=== PATIENT | male | born 1950 | race Caucasian/White ===

== ENCOUNTER 2021-04-19 15:08 | Inpatient (IN) | payer BC, MEDICARE ==
[2021-04-19] MEDS ORDERED: SODIUM CHLORIDE 0.9% 1,000 ML IV STA (15:16)
[2021-04-19] MEDS ORDERED: ASPIRIN 600 MG SUPP RECTAL STA (15:17)
[2021-04-19] MEDS ORDERED: NALOXONE 0.4 MG/ML 1 ML VIAL IV PRN (15:18)
[2021-04-19] MEDS ORDERED: ASPIRIN 300 MG SUPP RECTAL STA (15:19)
--- NOTE | 2021-04-19 15:23 | ED ---
General Adult HPI - General Stated complaint: cardiac arrest Source: EMS Mode of arrival: EMS Limitations: altered mental status - History of Present Illness Initial comments: Dictation was produced using [employer] dictation software. please excuse any grammatical, word or spelling errors. Chief Complaint: 71-year-old male presents to the emergency department after cardiac arrest History of Present Illness: [age]-old male who presents to emergency Department for cardiac arrest. Patient had a witnessed arrest by . He was allegedly sitting on the couch eating chips when he became unresponsive. CPR was initiated within 5 minutes of unresponsiveness noted. The neighbor who is a manager critical care began CPR. 911 was called. EMS arrived on scene noticed patient was in V. fib arrest. He was given defibrillation with return of spontaneous circulation. He is intubated. Patient had 2 rounds of epinephrine. He had another episode of ventricular fibrillation which he was defibrillated again. Return of spontaneous circulation was achieved. I requested that EMS provide patient with 300 amiodarone bolus prior to arrival. Patient allegedly has history of hypertension and anxiety. EMS reports that en route patient did have signs of purposeful movements. Unable to obtain secondary to mental status PHYSICAL EXAM: General Impression: Intubated, not follow commands HEENT: Normocephalic atraumatic, extra-ocular movements intact, pupils equal and reactive to light bilaterally, mucous membranes moist. Cardiovascular: Heart regular rate and rhythm Chest: Easy to bag bilaterally with bilateral breath sounds with BVM Abdomen: abdomen soft, non-tender, non-distended, no organomegaly Musculoskeletal: Pulses present and equal in all extremities, no peripheral edema Motor: No purposeful movements with painful stimuli Neurological: Mildly dilated pupils Skin: Intact with no visualized rashes ED course: 71-year-old male presents to the emergency department for cardiac arrest. He had 2 episodes of atrial fibrillation requiring defibrillation. EMS was able to transmit patient's EKG which showed large ST segment elevation RI. Code STEMI was paged prior to patient's arrival. As upon arrival shows blood pressure 100/86, heart rate of 79. Prehospital EKG shows large anterolateral ST segment elevation RI with inferior reciprocal changes. EKG performed in our em ergency department shows A. fib with ST elevations in inferior leads and lateral leads. Dr. Singh of cardiology is at the bedside during the initial stages of patient's arrival. Patient given rectal aspirin. Patient given heparin bolus. Propofol initiated for sedation. Patient given wide-open normal saline bolus. Chest shows no pneumothorax or widened mediastinum. There does appear to be evidence of pulmonary edema. Patient disposition emergently to the Inside Sales Representative. EKG interpretation: Ventricular rate 82, A. fib, QRS 110, QTc 450, ST segment elevation RI in the inferior leads and septal lateral leads. There are reciprocal changes in the high lateral leads and anterior leads.. EKG consistent with ST segment elevation RI. - Related Data Allergies Allergy/AdvReac Type Severity Reaction Status Date / Time Unable to Assess Allergy Verified 04/19/21 15:29 Review of Systems ROS Statement: Those systems with pertinent positive or pertinent negative responses have been documented in the HPI. ROS Other: All systems not noted in ROS Statement are negative. Past Medical History Additional Past Medical History / Comment(s): unk History of Any Multi-Drug Resistant Organisms: None Reported Additional Past Surgical History / Comment(s): unk Past Psychological History: Anxiety Past Alcohol Use History: Unable to Obtain General Exam Limitations: altered mental status Course Vital Signs 04/19/21 15:14 Pulse Rate 79 Respiratory 24 Rate Blood Pressure 100/86 O2 Sat by Pulse 97 Oximetry Medical Decision Making - Lab Data Result diagrams: 04/19/21 15:20 Lab Results 04/19/21 Range/Units 15:20 WBC 11.0 H (3.8-10.6) k/uL RBC 4.18 L (4.30-5.90) m/uL Hgb 13.1 (13.0-17.5) gm/dL Hct 39.9 (39.0-53.0) % MCV 95.5 (80.0-100.0) fL MCH 31.4 (25.0-35.0) pg MCHC 32.9 (31.0-37.0) g/dL RDW 12.6 (11.5-15.5) % Plt Count 201 (150-450) k/uL MPV 7.2 Neutrophils % 65 % Lymphocytes % 28 % Monocytes % 3 % Eosinophils % 1 % Basophils % 1 % Neutrophils # 7.1 (1.3-7.7) k/uL Lymphocytes # 3.1 (1.0-4.8) k/uL Monocytes # 0.4 (0-1.0) k/uL Eosinophils # 0.1 (0-0.7) k/uL Basophils # 0.1 (0-0.2) k/uL Critical Care Time Critical Care Time: Yes (33) Disposition Clinical Impression: STEMI (ST elevation myocardial infarction) Disposition: ADMITTED IP TO THIS HOSP Condition: Critical Referrals: None,Stated [REFERRING] - 1-2 days
[2021-04-19 15:34] LABS: Basophils # (A) 0.1 k/uL (0-0.2); Basophils % (A) 1 %; Eosinophils # (A) 0.1 k/uL (0-0.7); Eosinophils % (A) 1 %; HCT 39.9 % (39.0-53.0); HGB 13.1 gm/dL (13.0-17.5); Lymphocytes # (A) 3.1 k/uL (1.0-4.8); Lymphocytes % (A) 28 %; MCH 31.4 pg (25.0-35.0); MCHC 32.9 g/dL (31.0-37.0); MCV 95.5 fL (80.0-100.0); Mean Platelet Volume 7.2; Monocytes # (A) 0.4 k/uL (0-1.0); Monocytes % (A) 3 %; Neutrophils # (A) 7.1 k/uL (1.3-7.7); Neutrophils % (A) 65 %; Platelet Count 201 k/uL (150-450); RBC 4.18 m/uL (4.30-5.90); RDW 12.6 % (11.5-15.5)
[2021-04-19] MEDS ORDERED: IV FLUID CONTINUATION 1,000 ML IV ONE (15:41)
--- NOTE | 2021-04-19 15:41 | P.CRDCN ---
History of Present Illness Consult date: 04/19/21 History of present illness: This is a 71-year-old gentleman with history of anxiety, who apparently had a witnessed cardiac arrest at home. Patient was sitting in the chair eating And suddenly lost consciousness and became unresponsive. Patient never started CPR within 5 minutes and the paramedics were called in. When paramedics arrived on the scene, patient was in ventricular fibrillation requiring shock with establishment of circulation. Patient had another witnessed ventricular fibrillation requiring another shock. We will initiated on amiodarone and was brought to the emergency room. Patient was atrial fibrillation with controlled and corresponds. Blood pressure was about 80 to 100 systolic. Chest x-ray showed acute pulmonary edema. Patient is being brought to the environmental laboratory technician for further evaluation and intervention is necessary. Prognosis is poor. Patient is intubated and unresponsive. He had rigidity of the both arms. Has Review of Systems Not obtained Past Medical History Additional Past Medical History / Comment(s): unk History of Any Multi-Drug Resistant Organisms: None Reported Additional Past Surgical History / Comment(s): unk Past Psychological History: Anxiety Past Alcohol Use History: Unable to Obtain Medications and Allergies Allergies Allergy/AdvReac Type Severity Reaction Status Date / Time Unable to Assess Allergy Verified 04/19/21 15:29 Physical Exam Vitals: Vital Signs Pulse Resp BP Pulse Ox 04/19/21 15:14 79 24 100/86 97 Intake and Output 04/19/21 04/19/21 04/19/21 06:59 14:59 22:59 Other: Weight 80 kg GENERAL EXAM: Patient is intubated and unresponsive HEENT: Normocephalic. . NECK: No masses, no nuchal rigidity. CHEST: No chest wall deformity. LUNGS: [wheezing HEART: [S1 and S2 normal Distant heart sounds SKIN: No rashes CENTRAL NERVOUS SYSTEM: Deferred. EXTREMITIES: [No cyanosis, clubbing or edema.] Results 04/19/21 15:20 CBC 04/19/21 Range/Units 15:20 WBC 11.0 H (3.8-10.6) k/uL RBC 4.18 L (4.30-5.90) m/uL Hgb 13.1 (13.0-17.5) gm/dL Hct 39.9 (39.0-53.0) % Plt Count 201 (150-450) k/uL Current Medications Generic Name Dose Route Start Last Admin Trade Name Freq PRN Reason Stop Dose Admin Sodium Chloride 1,000 mls @ 999 mls/hr 04/19/21 15:16 Saline 0.9% IV 04/19/21 16:16 .Q1H1M STA Naloxone HCl 0.2 mg 04/19/21 15:18 Naloxone 0.4 Mg/Ml 1 Ml Vial IV Q2M PRN Opioid Reversal Intake and Output 04/19/21 04/19/21 04/19/21 06:59 14:59 22:59 Other: Weight 80 kg Patient Weight 04/20/21 06:59 Weight 80 kg 04/19/21 15:20 EKG Interpretations (text) Atrial fibrillation with ST elevation in inferolateral leads Assessment and Plan (1) Cardiac arrest Current Visit: Yes Status: Acute Code(s): I46.9 - CARDIAC ARREST, CAUSE UNSPECIFIED SNOMED Code(s): 065908850 (2) STEMI (ST elevation myocardial infarction) Current Visit: Yes Status: Acute Code(s): I21.3 - ST ELEVATION (STEMI) MYOCARDIAL INFARCTION OF [facility] SITE SNOMED Code(s): 58574453 Plan: Procedure cardiac catheterization
[2021-04-19 15:44] LABS: Albumin 3.2 g/dL (3.5-5.0); Calcium 7.9 mg/dL (8.4-10.2); Magnesium 2.2 mg/dL (1.6-2.3); Potassium 4.1 mmol/L (3.5-5.1); Total Bilirubin 0.3 mg/dL (0.2-1.3); Total Protein 5.9 g/dL (6.3-8.2)
[2021-04-19] MEDS ORDERED: LIDOCAINE 1% INJ 10MG/ML (20 ML MDV) SQ ONE (15:44)
[2021-04-19] MEDS ORDERED: FUROSEMIDE 10 MG/ML 4 ML VIAL IV ONE (15:46)
[2021-04-19] MEDS ORDERED: HEPARIN SODIUM 1,000 UN/ML (10ML VL) IV ONE (15:48)
[2021-04-19 15:50] LABS: INR 1.2 (<1.2); Partial Thromboplastin Time 22.2 sec (22.0-30.0); Prothrombin Time 12.6 sec (9.0-12.0)
[2021-04-19] MEDS ORDERED: NOREPINEPHRINE 4 MG in SODIUM CHLORIDE 0.9% 250 ML IV ONE (15:50)
--- NOTE | 2021-04-19 15:53 | XR ---
EXAMINATION TYPE: XR chest 1V portable DATE OF EXAM: 04/19/2021 COMPARISON: NONE HISTORY: Chest pain TECHNIQUE: Single frontal view of the chest is obtained. FINDINGS: Endotracheal tube tip over the mid trachea. Gastric tube turned upon itself coursing crani ally with the distal tip not seen. The cardiomediastinal silhouette normal limits. The pulmonary vasculature is indistinct. There is diffuse patchy opacity bilaterally. No large effusion or pneumothorax. IMPRESSION: 1. Diffuse, bilateral airspace disease 2. Gastric tube turned upon itself over the mid-esophagus and coursing cranially with the distal tip not seen. Findings were attempted to be communicated to the emergency room ([facility]) by Dr. Saurav Jacobsen on 04/06 at 1549.
[2021-04-19] MEDS ORDERED: TIROFIBAN BOLUS 12.5MG/250 ML BAG IV ONE (16:00)
[2021-04-19] MEDS ORDERED: TIROFIBAN 12.5MG-250ML NS 250 ML IV ONE (16:00)
[2021-04-19] MEDS ORDERED: HEPARIN SODIUM 1,000 UN/ML (10ML VL) ONE (16:02)
--- NOTE | 2021-04-19 16:04 | P.CARDCATH ---
Date of Procedure: 04/19/21 Preoperative Diagnosis: cardiac arrest and STEMI Postoperative Diagnosis: , severe triple-vessel disease Procedure(s) Performed: left heart catheterization without left ventriculography Description of Procedure: HISTORY: this is a 71-year-old gentleman who presented to the hospital with cardiac arrest. EKG showed ST elevations in inferolateral and anterolateral leads. Advised to have Cardiac catheterization. CONSENT:I [] PROCEDURE: Patient was brought to the lab in a fasting state. . The right groin is infiltrated with lidocaine and right femoral artery was entered using Seldinger technique. A 6-Trinidadian catheter was left in place and selective coronary arteriography and left ventriculography was performed. Patient tolerated the procedure well. Femoral angiogram was performed and Angio-Seal was applied for hemostasis. No immediate complications were noted and patient was transferred to [facility] in a stable condition Conscious Sedation: patient is intubated and sedated Fentanyl [] g Duration 10minutes HEMODYNAMICS: The aortic pressure is about 90/60 SELECTIVE CORONARY ARTERIOGRAPHY: LEFT MAIN: normal length with diffuse disease THE LEFT ANTERIOR DESCENDING CORONARY ARTERY: Totally occluded in the midportion. Diffuse disease. The distal LAD is seen with collateral flow THE LEFT CIRCUMFLEX AND IS CORONARY ARTERY: This is totally occluded after first OM branch. Distal LAD is seen collateral flow THE RIGHT CORONARY ARTERY: Nondominant with a long lesion in the midportion with 95% stenosis LEFT VENTRICULOGRAPHY: not performed FINAL IMPRESSION: Triple-vessel disease. The circumflex could be the culprit vessel PLAN: stent placement being attempted by Dr. Gould PROGNOSIS: poor
[2021-04-19] MEDS ORDERED: IOPAMIDOL-370 125ML BTL INJ ONE (16:09)
[2021-04-19] MEDS ORDERED: SODIUM CHLORIDE 0.9% 500 ML 500 ML IV ONE (16:44)
[2021-04-19] MEDS ORDERED: TICAGRELOR 90 MG TAB ONE (17:29)
[2021-04-19] MEDS ORDERED: INSULIN ASPART (NovoLOG) 100 UNIT/ML VIAL SQ SCH (17:30)
[2021-04-19] MEDS ORDERED: TICAGRELOR 90 MG TAB OG-TUBE ONE (17:31)
[2021-04-19] MEDS ORDERED: IOPAMIDOL-370 100ML BTL INJ ONE (17:33)
[2021-04-19] MEDS ORDERED: ATROPINE SULFATE 0.1 MG/ML 10ML SYRINGE IV PRN (17:44)
[2021-04-19] MEDS ORDERED: ZOLPIDEM 5 MG TAB PO PRN (17:44)
[2021-04-19] MEDS ORDERED: RX INFO: IV CONTRAST WAS GIVEN 1 EACH MISC MISCELLANE PRN (17:44)
[2021-04-19] MEDS ORDERED: NITROGLYCERIN SL TABS 0.4 MG TAB SUBLINGUAL PRN (17:44)
[2021-04-19] MEDS ORDERED: MAG HYDROX/AL HYDROX/SIMETH 30 ML CUP PO PRN (17:44)
--- NOTE | 2021-04-19 17:44 | P.PRCINT ---
Percutaneous Coronary Int. - Percutaneous Coronary Intervention Percutaneous Coronary Intervention: PROCEDURES PERFORMED: Left coronary angiography, PCI mid to distal LAD with overlapping 2.75 x 28mm, 2.5 x 33mm, 2.25 x 38 Xience NETTIE, 2.0 x 8 and 2.0 x 8mm Parrott NETTIE INDICATION: STEMI, vfib arrest HISTORY: Patient is a 71-year-old male with history of hypertension who presented with chest pain and witnessed cardiac arrest. Patient underwent a proximally 5 minutes of CPR per EMS with defibrillation for V. fib and Rosc. He was found to have minimal ST elevation anterior leads and therefore emergency heart catheterization was performed. Diagnostic procedure performed by my partner showed diffuse disease including 100% mid LAD, 100% RCA with [id number] collaterals as well as 100% subtotal circumflex with left to left collaterals. PROCEDURE: Patient had been taken to the catheterization lab and prepped and draped in usual fashion. A 6-Ukrainian sheath had already been placed in the right femoral artery using modified Seldinger technique. The decision was made to intervene on the LAD as they had been predominantly ST elevations in the anterior leads. A 6-Ukrainian CLS 3.5 guide was used to engage the left main. A 0.014 BMW wire was unable to cross the lesion however a 0.014 whisper wire was able to cross the lesion. There was diffuse disease noted in the mid to apical LAD. A guidewire was used to help facilitate advancement of equipment. Initially a 2.0 balloon had difficulty crossing and therefore a 1.5 x 12 mm balloon was used to predilate and then a 2.0 x 12 mm balloon. A 2.5 x 33 mm Xience NETTIE was positioned in the mid LAD and deployed. More proximaly a 2.75 x 28 mm Xience NETTIE was positioned overlapping the first stent and more distally a 2.25 x 38mm Xience NETTIE was deployed. There was still a apical lesion with inability to advance a 2.0 x 12 mm Parrott NETTIE and therefore two 2.0 x 8mm Parrott NETTIE were advanced to the apical LAD and deployed. The proximal portion of the stent was postdilated with a 2.75 noncompliant balloon. Pre-intervention there was 100% stenosis with KEENA 0 flow and postintervention there is less than 10% stenosis with KEENA 3 flow. Given contrast threshold further intervention of the circumflex or RCA was deferred. The patient tolerated the procedure well. Patient was transported back to the post catheterization holding area in stable condition. Conscious Sedation: Patient was monitored under the direct supervision of vision of myself for conscious sedation for a total duration of 87 minutes HEMODYNAMICS: Ao: 92/61 LV: 98/2, LVEDP 10mmHg SELECTIVE CORONARY ARTERIOGRAPHY: LEFT MAIN: The left main is a large caliber vessel which bifurcates into the LAD and circumflex. There is distal left main 20-30% stenosis. LEFT ANTERIOR DESCENDING CORONARY ARTERY: LAD is a large caliber vessel which wraps around to the apex. There is diffuse mild proximal 20-30% LAD stenosis then a 100% mid LAD with diffuse more distal 50-80% stenosis until the apical LAD is somewhat more normal in appearance. There are left to right collaterals. LEFT CIRCUMFLEX CORONARY ARTERY: Left circumflex is a moderate caliber vessel with 100% proximal circumflex stenosis and faint left to left collaterals to a few OM branchs. The circumflex stenosis appears to come immediately at the ostium. RIGHT CORONARY ARTERY: The right coronary artery was not imaged, see diagnostic catheterization, however is 100% occluded. FINAL IMPRESSION: 1. Multivessel CAD as described above with 100% LAD, 100% circumflex and 100% RCA stenosis. 2. Normal left sided filling pressures 3. S/p cardiac arrest PLAN: 1. Aggressive risk factor modification per most recent ACC/AHA guidelines. 2. Continue dual antiplatelets for 12 months. 3. Consider staged PCI of circumflex/ or MECHANICAL PIPING DESIGNER procedure of the RCA however circumflex disease noted to come to the ostium and may require more complex left main stenting. Monitor response of neurologic status.
[2021-04-19 17:54] LABS: Glucose,Whole Blood 197 mg/dL (75-99)
[2021-04-19 18:18] LABS: ABG Base Excess -5.2 mmol/L; ABG HCO3 21 mmol/L (21-25); ABG Oxygen Saturation 99.3 % (94-97); ABG PCO2 44 mmHg (35-45); ABG PO2 388 mmHg (83-108); ABG TCO2 23 mmol/L (19-24); Allen Test Performed? Yes
--- NOTE | 2021-04-19 18:51 | P.HPIM ---
History of Present Illness H&P Date: 04/19/21 Chief Complaint: STEMI This is a 71-year-old male who presented to the emergency department after cardiac arrest. Most of HPI was was taken from documentation. Per documents patient had a witnessed arrest by his while he was sitting on the couch eating potato chips. CPR was initiated for 5 minutes. Patient continued to be unresponsive. Neighbor who is a machinery erector was called and began CPR. Upon arrival, EMS identified defib arrest. Patient was defibrillated with return of spontaneous circulation. Patient was intubated and given 2 rounds of epinephrine. Patient was taken straight to track laborer for STEMI. EKG showed ST elevations in the inferolateral and anterolateral leads. 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 Per documentation the circumflex could be the culprit vessel. Review of Systems Unable to obtain due to altered mental status patient is on a vent sedated Past Medical History Additional Past Medical History / Comment(s): unk History of Any Multi-Drug Resistant Organisms: None Reported Additional Past Surgical History / Comment(s): unk Past Psychological History: Anxiety Past Alcohol Use History: Unable to Obtain Medications and Allergies Home Medications Medication Instructions Recorded Confirmed Type ALPRAZolam [Xanax] 0.25 mg PO BID PRN 04/19/21 04/19/21 History Aspirin EC [Ecotrin Low Dose] 81 mg PO DAILY 04/19/21 04/19/21 History Biotin 5 mg PO DAILY 04/19/21 04/19/21 History Escitalopram [Lexapro] 30 mg PO DAILY 04/19/21 04/19/21 History Multivitamins, Thera [Multivitamin 1 tab PO DAILY 04/19/21 04/19/21 History (formulary)] QUEtiapine [SEROquel] 50 mg PO HS 04/19/21 04/19/21 History Selenium 50 mcg PO DAILY 04/19/21 04/19/21 History busPIRone HCl [Buspar] 10 mg PO BID 04/19/21 04/19/21 History hydrOXYzine HCL [Atarax] 25 mg PO DAILY 04/19/21 04/19/21 History lisinopriL [Zestril] 20 mg PO DAILY 04/19/21 04/19/21 History Allergies Allergy/AdvReac Type Severity Reaction Status Date / Time bee venom protein (honey bee) Allergy Swelling Verified 04/19/21 17:48 Physical Exam Osteopathic Statement: *. No significant issues noted on an osteopathic structural exam other than those noted in the History and Physical/Consult. Vitals: Vital Signs Pulse Resp BP Pulse Ox 04/19/21 15:28 91 24 92/58 96 04/19/21 15:24 90 24 80/67 96 04/19/21 15:19 86 24 86/60 97 04/19/21 15:14 84 24 70/47 97 04/19/21 15:09 79 24 100/86 97 Intake and Output 04/19/21 04/19/21 04/19/21 06:59 14:59 22:59 Intake Total 0.8 Balance 0.8 Intake: IV 0 Intake, IV Titration 0.8 Amount propofoL 1,000 mg In 0.8 Empty Bag 1 bag @ Titrate IV .Q0M [facility] Rx#: [id number] Other: Weight 80 kg General: Patient is on a vent and unresponsive Derm: [warm], [dry] Head: [atraumatic], [normocephalic], [symmetric] Eyes: [EOMI], [no lid lag], [anicteric sclera] Mouth: [no lip lesion], [mucus membranes moist] Cardiovascular: [S1S2 reg], [no murmur], [positive posterior tibial pulse bilateral], Lungs: [bilateral crackles] , [no accessory muscle use] Abdominal: [soft], [ nontender to palpation], [no guarding], [no appreciable organomegaly] Ext: [no gross muscle atrophy], [no edema], [no contractures] Neuro: [ CN II-XI grossly intact], [no focal neuro deficits] Psych: Unresponsive Results CBC & Chem 7: 04/19/21 15:20 04/19/21 15:20 Labs: Abnormal Lab Results - Last 24 Hours (Table) 04/19/21 04/19/21 04/19/21 Range/Units 15:20 15:20 15:20 WBC 11.0 H (3.8-10.6) k/uL RBC 4.18 L (4.30-5.90) m/uL PT 12.6 H (9.0-12.0) sec INR 1.2 H (<1.2) Sodium 134 L (137-145) mmol/L Carbon Dioxide 20 L (22-30) mmol/L BUN 28 H (9-20) mg/dL Creatinine 1.26 H (0.66-1.25) mg/dL Glucose 279 H (74-99) mg/dL Calcium 7.9 L (8.4-10.2) mg/dL AST 402 H (17-59) U/L ALT 352 H (4-49) U/L Total Protein 5.9 L (6.3-8.2) g/dL Albumin 3.2 L (3.5-5.0) g/dL Thrombosis Risk Factor Assmnt - DVT/VTE Prophylaxis DVT/VTE Prophylaxis: Pharmacologic Prophylaxis ordered Assessment and Plan Assessment: 1. Ventilator dependent respiratory failure secondary to cardiac arrest STEMI ICU supportive care Patient is status post cardiac cath triple vessel disease identified per documents stent placement being attempted by Dr. Gould IV heparin Cardiology recommendations appreciated 2. KAVITHA secondary to hypoperfusion due to #1 Continue to trend BMP 3. Hyperglycemia likely underlying diabetes mellitus Insulin sliding scale Check hemoglobin A1c 4. Elevated liver enzymes likely secondary to hypoperfusion rule out liver disease Monitor AST and ALT Check hepatitis panel 5. Leukocytosis likely reactive Continue to trend white blood cell count 6. Bilateral pulmonary effusions likely due to heart failure Check BNP Lasix daily Strict I's and O's 7. GI DVT prophylaxis 8. A.m. labs and chest x-ray Greater than 45 minutes spent coordinating care, documentation, and counseling family. Time with Patient: Greater than 30
[2021-04-19] MEDS: NOREPINEPHRINE 4 MG in SODIUM CHLORIDE 0.9% 250 ML IV SCH (19:30)
--- NOTE | 2021-04-19 19:37 | XR ---
EXAMINATION TYPE: XR chest 1V portable DATE OF EXAM: 04/19/2021 COMPARISON: 04/19/2021 HISTORY: Cardiac arrest. Respiratory failure. TECHNIQUE: FINDINGS: Endotracheal tube is 5 cm from the era. There is coarse pulmonary interstitial edema. Th ere is nasogastric tube in the stomach. There are chest leads. IMPRESSION: There is coarse pulmonary edema which is slightly improved compared to exam 4 hours ago.
[2021-04-19] MEDS: SODIUM CHLORIDE 0.9% 1,000 ML IV SCH (20:00)
[2021-04-19 20:18] LABS: Basophils # (A) 0.1 k/uL (0-0.2); Basophils % (A) 0 %; Eosinophils # (A) 0.1 k/uL (0-0.7); Eosinophils % (A) 0 %; HCT 42.4 % (39.0-53.0); HGB 13.8 gm/dL (13.0-17.5); Lymphocytes # (A) 0.8 k/uL (1.0-4.8); Lymphocytes % (A) 3 %; MCH 30.6 pg (25.0-35.0); MCHC 32.5 g/dL (31.0-37.0); MCV 94.1 fL (80.0-100.0); Mean Platelet Volume 7.1; Monocytes # (A) 1.8 k/uL (0-1.0); Monocytes % (A) 7 %; Neutrophils % (A) 88 %; Platelet Count 267 k/uL (150-450); RBC 4.51 m/uL (4.30-5.90); RDW 12.6 % (11.5-15.5); WBC 24.9 k/uL (3.8-10.6)
[2021-04-19 20:47] LABS: Calcium 8.6 mg/dL (8.4-10.2); Magnesium 1.9 mg/dL (1.6-2.3); Potassium 5.1 mmol/L (3.5-5.1)
[2021-04-19 21:13] LABS: Glucose,Whole Blood 235 mg/dL (75-99)
[2021-04-19] MEDS: TICAGRELOR 90 MG TAB PO SCH (21:30)
[2021-04-19] MEDS: PANTOPRAZOLE 40 MG/10 ML VIAL IVP SCH (21:30)
[2021-04-19] MEDS: ATORVASTATIN 80 MG TAB PO SCH (21:32)
--- NOTE | 2021-04-20 00:18 | CT ---
EXAMINATION TYPE: CT brain wo con DATE OF EXAM: 04/19/2021 COMPARISON: None HISTORY: AMS. no prior on PACS CT DLP: 1123.4 mGycm Automated exposure control for dose reduction was used. Images obtained of the brain without contrast. Ventricles have fairly normal size. There is no mass effect nor midline shift. There is no sign of in tracranial hemorrhage. Calvarium is intact. There is fairly normal aeration of the mastoid sinuses. T here is mild cerebral atrophy. IMPRESSION: Mild atrophy. No acute intracranial abnormality.
[2021-04-20 05:52] LABS: ABG Base Excess -0.2 mmol/L; ABG HCO3 25 mmol/L (21-25); ABG Oxygen Saturation 97.7 % (94-97); ABG PCO2 40 mmHg (35-45); ABG PO2 111 mmHg (83-108); ABG TCO2 26 mmol/L (19-24); Allen Test Performed? Yes
[2021-04-20 06:18] LABS: Glucose,Whole Blood 210 mg/dL (75-99)
[2021-04-20] MEDS: INSULIN ASPART (NovoLOG) 100 UNIT/ML VIAL SQ SCH ×4 (06:24→23:46)
--- NOTE | 2021-04-20 06:32 | P.CNPUL ---
History of Present Illness Consult date: 04/20/21 History of present illness: 71-year-old male patient was seen in the ED , immediately after his arrival post cardiac arrest. The patient was at home and he had a witnessed cardiac arrest and the called the neighbor the patient was started on CPR. Within 5 minutes, EMS arrived to the scene and the patient had epinephrine, amiodarone and defibrillation 2 with subsequent return of smoking circulation. At the time of his arrival to the ED, the patient was already intubated on mechanical ventilator. His EKG was showing ST segment elevation in the inferolateral leads. At that point, the patient was taken immediately to cardiac catheterization. The patient was found to have diffuse disease involving 100% mid LAD, 100% RCA with a [id number] collaterals as well as 100% subtotal circumflex with left to left collaterals. The patient underwent PCI with mid to distal LAD stenting with a total of 5 stents inserted. Apparently his filling pressures were normal. Will start on dual antiplatelet agents. Was brought into the intensive care unit. He was sedated with propofol was currently running at 50 mics are as per kilogram per minute. CAT scan of the brain was done overnight for that showed no acute abnormalities. While on mechanical ventilator, the patient is on AC rate of 24, TV 450, Fio2 50% and he is pn a PEEP of 5. He is also on norepin ephrine running at 0.9 mics are as per kilogram per minute and he has developed adequate urine output overnight. Today intensive care unit with adequate urine output. Cardiac rhythm is sinus. Subsequent gas from this morning showed a pH of 7.4 with a pCO2 of 40 and pO2 of 111. COVID-19 testing was negative. Chest x-ray was consistent with interstitial/pulmonary edema. There was 34 with a cre atinine of 1.1 at time of admission and her white cell count was 24.9 with a hemoglobin of 13.8. The first set of troponin was less than 0.012. He did have some mild elevation of the AST and ALT.. No seizure activity. No myoclonic jerks. No clear history of aspiration. Review of Systems ROS unobtainable: due to endotracheal tube Past Medical History Past Medical History: Hypertension, Myocardial Infarction ([place]) Additional Past Medical History / Comment(s): unk Last Myocardial Infarction Date:: 04/19/21 History of Any Multi-Drug Resistant Organisms: None Reported Past Surgical History: Back Surgery, Tonsillectomy Additional Past Surgical History / Comment(s): unk Past Anesthesia/Blood Transfusion Reactions: No Reported Reaction Past Psychological History: Anxiety Past Alcohol Use History: Unable to Obtain - Past Family History Brother(s) Family Medical History: Coronary Artery Disease (CAD), Hyperlipidemia, Hypertension Father Family Medical History: Dementia Sister(s) Family Medical History: Cancer Additional Family Medical History / Comment(s): breast Medications and Allergies Home Medications Medication Instructions Recorded Confirmed Type ALPRAZolam [Xanax] 0.25 mg PO BID PRN 04/19/21 04/19/21 History Aspirin EC [Ecotrin Low Dose] 81 mg PO DAILY 04/19/21 04/19/21 History Biotin 5 mg PO DAILY 04/19/21 04/19/21 History Escitalopram [Lexapro] 30 mg PO DAILY 04/19/21 04/19/21 History Multivitamins, Thera [Multivitamin 1 tab PO DAILY 04/19/21 04/19/21 History (formulary)] QUEtiapine [SEROquel] 50 mg PO HS 04/19/21 04/19/21 History Selenium 50 mcg PO DAILY 04/19/21 04/19/21 History busPIRone HCl [Buspar] 10 mg PO BID 04/19/21 04/19/21 History hydrOXYzine HCL [Atarax] 25 mg PO DAILY 04/19/21 04/19/21 History lisinopriL [Zestril] 20 mg PO DAILY 04/19/21 04/19/21 History Allergies Allergy/AdvReac Type Severity Reaction Status Date / Time bee venom protein (honey bee) Allergy Swelling Verified 04/19/21 17:48 Physical Exam Vitals: Vital Signs Temp Pulse Pulse Resp BP Pulse Ox 04/20/21 06:00 73 24 109/58 97 04/20/21 05:45 72 24 114/56 97 04/20/21 05:30 67 24 118/60 98 04/20/21 05:15 67 24 111/65 97 04/20/21 05:00 65 24 118/59 97 04/20/21 04:45 66 24 109/56 98 04/20/21 04:30 63 17 115/63 97 11/15/21 04:15 63 20 83/49 97 04/20/21 04:00 98.4 F 68 65 24 98/57 98 04/20/21 03:45 65 13 94/57 98 04/20/21 03:30 64 24 95/56 98 04/20/21 03:15 65 24 94/55 98 04/20/21 03:00 65 26 H 99/57 98 04/20/21 02:45 67 26 H 93/56 98 04/20/21 02:30 67 24 99/57 97 04/20/21 02:15 66 24 112/64 97 04/20/21 02:00 68 28 H 84/56 100 04/20/21 01:45 75 24 94/58 98 04/20/21 01:30 70 24 94/60 100 04/20/21 01:15 72 24 95/59 100 04/20/21 01:00 68 24 85/55 100 04/20/21 00:45 73 24 86/56 100 04/20/21 00:30 72 14 87/57 100 04/20/21 00:15 72 10 L 88/62 100 04/20/21 00:00 98.5 F 71 73 24 108/64 99 04/19/21 23:15 75 24 81/56 04/19/21 23:00 82 25 H 87/55 100 04/19/21 22:45 82 24 89/69 100 04/19/21 22:30 85 24 116/74 100 04/19/21 22:15 85 24 100/68 100 04/19/21 22:00 82 24 154/97 99 04/19/21 21:45 81 24 135/76 100 04/19/21 21:30 78 24 134/75 100 04/19/21 21:15 74 24 124/64 100 04/19/21 21:00 70 24 122/68 100 04/19/21 20:45 69 24 124/65 100 04/19/21 20:30 68 24 131/70 100 04/19/21 20:15 71 24 126/69 100 04/19/21 20:00 71 70 24 125/85 100 04/19/21 19:45 70 24 111/68 100 04/19/21 19:40 97.6 F 72 24 111/68 100 04/19/21 19:30 73 24 99/65 100 04/19/21 19:20 73 24 99/67 100 04/19/21 19:10 70 24 95/58 99 04/19/21 19:00 70 24 86/56 100 04/19/21 18:50 69 24 86/56 100 04/19/21 18:40 70 24 107/63 100 04/19/21 18:30 71 24 126/77 100 04/19/21 18:20 67 24 126/77 100 04/19/21 18:10 71 17 138/86 100 04/19/21 18:00 71 27 H 143/79 100 04/19/21 17:50 97.8 F 71 26 H 143/79 100 04/19/21 15:28 91 24 92/58 96 04/19/21 15:24 90 24 80/67 96 04/19/21 15:19 86 24 86/60 97 04/19/21 15:14 84 24 70/47 97 04/19/21 15:09 79 24 100/86 97 Intake and Output 04/19/21 04/19/21 04/20/21 14:59 22:59 06:59 Intake Total 1032.640 625 Output Total 765 495 Balance 267.640 130 Intake: IV 800 525 Sodium Chloride 0.9% 1, 150 525 000 ml @ 75 mls/hr IV . [id number] KIKI Rx#:[id number] Intake, IV Titration 232.640 100 Amount Norepinephrine 4 mg In 86.360 Sodium Chloride 0.9% 250 ml @ 0.05 MCG/KG/MIN 15. 24 mls/hr IV .[id number] KIKI Rx#:[id number] propofoL 1,000 mg In 146.28 100 Empty Bag 1 bag @ Titrate IV .Q0M KIKI Rx#: [id number] Output: Urine 765 495 Other: Voiding Method Indwelling Catheter Indwelling Catheter Weight 91.8 kg 91.9 kg Gen. appearance, comfortable active distress currently is sedated with propofol. Orogastric and orotracheal tube are both in place. Head exam was generally normal. There was no scleral icterus or corneal arcus. Mucous membranes were moist. Neck was supple and without jugular venous distension, thyromegaly, or carotid bruits. Carotids were easily palpable bilaterally. There was no adenopathy. Lungs sounds are showing scattered rhonchi otherwise breath sounds are equal and symmetrical bilaterally. No significant wheezing Cardiac exam revealed the PMI to be normally situated and sized. The rhythm was regular and no extrasystoles were noted during several minutes of auscultation. The first and second heart sounds were normal and physiologic splitting of the second heart sound was noted. There were no murmurs, rubs, clicks, or gallops. Abdominal exam revealed normal bowel sounds. The abdomen was soft, non-tender, and without masses, organomegaly, or appreciable enlargement of the abdominal aorta. Extremities revealed adequate pulses and there is no cyanosis or clubbing at this point in time Neurologically sedated, and the patient was responsive to painful stimulation and he had to be sedated with propofol Examination of the skin revealed no evidence of significant rashes, suspicious appearing nevi or other concerning lesions. Results - Laboratory Findings CBC and BMP: 04/19/21 19:57 04/19/21 19:57 ABG ABG pH 7.40 (7.35-7.45) 04/20/21 05:45 ABG pCO2 40 mmHg (35-45) 04/20/21 05:45 ABG pO2 111 mmHg (83-108) H 04/20/21 05:45 ABG O2 Saturation 97.7 % (94-97) H 04/20/21 05:45 PT/INR, D-dimer PT 12.6 sec (9.0-12.0) H 04/19/21 15:20 INR 1.2 (<1.2) H 04/19/21 15:20 Abnormal lab findings: Abnormal Labs 04/19/21 04/19/21 04/19/21 15:20 15:20 15:20 WBC 11.0 H RBC 4.18 L Neutrophils # Lymphocytes # Monocytes # PT 12.6 H INR 1.2 H ABG pH ABG pO2 ABG Total CO2 ABG O2 Saturation Sodium 134 L Carbon Dioxide 20 L BUN 28 H Creatinine 1.26 H Glucose 279 H POC Glucose (mg/dL) Calcium 7.9 L AST 402 H ALT 352 H Total Protein 5.9 L Albumin 3.2 L 04/19/21 04/19/21 04/19/21 17:51 18:16 19:57 WBC 24.9 H RBC Neutrophils # 22.0 H Lymphocytes # 0.8 L Monocytes # 1.8 H PT INR ABG pH 7.30 L ABG pO2 388 H ABG Total CO2 ABG O2 Saturation 99.3 H Sodium Carbon Dioxide BUN Creatinine Glucose POC Glucose (mg/dL) 197 H Calcium AST ALT Total Protein Albumin 04/19/21 04/19/21 04/20/21 19:57 21:12 05:45 WBC RBC Neutrophils # Lymphocytes # Monocytes # PT INR ABG pH ABG pO2 111 H ABG Total CO2 26 H ABG O2 Saturation 97.7 H Sodium 134 L Carbon Dioxide 16 L BUN 34 H Creatinine Glucose 221 H POC Glucose (mg/dL) 235 H Calcium AST ALT Total Protein Albumin 04/20/21 06:16 WBC RBC Neutrophils # Lymphocytes # Monocytes # PT INR ABG pH ABG pO2 ABG Total CO2 ABG O2 Saturation Sodium Carbon Dioxide BUN Creatinine Glucose POC Glucose (mg/dL) 210 H Calcium AST ALT Total Protein Albumin - Diagnostic Findings Chest x-ray: image reviewed Assessment and Plan Plan: 1 acute V. fib cardiac arrest, witnessed, estimated down time approximately 5 minutes, received CPR, epinephrine, amiodarone, defibrillation 2 with subsequent return of spontaneous circulation [address] segment elevation myocardial infarction. Emergent cardiac catheterization showed diffuse coronary artery disease, multivessel involvement culprit being likely the circumflex 3 emergent cardiac catheterization and stenting of the LAD 5 4 acute hypoxic respiratory failure currently intubated on mechanical ventilator, currently sedated on mechanical ventilator. Chest x-ray was reviewed. Blood Was reviewed. 5 diffuse bilateral pulmonary infiltrates, consider interstitial edema versus aspiration 6 acute leukocytosis, likely reactive 7 acute hypotension post cardiac arrest, likely cardiogenic in nature currently on norepinephrine infusion for blood pressure control Plan Continue ventilator support and FiO2 has been weaned down to 40% Gentle hydration With normal saline at the rate of 75 mL an hour Keep the patient sedated with propofol Continue dual antiplatelet agents including aspirin and Brilinta intoEchocardiogram in the morning to evaluate LV function Continue norepinephrine for hemodynamic support currently on 0.9 macro hospital kilogram per minute. Recommend gradually wean Monitor white cell count Cover this patient with empiric antibiotic coverage with IV Zosyn for potential aspiration IV Protonix Heparin subcu High-dose statins Gradually wean off pressors based on the blood pressure response, keep a mean artery pressure above 65 Possible other intervention regarding the circumflex artery in the future. This will be discussed further with cardiology. Condition is critical. Look for any signs of anoxic encephalopathy despite the short downtime.
[2021-04-20 07:00] LABS: Basophils % (A) 0 %; Eosinophils % (A) 0 %; HCT 36.4 % (39.0-53.0); HGB 12.1 gm/dL (13.0-17.5); Lymphocytes # (A) 0.6 k/uL (1.0-4.8); Lymphocytes % (A) 5 %; MCH 30.8 pg (25.0-35.0); MCHC 33.3 g/dL (31.0-37.0); MCV 92.4 fL (80.0-100.0); Mean Platelet Volume 7.1; Monocytes # (A) 0.8 k/uL (0-1.0); Monocytes % (A) 6 %; Neutrophils # (A) 11.2 k/uL (1.3-7.7); Neutrophils % (A) 88 %; Platelet Count 194 k/uL (150-450); RBC 3.94 m/uL (4.30-5.90); RDW 12.9 % (11.5-15.5); WBC 12.7 k/uL (3.8-10.6)
[2021-04-20 07:36] LABS: ALT 281 U/L (4-49); AST 275 U/L (17-59); African American GFR (CKD) 77 (>60 ml/min/1.73 sqM); Albumin 3.1 g/dL (3.5-5.0); Alkaline Phosphatase 47 U/L (38-126); Anion Gap 6 mmol/L; Blood Urea Nitrogen 36 mg/dL (9-20); Calcium 8.5 mg/dL (8.4-10.2); Carbon Dioxide 24 mmol/L (22-30); Chloride 106 mmol/L (98-107); Glucose 212 mg/dL (74-99); Magnesium 1.9 mg/dL (1.6-2.3); Non-African American GFR(CKD) 66 (>60 ml/min/1.73 sqM); Phosphorus 4.3 mg/dL (2.5-4.5); Potassium 5.1 mmol/L (3.5-5.1); Sodium 136 mmol/L (137-145); Total Bilirubin 0.5 mg/dL (0.2-1.3); Total Protein 5.8 g/dL (6.3-8.2)
[2021-04-20] MEDS ORDERED: FUROSEMIDE 10 MG/ML 2 ML VIAL IV SCH (09:00)
[2021-04-20] MEDS: TICAGRELOR 90 MG TAB PO SCH ×2 (09:15→20:41)
[2021-04-20] MEDS: CHLORHEXIDINE GLUCONATE 15 ML CUP MUCOUS MEM SCH ×2 (09:15→20:41)
[2021-04-20] MEDS: ASPIRIN 81 MG PO SCH (09:15)
[2021-04-20] MEDS: HEPARIN SODIUM,PORCINE/PF 5,000 UNIT/0.5 ML SYRINGE SQ SCH ×2 (09:16→20:41)
[2021-04-20] MEDS: PIPERACILLIN-TAZOBACTAM 3.375 GM in SODIUM CHLORIDE 0.9% 100 ML IVPB SCH ×3 (09:16→23:46)
[2021-04-20] MEDS: PANTOPRAZOLE 40 MG/10 ML VIAL IVP SCH (09:16)
[2021-04-20] MEDS: SODIUM CHLORIDE 0.9% 1,000 ML IV SCH ×2 (09:16→20:41)
--- NOTE | 2021-04-20 09:17 | XR ---
EXAMINATION TYPE: XR chest 1V portable DATE OF EXAM: 04/20/2021 COMPARISON: 04/19/2021 HISTORY: Shortness of breath TECHNIQUE: Single frontal view of the chest is obtained. FINDINGS: ET and NG tube stable. There is bilateral infiltrate and small effusion. NG tube is within the distal esophagus. Hypertrophic degenerative change of the spine. Arthropathy shoulders. IMPRESSION: 1. Diffuse bilateral infiltrate stable. 2. NG tube is within the distal esophagus correlate for repositioning
[2021-04-20] MEDS: NOREPINEPHRINE 4 MG in SODIUM CHLORIDE 0.9% 250 ML IV SCH (09:30)
--- NOTE | 2021-04-20 09:36 | PN ---
PROGRESS NOTE Mr. Aldrich underwent a stenting of LAD performed by Dr. Gould. He was evaluated by Dr. Singh following what seems to be a cardiac arrest with ST elevation in the inferolateral leads. He has significant disease in RCA and circumflex. LAD was stented. Patient neurologically cannot be assessed because he is still sedated. However, his hemodynamically reasonably stable. The chest x-ray suggests some congestive heart failure. I am going to increase the Lasix to 20 mg q.12 hours, add a small dose of Coreg starting this evening and await further neuro evaluation. We will check echocardiogram. His right groin site is clean and dry with a good pulse. Blood pressure is normal. S1, S2 heard normally. Short systolic murmur noted. Lungs reveal ventilated-assisted breath sounds. Abdomen is soft. Lower extremities reveal diminished pulses. Central nervous system assessment was not performed. Prognosis remains poor. Await further progress from a neurological standpoint. MMODL / IJN: [id number] /
--- NOTE | 2021-04-20 12:00 | ECHOF ---
Referral Reason:STEMI s/p PCI MEASUREMENTS -------- HEIGHT: 180.3 cm WEIGHT: 91.6 kg BP: 124/65 RVIDd: 2.5 cm (< 3.3) IVSd: 1.3 cm (0.6 - 1.1) LVIDd: 4.7 cm (3.9 - 5.3) LVPWd: 1.3 cm (0.6 - 1.1) IVSs: 1.7 cm LVIDs: 3.9 cm LVPWs: 1.5 cm LAESV Index (A-L): 36.47 ml/m Ao Diam: 3.0 cm (2.0 - 3.7) AV Cusp: 2.1 cm (1.5 - 2.6) LA Diam: 3.8 cm (2.7 - 3.8) MV EXCURSION: 14.883 mm (> 18.000) MV EF SLOPE: 46 mm/s (70 - 150) EPSS: 1.1 cm MV E Garett: 0.44 m/s MV DecT: 220 ms MV A Garett: 0.81 m/s MV E/A Ratio: 0.54 RAP: 5.00 mmHg RVSP: 28.31 mmHg FINDINGS -------- Sinus rhythm. This was a technically difficult study with suboptimal views. Pt. on a vent. The left ventricular size is normal. Left ventricular wall thickness is normal. There is moderate global hypokinesis of LV . Overall left ventricular systolic function is moderately impaired with, an EF between 35 - 40 %. The right ventricle is normal in size. LA is moderately dilated 34-39 ml/m2 The right atrium was not well visualized. 5.0mg of Lumason was utilized for enhancement of images Interatrial and interventricular septum intact. There is no evidence of aortic regurgitation. There is no evidence of aortic stenosis. Mild mitral regurgitation is present. Mild tricuspid regurgitation present. There is no evidence of pulmonary hypertension. The right v entricular systolic pressure, as measured by Doppler, is 28.31mmHg. There is no pulmonic regurgitation present. The aortic root size is normal. IVC Not well visulized. There is no pericardial effusion. CONCLUSIONS -------- 1. The left ventricular size is normal. 2. Left ventricular wall thickness is normal. 3. There is moderate global hypokinesis of LV . 4. Overall left ventricular systolic function is moderately impaired with, an EF between 35 - 40 %. 5. LA is moderately dilated 34-39 ml/m2 6. Mild mitral regurgitation is present. 7. Mild tricuspid regurgitation present. [employer]DER: Rosalba Merlos RDCS
--- NOTE | 2021-04-20 13:12 | P.PN ---
Subjective Progress Note Date: 04/20/21 Principal diagnosis: Acute hypoxic respiratory failure secondary to cardiac arrest 71-year-old male patient was seen in the ED , immediately after his arrival post cardiac arrest. The patient was at home and he had a witnessed cardiac arrest and the called the neighbor the patient was started on CPR. Within 5 minutes, EMS arrived to the scene and the patient had epinephrine, amiodarone and defibrillation 2 with subsequent return of smoking circulation. At the time of his arrival to the ED, the patient was already intubated on mechanical ventilator. His EKG was showing ST segment elevation in the inferolateral leads. At that point, the patient was taken immediately to cardiac catheterization. The patient was found to have diffuse disease involving 100% mid LAD, 100% RCA with a [id number] collaterals as well as 100% subtotal circumflex with left to left collaterals. The patient underwent PCI with mid to distal LAD stenting with a total of 5 stents inserted. Apparently his filling pressures were normal. Will start on dual antiplatelet agents. Was brought into the intensive care unit. He was sedated with propofol was currently running at 50 mics are as per kilogram per minute. CAT scan of the brain was done overnight for that showed no acute abnormalities. While on mechanical ventilator, the patient is on AC rate of 24, TV 450, Fio2 50% and he is pn a PEEP of 5. He is also on norepinephrine running at 0.9 mics are as per kilogram per minute and he has developed adequate urine output overnight. Today intensive care unit with adequate urine output. Cardiac rhythm is sinus. Subsequent gas from this morning showed a pH of 7.4 with a pCO2 of 40 and pO2 of 111. COVID-19 testing was negative. Chest x-ray was consistent with interstitial/pulmonary edema. There was 34 with a creatinine of 1.1 at time of admission and her white cell count was 24.9 with a hemoglobin of 13.8. The first set of troponin was less than 0.012. He did have some mild elevation of the AST and ALT.. No seizure activity. No myoclonic jerks. No clear history of aspiration. Reevaluated today on 04/21/2021, patient remains in the ICU, he is intubated and mechanically ventilated. He is on assist control rate of 24, tidal volume 450 FiO2 50% and PEEP of 5. ABG showed a pO2 of 111 pCO2 of 40 pH of 7.40 patient is on propofol at 20 by Karime per kilo per minute, he is requiring norepinephrine at 0.07 mcg/kg/m. Patient is unresponsive to any stimuli, does not even open eyes with deep painful stimuli. Neurology consultation is pending, patient had 5 stents placed yesterday to LAD. Chest x-ray is suggestive of interstitial edema, bilateral interstitial infiltrates/edema noted. Hence the patient will be diuresed. And his Lasix dose was increased to 20 mg IV push every 8 hours. Cardiogram this morning showed moderately impaired left ventricular function with ejection fraction of 35%. WBC count is 12.7 hemoglobin 12.1. Electrolytes are normal BUN is 36 creatinine 1.13. Liver enzymes are elevated. BNP is elevated at 3-20. Negative PCR for COVID-19 infection. Objective - Vital Signs Vital signs: Vital Signs Temp 99.9 F H 04/20/21 08:00 Pulse 86 04/20/21 11:15 Resp 25 H 04/20/21 11:15 BP 123/69 04/20/21 11:15 Pulse Ox 100 04/20/21 11:15 Intake & Output 04/19/21 04/20/21 04/20/21 18:59 06:59 18:59 Intake Total 650.8 1124.986 740.337 Output Total 1360 1130 Balance 650.8 -235.014 -389.663 Weight 91.8 kg 91.9 kg Intake: IV 650 750 375 Sodium Chloride 0.9% 1, 750 375 000 ml @ 75 mls/hr IV . [id number] KIKI Rx#:[id number] Intake, IV Titration 0.8 374.986 365.337 Amount Norepinephrine 4 mg In 86.360 183.286 Sodium Chloride 0.9% 250 ml @ 0.05 MCG/KG/MIN 15. 24 mls/hr IV .[id number] KIKI Rx#:[id number] Piperacillin-Tazobactam 3 100 .375 gm In Sodium Chloride 0.9% 100 ml @ 25 mls/hr IVPB Q8HR KIKI Rx# :[id number] propofoL 1,000 mg In 0.8 288.626 82.051 Empty Bag 1 bag @ Titrate IV .Q0M KIKI Rx#: [id number] Output: Urine 1360 1130 Other: Voiding Method Indwelling Catheter Indwelling Catheter Indwelling Catheter - Exam Physical Exam revealed a 71-year-old white male unresponsive to any stimuli. Intubated and mechanically ventilated. Head: Atraumatic, normocephalic. Endotracheal tube and orogastric tube are intact. HEENT:[Neck is supple.] [No neck masses.] [No thyromegaly.] [No JVD.] Chest: Symmetrical chest expansion, crackles at the bases bilaterally. No rhonchi and no wheezes.] Cardiac Exam: [Normal S1 and S2, no S3 gallop, 2/6 systolic murmur thought the precordium. Abdomen: [Soft, nontender, no megaly, no rebound, no guarding, normal bowel sounds.] Extremities: [No clubbing, no edema, no cyanosis.] Neurological Exam: Unresponsive to any painful stimuli. Patient is on propofol which is presently on hold. Psychiatric: Unresponsive to any stimuli. Skin: No rashes. - Labs CBC & Chem 7: 04/20/21 06:35 04/20/21 06:35 Labs: Abnormal Lab Results - Last 24 Hours (Table) 04/19/21 04/19/21 04/19/21 Range/Units 15:20 15:20 15:20 WBC 11.0 H (3.8-10.6) k/uL RBC 4.18 L (4.30-5.90) m/uL Hgb (13.0-17.5) gm/dL Hct (39.0-53.0) % Neutrophils # (1.3-7.7) k/uL Lymphocytes # (1.0-4.8) k/uL Monocytes # (0-1.0) k/uL PT 12.6 H (9.0-12.0) sec INR 1.2 H (<1.2) ABG pH (7.35-7.45) ABG pO2 (83-108) mmHg ABG Total CO2 (19-24) mmol/L ABG O2 Saturation (94-97) % Sodium 134 L (137-145) mmol/L Carbon Dioxide 20 L (22-30) mmol/L BUN 28 H (9-20) mg/dL Creatinine 1.26 H (0.66-1.25) mg/dL Glucose 279 H (74-99) mg/dL POC Glucose (mg/dL) (75-99) mg/dL Calcium 7.9 L (8.4-10.2) mg/dL AST 402 H (17-59) U/L ALT 352 H (4-49) U/L Troponin I (0.000-0.034) ng/mL Total Protein 5.9 L (6.3-8.2) g/dL Albumin 3.2 L (3.5-5.0) g/dL TSH (0.465-4.680) mIU/L 04/19/21 04/19/21 04/19/21 Range/Units 17:51 18:16 19:57 WBC 24.9 H (3.8-10.6) k/uL RBC (4.30-5.90) m/uL Hgb (13.0-17.5) gm/dL Hct (39.0-53.0) % Neutrophils # 22.0 H (1.3-7.7) k/uL Lymphocytes # 0.8 L (1.0-4.8) k/uL Monocytes # 1.8 H (0-1.0) k/uL PT (9.0-12.0) sec INR (<1.2) ABG pH 7.30 L (7.35-7.45) ABG pO2 388 H (83-108) mmHg ABG Total CO2 (19-24) mmol/L ABG O2 Saturation 99.3 H (94-97) % Sodium (137-145) mmol/L Carbon Dioxide (22-30) mmol/L BUN (9-20) mg/dL Creatinine (0.66-1.25) mg/dL Glucose (74-99) mg/dL POC Glucose (mg/dL) 197 H (75-99) mg/dL Calcium (8.4-10.2) mg/dL AST (17-59) U/L ALT (4-49) U/L Troponin I (0.000-0.034) ng/mL Total Protein (6.3-8.2) g/dL Albumin (3.5-5.0) g/dL TSH (0.465-4.680) mIU/L 04/19/21 04/19/21 04/20/21 Range/Units 19:57 21:12 05:45 WBC (3.8-10.6) k/uL RBC (4.30-5.90) m/uL Hgb (13.0-17.5) gm/dL Hct (39.0-53.0) % Neutrophils # (1.3-7.7) k/uL Lymphocytes # (1.0-4.8) k/uL Monocytes # (0-1.0) k/uL PT (9.0-12.0) sec INR (<1.2) ABG pH (7.35-7.45) ABG pO2 111 H (83-108) mmHg ABG Total CO2 26 H (19-24) mmol/L ABG O2 Saturation 97.7 H (94-97) % Sodium 134 L (137-145) mmol/L Carbon Dioxide 16 L (22-30) mmol/L BUN 34 H (9-20) mg/dL Creatinine (0.66-1.25) mg/dL Glucose 221 H (74-99) mg/dL POC Glucose (mg/dL) 235 H (75-99) mg/dL Calcium (8.4-10.2) mg/dL AST (17-59) U/L ALT (4-49) U/L Troponin I (0.000-0.034) ng/mL Total Protein (6.3-8.2) g/dL Albumin (3.5-5.0) g/dL TSH (0.465-4.680) mIU/L 04/20/21 04/20/21 04/20/21 Range/Units 06:16 06:35 06:35 WBC 12.7 H (3.8-10.6) k/uL RBC 3.94 L (4.30-5.90) m/uL Hgb 12.1 L (13.0-17.5) gm/dL Hct 36.4 L (39.0-53.0) % Neutrophils # 11.2 H (1.3-7.7) k/uL Lymphocytes # 0.6 L (1.0-4.8) k/uL Monocytes # (0-1.0) k/uL PT (9.0-12.0) sec INR (<1.2) ABG pH (7.35-7.45) ABG pO2 (83-108) mmHg ABG Total CO2 (19-24) mmol/L ABG O2 Saturation (94-97) % Sodium 136 L (137-145) mmol/L Carbon Dioxide (22-30) mmol/L BUN 36 H (9-20) mg/dL Creatinine (0.66-1.25) mg/dL Glucose 212 H (74-99) mg/dL POC Glucose (mg/dL) 210 H (75-99) mg/dL Calcium (8.4-10.2) mg/dL AST 275 H (17-59) U/L ALT 281 H (4-49) U/L Troponin I (0.000-0.034) ng/mL Total Protein 5.8 L (6.3-8.2) g/dL Albumin 3.1 L (3.5-5.0) g/dL TSH 0.076 L (0.465-4.680) mIU/L 04/20/21 Range/Units 06:35 WBC (3.8-10.6) k/uL RBC (4.30-5.90) m/uL Hgb (13.0-17.5) gm/dL Hct (39.0-53.0) % Neutrophils # (1.3-7.7) k/uL Lymphocytes # (1.0-4.8) k/uL Monocytes # (0-1.0) k/uL PT (9.0-12.0) sec INR (<1.2) ABG pH (7.35-7.45) ABG pO2 (83-108) mmHg ABG Total CO2 (19-24) mmol/L ABG O2 Saturation (94-97) % Sodium (137-145) mmol/L Carbon Dioxide (22-30) mmol/L BUN (9-20) mg/dL Creatinine (0.66-1.25) mg/dL Glucose (74-99) mg/dL POC Glucose (mg/dL) (75-99) mg/dL Calcium (8.4-10.2) mg/dL AST (17-59) U/L ALT (4-49) U/L Troponin I 2.000 H* (0.000-0.034) ng/mL Total Protein (6.3-8.2) g/dL Albumin (3.5-5.0) g/dL TSH (0.465-4.680) mIU/L Microbiology - Last 24 Hours (Table) 04/19/21 15:57 Gram Stain - Preliminary Sputum Sputum Culture - Preliminary Assessment and Plan Assessment: Impression: Acute hypoxic respiratory failure most likely secondary to acute ventricular fibrillation cardiac arrest, status post CPR for 5 minutes, received epinephrine, amiodarone, defibrillation 2 and subsequent return of spontaneous circulation. Acute inferior lateral ST segment elevation myocardial infarction and the patient received emergent cardiac catheterization and stenting of the LAD. Acute pulmonary edema, possible aspiration pneumonia, most likely secondary to acute ischemic cardiomyopathy and LV dysfunction. Acute leukocytosis, likely reactive. Cardiogenic shock with hypotension requiring norepinephrine. Possible anoxic brain injury Recommendation Continue ventilatory support. No changes were made with the ventilator settings. Continue diuretics. Cut down IV fluids to KVO. Continue antiplatelet agents Continue norepinephrine and titrate accordingly. Assessment of status off propofol if possible. Neurological consultation to assess for acute anoxic brain injury Empiric antibiotics for presumptive or possible aspiration. Continue IV Protonix. Continue high dose statins. Overall picture is not very promising, patient is critically ill. We will continue to follow. Critical care time is over 30 minutes. Time with Patient: Greater than 30
[2021-04-20 13:17] LABS: Glucose,Whole Blood 196 mg/dL (75-99)
--- NOTE | 2021-04-20 16:18 | P.CNNES ---
History of Present Illness Consult date: 04/20/21 Requesting physician: Art Hammer Reason for Consult: Cardiac arrest, status post NV. History of Present Illness: Patient is a 71-year-old male brought to the hospital for cardiac arrest. Patient's family had mentioned that he was sitting in the chair, eating some chips, and per his , it sounded like he choked on the chip. 911 was was contacted at 2:03 PM yesterday. It took another 5 minutes for EMS to arrive. The monitor showing ventricular fibrillation. Patient had approximately 5 minutes prior CPR. He was given shock. The monitor showing asystole. Patient's pulse returned at 2:25 PM when CPR was discontinued. Patient was found to have atrial fibrillation with ST elevation. Patient went back to ventricular fibrillation without a pulse and he was defibrillated a second time at 300 J and a second round of appendectomy. Willy device started for mechanical CPR. Patient has return of spontaneous circulation. On review of the data from EMS flow sheet, patient has return of spontaneous circulation at 2:27 PM, and lost the pulse again at 2:44 PM and reappeared at 2:48 PM. Although based upon above documentation, the cardiac arrest was for 27 minutes the first time in 4 minutes the second time. However family member states that patient was in and out of cardiac arrest for the initial 27 minutes of cardiac arrest as well. EKG shows atrial fibrillation, inferior posterior infarct, possible acute. Chest x-ray showed diffuse bilateral airspace disease. Gastric tube turned upon itself over the mid esophagus and coursing cranially at the distal tip not seen. CT head showed mild atrophy, no acute intracranial process. 2-D echo shows normal left ventricular size. Normal left-ventricular wall thickness. Moderate global hypokinesis of left ventricle. EF is moderately impaired between 35-40%. Left atrium is moderately dilated. Blood test shows WBC 11.0 hemoglobin 13.1, normal platelets. PT/PTT normal. Sodium 134 potassium 4.1, BU and 28, creatinine 1.26. AST is 42, ALT 352. Troponin was negative. Dodson virus PCR negative. Repeat troponin is 2.0. Patient's TFTs normal. Patient underwent urgent artery catheterization which revealed triple-vessel disease. The circumflex could be the culprit vessel. Patient underwent 5 stents placement. Patient was on depression, which was turned off at 10:25 AM. Patient was seen in the ICU at 12 noon. Nurses reported the patient is not responding, although he does have gag, cough, pupils are reactive. Neurological evaluation was initiated. I spoke to patient's and 2 daughters. Patient prior to the cardiac arrest was normal functioning adult. He would do regular exercises. Did not have any diabetes, alcohol or tobacco use. He does have hypertension. He is otherwise very healthy. Review of Systems ROS unobtainable: due to endotracheal tube, due to mental status Past Medical History Past Medical History: Hypertension, Myocardial Infarction (NV) Additional Past Medical History / Comment(s): unk Last Myocardial Infarction Date:: 04/19/21 History of Any Multi-Drug Resistant Organisms: None Reported Past Surgical History: Back Surgery, Tonsillectomy Additional Past Surgical History / Comment(s): unk Past Anesthesia/Blood Transfusion Reactions: No Reported Reaction Past Psychological History: Anxiety Past Alcohol Use History: Unable to Obtain - Past Family History Brother(s) Family Medical History: Coronary Artery Disease (CAD), Hyperlipidemia, Hypertension Father Family Medical History: Dementia Sister(s) Family Medical History: Cancer Additional Family Medical History / Comment(s): breast Medications and Allergies Home Medications Medication Instructions Recorded Confirmed Type ALPRAZolam [Xanax] 0.25 mg PO BID PRN 04/19/21 04/19/21 History Aspirin EC [Ecotrin Low Dose] 81 mg PO DAILY 04/19/21 04/19/21 History Biotin 5 mg PO DAILY 04/19/21 04/19/21 History Escitalopram [Lexapro] 30 mg PO DAILY 04/19/21 04/19/21 History Multivitamins, Thera [Multivitamin 1 tab PO DAILY 04/19/21 04/19/21 History (formulary)] QUEtiapine [SEROquel] 50 mg PO HS 04/19/21 04/19/21 History Selenium 50 mcg PO DAILY 04/19/21 04/19/21 History busPIRone HCl [Buspar] 10 mg PO BID 04/19/21 04/19/21 History hydrOXYzine HCL [Atarax] 25 mg PO DAILY 04/19/21 04/19/21 History lisinopriL [Zestril] 20 mg PO DAILY 04/19/21 04/19/21 History Allergies Allergy/AdvReac Type Severity Reaction Status Date / Time bee venom protein (honey bee) Allergy Swelling Verified 04/19/21 17:48 Physical Examination - Vital Signs Vital Signs: Vital Signs Temp Pulse Pulse Resp BP Pulse Ox 04/20/21 15:00 100 28 H 137/72 98 04/20/21 14:30 102 H 22 122/80 98 04/20/21 14:00 96 18 116/80 96 04/20/21 13:30 97 26 H 123/74 98 04/20/21 13:00 96 34 H 132/76 100 04/20/21 12:30 94 25 H 144/95 100 04/20/21 12:00 90 65 18 132/72 100 04/20/21 11:30 91 26 H 124/77 100 04/20/21 11:15 86 25 H 123/69 100 04/20/21 11:00 87 27 H 109/70 100 04/20/21 10:45 88 27 H 109/62 99 04/20/21 10:30 85 26 H 124/72 98 04/20/21 10:15 80 25 H 124/65 96 04/20/21 10:00 76 25 H 114/63 96 04/20/21 09:45 84 25 H 119/62 98 04/20/21 09:30 78 24 112/62 96 04/20/21 09:15 80 25 H 119/61 96 04/20/21 09:00 82 25 H 113/65 97 04/20/21 08:45 79 25 H 115/62 98 04/20/21 08:30 80 25 H 115/62 98 04/20/21 08:15 79 26 H 124/61 98 04/20/21 08:00 99.9 F H 80 65 24 111/60 99 04/20/21 07:45 78 25 H 101/60 98 04/20/21 07:30 77 24 108/62 98 04/20/21 07:15 77 22 105/61 98 04/20/21 07:00 73 24 121/61 98 04/20/21 06:45 77 25 H 106/66 97 04/20/21 06:30 74 25 H 118/59 97 04/20/21 06:15 74 26 H 113/58 97 04/20/21 06:00 73 24 109/58 97 04/20/21 05:45 72 24 114/56 97 04/20/21 05:30 67 24 118/60 98 04/20/21 05:15 67 24 111/65 97 04/20/21 05:00 65 24 118/59 97 04/20/21 04:45 66 24 109/56 98 04/20/21 04:30 63 17 115/63 97 04/20/21 04:15 63 20 83/49 97 04/20/21 04:00 98.4 F 68 65 24 98/57 98 04/20/21 03:45 65 13 94/57 98 04/20/21 03:30 64 24 95/56 98 04/20/21 03:15 65 24 94/55 98 04/20/21 03:00 65 26 H 99/57 98 04/20/21 02:45 67 26 H 93/56 98 04/20/21 02:30 67 24 99/57 97 04/20/21 02:15 66 24 112/64 97 04/20/21 02:00 68 28 H 84/56 100 04/20/21 01:45 75 24 94/58 98 04/20/21 01:30 70 24 94/60 100 04/20/21 01:15 72 24 95/59 100 04/20/21 01:00 68 24 85/55 100 04/20/21 00:45 73 24 86/56 100 04/20/21 00:30 72 14 87/57 100 04/20/21 00:15 72 10 L 88/62 100 04/20/21 00:00 98.5 F 71 73 24 108/64 99 04/19/21 23:15 75 24 81/56 04/19/21 23:00 82 25 H 87/55 100 04/19/21 22:45 82 24 89/69 100 04/19/21 22:30 85 24 116/74 100 04/19/21 22:15 85 24 100/68 100 04/19/21 22:00 82 24 154/97 99 04/19/21 21:45 81 24 135/76 100 04/19/21 21:30 78 24 134/75 100 04/19/21 21:15 74 24 124/64 100 04/19/21 21:00 70 24 122/68 100 04/19/21 20:45 69 24 124/65 100 04/19/21 20:30 68 24 131/70 100 04/19/21 20:15 71 24 126/69 100 04/19/21 20:00 71 70 24 125/85 100 04/19/21 19:45 70 24 111/68 100 04/19/21 19:40 97.6 F 72 24 111/68 100 04/19/21 19:30 73 24 99/65 100 04/19/21 19:20 73 24 99/67 100 04/19/21 19:10 70 24 95/58 99 04/19/21 19:00 70 24 86/56 100 04/19/21 18:50 69 24 86/56 100 04/19/21 18:40 70 24 107/63 100 04/19/21 18:30 71 24 126/77 100 04/19/21 18:20 67 24 126/77 100 04/19/21 18:10 71 17 138/86 100 04/19/21 18:00 71 27 H 143/79 100 04/19/21 17:50 97.8 F 71 26 H 143/79 100 Intake and Output 04/20/21 04/20/21 04/20/21 06:59 14:59 22:59 Intake Total 743.146 965.337 75 Output Total 595 1480 100 Balance 148.146 -514.663 -25 Intake: IV 600 600 75 Sodium Chloride 0.9% 1, 600 600 75 000 ml @ 75 mls/hr IV . [id number] KIKI Rx#:[id number] Intake, IV Titration 143.146 365.337 Amount Norepinephrine 4 mg In 183.286 Sodium Chloride 0.9% 250 ml @ 0.05 MCG/KG/MIN 15. 24 mls/hr IV .[id number] KIKI Rx#:[id number] Piperacillin-Tazobactam 3 100 .375 gm In Sodium Chloride 0.9% 100 ml @ 25 mls/hr IVPB Q8HR KIKI Rx# :[id number] propofoL 1,000 mg In 143.146 82.051 Empty Bag 1 bag @ Titrate IV .Q0M KIKI Rx#: [id number] Output: Urine 595 1480 100 Other: Voiding Method Indwelling Catheter Indwelling Catheter Weight 91.9 kg 91.626 kg Patient is an elderly male, who is intubated. Patient is off sedation for last 1-1/2 hours. Patient is obtunded, unresponsive to calling his name. However when painful stimuli was given to the nail bed in the arms and then legs, patient opened his eyes, had abnormal gaze, looking upwards. Patient did turn his head to the right, as well as to the left at times, not necessarily related towards the sti mulus. Patient did not make clear eye contact. Speech and language functions cannot be assessed because of mental status and intubation. Attention, concentration and fund of knowledge cannot be assessed, patient severely obtunded. Patient would frequently cough, appears uncomfortable, restless. On cranial examination, pupils are round and reacting to light, oculocephalics appear slightly positive, visual sheikh could not be tested. extraocular muscles could not be tested. Face , tongue, palate, shoulder, facial sensations could not be tested. On muscle strength testing, patient did not squeeze the hand, or wiggle the toes. He did withdraw clearly to painful stimuli in the lower extremities more than the upper. Deep tendon reflexes are 1 in the upper limbs, 2 in the lower limbs, plantars are downgoing versus withdrawal. Sensory examination to painful stimuli as above. Cerebellar function cannot be checked Gait cannot be checked. On general examination, there is no carotid bruit or murmur, S1-S2 audible. Abdomen is soft nontender. Chest is clear. Peripheral pulses are present. No edema. Results - Laboratory Findings CBC and BMP: 04/21/21 03:53 04/21/21 03:53 Abnormal Lab Findings: Abnormal Labs 04/19/21 04/19/21 04/19/21 15:20 15:20 15:20 WBC 11.0 H RBC 4.18 L Hgb Hct Neutrophils # Lymphocytes # Monocytes # PT 12.6 H INR 1.2 H ABG pH ABG pO2 ABG Total CO2 ABG O2 Saturation Sodium 134 L Carbon Dioxide 20 L BUN 28 H Creatinine 1.26 H Glucose 279 H POC Glucose (mg/dL) Calcium 7.9 L AST 402 H ALT 352 H Troponin I Total Protein 5.9 L Albumin 3.2 L TSH 04/19/21 04/19/21 04/19/21 17:51 18:16 19:57 WBC 24.9 H RBC Hgb Hct Neutrophils # 22.0 H Lymphocytes # 0.8 L Monocytes # 1.8 H PT INR ABG pH 7.30 L ABG pO2 388 H ABG Total CO2 ABG O2 Saturation 99.3 H Sodium Carbon Dioxide BUN Creatinine Glucose POC Glucose (mg/dL) 197 H Calcium AST ALT Troponin I Total Protein Albumin TSH 04/19/21 04/19/21 04/20/21 19:57 21:12 05:45 WBC RBC Hgb Hct Neutrophils # Lymphocytes # Monocytes # PT INR ABG pH ABG pO2 111 H ABG Total CO2 26 H ABG O2 Saturation 97.7 H Sodium 134 L Carbon Dioxide 16 L BUN 34 H Creatinine Glucose 221 H POC Glucose (mg/dL) 235 H Calcium AST ALT Troponin I Total Protein Albumin TSH 04/20/21 04/20/21 04/20/21 06:16 06:35 06:35 WBC 12.7 H RBC 3.94 L Hgb 12.1 L Hct 36.4 L Neutrophils # 11.2 H Lymphocytes # 0.6 L Monocytes # PT INR ABG pH ABG pO2 ABG Total CO2 ABG O2 Saturation Sodium 136 L Carbon Dioxide BUN 36 H Creatinine Glucose 212 H POC Glucose (mg/dL) 210 H Calcium AST 275 H ALT 281 H Troponin I Total Protein 5.8 L Albumin 3.1 L TSH 0.076 L 04/20/21 04/20/21 06:35 13:15 WBC RBC Hgb Hct Neutrophils # Lymphocytes # Monocytes # PT INR ABG pH ABG pO2 ABG Total CO2 ABG O2 Saturation Sodium Carbon Dioxide BUN Creatinine Glucose POC Glucose (mg/dL) 196 H Calcium AST ALT Troponin I 2.000 H* Total Protein Albumin TSH Assessment and Plan Assessment: * Cardiac arrest with somewhat prolonged downtime. Patient is off sedation for last 1.5 hours. He has started showing some response, with eyes being open, but still no eye contact or obvious purposeful responses. He does have withdrawal response to painful stimuli in the lower extremities. He would inconsistently move his head to the right and then to the left side. Not clearly if it was purposeful, probably more reflexive due to restlessness. * Ventilator-dependent respiratory failure, on mechanical ventilation. * Acute NV, status post cardiac catheterization requiring stenting. * Hypertension Plan: * Patient is waking up, following discontinuation of propofol. Examination was still abnormal, but will need close monitoring in the next 24 hours to evaluate for any meaningful response. Examination is relatively nonfocal. * We will continue close neurological evaluation. * EEG * Discussed with patient's and daughters in detail. * We will continue to follow the patient with you. * Thank you for the consult. Addendum: Patient reevaluated at around 6 PM. Patient is clearly opening his eyes to calling the name, but still not much tracking or eye contact. Patient is off sedation. We will continue to follow. Discussed with family members.
[2021-04-20 16:53] LABS: Hepatitis A Antibody IgM Nonreactive (Nonreactive); Hepatitis B Core IgM Nonreactive (Nonreactive); Hepatitis B Surface Antigen Nonreactive (Nonreactive); Hepatitis C IgG Antibody Nonreactive (Nonreactive)
--- NOTE | 2021-04-20 17:10 | P.PN ---
Subjective Patient was sedated and intubated this morning. No acute events overnight. Objective - Vital Signs Vital signs: Vital Signs Temp 99.9 F H 04/20/21 08:00 Pulse 100 04/20/21 15:00 Resp 28 H 04/20/21 15:00 BP 137/72 04/20/21 15:00 Pulse Ox 98 04/20/21 15:00 Intake & Output 04/19/21 04/20/21 04/20/21 18:59 06:59 18:59 Intake Total 650.8 7443.391 1766.337 Output Total 1360 1580 Balance 650.8 -235.014 -539.663 Weight 91.8 kg 91.9 kg 91.626 kg Intake: IV 650 750 675 Sodium Chloride 0.9% 1, 750 675 000 ml @ 75 mls/hr IV . [id number] KIKI Rx#:[id number] Intake, IV Titration 0.8 374.986 365.337 Amount Norepinephrine 4 mg In 86.360 183.286 Sodium Chloride 0.9% 250 ml @ 0.05 MCG/KG/MIN 15. 24 mls/hr IV .[id number] KIKI Rx#:[id number] Piperacillin-Tazobactam 3 100 .375 gm In Sodium Chloride 0.9% 100 ml @ 25 mls/hr IVPB Q8HR KIKI Rx# :[id number] propofoL 1,000 mg In 0.8 288.626 82.051 Empty Bag 1 bag @ Titrate IV .Q0M KIKI Rx#: [id number] Output: Urine 1360 1580 Other: Voiding Method Indwelling Catheter Indwelling Catheter Indwelling Catheter - Exam General: The patient is sedated and intubated Eye: there is normal conjunctiva bilaterally. Neck: The neck is supple, there is no JVD. Cardiovascular: Normal S1-S2, no S3-S4, no murmurs. Respiratory: Lungs clear to auscultation bilaterally with mechanical ventilator sounds Gastrointestinal: Abdomen is soft, nontender Musculoskeletal: There is no pedal edema. Skin: Skin is warm and dry - Labs CBC & Chem 7: 04/20/21 06:35 04/20/21 06:35 Labs: Abnormal Lab Results - Last 24 Hours (Table) 11/14/21 11/14/21 11/14/21 Range/Units 17:51 18:16 19:57 WBC 24.9 H (3.8-10.6) k/uL RBC (4.30-5.90) m/uL Hgb (13.0-17.5) gm/dL Hct (39.0-53.0) % Neutrophils # 22.0 H (1.3-7.7) k/uL Lymphocytes # 0.8 L (1.0-4.8) k/uL Monocytes # 1.8 H (0-1.0) k/uL ABG pH 7.30 L (7.35-7.45) ABG pO2 388 H (83-108) mmHg ABG Total CO2 (19-24) mmol/L ABG O2 Saturation 99.3 H (94-97) % Sodium (137-145) mmol/L Carbon Dioxide (22-30) mmol/L BUN (9-20) mg/dL Glucose (74-99) mg/dL POC Glucose (mg/dL) 197 H (75-99) mg/dL Hemoglobin A1c (4.0-6.0) % AST (17-59) U/L ALT (4-49) U/L Troponin I (0.000-0.034) ng/mL Total Protein (6.3-8.2) g/dL Albumin (3.5-5.0) g/dL TSH (0.465-4.680) mIU/L 04/19/21 04/19/21 04/20/21 Range/Units 19:57 21:12 05:45 WBC (3.8-10.6) k/uL RBC (4.30-5.90) m/uL Hgb (13.0-17.5) gm/dL Hct (39.0-53.0) % Neutrophils # (1.3-7.7) k/uL Lymphocytes # (1.0-4.8) k/uL Monocytes # (0-1.0) k/uL ABG pH (7.35-7.45) ABG pO2 111 H (83-108) mmHg ABG Total CO2 26 H (19-24) mmol/L ABG O2 Saturation 97.7 H (94-97) % Sodium 134 L (137-145) mmol/L Carbon Dioxide 16 L (22-30) mmol/L BUN 34 H (9-20) mg/dL Glucose 221 H (74-99) mg/dL POC Glucose (mg/dL) 235 H (75-99) mg/dL Hemoglobin A1c (4.0-6.0) % AST (17-59) U/L ALT (4-49) U/L Troponin I (0.000-0.034) ng/mL Total Protein (6.3-8.2) g/dL Albumin (3.5-5.0) g/dL TSH (0.465-4.680) mIU/L 04/20/21 04/20/21 04/20/21 Range/Units 06:16 06:35 06:35 WBC (3.8-10.6) k/uL RBC (4.30-5.90) m/uL Hgb (13.0-17.5) gm/dL Hct (39.0-53.0) % Neutrophils # (1.3-7.7) k/uL Lymphocytes # (1.0-4.8) k/uL Monocytes # (0-1.0) k/uL ABG pH (7.35-7.45) ABG pO2 (83-108) mmHg ABG Total CO2 (19-24) mmol/L ABG O2 Saturation (94-97) % Sodium 136 L (137-145) mmol/L Carbon Dioxide (22-30) mmol/L BUN 36 H (9-20) mg/dL Glucose 212 H (74-99) mg/dL POC Glucose (mg/dL) 210 H (75-99) mg/dL Hemoglobin A1c 6.6 H (4.0-6.0) % AST 275 H (17-59) U/L ALT 281 H (4-49) U/L Troponin I (0.000-0.034) ng/mL Total Protein 5.8 L (6.3-8.2) g/dL Albumin 3.1 L (3.5-5.0) g/dL TSH 0.076 L (0.465-4.680) mIU/L 04/20/21 04/20/21 04/20/21 Range/Units 06:35 06:35 13:15 WBC 12.7 H (3.8-10.6) k/uL RBC 3.94 L (4.30-5.90) m/uL Hgb 12.1 L (13.0-17.5) gm/dL Hct 36.4 L (39.0-53.0) % Neutrophils # 11.2 H (1.3-7.7) k/uL Lymphocytes # 0.6 L (1.0-4.8) k/uL Monocytes # (0-1.0) k/uL ABG pH (7.35-7.45) ABG pO2 (83-108) mmHg ABG Total CO2 (19-24) mmol/L ABG O2 Saturation (94-97) % Sodium (137-145) mmol/L Carbon Dioxide (22-30) mmol/L BUN (9-20) mg/dL Glucose (74-99) mg/dL POC Glucose (mg/dL) 196 H (75-99) mg/dL Hemoglobin A1c (4.0-6.0) % AST (17-59) U/L ALT (4-49) U/L Troponin I 2.000 H* (0.000-0.034) ng/mL Total Protein (6.3-8.2) g/dL Albumin (3.5-5.0) g/dL TSH (0.465-4.680) mIU/L Microbiology - Last 24 Hours (Table) 04/19/21 15:57 Gram Stain - Preliminary Sputum Sputum Culture - Preliminary Assessment and Plan Assessment: This is a 71-year-old male who presented to the emergency department after cardiac arrest. Most of HPI was was taken from documentation. Per documents patient had a witnessed arrest by his while he was sitting on the couch eating potato chips. CPR was initiated for 5 minutes. Patient continued to be unresponsive. Neighbor who is a industrial retrofit designer was called and began CPR. Upon arrival, EMS identified defib arrest. Patient was defibrillated with return of spontaneous circulation. Patient was intubated and given 2 rounds of epinephrine. Patient was taken straight to director of labor relations for STEMI. EKG showed ST elevations in the inferolateral and anterolateral leads. 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 Per documentation the circumflex could be the culprit vessel. Assessment and Plan Assessment: 1. Ventilator dependent respiratory failure secondary to cardiac arrest STEMI ICU supportive care Patient is status post cardiac cath triple vessel disease identified per d ocuments stent placement being attempted by Dr. Gould IV heparin Cardiology recommendations appreciated 2. KAVITHA secondary to hypoperfusion due to #1 Continue to trend BMP 3. Hyperglycemia likely underlying diabetes mellitus Insulin sliding scale Check hemoglobin A1c 4. Elevated liver enzymes likely secondary to hypoperfusion rule out liver disease Monitor AST and ALT Check hepatitis panel 5. Leukocytosis likely reactive Continue to trend white blood cell count 6. Bilateral pulmonary effusions likely due to heart failure Check BNP Lasix daily Strict I's and O's 7. GI DVT prophylaxis 8. A.m. labs and chest x-ray Greater than 45 minutes spent coordinating care, documentation, and counseling family. Time with Patient: Greater than 30
[2021-04-20 17:53] LABS: Glucose,Whole Blood 177 mg/dL (75-99)
[2021-04-20] MEDS: FUROSEMIDE 10 MG/ML 2 ML VIAL IV SCH ×2 (18:12→23:46)
[2021-04-20] MEDS: carvediloL 3.125 MG TAB PO SCH (18:12)
[2021-04-20 20:28] LABS: Chol/HDL Ratio 2.57 Ratio; LDL Cholesterol,Calculated 74.9 mg/dL (0.0-131.0); VLDL Calculation 14.18 mg/dL (5.00-40.00)
[2021-04-20] MEDS: ATORVASTATIN 80 MG TAB PO SCH (20:41)
[2021-04-20 23:45] LABS: Glucose,Whole Blood 178 mg/dL (75-99)
[2021-04-21 04:32] LABS: Basophils % (A) 0 %; Eosinophils % (A) 0 %; HCT 32.3 % (39.0-53.0); HGB 10.9 gm/dL (13.0-17.5); Lymphocytes # (A) 0.7 k/uL (1.0-4.8); Lymphocytes % (A) 6 %; MCH 30.5 pg (25.0-35.0); MCHC 33.7 g/dL (31.0-37.0); MCV 90.7 fL (80.0-100.0); Mean Platelet Volume 7.3; Monocytes # (A) 0.8 k/uL (0-1.0); Monocytes % (A) 7 %; Neutrophils # (A) 9.4 k/uL (1.3-7.7); Neutrophils % (A) 85 %; Platelet Count 155 k/uL (150-450); RBC 3.56 m/uL (4.30-5.90); WBC 11.1 k/uL (3.8-10.6)
[2021-04-21] MEDS: NOREPINEPHRINE 4 MG in SODIUM CHLORIDE 0.9% 250 ML IV SCH ×2 (04:43→20:34)
[2021-04-21 04:44] LABS: Calcium 8.7 mg/dL (8.4-10.2); Potassium 3.9 mmol/L (3.5-5.1)
[2021-04-21] MEDS: carvediloL 3.125 MG TAB PO SCH ×2 (06:11→18:11)
[2021-04-21] MEDS: INSULIN ASPART (NovoLOG) 100 UNIT/ML VIAL SQ SCH ×3 (06:11→19:51)
--- NOTE | 2021-04-21 06:42 | XR ---
EXAMINATION TYPE: XR chest 1V portable DATE OF EXAM: 04/21/2021 CLINICAL HISTORY: Difficulty breathing progress study. V. Fib on admission. TECHNIQUE: Single AP portable semiupright view of the chest is obtained. COMPARISON: Chest x-ray from one and 2 days earlier. FINDINGS: Stable endotracheal and orogastric tubes. Advise advancing orogastric tube measuring 9.0 c m to have side port below the diaphragm. Cardiac silhouette size stable and within normal limits. Reticular increased opacities greatest in th e periphery redemonstrated. Some improved aeration left lung base. Multilevel spurring in the spine r edemonstrated. IMPRESSION: Peripheral reticular increased opacities bilaterally redemonstrated suggesting possible c ovid-19 infection, correlate clinically. Improved aeration left lung base from one day earlier.
[2021-04-21] MEDS: CHLORHEXIDINE GLUCONATE 15 ML CUP MUCOUS MEM SCH (09:03)
[2021-04-21] MEDS: ASPIRIN 81 MG PO SCH (09:04)
[2021-04-21] MEDS: HEPARIN SODIUM,PORCINE/PF 5,000 UNIT/0.5 ML SYRINGE SQ SCH ×2 (09:04→20:36)
[2021-04-21] MEDS: FUROSEMIDE 10 MG/ML 2 ML VIAL IV SCH ×3 (09:04→22:52)
[2021-04-21] MEDS: TICAGRELOR 90 MG TAB PO SCH ×2 (09:05→20:34)
[2021-04-21] MEDS: PIPERACILLIN-TAZOBACTAM 3.375 GM in SODIUM CHLORIDE 0.9% 100 ML IVPB SCH ×3 (09:05→22:51)
[2021-04-21] MEDS: PANTOPRAZOLE 40 MG/10 ML VIAL IVP SCH (09:05)
[2021-04-21] MEDS ORDERED: DEXTROSE 5% IN WATER 100 ML with AMIODARONE 150 MG IV ONE (09:15)
[2021-04-21] MEDS ORDERED: AMIODARONE 360 MG in DEXTROSE 5% IN WATER 200 ML IV ONE ×2 (09:30)
[2021-04-21] MEDS ORDERED: MAGNESIUM SULFATE-D5W PMX 1 GM in DEXTROSE/WATER 1 100ML.BAG IVPB ONE (09:30)
[2021-04-21 11:13] LABS: ABG Base Excess 6.2 mmol/L; ABG HCO3 30 mmol/L (21-25); ABG Oxygen Saturation 98.4 % (94-97); ABG PCO2 43 mmHg (35-45); ABG PH 7.46 (7.35-7.45); ABG PO2 170 mmHg (83-108); ABG TCO2 32 mmol/L (19-24); Allen Test Performed? Yes
--- NOTE | 2021-04-21 11:38 | EEG ---
ELECTROENCEPHALOGRAM REPORT DATE OF SERVICE: 04/21/2021 PREAMBLE: This is a 71-year-old male with cardiac arrest. EEG FINDINGS: This is a 21-channel portable digital EEG recorded with video component, utilizing 10/20 international system with referential and bipolar montages. The recording starts and continues with presence of predominantly moderate to high amplitude 5-6 hertz theta activity seen in bihemispheric region. Very occasional, slightly well-formed posterior- dominant alpha activity was seen sporadically. An occasional suppressed pattern was also seen with some delta slowing. No definitive epileptiform activity was seen. Photic stimulation was not performed. Different stages of sleep were not seen. IMPRESSION: This is an abnormal EEG due to background slowing of moderate degree. This is suggestive of generalized cerebral dysfunction as can be seen with toxic metabolic encephalopathy or related to diffuse structural brain abnormality. No epileptiform activity was seen. MMKAILYNL / IJPascual: [id number] / MTDD
[2021-04-21 11:46] LABS: Glucose,Whole Blood 219 mg/dL (75-99)
--- NOTE | 2021-04-21 11:59 | PN ---
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 Clinical picture suggests more of an ischemia- related ventricular fibrillation rather than an acute significant ST-elevation ID. Troponin elevation is not very significant. Patient apparently has shown some improvement neurologically and was responding to commands, which is very encouraging. His urine output is also fairly decent. Troponin went up to 2.2, and this probably reflects more of a ventricular fibrillation-related ischemia and an underlying scar rather than a significant acute event. However, we will continue supportive care. Given the fact he had ventricular fibrillation and has a low ejection fraction, I am recommending IV amiodarone to be given, and we will also ensure that his electrolyte status is maintained. His creatinine is 1.2. Potassium is 3.9 and yesterday the magnesium was 1.9. He will receive a magnesium supplement as well. Prognosis remains guarded. Vitals are stable. No JVD. S1-S2 heard normally but distantly. Short systolic murmur. Lungs reveal respiratory-assisted breath sounds. Abdomen is soft. Lower extremities reveal diminished pulses. Central nervous system assessment was not performed. IMPRESSION: 1. Status post cardiac arrest with stenting of LAD, known significant chronic occlusion involving circumflex and RCA. 2. Ischemic cardiomyopathy. 3. Ventricular fibrillation. 4. History of hypertension. RECOMMENDATIONS: We will continue supportive care, magnesium supplements, amiodarone infusion as per protocol and, based on clinical course, will make further recommendations. MMODL / IJN: [id number] /
--- NOTE | 2021-04-21 13:14 | P.PN ---
Subjective Progress Note Date: 04/21/21 Principal diagnosis: Acute hypoxic respiratory failure secondary to cardiac arrest 71-year-old male patient was seen in the ED , immediately after his arrival post cardiac arrest. The patient was at home and he had a witnessed cardiac arrest and the called the neighbor the patient was started on CPR. Within 5 minutes, EMS arrived to the scene and the patient had epinephrine, amiodarone and defibrillation 2 with subsequent return of smoking circulation. At the time of his arrival to the ED, the patient was already intubated on mechanical ventilator. His EKG was showing ST segment elevation in the inferolateral leads. At that point, the patient was taken immediately to cardiac catheterization. The patient was found to have diffuse disease involving 100% mid LAD, 100% RCA with a [id number] collaterals as well as 100% subtotal circumflex with left to left collaterals. The patient underwent PCI with mid to distal LAD stenting with a total of 5 stents inserted. Apparently his filling pressures were normal. Will start on dual antiplatelet agents. Was brought into the intensive care unit. He was sedated with propofol was currently running at 50 mics are as per kilogram per minute. CAT scan of the brain was done overnight for that showed no acute abnormalities. While on mechanical ventilator, the patient is on AC rate of 24, TV 450, Fio2 50% and he is pn a PEEP of 5. He is also on norepinephrine running at 0.9 mics are as per kilogram per minute and he has developed adequate urine output overnight. Today intensive care unit with adequate urine output. Cardiac rhythm is sinus. Subsequent gas from this morning showed a pH of 7.4 with a pCO2 of 40 and pO2 of 111. COVID-19 testing was negative. Chest x-ray was consistent with interstitial/pulmonary edema. There was 34 with a creatinine of 1.1 at time of admission and her white cell count was 24.9 with a hemoglobin of 13.8. The first set of troponin was less than 0.012. He did have some mild elevation of the AST and ALT.. No seizure activity. No myoclonic jerks. No clear history of aspiration. Reevaluated today on 04/20/2021, patient remains in the ICU, he is intubated and mechanically ventilated. He is on assist control rate of 24, tidal volume 450 FiO2 50% and PEEP of 5. ABG showed a pO2 of 111 pCO2 of 40 pH of 7.40 patient is on propofol at 20 by Karime per kilo per minute, he is requiring norepinephrine at 0.07 mcg/kg/m. Patient is unresponsive to any stimuli, does not even open eyes with deep painful stimuli. Neurology consultation is pending, patient had 5 stents placed yesterday to LAD. Chest x-ray is suggestive of interstitial edema, bilateral interstitial infiltrates/edema noted. Hence the patient will be diuresed. And his Lasix dose was increased to 20 mg IV push every 8 hours. Cardiogram this morning showed moderately impaired left ventricular function with ejection fraction of 35%. WBC count is 12.7 hemoglobin 12.1. Electrolytes are normal BUN is 36 creatinine 1.13. Liver enzymes are elevated. BNP is elevated at 3-20. Negative PCR for COVID-19 infection. Reevaluated today on 04/21/2021, patient remains in the ICU, remains intubated and mechanically ventilated. He is on assist control rate of 24, volume of 450 FiO2 50% and PEEP of 5. Patient has been off propofol for the last 24 hours, and he seems to be awake, slow but he follows very simple instructions. Wiggling toes, closing eyes, squeezing hands, hence after evaluating the patient and evaluated his chest x-ray and his labs I recommended a trial of pressure support of 10 and CPAP, however he was doing poorly and I recommended a backup rate of IMV. Later on I cut down his IMV from 8 down to 4. And he Doing quite well, he was moving good tidal volume, his rate was in the teens, and I recommended an ABG after 1 hour of being on pressure support and CPAP. His ABG was noted to be acceptable, pO2 of 170 pCO2 43 pH of 7.46, hence I recommended extubating the patient to a nasal cannula. I am a bit concerned that he may have some difficulty swallowing, and may consider a swallow evaluation on this patient. Patient remains fairly slow. His CBC is relatively normal. Electrolytes are normal renal profile showed a BUN of 37 creatinine of 1.21. Last troponin yesterday and today before was 2.2. Chest x-ray showed minimal bibasilar atelectasis. Doubt pneumonia. Although the patient was a good set up for possible aspiration pneumonia. Objective - Vital Signs Vital signs: Vital Signs Temp 99.2 F 04/21/21 04:00 Pulse 91 04/21/21 07:00 Resp 24 04/21/21 07:00 BP 136/79 04/21/21 07:00 Pulse Ox 96 04/21/21 07:00 Intake & Output 04/20/21 04/21/21 04/21/21 18:59 06:59 18:59 Intake Total 1789.179 0473 75 Output Total 1780 1989 60 Balance -514.663 -990 15 Weight 91.626 kg 89.3 kg Intake: IV 900 900 75 Sodium Chloride 0.9% 1, 900 900 75 000 ml @ 75 mls/hr IV . [id number] KIKI Rx#:[id number] Intake, IV Titration 365.337 100 Amount Norepinephrine 4 mg In 183.286 Sodium Chloride 0.9% 250 ml @ 0.05 MCG/KG/MIN 15. 24 mls/hr IV .[id number] KIKI Rx#:[id number] Piperacillin-Tazobactam 3 100 100 .375 gm In Sodium Chloride 0.9% 100 ml @ 25 mls/hr IVPB Q8HR KIKI Rx# :[id number] propofoL 1,000 mg In 82.051 Empty Bag 1 bag @ Titrate IV .Q0M KIKI Rx#: [id number] Output: Urine 1779 Other: Voiding Method Indwelling Catheter Indwelling Catheter - Exam Physical Exam revealed a 71-year-old white male awake, follows simple instructions, in no distress, remains intubated and mechanically ventilated. Head: Atraumatic, normocephalic. Endotracheal tube and orogastric tube are intact. HEENT:[Neck is supple.] [No neck masses.] [No thyromegaly.] [No JVD.] Chest: Symmetrical chest expansion, crackles at the bases bilaterally. No rhonchi and no wheezes.] Cardiac Exam: [Normal S1 and S2, no S3 gallop, 2/6 systolic murmur thought the precordium. Abdomen: [Soft, nontender, no megaly, no rebound, no guarding, normal bowel sounds.] Extremities: [No clubbing, no edema, no cyanosis.] Neurological Exam: Awake, follows simple instructions. Like squeezing hands, closing eyes, and wiggling toes. Psychiatric: Depressed mood and blunted affect, slow, but comprehend simple instructions.. Skin: No rashes. - Labs CBC & Chem 7: 04/21/21 03:53 04/21/21 03:53 Labs: Abnormal Lab Results - Last 24 Hours (Table) 04/20/21 04/20/21 04/20/21 Range/Units 06:35 13:15 17:51 WBC (3.8-10.6) k/uL RBC (4.30-5.90) m/uL Hgb (13.0-17.5) gm/dL Hct (39.0-53.0) % Neutrophils # (1.3-7.7) k/uL Lymphocytes # (1.0-4.8) k/uL ABG pH (7.35-7.45) ABG pO2 (83-108) mmHg ABG HCO3 (21-25) mmol/L ABG Total CO2 (19-24) mmol/L ABG O2 Saturation (94-97) % Sodium (137-145) mmol/L BUN (9-20) mg/dL Glucose (74-99) mg/dL POC Glucose (mg/dL) 196 H 177 H (75-99) mg/dL Hemoglobin A1c 6.6 H (4.0-6.0) % Troponin I (0.000-0.034) ng/mL 04/20/21 04/20/21 04/21/21 Range/Units 18:08 23:42 03:53 WBC 11.1 H (3.8-10.6) k/uL RBC 3.56 L (4.30-5.90) m/uL Hgb 10.9 L (13.0-17.5) gm/dL Hct 32.3 L (39.0-53.0) % Neutrophils # 9.4 H (1.3-7.7) k/uL Lymphocytes # 0.7 L (1.0-4.8) k/uL ABG pH (7.35-7.45) ABG pO2 (83-108) mmHg ABG HCO3 (21-25) mmol/L ABG Total CO2 (19-24) mmol/L ABG O2 Saturation (94-97) % Sodium (137-145) mmol/L BUN (9-20) mg/dL Glucose (74-99) mg/dL POC Glucose (mg/dL) 178 H (75-99) mg/dL Hemoglobin A1c (4.0-6.0) % Troponin I 2.200 H* (0.000-0.034) ng/mL 04/21/21 04/21/21 04/21/21 Range/Units 03:53 11:12 11:44 WBC (3.8-10.6) k/uL RBC (4.30-5.90) m/uL Hgb (13.0-17.5) gm/dL Hct (39.0-53.0) % Neutrophils # (1.3-7.7) k/uL Lymphocytes # (1.0-4.8) k/uL ABG pH 7.46 H (7.35-7.45) ABG pO2 170 H (83-108) mmHg ABG HCO3 30 H (21-25) mmol/L ABG Total CO2 32 H (19-24) mmol/L ABG O2 Saturation 98.4 H (94-97) % Sodium 136 L (137-145) mmol/L BUN 37 H (9-20) mg/dL Glucose 180 H (74-99) mg/dL POC Glucose (mg/dL) 219 H (75-99) mg/dL Hemoglobin A1c (4.0-6.0) % Troponin I (0.000-0.034) ng/mL Microbiology - Last 24 Hours (Table) 04/19/21 15:57 Gram Stain - Final Sputum Sputum Culture - Final Assessment and Plan Assessment: Impression: Acute hypoxic respiratory failure most likely secondary to acute ventricular fibrillation cardiac arrest, status post CPR for 5 minutes, received epinephrine, amiodarone, defibrillation 2 and subsequent return of spontaneous circulation. Acute inferior lateral ST segment elevation myocardial infarction and the patient received emergent cardiac catheterization and stenting of the LAD. Acute pulmonary edema, possible aspiration pneumonia, most likely secondary to acute ischemic cardiomyopathy and LV dysfunction. Acute leukocytosis, likely reactive. Cardiogenic shock with hypotension requiring norepinephrine. Possible anoxic brain injury Recommendation Patient was placed on a weaning mode of mechanical ventilation utilizing IMV and pressure support and later pressure support with CPAP. Continue diuretics. Cut down IV fluids to KVO. Continue antiplatelet agents Discontinue all sedatives and narcotics. Empiric antibiotics for presumptive or possible aspiration. Continue IV Protonix. Continue high dose statins. Consider swallow evaluation on this patient before starting feedings. Remains relatively critically ill, and we will monitor the patient in the ICU post extubation for at least 24 hours. Critical care time is over 30 minutes. Time with Patient: Greater than 30
[2021-04-21] MEDS: SODIUM CHLORIDE 0.9% 1,000 ML IV SCH ×2 (14:05→22:51)
[2021-04-21 17:55] LABS: Glucose,Whole Blood 199 mg/dL (75-99)
--- NOTE | 2021-04-21 18:42 | P.PN ---
Subjective Patient was extubated this morning right prior to my evaluation. His at bedside. He is awake and alert. Objective - Vital Signs Vital signs: Vital Signs Temp 97.9 F 04/21/21 16:00 Pulse 87 04/21/21 17:00 Resp 16 04/21/21 17:00 BP 146/80 04/21/21 17:00 Pulse Ox 97 04/21/21 17:00 Intake & Output 04/20/21 04/21/21 04/21/21 18:59 06:59 18:59 Intake Total 9746.709 1711 800 Output Total 1780 1989 107 Balance -514.663 -990 -275 Weight 91.626 kg 89.3 kg Intake: IV 900 900 800 Magnesium Sulfate-D5w Pmx 100 1 gm In Dextrose/Water 1 100ml.bag @ 100 mls/hr IVPB ONCE ONE Rx#: [id number] Piperacillin-Tazobactam 3 100 .375 gm In Sodium Chloride 0.9% 100 ml @ 25 mls/hr IVPB Q8HR [facility] Rx# :[id number] Sodium Chloride 0.9% 1, 900 900 600 000 ml @ 75 mls/hr IV . [id number] [facility] Rx#:[id number] Intake, IV Titration 365.337 100 Amount Norepinephrine 4 mg In 183.286 Sodium Chloride 0.9% 250 ml @ 0.05 MCG/KG/MIN 15. 24 mls/hr IV .[id number] [facility] Rx#:[id number] Piperacillin-Tazobactam 3 100 100 .375 gm In Sodium Chloride 0.9% 100 ml @ 25 mls/hr IVPB Q8HR [facility] Rx# :[id number] propofoL 1,000 mg In 82.051 Empty Bag 1 bag @ Titrate IV .Q0M [facility] Rx#: [id number] Output: Urine 1780 1989 107 Other: Voiding Method Indwelling Catheter Indwelling Catheter Indwelling Catheter - Exam General: The patient is awake and alert, in no distress Eye: there is normal conjunctiva bilaterally. Neck: The neck is supple, there is no JVD. Cardiovascular: Normal S1-S2, no S3-S4, no murmurs. Respiratory: Lungs clear to auscultation bilaterally Gastrointestinal: Abdomen is soft, nontender Musculoskeletal: There is no pedal edema. Skin: Skin is warm and dry - Labs CBC & Chem 7: 04/21/21 03:53 04/21/21 03:53 Labs: Abnormal Lab Results - Last 24 Hours (Table) 04/20/21 04/20/21 04/21/21 Range/Units 18:08 23:42 03:53 WBC 11.1 H (3.8-10.6) k/uL RBC 3.56 L (4.30-5.90) m/uL Hgb 10.9 L (13.0-17.5) gm/dL Hct 32.3 L (39.0-53.0) % Neutrophils # 9.4 H (1.3-7.7) k/uL Lymphocytes # 0.7 L (1.0-4.8) k/uL ABG pH (7.35-7.45) ABG pO2 (83-108) mmHg ABG HCO3 (21-25) mmol/L ABG Total CO2 (19-24) mmol/L ABG O2 Saturation (94-97) % Sodium (137-145) mmol/L BUN (9-20) mg/dL Glucose (74-99) mg/dL POC Glucose (mg/dL) 178 H (75-99) mg/dL Troponin I 2.200 H* (0.000-0.034) ng/mL 04/21/21 04/21/21 04/21/21 Range/Units 03:53 11:12 11:44 WBC (3.8-10.6) k/uL RBC (4.30-5.90) m/uL Hgb (13.0-17.5) gm/dL Hct (39.0-53.0) % Neutrophils # (1.3-7.7) k/uL Lymphocytes # (1.0-4.8) k/uL ABG pH 7.46 H (7.35-7.45) ABG pO2 170 H (83-108) mmHg ABG HCO3 30 H (21-25) mmol/L ABG Total CO2 32 H (19-24) mmol/L ABG O2 Saturation 98.4 H (94-97) % Sodium 136 L (137-145) mmol/L BUN 37 H (9-20) mg/dL Glucose 180 H (74-99) mg/dL POC Glucose (mg/dL) 219 H (75-99) mg/dL Troponin I (0.000-0.034) ng/mL 04/21/21 Range/Units 17:53 WBC (3.8-10.6) k/uL RBC (4.30-5.90) m/uL Hgb (13.0-17.5) gm/dL Hct (39.0-53.0) % Neutrophils # (1.3-7.7) k/uL Lymphocytes # (1.0-4.8) k/uL ABG pH (7.35-7.45) ABG pO2 (83-108) mmHg ABG HCO3 (21-25) mmol/L ABG Total CO2 (19-24) mmol/L ABG O2 Saturation (94-97) % Sodium (137-145) mmol/L BUN (9-20) mg/dL Glucose (74-99) mg/dL POC Glucose (mg/dL) 199 H (75-99) mg/dL Troponin I (0.000-0.034) ng/mL Microbiology - Last 24 Hours (Table) 04/19/21 15:57 Gram Stain - Final Sputum Sputum Culture - Final Assessment and Plan Assessment: This is a 71-year-old male who presented to the emergency department after cardiac arrest. Most of HPI was was taken from documentation. Per documents patient had a witnessed arrest by his while he was sitting on the couch eating potato chips. CPR was initiated for 5 minutes. Patient continued to be unresponsive. Neighbor who is a wick and base assembler was called and began CPR. Upon arrival, EMS identified defib arrest. Patient was defibrillated with return of spontaneous circulation. Patient was intubated and given 2 rounds of epinephrin e. Patient was taken straight to [facility] for STEMI. EKG showed ST elevations in the inferolateral and anterolateral leads. 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 Per documentation the circumflex could be the culprit vessel. Assessment and Plan Assessment: 1. Ventilator dependent respiratory failure secondary to cardiac arrest STEMI extubated successfully on 04/21 Coronary artery disease presenting with STEMI Patient is status post cardiac cath triple vessel disease identified per documents stent placement being attempted by Dr. Gould Ischemic cardiomyopathy Cardiology recommendations appreciated 2. KAVITHA secondary to hypoperfusion due to #1 Kidney function improving 3. Hyperglycemia likely underlying diabetes mellitus Insulin sliding scale A1c 6.6 4. Elevated liver enzymes likely secondary to hypoperfusion rule out liver disease Monitor AST and ALT 5. Leukocytosis likely reactive 6. Bilateral pulmonary effusions likely due to heart failure 7. GI DVT prophylaxis
[2021-04-21] MEDS: AMIODARONE 450 MG in DEXTROSE 5% IN WATER 250 ML IV SCH ×4 (19:50→22:52)
--- NOTE | 2021-04-21 20:33 | P.PN ---
Subjective Progress Note Date: 04/21/21 Patient was seen for a follow-up. Patient's daughter was present today. Patient continues to ask "what's going on". Patient does remember his family members, and "Daniele" his neighbor, who called 911. Patient was extubated earlier today. Patient is showing remarkable clinical improvement. Patient is slightly confused, regarding orientation, but examination looks great as below. He does not remember details about arrival to the hospital as expected. He is in shock because of the events he came through. Patient otherwise is laying comfortably in the bed. Patient had been very active prior to the MRI. 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 Objective - Vital Signs Vital signs: Vital Signs Temp 97.9 F 04/21/21 16:00 Pulse 81 04/21/21 19:00 Resp 23 04/21/21 19:00 BP 147/93 04/21/21 19:00 Pulse Ox 99 04/21/21 19:00 Intake & Output 04/21/21 04/21/21 04/22/21 06:59 18:59 06:59 Intake Total 1000 950 75 Output Total 1989 1410 100 Balance -990 -460 -25 Weight 89.3 kg Intake: IV 900 950 75 Magnesium Sulfate-D5w Pmx 100 1 gm In Dextrose/Water 1 100ml.bag @ 100 mls/hr IVPB ONCE ONE Rx#: [id number] Piperacillin-Tazobactam 3 100 .375 gm In Sodium Chloride 0.9% 100 ml @ 25 mls/hr IVPB Q8HR [facility] Rx# :[id number] Sodium Chloride 0.9% 1, 900 750 75 000 ml @ 75 mls/hr IV . [id number] [facility] Rx#:[id number] Intake, IV Titration 100 Amount Piperacillin-Tazobactam 3 100 .375 gm In Sodium Chloride 0.9% 100 ml @ 25 mls/hr IVPB Q8HR [facility] Rx# :[id number] Output: Urine 1989 1410 100 Other: Voiding Method Indwelling Catheter Indwelling Catheter - Exam Patient is an elderly male, appears younger than his stated age. Patient is slightly encephalopathic, but does wake up, and follows commands very well. Patient was able to tell me name of his daughter. Patient states that he is in [place]. He thinks the year is 2005, could not tell name of the current president. Speech is mildly dysarthric and language functions are normal. Patient can name all objects presented including "knuckles, eye glasses, pen" and repeats very well, follows directions very well. Patient able to point to the window. Attention, concentration and fund of knowledge is improving. On cranial examination, pupils are round and reacting to light, visual sheikh are full on confrontation, with no neglect on double simultaneous stimulation. extraocular muscles are intact with mild nystagmus noticeable. Face has mild right-sided droop, tongue protrudes to the midline. Palatal elevation and sensation normal, hearing and shoulder shrug normal, facial sensation normal. On muscle strength testing, the strength of territory supervisor is completely normal. Biceps and triceps appears normal. Deltoid 5-. Patient's hip flexion is about 4-, ankles are normal. Deep tendon reflexes are brisk particularly in the legs, but plantars are downgoing versus withdrawal bilaterally. Sensory to touch is equal with no neglect. Cerebellar function showed no ataxia for [id number] testing, although he was very slow to perform the action. Tone and bulk of muscles normal. Gait not checked. On general examination, there is no carotid bruit or murmur, S1-S2 audible. Abdomen is soft nontender. Chest is clear. Peripheral pulses are present. No edema. - Labs CBC & Chem 7: 04/21/21 03:53 04/21/21 03:53 Labs: Abnormal Lab Results - Last 24 Hours (Table) 04/20/21 04/21/21 04/21/21 Range/Units 23:42 03:53 03:53 WBC 11.1 H (3.8-10.6) k/uL RBC 3.56 L (4.30-5.90) m/uL Hgb 10.9 L (13.0-17.5) gm/dL Hct 32.3 L (39.0-53.0) % Neutrophils # 9.4 H (1.3-7.7) k/uL Lymphocytes # 0.7 L (1.0-4.8) k/uL ABG pH (7.35-7.45) ABG pO2 (83-108) mmHg ABG HCO3 (21-25) mmol/L ABG Total CO2 (19-24) mmol/L ABG O2 Saturation (94-97) % Sodium 136 L (137-145) mmol/L BUN 37 H (9-20) mg/dL Glucose 180 H (74-99) mg/dL POC Glucose (mg/dL) 178 H (75-99) mg/dL 04/21/21 04/21/21 04/21/21 Range/Units 11:12 11:44 17:53 WBC (3.8-10.6) k/uL RBC (4.30-5.90) m/uL Hgb (13.0-17.5) gm/dL Hct (39.0-53.0) % Neutrophils # (1.3-7.7) k/uL Lymphocytes # (1.0-4.8) k/uL ABG pH 7.46 H (7.35-7.45) ABG pO2 170 H (83-108) mmHg ABG HCO3 30 H (21-25) mmol/L ABG Total CO2 32 H (19-24) mmol/L ABG O2 Saturation 98.4 H (94-97) % Sodium (137-145) mmol/L BUN (9-20) mg/dL Glucose (74-99) mg/dL POC Glucose (mg/dL) 219 H 199 H (75-99) mg/dL Microbiology - Last 24 Hours (Table) 04/19/21 15:57 Gram Stain - Final Sputum Sputum Culture - Final Assessment and Plan Assessment: * Cardiac arrest with somewhat prolonged downtime. Patient however is showing remarkable clinical improvement. Patient is status post extubation earlier this morning. Patient is following commands, speaking very well as per examination. * Status post extubation ventilator-dependent respiratory failure. * Acute AK, status post cardiac catheterization requiring stenting. * Hypertension Plan: * Patient has woken up, doing extremely well, following commands, speaking well. Patient still slightly forgetful, quite disoriented, but hopefully will improve over time. * We will continue close neurological evaluation. * EEG was abnormal due to background slowing of moderate degree. This is suggestive of generalized cerebral dysfunction as can be seen with toxic metabolic encephalopathy or related to diffuse structural brain abnormality. No epileptiform activity was seen. * Discussed with patient's daughter in detail. * We will continue to follow the patient with you. * Other medical management as per IM/critical care and cardiology
[2021-04-21] MEDS: ATORVASTATIN 80 MG TAB PO SCH (20:34)
[2021-04-22] MEDS: carvediloL 3.125 MG TAB PO SCH (06:33)
--- NOTE | 2021-04-22 07:27 | XR ---
EXAMINATION TYPE: XR chest 1V portable DATE OF EXAM: 04/22/2021 Comparison: 04/21/2021 Clinical History: 71-year-old male Tube placement Findings: Interval removal of the NG tube. Heart borderline enlarged. Diffuse interstitial and patchy confluent peripheral opacities, left greater than right persist. Slight worsening on the left now. Impression: Slight worsening in left greater than right predominantly peripheral COVID infiltrates.
[2021-04-22 08:39] LABS: African American GFR (CKD) >90 (>60 ml/min/1.73 sqM); Anion Gap 8 mmol/L; Blood Urea Nitrogen 35 mg/dL (9-20); Calcium 8.8 mg/dL (8.4-10.2); Carbon Dioxide 24 mmol/L (22-30); Chloride 104 mmol/L (98-107); Glucose 182 mg/dL (74-99); HCT 31.9 % (39.0-53.0); HGB 10.6 gm/dL (13.0-17.5); MCH 32.1 pg (25.0-35.0); MCHC 33.3 g/dL (31.0-37.0); Mean Platelet Volume 7.7; Non-African American GFR(CKD) 88 (>60 ml/min/1.73 sqM); Platelet Count 150 k/uL (150-450); RBC 3.31 m/uL (4.30-5.90); RDW 13.2 % (11.5-15.5); Sodium 136 mmol/L (137-145); WBC 11.3 k/uL (3.8-10.6)
[2021-04-22] MEDS: TICAGRELOR 90 MG TAB PO SCH ×2 (09:09→20:14)
[2021-04-22] MEDS: HEPARIN SODIUM,PORCINE/PF 5,000 UNIT/0.5 ML SYRINGE SQ SCH ×2 (09:09→20:14)
[2021-04-22] MEDS: ASPIRIN 81 MG PO SCH (09:09)
[2021-04-22] MEDS: PIPERACILLIN-TAZOBACTAM 3.375 GM in SODIUM CHLORIDE 0.9% 100 ML IVPB SCH ×2 (09:10→16:49)
[2021-04-22] MEDS: PANTOPRAZOLE 40 MG/10 ML VIAL IVP SCH (09:10)
[2021-04-22] MEDS: SPIRONOLACTONE 25 MG TAB PO SCH (09:10)
[2021-04-22] MEDS: FUROSEMIDE 10 MG/ML 2 ML VIAL IV SCH ×2 (09:10→15:04)
[2021-04-22 09:12] LABS: MCV 96.3 fL (80.0-100.0)
--- NOTE | 2021-04-22 09:31 | PN ---
PROGRESS NOTE Mr. Aldrich is fully awake, extubated, sitting up. He does not have any recollection of his cardiac arrest. I tried to have some conversation, but be seems to be having some short-term memory during the episode that happened with the cardiac arrest. I explained to the patient that he has LV dysfunction, triple-vessel disease, and he came in with what seems to be a primary ventricular fibrillation; and therefore he will need an ICD. I am recommending a dual-chamber ICD to be placed and will continue IV amiodarone and switch it to oral. I am going to add a small dose of losartan 25 mg daily, increase Coreg from 3.125 to 6.25 mg b.i.d. Aldactone will be 12.5 mg daily. Electrolytes are pending. CBC, BMP are pending. I discussed my thoughts in detail with the patient. Vitals are stable. No JVD. S1-S2 heard normally. Short systolic murmur noted at the base. Lungs reveal bilateral fine rales over both bases, scattered rhonchi. Abdomen is soft. Lower extremities reveal diminished pulses. Central nervous system grossly no focal deficits, but patient seems to be somewhat inappropriate sometimes and is not 100% oriented. He may have had some anoxic damage. He will require ICD and I will be speaking to his when she comes in. MMODL / IJN: [id number] /
--- NOTE | 2021-04-22 12:11 | P.PN ---
Subjective Patient is awake and alert. He was sitting in the chair when I saw him. He appeared confused but easily directable. Nursing staff told me that he is at risk of getting up out of the chair and walking around without notifying the aid Objective - Vital Signs Vital signs: Vital Signs Temp 98.3 F 04/22/21 04:00 Pulse 71 04/22/21 08:00 Resp 16 04/22/21 08:00 BP 140/63 04/22/21 08:00 Pulse Ox 95 04/22/21 07:00 Intake & Output 04/21/21 04/22/21 04/22/21 18:59 06:59 18:59 Intake Total 950 1530.557 500 Output Total 1410 985 300 Balance -460 545.557 200 Weight 88.4 kg Intake: IV 950 900 300 Magnesium Sulfate-D5w Pmx 100 1 gm In Dextrose/Water 1 100ml.bag @ 100 mls/hr IVPB ONCE ONE Rx#: [id number] Piperacillin-Tazobactam 3 100 .375 gm In Sodium Chloride 0.9% 100 ml @ 25 mls/hr IVPB Q8HR [facility] Rx# :[id number] Sodium Chloride 0.9% 1, 750 900 300 000 ml @ 75 mls/hr IV . [id number] [facility] Rx#:[id number] Intake, IV Titration 150.557 Amount Amiodarone 450 mg In 50.557 Dextrose 5% in Water 250 ml @ 0.5 MG/MIN 16.667 mls/hr IV .Q15H [facility] Rx#: [id number] Piperacillin-Tazobactam 3 100 .375 gm In Sodium Chloride 0.9% 100 ml @ 25 mls/hr IVPB Q8HR [facility] Rx# :[id number] Oral 480 200 Output: Urine 1410 985 300 Other: Voiding Method Indwelling Catheter Indwelling Catheter - Exam General: The patient is awake and alert, in no distress Eye: there is normal conjunctiva bilaterally. Neck: The neck is supple, there is no JVD. Cardiovascular: Normal S1-S2, no S3-S4, no murmurs. Respiratory: Lungs clear to auscultation bilaterally Gastrointestinal: Abdomen is soft, nontender Musculoskeletal: There is no pedal edema. Skin: Skin is warm and dry - Labs CBC & Chem 7: 04/22/21 07:59 04/22/21 07:59 Labs: Abnormal Lab Results - Last 24 Hours (Table) 04/21/21 04/22/21 04/22/21 Range/Units 17:53 07:59 07:59 WBC 11.3 H (3.8-10.6) k/uL RBC 3.31 L (4.30-5.90) m/uL Hgb 10.6 L (13.0-17.5) gm/dL Hct 31.9 L (39.0-53.0) % Sodium 136 L (137-145) mmol/L BUN 35 H (9-20) mg/dL Glucose 182 H (74-99) mg/dL POC Glucose (mg/dL) 199 H (75-99) mg/dL Microbiology - Last 24 Hours (Table) 04/19/21 15:57 Gram Stain - Final Sputum Sputum Culture - Final Assessment and Plan Assessment: This is a 71-year-old male who presented to the emergency department after cardiac arrest. Most of HPI was was taken from documentation. Per documents patient had a witnessed arrest by his while he was sitting on the couch eating potato chips. CPR was initiated for 5 minutes. Patient continued to be unresponsive. Neighbor who is a cattle alley worker was called and began CPR. Upon arrival, EMS identified defib arrest. Patient was defibrillated with return of spontaneous circulation. Patient was intubated and given 2 rounds of epinephrine. Patient was taken straight to clinical laboratory medical director for STEMI. EKG showed ST elevations in the inferolateral and anterolateral leads. 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 Per documentation the circumflex could be the culprit vessel. Assessment and Plan Assessment: 1. Ventilator dependent respiratory failure secondary to cardiac arrest STEMI extubated successfully on 04/21 Coronary artery disease presenting with STEMI Patient is status post cardiac cath triple vessel disease identified per documents stent placement being attempted by Dr. Gould Ischemic cardiomyopathy Cardiology recommendations appreciated 2. KAVITHA secondary to hypoperfusion due to #1 Kidney function improving 3. Hyperglycemia likely underlying diabetes mellitus Insulin sliding scale A1c 6.6 4. Elevated liver enzymes likely secondary to hypoperfusion rule out liver disease Monitor AST and ALT 5. Leukocytosis likely reactive 6. Bilateral pulmonary effusions likely due to heart failure 7. GI DVT prophylaxis Continue current management. They transferred out of the ICU when cleared by attraction attendant to stepdown unit.
[2021-04-22] MEDS: AMIODARONE 200 MG TAB PO SCH ×2 (12:21→20:14)
[2021-04-22] MEDS: SODIUM CHLORIDE 0.9% 1,000 ML IV SCH (12:22)
--- NOTE | 2021-04-22 12:46 | P.PN ---
Subjective Progress Note Date: 04/22/21 Principal diagnosis: Acute hypoxic respiratory failure secondary to cardiac arrest 71-year-old male patient was seen in the ED , immediately after his arrival post cardiac arrest. The patient was at home and he had a witnessed cardiac arrest and the called the neighbor the patient was started on CPR. Within 5 minutes, EMS arrived to the scene and the patient had epinephrine, amiodarone and defibrillation 2 with subsequent return of smoking circulation. At the time of his arrival to the ED, the patient was already intubated on mechanical ventilator. His EKG was showing ST segment elevation in the inferolateral leads. At that point, the patient was taken immediately to cardiac catheterization. The patient was found to have diffuse disease involving 100% mid LAD, 100% RCA with a qors-gl-hichc collaterals as well as 100% subtotal circumflex with left to left collaterals. The patient underwent PCI with mid to distal LAD stenting with a total of 5 stents inserted. Apparently his filling pressures were normal. Will start on dual antiplatelet agents. Was brought into the intensive care unit. He was sedated with propofol was currently running at 50 mics are as per kilogram per minute. CAT scan of the brain was done overnight for that showed no acute abnormalities. While on mechanical ventilator, the patient is on AC rate of 24, TV 450, Fio2 50% and he is pn a PEEP of 5. He is also on norepinephrine running at 0.9 mics are as per kilogram per minute and he has developed adequate urine output overnight. Today intensive care unit with adequate urine output. Cardiac rhythm is sinus. Subsequent gas from this morning showed a pH of 7.4 with a pCO2 of 40 and pO2 of 111. COVID-19 testing was negative. Chest x-ray was consistent with interstitial/pulmonary edema. There was 34 with a creatinine of 1.1 at time of admission and her white cell count was 24.9 with a hemoglobin of 13.8. The first set of troponin was less than 0.012. He did have some mild elevation of the AST and ALT.. No seizure activity. No myoclonic jerks. No clear history of aspiration. Reevaluated today on 04/20/2021, patient remains in the ICU, he is intubated and mechanically ventilated. He is on assist control rate of 24, tidal volume 450 FiO2 50% and PEEP of 5. ABG showed a pO2 of 111 pCO2 of 40 pH of 7.40 patient is on propofol at 20 by Karime per kilo per minute, he is requiring norepinephrine at 0.07 mcg/kg/m. Patient is unresponsive to any stimuli, does not even open eyes with deep painful stimuli. Neurology consultation is pending, patient had 5 stents placed yesterday to LAD. Chest x-ray is suggestive of interstitial edema, bilateral interstitial infiltrates/edema noted. Hence the patient will be diuresed. And his Lasix dose was increased to 20 mg IV push every 8 hours. Cardiogram this morning showed moderately impaired left ventricular function with ejection fraction of 35%. WBC count is 12.7 hemoglobin 12.1. Electrolytes are normal BUN is 36 creatinine 1.13. Liver enzymes are elevated. BNP is elevated at 3-20. Negative PCR for COVID-19 infection. Reevaluated today on 04/21/2021, patient remains in the ICU, remains intubated and mechanically ventilated. He is on assist control rate of 24, volume of 450 FiO2 50% and PEEP of 5. Patient has been off propofol for the last 24 hours, and he seems to be awake, slow but he follows very simple instructions. Wiggling toes, closing eyes, squeezing hands, hence after evaluating the patient and evaluated his chest x-ray and his labs I recommended a trial of pressure support of 10 and CPAP, however he was doing poorly and I recommended a backup rate of IMV. Later on I cut down his IMV from 8 down to 4. And he Doing quite well, he was moving good tidal volume, his rate was in the teens, and I recommended an ABG after 1 hour of being on pressure support and CPAP. His ABG was noted to be acceptable, pO2 of 170 pCO2 43 pH of 7.46, hence I recommended extubating the patient to a nasal cannula. I am a bit concerned that he may have some difficulty swallowing, and may consider a swallow evaluation on this patient. Patient remains fairly slow. His CBC is relatively normal. Electrolytes are normal renal profile showed a BUN of 37 creatinine of 1.21. Last troponin yesterday and today before was 2.2. Chest x-ray showed minimal bibasilar atelectasis. Doubt pneumonia. Although the patient was a good set up for possible aspiration pneumonia. The patient is seen today 04/22/2021 in follow-up in the intensive care unit. He was successfully extubated yesterday. He is currently sitting up in a chair at the bedside. Awake and alert in no acute distress. Still with some confusion. Maintaining O2 saturations in the 90s on 3 L/m per nasal cannula. Afebrile. Hemodynamically stable. This x-ray shows diffuse interstitial and patchy confluent peripheral opacities. Left greater than right. EEG revealed background slowing of moderate degree. Suggestive of generalized cervical dysfunction is seen with toxic metabolic encephalopathy or related to diffuse structural brain abnormality. No epileptiform is seen. Sputum cultures revealed no growth. He remains on amiodarone drip at 0.5 mg/m. The plan is to switch to oral. Plan is for AICD placement in a.m. White count 11.3. Hemoglobin 10.6. Sodium 136. Potassium 4.0. Creatinine 0.88. He remains on Lasix 20 mg IV every 8 hours. Heparin for DVT prophylaxis. Antibiotics in the form of Zosyn. 0.9 normal saline at 75 ML's per hour. Objective - Vital Signs Vital signs: Vital Signs Temp 98.3 F 04/22/21 04:00 Pulse 71 04/22/21 08:00 Resp 16 04/22/21 08:00 BP 140/63 04/22/21 08:00 Pulse Ox 95 04/22/21 07:00 Intake & Output 04/21/21 04/22/21 04/22/21 18:59 06:59 18:59 Intake Total 950 1530.557 500 Output Total 1410 985 300 Balance -460 545.557 200 Weight 88.4 kg Intake: IV 950 900 300 Magnesium Sulfate-D5w Pmx 100 1 gm In Dextrose/Water 1 100ml.bag @ 100 mls/hr IVPB ONCE ONE Rx#: [id number] Piperacillin-Tazobactam 3 100 .375 gm In Sodium Chloride 0.9% 100 ml @ 25 mls/hr IVPB Q8HR [facility] Rx# :[id number] Sodium Chloride 0.9% 1, 750 900 300 000 ml @ 75 mls/hr IV . [id number] [facility] Rx#:[id number] Intake, IV Titration 150.557 Amount Amiodarone 450 mg In 50.557 Dextrose 5% in Water 250 ml @ 0.5 MG/MIN 16.667 mls/hr IV .Q15H [facility] Rx#: [id number] Piperacillin-Tazobactam 3 100 .375 gm In Sodium Chloride 0.9% 100 ml @ 25 mls/hr IVPB Q8HR [facility] Rx# :[id number] Oral 480 200 Output: Urine 1410 985 300 Other: Voiding Method Indwelling Catheter Indwelling Catheter - Exam GENERAL EXAM: Alert, active, pleasant 71-year-old gentleman, on 3 L nasal cannula, in a chair at the bedside, comfortable in no apparent distress. HEAD: Normocephalic. EYES: Normal reaction of pupils, equal size. NOSE: Clear with pink turbinates. THROAT: No erythema or exudates. NECK: No masses, no JVD. CHEST: No chest wall deformity. LUNGS: Equal air entry with bilateral scattered rhonchi. CVS: S1 and S2 normal with no audible murmur, regular rhythm. ABDOMEN: No hepatosplenomegaly, normal bowel sounds, no guarding or rigidity. SPINE: No scoliosis or deformity SKIN: No rashes CENTRAL NERVOUS SYSTEM: No focal deficits, tone is normal in all 4 extremities. EXTREMITIES: There is no peripheral edema. No clubbing, no cyanosis. Peripheral pulses are intact. - Labs CBC & Chem 7: 04/22/21 07:59 04/22/21 07:59 Labs: Abnormal Lab Results - Last 24 Hours (Table) 04/21/21 04/22/21 04/22/21 Range/Units 17:53 07:59 07:59 WBC 11.3 H (3.8-10.6) k/uL RBC 3.31 L (4.30-5.90) m/uL Hgb 10.6 L (13.0-17.5) gm/dL Hct 31.9 L (39.0-53.0) % Sodium 136 L (137-145) mmol/L BUN 35 H (9-20) mg/dL Glucose 182 H (74-99) mg/dL POC Glucose (mg/dL) 199 H (75-99) mg/dL Microbiology - Last 24 Hours (Table) 04/19/21 15:57 Gram Stain - Final Sputum Sputum Culture - Final Assessment and Plan Assessment: 1 Acute hypoxic respiratory failure most likely secondary to acute ventricular fibrillation cardiac arrest, status post CPR for 5 minutes, received epinephrine, amiodarone, defibrillation 2 and subsequent return of spontaneous circulation. [address] segment elevation myocardial infarction and the patient received emergent cardiac catheterization and stenting of the LAD. 3 Acute pulmonary edema, possible aspiration pneumonia, most likely secondary to acute ischemic cardiomyopathy and LV dysfunction. 4 Acute leukocytosis, likely reactive. 5 Cardiogenic shock with hypotension requiring norepinephrine. Off pressors. Moderate global hypokinesia. Moderately impaired left ventricular systolic function with ejection fraction 35-40% 6 Possible anoxic brain injury and EEG revealed background slowing of moderate degree. Suspect generalized cerebral dysfunction as seen with toxic metabolic encephalopathy. No epileptiform activity seen Plan: The patient was seen and evaluated by Dr. Smith Currently stable from the pulmonary and critical care standpoint To be transferred to [facility]. Plan is for AICD placement in a.m. Add incentive spirometer and encourage increased cough and deep breathing Increase activity as tolerated Titrate down the FiO2 as tolerated We will continue to follow I, the cosigning physician, performed a history & physical examination of the patient. Lungs sounds bilateral scattered rhonchi. Maintaining good O2 saturations in the 90s on 2 L/m per nasal cannula. I discussed the assessment and plan of care with my nurse practitioner, Babita Cordero. I attest to the above note as dictated by her.
[2021-04-22 12:47] LABS: Glucose,Whole Blood 239 mg/dL (75-99)
[2021-04-22] MEDS: INSULIN ASPART (NovoLOG) 100 UNIT/ML VIAL SQ SCH ×3 (12:59→20:14)
[2021-04-22 13:05] VITALS: BMI 27.1
[2021-04-22] MEDS ORDERED: ALPRAZolam 0.25 MG TAB PO PRN (14:01)
--- NOTE | 2021-04-22 14:20 | CDI ---
Documentation Clarification Form Date: 04/22/2021 01:57:50 PM From: Rula Montoya RN CCDS Admit Date: 04/19/2021 03:18:00 PM Patient Name: Jd Aldrich Visit Number: [id number] Discharge Date: ATTENTION: The Clinical Documentation Specialists (CDI) and [facility] Coding Staff appreciate your assistance in clarifying documentation. Please respond to the clarification below the line at the bottom and electronically sign. The CDI & [facility] Coding staff will review the response and follow-up if needed. Please note: Queries are made part of the Legal Health Record. If you have any questions, please contact the author of this message via ITS. Dr. Brittany Cooley Your patient has the documented diagnosis of unspecified Acute pulmonary edema 04/22, Medicine progress note. Additional information regarding Pulmonary edema is requested. History/Risk Factors: 71-year-old male presents to the ED after cardiac arrest. 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 Medical History: HTN. 04/19, H&P. Clinical Indicators: VS/Pulse OX: 04/19 B/P 70/47; HR 86; RR 24; SpO2 97% Mechanical Ventilation BNP:04/20 3220 Echocardiogram Results: 04/20 Moderate global hypokinesis of LV. EF Between 35 40%. LA is moderately dilated . Mild mitral regurgitation. Mild tricuspid regurgitation Chest X Ray: 04/19 Coarse pulmonary edema. Treatment: 04/20 04/22 Coreg 3.125mg PO BID, 04/22 to current Coreg 6.25mg PO BID, 04/19 Lasix 40mg IV x1, 04/20 - 04/20 Lasix 20mg IV Daily. 04/20 current Lasix 20mg IV Q8HR, 04/22 to current Aldactone 12.5mg po daily. In your professional opinion, can you please clarify the [acuity and type] of CHF if known? [ ] Acute Systolic Heart Failure (reduced EF) [ X ] Acute on Chronic Systolic Heart Failure (reduced EF) [ ] Other, please specify [ ] Unable to determine (Template Last Revised: July 2020) MTDD
[2021-04-22] MEDS: ESCITALOPRAM 10 MG TAB PO SCH (15:02)
[2021-04-22] MEDS ORDERED: LIDOCAINE 1% (10MG/ML) FOR IV START INTRADERMA PRN (16:35)
[2021-04-22] MEDS ORDERED: LACTATED RINGERS 1,000 ML IV SCH (16:45)
[2021-04-22] MEDS: carvediloL 6.25 MG TAB PO SCH (16:47)
[2021-04-22 16:58] LABS: Glucose,Whole Blood 161 mg/dL (75-99)
[2021-04-22 20:06] LABS: Glucose,Whole Blood 196 mg/dL (75-99)
[2021-04-22] MEDS: QUEtiapine 50 MG TAB PO SCH (20:14)
[2021-04-22] MEDS: ATORVASTATIN 80 MG TAB PO SCH ×2 (20:14→20:25)
[2021-04-22] MEDS: busPIRone HCl 10 MG TAB PO SCH (20:14)
[2021-04-22] MEDS: LOSARTAN 25 MG TAB PO SCH (20:25)
[2021-04-23 00:07] LABS: Glucose,Whole Blood 128 mg/dL (75-99)
[2021-04-23] MEDS: FUROSEMIDE 10 MG/ML 2 ML VIAL IV SCH ×2 (00:26→09:14)
[2021-04-23] MEDS: SODIUM CHLORIDE 0.9% 1,000 ML IV SCH (00:26)
[2021-04-23] MEDS: PIPERACILLIN-TAZOBACTAM 3.375 GM in SODIUM CHLORIDE 0.9% 100 ML IVPB SCH ×4 (00:27→22:55)
[2021-04-23 06:14] LABS: Glucose,Whole Blood 135 mg/dL (75-99)
[2021-04-23] MEDS: INSULIN ASPART (NovoLOG) 100 UNIT/ML VIAL SQ SCH ×4 (06:14→22:55)
[2021-04-23] MEDS: carvediloL 6.25 MG TAB PO SCH (06:14)
[2021-04-23] MEDS ORDERED: ceFAZolin 1 GM in SODIUM CHLORIDE 0.9% 250 ML IRRIGATION PRN (07:00)
[2021-04-23] MEDS ORDERED: SODIUM CHLORIDE 0.9% 1,000 ML IV SCH ×2 (07:45)
--- NOTE | 2021-04-23 07:55 | P.EPCON ---
Electrophysiology Consult - EP Consult Electrophysiology Consult: This is Dr. 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 circumflex and RCA No evidence for acutely occlusive coronary artery disease, no evidence for acute type I PA His twelve-lead ECG is abnormal at baseline with ST elevation consistent with aneurysm rather than acute ST elevation PA These ST elevations or persistent PLAN: This patient experienced VF arrest while on a treadmill He has chronic ischemic cardio myopathy with LV dysfunction ejection fraction 35-40% He has mild bradycardia and hypotension I would recommend implantation of for dual chamber ICD and further maximization of beta blockers I discussed this with the patient as well as his family members and they're in agreement with plan HPI Patient presents to the hospital after VF arrest He did not have any angina prior to the episode He exercise on his treadmill for about 10 minutes and subsequently went to VF arrest and had to be resuscitated When he arrived in the emergency room his EKG is abnormal with ST elevations in the precordial leads and in the inferior leads and it was initially thought that he had an acute ST elevation PA However his coronary angiography revealed chronically occluded triple-vessel coronary artery disease I spoke to Dr. Hernandez and I also spoke to Dr. Gould They're in agreement that this gentleman did not have an acutely occlusive coronary artery and the LAD. These lesions are chronic He did not have an acute ST elevation PA but had VF arrest in the setting of chronic ischemic cardiomyopathy with an abnormal EKG that is consistent with LV aneurysm rather than acute ST elevation PA His beta naomi doses are being maximized ROS: No fever chills or rigors, no cough, phlegm or expectoration, no nausea, vomiting or diarrhea, no hematuria, dysuria, no musculoskeletal complaints, no strokes or seizures, no skin lesions. EXAMINATION: 139/69 mmHg pulse rate in the 70s, afebrile Breath sounds are clear no rhonchi no crackles Heart sounds S1 and S2 are normal Abdomen is soft nontender Extremities are warm He is alert awake REVIEW OF LABS, ECG & MEDICAL DATA Troponin 2.2 consistent with cardiac arrest/VF arrest. This sample was drawn 24 hours after presentation White count 11.3, hemoglobin 10.6 Sodium 136, potassium 4.0 BUN 35 and creatinine 0.9
--- NOTE | 2021-04-23 08:55 | P.PN ---
Subjective Progress Note Date: 04/22/21 Patient was seen for a follow-up. Patient's was present today. Patient is sitting in the recliner. He is doing extremely well. Patient's has noticed that he is repeating quite often. Patient denies any headache. Patient still is slightly confused, although getting orientation better now. Denies any new weakness, numbness or tingling or problem with the vision. Patient had been very active prior to the acute VA and cardiac arrest. 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 Objective - Vital Signs Vital signs: Vital Signs Temp 98.3 F 04/23/21 04:00 Pulse 71 04/23/21 04:00 Resp 20 04/23/21 04:00 BP 139/69 04/23/21 04:00 Pulse Ox 96 04/23/21 04:00 Intake & Output 04/22/21 04/23/21 04/23/21 18:59 06:59 18:59 Intake Total 1300 850 Output Total 700 550 Balance 600 300 Weight 88.4 kg 88.1 kg Intake: IV 850 850 Piperacillin-Tazobactam 3 100 100 .375 gm In Sodium Chloride 0.9% 100 ml @ 25 mls/hr IVPB Q8HR [facility] Rx# :[id number] Sodium Chloride 0.9% 1, 750 750 000 ml @ 75 mls/hr IV . [id number] [facility] Rx#:[id number] Oral 450 Output: Urine 700 550 Other: Voiding Method Indwelling Catheter Indwelling Catheter # Voids 1 2 - Exam Patient is an elderly male, appears younger than his stated age. Patient is sitting in the recliner, with his left leg crossed on the right leg. Patient is very alert and awake. Patient was able to tell me name, states it is 1998 and the month is December, but then self corrected to April. Patient knows he is in [facility]. Also knows name of the current president Perez Berkowitz. When I asked patient as to who is the person sitting next to him, states "my ex-", jokingly, although she is his current . Patient does have a good sense of humor and appears to be maintaining it at this time. Speech and language functions appears normal. Attention, concentration and fund of knowledge is improving. On cranial examination, pupils are round and reacting to light, visual sheikh are full on confrontation, with no neglect on double simultaneous stimulation. extraocular muscles are intact with mild nystagmus noticeable. Face has mild right-sided droop, tongue protrudes to the midline. Palatal elevation and sensation normal, hearing and shoulder shrug normal, facial sensation normal. On muscle strength testing, the strength of orchard pruner is completely normal. Biceps and triceps appears normal. Deltoid 5-. Patient's hip flexion is about 4-, ankles are normal. Deep tendon reflexes are brisk particularly in the legs, but plantars are downgoing versus withdrawal bilaterally. Sensory to touch is equal with no neglect. Cerebellar function showed no ataxia for [id number] testing. Tone and bulk of muscles normal. Gait not checked. On general examination, there is no carotid bruit or murmur, S1-S2 audible. Abdomen is soft nontender. Chest is clear. Peripheral pulses are present. No edema. - Labs CBC & Chem 7: 04/22/21 07:59 04/22/21 07:59 Labs: Abnormal Lab Results - Last 24 Hours (Table) 04/22/21 04/22/21 04/22/21 Range/Units 07:59 07:59 12:45 WBC 11.3 H (3.8-10.6) k/uL RBC 3.31 L (4.30-5.90) m/uL Hgb 10.6 L (13.0-17.5) gm/dL Hct 31.9 L (39.0-53.0) % Sodium 136 L (137-145) mmol/L BUN 35 H (9-20) mg/dL Glucose 182 H (74-99) mg/dL POC Glucose (mg/dL) 239 H (75-99) mg/dL 04/22/21 04/22/21 04/23/21 Range/Units 16:57 20:04 00:06 WBC (3.8-10.6) k/uL RBC (4.30-5.90) m/uL Hgb (13.0-17.5) gm/dL Hct (39.0-53.0) % Sodium (137-145) mmol/L BUN (9-20) mg/dL Glucose (74-99) mg/dL POC Glucose (mg/dL) 161 H 196 H 128 H (75-99) mg/dL 11/18/21 Range/Units 06:12 WBC (3.8-10.6) k/uL RBC (4.30-5.90) m/uL Hgb (13.0-17.5) gm/dL Hct (39.0-53.0) % Sodium (137-145) mmol/L BUN (9-20) mg/dL Glucose (74-99) mg/dL POC Glucose (mg/dL) 135 H (75-99) mg/dL Assessment and Plan Assessment: * Cardiac arrest with somewhat prolonged downtime. Patient is recovering very well. His mentation is improving as well as level of orientation. However still some short-term memory issues, which hopefully will improve with time. * Status post extubation for ventilator-dependent respiratory failure. * Acute VA, status post cardiac catheterization requiring stenting. * Hypertension Plan: * Patient is doing very well. Still having issues with short-term memory and some orientation, which hopefully will improve. I informed the patient's that amnestic disorder is a common residual effect of patient's surviving from cardiac arrest. However as he is already showing significant clinical improvement on a daily basis, will probably improve with time. Uncertain up to what extent, time will tell. * We will continue close neurological evaluation. * EEG was abnormal due to background slowing of moderate degree. This is suggestive of generalized cerebral dysfunction as can be seen with toxic metabolic encephalopathy or related to diffuse structural brain abnormality. No epileptiform activity was seen. * Continue aspirin 81 mg, Brilinta 90 mg twice a day and Lipitor 80 mg. Patient on heparin subcu for DVT prophylaxis. * Discussed with patient's in detail. * We will continue to follow the patient with you. * Other medical management as per IM/critical care and cardiology
[2021-04-23] MEDS: SPIRONOLACTONE 25 MG TAB PO SCH (09:13)
[2021-04-23] MEDS: TICAGRELOR 90 MG TAB PO SCH ×2 (09:13→20:37)
[2021-04-23] MEDS: AMIODARONE 200 MG TAB PO SCH ×2 (09:14→20:37)
[2021-04-23] MEDS: ASPIRIN 81 MG PO SCH (09:14)
[2021-04-23] MEDS: busPIRone HCl 10 MG TAB PO SCH ×2 (09:15→20:38)
[2021-04-23] MEDS: HEPARIN SODIUM,PORCINE/PF 5,000 UNIT/0.5 ML SYRINGE SQ SCH ×2 (09:15→20:37)
[2021-04-23] MEDS: PANTOPRAZOLE 40 MG/10 ML VIAL IVP SCH (09:15)
[2021-04-23] MEDS: ESCITALOPRAM 10 MG TAB PO SCH (09:15)
--- NOTE | 2021-04-23 10:39 | PN ---
PROGRESS NOTE Mr. Aldrich is a gentleman who presented with a VFib arrest, underwent stenting of LAD with excellent result. He has significant disease in RCA and circumflex as well. He is going for an ICD today to be performed by Dr. Wakefield. Patient and family wished that Dr. Wakefield should perform the procedure, so I did request him to see the patient yesterday. He is doing well. No further issues. He is on a good program of medications and he had a comfortable night, no symptoms. Vitals are stable. No JVD. S1- S2 heard normally. Short systolic murmur noted. Lungs reveal decent air entry. Abdomen is soft. Lower extremities reveal diminished pulses. Central nervous system grossly within normal limits. He will have a dual-chamber ICD today and will continue maximal beta blockers and further additional revascularization down the road. Discussed my thoughts in detail with the patient and family. MMODL / IJN: [id number] /
--- NOTE | 2021-04-23 12:13 | ECHOF ---
Referral Reason:assess lvf MEASUREMENTS -------- HEIGHT: 180.3 cm WEIGHT: 88.0 kg BP: 153/71 RVIDd: 2.9 cm (< 3.3) IVSd: 1.5 cm (0.6 - 1.1) LVIDd: 4.8 cm (3.9 - 5.3) LVPWd: 1.5 cm (0.6 - 1.1) IVSs: 1.8 cm LVIDs: 3.7 cm LVPWs: 1.9 cm LA Diam: 3.9 cm (2.7 - 3.8) Ao Diam: 3.3 cm (2.0 - 3.7) AV Cusp: 2.3 cm (1.5 - 2.6) MV EXCURSION: 19.436 mm (> 18.000) MV EF SLOPE: 72 mm/s (70 - 150) EPSS: 0.8 cm MV E Garett: 1.20 m/s MV DecT: 189 ms MV A Garett: 0.92 m/s MV E/A Ratio: 1.30 RAP: 5.00 mmHg RVSP: 52.30 mmHg FINDINGS -------- Sinus rhythm. This was a technically adequate study. The left ventricular size is normal. There is moderate concentric left ventricular hypertrophy. O verall left ventricular systolic function is moderately impaired with, an EF between 35 - 40 %. Bas al posterior LV wall motion is hypokinetic. Apical inferior LV wall motion is hypokinetic. Apic al septum LV wall motion is hypokinetic. The right ventricle is normal in size. Normal LA size by volume 22+/-6 ml/m2. The right atrium is normal in size. Interatrial and interventricular septum intact. There is mild aortic valve sclerosis. The mitral valve leaflets are mildly thickened. Mild mitral annular calcification present. Mild m itral regurgitation is present. Mild tricuspid regurgitation present. There is moderate pulmonary hypertension. The right ventric ular systolic pressure, as measured by Doppler, is 52.30mmHg. Trace/mild (physiologic) pulmonic regurgitation. The aortic root size is normal. Normal inferior vena cava with normal inspiratory collapse consistent with estimated right atrial pre ssure of 5 mmHg. There is no pericardial effusion. CONCLUSIONS -------- 1. The left ventricular size is normal. 2. There is moderate concentric left ventricular hypertrophy. 3. Overall left ventricular systolic function is moderately impaired with, an EF between 35 - 40 %. 4. Basal posterior LV wall motion is hypokinetic. 5. Apical inferior LV wall motion is hypokinetic. 6. Apical septum LV wall motion is hypokinetic. 7. There is mild aortic valve sclerosis. 8. The mitral valve leaflets are mildly thickened. 9. Mild mitral annular calcification present. 10. Mild mitral regurgitation is present. 11. Mild tricuspid regurgitation present. 12. There is moderate pulmonary hypertension. 13. The right ventricular systolic pressure, as measured by Doppler, is 52.30mmHg. 14. Trace/mild (physiologic) pulmonic regurgitation. 15. There is no pericardial effusion. COLD MILL SUPERVISOR: Martha Watts RDCS
[2021-04-23 13:04] LABS: Glucose,Whole Blood 133 mg/dL (75-99)
--- NOTE | 2021-04-23 13:49 | P.PN ---
Subjective Progress Note Date: 04/23/21 Principal diagnosis: Acute hypoxic respiratory failure secondary to cardiac arrest 71-year-old male patient was seen in the ED , immediately after his arrival post cardiac arrest. The patient was at home and he had a witnessed cardiac arrest and the called the neighbor the patient was started on CPR. Within 5 minutes, EMS arrived to the scene and the patient had epinephrine, amiodarone and defibrillation 2 with subsequent return of smoking circulation. At the time of his arrival to the ED, the patient was already intubated on mechanical ventilator. His EKG was showing ST segment elevation in the inferolateral leads. At that point, the patient was taken immediately to cardiac catheterization. The patient was found to have diffuse disease involving 100% mid LAD, 100% RCA with a [id number] collaterals as well as 100% subtotal circumflex with left to left collaterals. The patient underwent PCI with mid to distal LAD stenting with a total of 5 stents inserted. Apparently his filling pressures were normal. Will start on dual antiplatelet agents. Was brought into the intensive care unit. He was sedated with propofol was currently running at 50 mics are as per kilogram per minute. CAT scan of the brain was done overnight for that showed no acute abnormalities. While on mechanical ventilator, the patient is on AC rate of 24, TV 450, Fio2 50% and he is pn a PEEP of 5. He is also on norepinephrine running at 0.9 mics are as per kilogram per minute and he has developed adequate urine output overnight. Today intensive care unit with adequate urine output. Cardiac rhythm is sinus. Subsequent gas from this morning showed a pH of 7.4 with a pCO2 of 40 and pO2 of 111. COVID-19 testing was negative. Chest x-ray was consistent with interstitial/pulmonary edema. There was 34 with a creatinine of 1.1 at time of admission and her white cell count was 24.9 with a hemoglobin of 13.8. The first set of troponin was less than 0.012. He did have some mild elevation of the AST and ALT.. No seizure activity. No myoclonic jerks. No clear history of aspiration. Reevaluated today on 04/20/2021, patient remains in the ICU, he is intubated and mechanically ventilated. He is on assist control rate of 24, tidal volume 450 FiO2 50% and PEEP of 5. ABG showed a pO2 of 111 pCO2 of 40 pH of 7.40 patient is on propofol at 20 by Karime per kilo per minute, he is requiring norepinephrine at 0.07 mcg/kg/m. Patient is unresponsive to any stimuli, does not even open eyes with deep painful stimuli. Neurology consultation is pending, patient had 5 stents placed yesterday to LAD. Chest x-ray is suggestive of interstitial edema, bilateral interstitial infiltrates/edema noted. Hence the patient will be diuresed. And his Lasix dose was increased to 20 mg IV push every 8 hours. Cardiogram this morning showed moderately impaired left ventricular function with ejection fraction of 35%. WBC count is 12.7 hemoglobin 12.1. Electrolytes are normal BUN is 36 creatinine 1.13. Liver enzymes are elevated. BNP is elevated at 3-20. Negative PCR for COVID-19 infection. Reevaluated today on 04/21/2021, patient remains in the ICU, remains intubated and mechanically ventilated. He is on assist control rate of 24, volume of 450 FiO2 50% and PEEP of 5. Patient has been off propofol for the last 24 hours, and he seems to be awake, slow but he follows very simple instructions. Wiggling toes, closing eyes, squeezing hands, hence after evaluating the patient and evaluated his chest x-ray and his labs I recommended a trial of pressure support of 10 and CPAP, however he was doing poorly and I recommended a backup rate of IMV. Later on I cut down his IMV from 8 down to 4. And he Doing quite well, he was moving good tidal volume, his rate was in the teens, and I recommended an ABG after 1 hour of being on pressure support and CPAP. His ABG was noted to be acceptable, pO2 of 170 pCO2 43 pH of 7.46, hence I recommended extubating the patient to a nasal cannula. I am a bit concerned that he may have some difficulty swallowing, and may consider a swallow evaluation on this patient. Patient remains fairly slow. His CBC is relatively normal. Electrolytes are normal renal profile showed a BUN of 37 creatinine of 1.21. Last troponin yesterday and today before was 2.2. Chest x-ray showed minimal bibasilar atelectasis. Doubt pneumonia. Although the patient was a good set up for possible aspiration pneumonia. Reevaluated today on 04/22/2021, patient is sitting in bed, doing well, remains in the ICU as an overflow, he was seen by cardiology yesterday, and the plan is to place a dual-chamber ICD today mostly because of the presentation of ventricular fibrillation arrest. Patient does have history of ischemic cardiomyopathy. The plan is to proceed with the surgery sometime today. In the meantime the patient is doing great clinically, he is on room air, asymptomatic. CBC is normal. Electrolytes are normal. Renal profile is normal. Objective - Vital Signs Vital signs: Vital Signs Temp 99.9 F H 04/23/21 08:00 Pulse 65 04/23/21 12:30 Resp 27 H 04/23/21 12:30 BP 141/71 04/23/21 12:30 Pulse Ox 98 04/23/21 12:30 Intake & Output 04/22/21 04/23/21 04/23/21 18:59 06:59 18:59 Intake Total 1300 850 625 Output Total 700 550 125 Balance 600 300 500 Weight 88.4 kg 88.1 kg Intake: IV 850 850 625 Piperacillin-Tazobactam 3 100 100 100 .375 gm In Sodium Chloride 0.9% 100 ml @ 25 mls/hr IVPB Q8HR [facility] Rx# :[id number] Sodium Chloride 0.9% 1, 750 750 525 000 ml @ 75 mls/hr IV . [id number] [facility] Rx#:[id number] Oral 450 Output: Urine 700 550 125 Other: Voiding Method Indwelling Catheter Indwelling Catheter Urinal # Voids 1 2 - Exam Physical Exam revealed a 71-year-old white male awake, room air, in no distress. Head: Atraumatic, normocephalic. . HEENT:[Neck is supple.] [No neck masses.] [No thyromegaly.] [No JVD.] Chest: Symmetrical chest expansion, clear throughout no crackles or rhonchi or wheezes. Cardiac Exam: [Normal S1 and S2, no S3 gallop, 2/6 systolic murmur thought the precordium. Abdomen: [Soft, nontender, no megaly, no rebound, no guarding, normal bowel sounds.] Extremities: [No clubbing, no edema, no cyanosis.] Neurological Exam: Alert and oriented 3 focal deficits. Psychiatric: Normal mood, affect and normal mental status examination. Skin: No rashes. - Labs CBC & Chem 7: 04/22/21 07:59 04/22/21 07:59 Labs: Abnormal Lab Results - Last 24 Hours (Table) 04/22/21 04/22/21 04/23/21 Range/Units 16:57 20:04 00:06 POC Glucose (mg/dL) 161 H 196 H 128 H (75-99) mg/dL 04/23/21 04/23/21 Range/Units 06:12 13:02 POC Glucose (mg/dL) 135 H 133 H (75-99) mg/dL Assessment and Plan Assessment: 1 Acute hypoxic respiratory failure most likely secondary to acute ventricular fibrillation cardiac arrest, status post CPR for 5 minutes, received epinephrine, amiodarone, defibrillation 2 and subsequent return of spontaneous circulation. Patient was extubated 2 days ago, and he tolerated the extubation well. [address] segment elevation myocardial infarction and the patient received emergent cardiac catheterization and stenting of the LAD. 3 Acute pulmonary edema, possible aspiration pneumonia, most likely secondary to acute ischemic cardiomyopathy and LV dysfunction. 4 Acute leukocytosis, likely reactive. 5 chronic ischemic cardiomyopathy and LV dysfunction. Recommendation: Patient is to have ICD placement today/dual-chamber by cardiology. Continue incentive spirometry. We'll clear the patient to be discharged out of the ICU to a monitor bed on selective. We will continue to follow. Time with Patient: Less than 30
--- NOTE | 2021-04-23 14:16 | P.PN ---
Subjective Patient is doing well today. He is awake and alert. He is sitting in the chair. at bedside. No acute events overnight. Objective - Vital Signs Vital signs: Vital Signs Temp 99.9 F H 04/23/21 08:00 Pulse 65 04/23/21 12:30 Resp 27 H 04/23/21 12:30 BP 141/71 04/23/21 12:30 Pulse Ox 98 04/23/21 12:30 Intake & Output 04/22/21 04/23/21 04/23/21 18:59 06:59 18:59 Intake Total 1300 850 625 Output Total 700 550 125 Balance 600 300 500 Weight 88.4 kg 88.1 kg Intake: IV 850 850 625 Piperacillin-Tazobactam 3 100 100 100 .375 gm In Sodium Chloride 0.9% 100 ml @ 25 mls/hr IVPB Q8HR [facility] Rx# :[id number] Sodium Chloride 0.9% 1, 750 750 525 000 ml @ 75 mls/hr IV . [id number] [facility] Rx#:[id number] Oral 450 Output: Urine 700 550 125 Other: Voiding Method Indwelling Catheter Indwelling Catheter Urinal # Voids 1 2 - Exam General: The patient is awake and alert, in no distress Eye: there is normal conjunctiva bilaterally. Neck: The neck is supple, there is no JVD. Cardiovascular: Normal S1-S2, no S3-S4, no murmurs. Respiratory: Lungs clear to auscultation bilaterally Gastrointestinal: Abdomen is soft, nontender Musculoskeletal: There is no pedal edema. Skin: Skin is warm and dry - Labs CBC & Chem 7: 04/22/21 07:59 04/22/21 07:59 Labs: Abnormal Lab Results - Last 24 Hours (Table) 04/22/21 04/22/21 04/23/21 Range/Units 16:57 20:04 00:06 POC Glucose (mg/dL) 161 H 196 H 128 H (75-99) mg/dL 04/23/21 04/23/21 Range/Units 06:12 13:02 POC Glucose (mg/dL) 135 H 133 H (75-99) mg/dL Assessment and Plan Assessment: This is a 71-year-old male who presented to the emergency department after cardiac arrest. Per documents patient had a witnessed arrest by his while he was sitting on the couch eating potato chips. CPR was initiated for 5 minutes. Patient continued to be unresponsive. Neighbor who is a code enforcement officer was called and began CPR. Upon arrival, EMS identified Afib arrest. Patient was defibrillated with return of spontaneous circulation. Patient was intubated and given 2 rounds of epinephrine. Patient was taken straight to lab tester. 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 Assessment and Plan Assessment: 1. Ventilator dependent respiratory failure secondary to cardiac arrest STEMI extubated successfully on 04/21 Coronary artery disease presenting with V. fib arrest Patient is status post cardiac cath triple vessel disease identified and successful stent placement to LAD Ischemic cardiomyopathy with EF of 35-40% Cardiology recommendations appreciated, plan for AICD today. 2. KAVITHA secondary to hypoperfusion due to #1 Kidney function improving 3. Hyperglycemia likely underlying diabetes mellitus Insulin sliding scale A1c 6.6 4. Elevated liver enzymes likely secondary to hypoperfusion rule out liver disease Monitor AST and ALT 5. Leukocytosis likely reactive 6. GI DVT prophylaxis Continue current management. They transferred out of the ICU when cleared by stone mason to stepdown unit.
--- NOTE | 2021-04-23 15:24 | MR ---
EXAMINATION TYPE: MR brain wo con DATE OF EXAM: 04/23/2021 3:15 PM COMPARISON: NONE HISTORY: Cardiac arrest, memory loss FINDINGS: The ventricles, basal cisterns and sulci overlying the cerebral convexities are mildly enlarged. There is evidence of mild periventricular white matter ischemic demyelination. Remote deep white matter insults are also noted. No acute edema is seen on diffusion weighted imaging. There is no evidence for midline shift or mass effect. Acute intracranial hemorrhage or extra-axial collection is not evident. The paranasal sinuses and mastoid air cells are well-aerated. IMPRESSION: Age-related atrophic and chronic small vessel ischemic change. No acute intracranial process at this time.
--- NOTE | 2021-04-23 17:24 | P.PCN ---
Preoperative Diagnosis: Patient was awaiting dual-chamber ICD implant Yesterday when I examined him he did not have any thrombophlebitis in his right antecubital fossa However today there is tenderness with thrombophlebitis and the site is hot, red and inflamed Risk of device infection ICD implant canceled I discussed this with the patient I discussed this with the family Suggest start vancomycin, I called pharmacy. Pharmacy dosing Continue Zosyn Reevaluate after 48 hours Likely dual ICD on Tuesday after resolution of, phlebitis
[2021-04-23] MEDS ORDERED: VANCOMYCIN IV PER PHARMACY 1 EACH MISC MISCELLANE PRN (17:26)
[2021-04-23] MEDS: carvediloL 12.5 MG TAB PO SCH (17:43)
[2021-04-23] MEDS: VANCOMYCIN 1,500 MG in SODIUM CHLORIDE 0.9% 250 ML IVPB SCH (17:51)
[2021-04-23 17:57] LABS: Glucose,Whole Blood 116 mg/dL (75-99)
[2021-04-23] MEDS: QUEtiapine 50 MG TAB PO SCH (20:38)
[2021-04-23] MEDS: LOSARTAN 25 MG TAB PO SCH (20:38)
[2021-04-23 22:55] LABS: Glucose,Whole Blood 196 mg/dL (75-99)
[2021-04-23] MEDS: DONEPEZIL 5 MG TAB PO SCH (23:42)
[2021-04-24 04:50] LABS: Glucose,Whole Blood 152 mg/dL (75-99)
[2021-04-24] MEDS: INSULIN ASPART (NovoLOG) 100 UNIT/ML VIAL SQ SCH ×3 (06:19→17:59)
[2021-04-24] MEDS: VANCOMYCIN 1,500 MG in SODIUM CHLORIDE 0.9% 250 ML IVPB SCH ×2 (06:19→17:59)
[2021-04-24] MEDS: carvediloL 12.5 MG TAB PO SCH ×2 (06:34→16:51)
[2021-04-24 08:31] LABS: Basophils % (A) 0 %; Eosinophils # (A) 0.1 k/uL (0-0.7); Eosinophils % (A) 1 %; HCT 27.8 % (39.0-53.0); HGB 9.9 gm/dL (13.0-17.5); Lymphocytes # (A) 0.6 k/uL (1.0-4.8); Lymphocytes % (A) 9 %; MCH 31.3 pg (25.0-35.0); MCHC 35.4 g/dL (31.0-37.0); Mean Platelet Volume 7.7; Monocytes # (A) 0.5 k/uL (0-1.0); Monocytes % (A) 8 %; Neutrophils # (A) 5.4 k/uL (1.3-7.7); Neutrophils % (A) 80 %; Platelet Count 165 k/uL (150-450); RBC 3.15 m/uL (4.30-5.90); RDW 13.1 % (11.5-15.5); WBC 6.7 k/uL (3.8-10.6)
[2021-04-24 08:32] LABS: ALT 76 U/L (4-49); AST 42 U/L (17-59); African American GFR (CKD) >90 (>60 ml/min/1.73 sqM); Alkaline Phosphatase 38 U/L (38-126); Anion Gap 5 mmol/L; Blood Urea Nitrogen 28 mg/dL (9-20); Calcium 8.8 mg/dL (8.4-10.2); Carbon Dioxide 28 mmol/L (22-30); Chloride 104 mmol/L (98-107); Glucose 146 mg/dL (74-99); Non-African American GFR(CKD) 80 (>60 ml/min/1.73 sqM); Potassium 3.9 mmol/L (3.5-5.1); Sodium 137 mmol/L (137-145); Total Bilirubin 1.8 mg/dL (0.2-1.3); Total Protein 5.7 g/dL (6.3-8.2)
[2021-04-24 08:34] LABS: MCV 88.2 fL (80.0-100.0)
[2021-04-24] MEDS: PIPERACILLIN-TAZOBACTAM 3.375 GM in SODIUM CHLORIDE 0.9% 100 ML IVPB SCH ×2 (08:39→16:51)
[2021-04-24] MEDS: AMIODARONE 200 MG TAB PO SCH ×2 (08:43→21:21)
[2021-04-24] MEDS: SPIRONOLACTONE 25 MG TAB PO SCH (08:43)
[2021-04-24] MEDS: busPIRone HCl 10 MG TAB PO SCH ×2 (08:43→21:21)
[2021-04-24] MEDS: ESCITALOPRAM 10 MG TAB PO SCH (08:43)
[2021-04-24] MEDS: HEPARIN SODIUM,PORCINE/PF 5,000 UNIT/0.5 ML SYRINGE SQ SCH ×2 (08:43→21:21)
[2021-04-24] MEDS: TICAGRELOR 90 MG TAB PO SCH ×2 (08:44→21:22)
[2021-04-24] MEDS: ASPIRIN 81 MG PO SCH (08:44)
--- NOTE | 2021-04-24 09:09 | P.PN ---
Subjective Progress Note Date: 04/23/21 Patient was seen for a follow-up. Patient's and a couple daughters were present today. Patient is sitting in the recliner. Offers no complaints. He is doing very well. Patient's has noticed that he is repeating quite often. Patient denies any headache. Patient still is slightly confused, although getting orientation better now. Denies any new weakness, numbness or tingling or problem with the vision. Patient had been very active prior to the acute MA and cardiac arrest. 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 Objective - Vital Signs Vital signs: Vital Signs Temp 98.2 F 04/24/21 04:00 Pulse 63 04/24/21 04:00 Resp 18 04/24/21 04:00 BP 147/63 04/24/21 04:00 Pulse Ox 95 04/24/21 04:00 Intake & Output 04/23/21 04/24/21 04/24/21 18:59 06:59 18:59 Intake Total 1550 805 240 Output Total 925 350 Balance 625 455 240 Weight 88.2 kg Intake: IV 1550 75 Piperacillin-Tazobactam 3 200 .375 gm In Sodium Chloride 0.9% 100 ml @ 25 mls/hr IVPB Q8HR [facility] Rx# :[id number] Sodium Chloride 0.9% 1, 1350 75 000 ml @ 75 mls/hr IV . [id number] [facility] Rx#:[id number] Intake, IV Titration 250 Amount Vancomycin 1,500 mg In 250 Sodium Chloride 0.9% 250 ml @ 125 mls/hr IVPB Q12H [facility] Rx#:[id number] Oral 480 240 Output: Urine 925 350 Other: Voiding Method Bedside Commode Bedside Commode Urinal Urinal # Voids 1 1 - Exam Patient is an elderly male, appears younger than his stated age. Patient is sitting in the recliner. Patient is very alert and awake. Patient states is the month of March and the year is 2013. He knows he is in [facility]. He thinks he is in [place]. Patient was able to tell me name of his , and his daughters. Speech and language functions appears normal. Attention, concentration and fund of knowledge is improving. On cranial examination, pupils are round and reacting to light, visual sheikh are full on confrontation, with no neglect on double simultaneous stimulation. extraocular muscles are intact with mild nystagmus noticeable. Face has mild right-sided droop, tongue protrudes to the midline. Palatal elevation and sensation normal, hearing and shoulder shrug normal, facial sensation normal. On muscle strength testing, the strength is normal in arms and legs distally and proximally. Deep tendon reflexes are brisk particularly in the legs, but plantars are downgoing versus withdrawal bilaterally. Sensory to touch is equal with no neglect. Cerebellar function showed no ataxia for [id number]-[id number] testing. Tone and bulk of muscles normal. Gait not checked. On general examination, there is no carotid bruit or murmur, S1-S2 audible. Abdomen is soft nontender. Chest is clear. Peripheral pulses are present. No edema. - Labs CBC & Chem 7: 04/24/21 07:51 04/24/21 07:51 Labs: Abnormal Lab Results - Last 24 Hours (Table) 04/23/21 04/23/21 04/23/21 Range/Units 13:02 17:55 22:52 RBC (4.30-5.90) m/uL Hgb (13.0-17.5) gm/dL Hct (39.0-53.0) % Lymphocytes # (1.0-4.8) k/uL BUN (9-20) mg/dL Glucose (74-99) mg/dL POC Glucose (mg/dL) 133 H 116 H 196 H (75-99) mg/dL Total Bilirubin (0.2-1.3) mg/dL ALT (4-49) U/L Total Protein (6.3-8.2) g/dL Albumin (3.5-5.0) g/dL 04/24/21 04/24/21 04/24/21 Range/Units 04:48 07:51 07:51 RBC 3.15 L (4.30-5.90) m/uL Hgb 9.9 L (13.0-17.5) gm/dL Hct 27.8 L (39.0-53.0) % Lymphocytes # 0.6 L (1.0-4.8) k/uL BUN 28 H (9-20) mg/dL Glucose 146 H (74-99) mg/dL POC Glucose (mg/dL) 152 H (75-99) mg/dL Total Bilirubin 1.8 H (0.2-1.3) mg/dL ALT 76 H (4-49) U/L Total Protein 5.7 L (6.3-8.2) g/dL Albumin 3.0 L (3.5-5.0) g/dL Assessment and Plan Assessment: * Cardiac arrest with somewhat prolonged downtime. Patient is recovering very well. His mentation is remarkably improved, although still with some short- term memory issues and orientation. Hopefully will improve with time. * Status post extubation for ventilator-dependent respiratory failure. * Acute MA, status post cardiac catheterization requiring stenting. * Hypertension Plan: * Patient is doing very well. Still having issues with short-term memory and some orientation, which hopefully will improve. I informed the patient's that amnestic disorder is a common residual effect of patient's surviving from cardiac arrest. However as he is already showing significant clinical improvement on a daily basis, will probably improve with time. Uncertain up to what extent, time will tell. * MRI of the brain * Patient undergoing placement of pacemaker today in the evening. We will try to obtain MRI of the brain without contrast before patient undergoes pacemaker placement. * For persistent memory issues, we will start Aricept 5 mg daily. * EEG was abnormal due to background slowing of moderate degree. This is suggestive of generalized cerebral dysfunction as can be seen with toxic metabolic encephalopathy or related to diffuse structural brain abnormality. No epileptiform activity was seen. * Continue aspirin 81 mg, Brilinta 90 mg twice a day and Lipitor 80 mg. Patient on heparin subcu for DVT prophylaxis.. * Other medical management as per IM/critical care and cardiology
--- NOTE | 2021-04-24 10:38 | P.PN ---
Subjective Patient is doing well today. He is sitting up in the chair. He does not have any complaints. Objective - Vital Signs Vital signs: Vital Signs Temp 98.2 F 04/24/21 04:00 Pulse 63 04/24/21 04:00 Resp 18 04/24/21 04:00 BP 147/63 04/24/21 04:00 Pulse Ox 95 04/24/21 04:00 Intake & Output 04/23/21 04/24/21 04/24/21 18:59 06:59 18:59 Intake Total 1550 805 240 Output Total 925 350 Balance 625 455 240 Weight 88.2 kg Intake: IV 1550 75 Piperacillin-Tazobactam 3 200 .375 gm In Sodium Chloride 0.9% 100 ml @ 25 mls/hr IVPB Q8HR [facility] Rx# :[id number] Sodium Chloride 0.9% 1, 1350 75 000 ml @ 75 mls/hr IV . [id number] [facility] Rx#:[id number] Intake, IV Titration 250 Amount Vancomycin 1,500 mg In 250 Sodium Chloride 0.9% 250 ml @ 125 mls/hr IVPB Q12H [facility] Rx#:[id number] Oral 480 240 Output: Urine 925 350 Other: Voiding Method Bedside Commode Bedside Commode Urinal Urinal # Voids 1 1 - Exam General: The patient is awake and alert, in no distress Eye: there is normal conjunctiva bilaterally. Neck: The neck is supple, there is no JVD. Cardiovascular: Normal S1-S2, no S3-S4, no murmurs. Respiratory: Lungs clear to auscultation bilaterally Gastrointestinal: Abdomen is soft, nontender Musculoskeletal: There is no pedal edema. Skin: Skin is warm and dry - Labs CBC & Chem 7: 04/24/21 07:51 04/24/21 07:51 Labs: Abnormal Lab Results - Last 24 Hours (Table) 04/23/21 04/23/21 04/23/21 Range/Units 13:02 17:55 22:52 RBC (4.30-5.90) m/uL Hgb (13.0-17.5) gm/dL Hct (39.0-53.0) % Lymphocytes # (1.0-4.8) k/uL BUN (9-20) mg/dL Glucose (74-99) mg/dL POC Glucose (mg/dL) 133 H 116 H 196 H (75-99) mg/dL Total Bilirubin (0.2-1.3) mg/dL ALT (4-49) U/L Total Protein (6.3-8.2) g/dL Albumin (3.5-5.0) g/dL 04/24/21 04/24/21 04/24/21 Range/Units 04:48 07:51 07:51 RBC 3.15 L (4.30-5.90) m/uL Hgb 9.9 L (13.0-17.5) gm/dL Hct 27.8 L (39.0-53.0) % Lymphocytes # 0.6 L (1.0-4.8) k/uL BUN 28 H (9-20) mg/dL Glucose 146 H (74-99) mg/dL POC Glucose (mg/dL) 152 H (75-99) mg/dL Total Bilirubin 1.8 H (0.2-1.3) mg/dL ALT 76 H (4-49) U/L Total Protein 5.7 L (6.3-8.2) g/dL Albumin 3.0 L (3.5-5.0) g/dL Assessment and Plan Assessment: This is a 71-year-old male who presented to the emergency department after cardiac arrest. Per documents patient had a witnessed arrest by his while he was sitting on the couch eating potato chips. CPR was initiated for 5 minutes. Patient continued to be unresponsive. Neighbor who is a direct chill casting operator was called and began CPR. Upon arrival, EMS identified Afib arrest. Patient was defibrillated with return of spontaneous circulation. Patient was intubated and given 2 rounds of epinephrine. Patient was taken straight to labor economics professor. 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 Assessment and Plan Assessment: Ventilator dependent respiratory failure secondary to cardiac arrest/V. fib extubated successfully on 04/21 Coronary artery disease presenting with V. fib arrest Ischemic cardiomyopathy with EF of 35-40% Status post cardiac cath triple vessel disease identified and successful stent placement to LAD Cardiology recommendations appreciated, plan for AICD on Tuesday KAVITHA secondary to hypoperfusion due to #1 -Kidney function improving Hyperglycemia/underlying diabetes mellitus Insulin sliding scale A1c 6.6 Thrombophlebitis of the right arm -Started on antibiotic prophylactically by cardiology in anticipation of ICD implantation on Tuesday DVT prophylaxis Subcu heparin Continue current management. Discharge planning possibly on Tuesday
[2021-04-24 12:09] LABS: Glucose,Whole Blood 220 mg/dL (75-99)
--- NOTE | 2021-04-24 12:15 | P.PN ---
Subjective This is a 71-year-old male with a past medical history hypertension. Patient does not follow with a refrigeration specialist. Patient admitted on 04/19/21 with cardiac arrest at home. EKG revealed ST elevations in inferolateral and anterolateral leads. Patient underwent cardiac catheterization with Dr. Gould on 04/19/21 which revealed multivessel CAD with 100% LAD, 100% circumflex and 100% RCA stenosis. He underwent stenting to the LAD. Echocardiogram revealed an EF of 3540%, basal posterior, atypical. An apical septum LV wall hypokinetic, mild mitral tissue, mild tricuspid regurgitation, moderate pulmonary hypertension. Patient was stabilized in ICU and was transferred to . Plan for patient to undergo dual chamber ICD placement with Dr. Wakefield, however, patient with right upper arm thrombophlebitis and procedure is rescheduled until Tuesday04/27/21. Patient seen and examined at bedside, up in the bedside chair. Denies chest pain and shortness of breath. He is increasing his activity as tolerated. His thrombophlebitis in the right arm has improved with IV antibiotics. He is currently maintained on amiodarone 200 mg twice a day, aspirin 81 mg daily, atorvastatin 80 mg nightly, carvedilol 12.5 mg twice a day, losartan 25 mg nightly, spironolactone 12.5 mg daily and Brilinta 90 mg twice a day. Telemetry reviewed patient in sinus mechanism heart rate in the 60s/70s, occasional PVCs. Laboratory reviewed, WBC 6.7, hemoglobin 9.9, platelets 165, sodium 137, potassium 3.9, BUN 28, serum 0.9, total bilirubin 1.8 GENERAL: In no acute distress. NECK: Supple without JVD or thyromegaly. LUNGS: Breath sounds clear to auscultation bilaterally. Respiration equal and unlabored. No wheezes, rales or rhonchi. HEART: Regular rate and rhythm Systolic ejection murmur. S1 and S2 heard. EXTREMITIES: Normal range of motion, no edema. No clubbing or cyanosis. Peripheral pulses intact. SKIN: right groin site, clean, dry 2+ peripheral pulse ASSESSMENT V fib arrest Multivessel coronary artery disease with 100% LAD, 100% circumflex and 100% RCA stenosis. Status post PCI to the LAD 04/19/21 Ischemic cardiomyopathy Hypertension Acute Kidney Injury, improved Elevated liver enzymes, improved Type 2 Diabetes, Hgb A1C 6.6 PLAN Continue dual antiplatelet therapy with aspirin and Brilinta Continue amiodarone, statin, carvedilol , losartan , spironolactone Recommend dual chamber ICD to be placed, plan for Tuesday04/27/21 pending soren zacarias of thrombophlebitis Monitor renal function and electrolytes Further recommendations based on clinical course Nurse Practitioner note has been reviewed, I agree with a documented findings and plan of care. Patient was seen and examined. Objective - Vital Signs Vital signs: Vital Signs Temp 98.2 F 04/24/21 04:00 Pulse 63 04/24/21 04:00 Resp 18 04/24/21 04:00 BP 147/63 04/24/21 04:00 Pulse Ox 95 04/24/21 04:00 Intake & Output 04/23/21 04/24/21 04/24/21 18:59 06:59 18:59 Intake Total 1550 805 240 Output Total 925 350 Balance 625 455 240 Weight 88.2 kg Intake: IV 1550 75 Piperacillin-Tazobactam 3 200 .375 gm In Sodium Chloride 0.9% 100 ml @ 25 mls/hr IVPB Q8HR [facility] Rx# :[id number] Sodium Chloride 0.9% 1, 1350 75 000 ml @ 75 mls/hr IV . [id number] [facility] Rx#:[id number] Intake, IV Titration 250 Amount Vancomycin 1,500 mg In 250 Sodium Chloride 0.9% 250 ml @ 125 mls/hr IVPB Q12H [facility] Rx#:[id number] Oral 480 240 Output: Urine 925 350 Other: Voiding Method Bedside Commode Bedside Commode Urinal Urinal # Voids 1 1 - Labs CBC & Chem 7: 04/24/21 07:51 04/24/21 07:51 Labs: Abnormal Lab Results - Last 24 Hours (Table) 04/23/21 04/23/21 04/23/21 Range/Units 13:02 17:55 22:52 RBC (4.30-5.90) m/uL Hgb (13.0-17.5) gm/dL Hct (39.0-53.0) % Lymphocytes # (1.0-4.8) k/uL BUN (9-20) mg/dL Glucose (74-99) mg/dL POC Glucose (mg/dL) 133 H 116 H 196 H (75-99) mg/dL Total Bilirubin (0.2-1.3) mg/dL ALT (4-49) U/L Total Protein (6.3-8.2) g/dL Albumin (3.5-5.0) g/dL 04/24/21 04/24/21 04/24/21 Range/Units 04:48 07:51 07:51 RBC 3.15 L (4.30-5.90) m/uL Hgb 9.9 L (13.0-17.5) gm/dL Hct 27.8 L (39.0-53.0) % Lymphocytes # 0.6 L (1.0-4.8) k/uL BUN 28 H (9-20) mg/dL Glucose 146 H (74-99) mg/dL POC Glucose (mg/dL) 152 H (75-99) mg/dL Total Bilirubin 1.8 H (0.2-1.3) mg/dL ALT 76 H (4-49) U/L Total Protein 5.7 L (6.3-8.2) g/dL Albumin 3.0 L (3.5-5.0) g/dL
--- NOTE | 2021-04-24 12:18 | P.PN ---
Subjective Progress Note Date: 04/24/21 Principal diagnosis: Acute hypoxic respiratory failure secondary to cardiac arrest 71-year-old male patient was seen in the ED , immediately after his arrival post cardiac arrest. The patient was at home and he had a witnessed cardiac arrest and the called the neighbor the patient was started on CPR. Within 5 minutes, EMS arrived to the scene and the patient had epinephrine, amiodarone and defibrillation 2 with subsequent return of smoking circulation. At the time of his arrival to the ED, the patient was already intubated on mechanical ventilator. His EKG was showing ST segment elevation in the inferolateral leads. At that point, the patient was taken immediately to cardiac catheterization. The patient was found to have diffuse disease involving 100% mid LAD, 100% RCA with a [id number] collaterals as well as 100% subtotal circumflex with left to left collaterals. The patient underwent PCI with mid to distal LAD stenting with a total of 5 stents inserted. Apparently his filling pressures were normal. Will start on dual antiplatelet agents. Was brought into the intensive care unit. He was sedated with propofol was currently running at 50 mics are as per kilogram per minute. CAT scan of the brain was done overnight for that showed no acute abnormalities. While on mechanical ventilator, the patient is on AC rate of 24, TV 450, Fio2 50% and he is pn a PEEP of 5. He is also on norepinephrine running at 0.9 mics are as per kilogram per minute and he has developed adequate urine output overnight. Today intensive care unit with adequate urine output. Cardiac rhythm is sinus. Subsequent gas from this morning showed a pH of 7.4 with a pCO2 of 40 and pO2 of 111. COVID-19 testing was negative. Chest x-ray was consistent with interstitial/pulmonary edema. There was 34 with a creatinine of 1.1 at time of admission and her white cell count was 24.9 with a hemoglobin of 13.8. The first set of troponin was less than 0.012. He did have some mild elevation of the AST and ALT.. No seizure activity. No myoclonic jerks. No clear history of aspiration. Reevaluated today on 04/20/2021, patient remains in the ICU, he is intubated and mechanically ventilated. He is on assist control rate of 24, tidal volume 450 FiO2 50% and PEEP of 5. ABG showed a pO2 of 111 pCO2 of 40 pH of 7.40 patient is on propofol at 20 by Karime per kilo per minute, he is requiring norepinephrine at 0.07 mcg/kg/m. Patient is unresponsive to any stimuli, does not even open eyes with deep painful stimuli. Neurology consultation is pending, patient had 5 stents placed yesterday to LAD. Chest x-ray is suggestive of interstitial edema, bilateral interstitial infiltrates/edema noted. Hence the patient will be diuresed. And his Lasix dose was increased to 20 mg IV push every 8 hours. Cardiogram this morning showed moderately impaired left ventricular function with ejection fraction of 35%. WBC count is 12.7 hemoglobin 12.1. Electrolytes are normal BUN is 36 creatinine 1.13. Liver enzymes are elevated. BNP is elevated at 3-20. Negative PCR for COVID-19 infection. Reevaluated today on 04/21/2021, patient remains in the ICU, remains intubated and mechanically ventilated. He is on assist control rate of 24, volume of 450 FiO2 50% and PEEP of 5. Patient has been off propofol for the last 24 hours, and he seems to be awake, slow but he follows very simple instructions. Wiggling toes, closing eyes, squeezing hands, hence after evaluating the patient and evaluated his chest x-ray and his labs I recommended a trial of pressure support of 10 and CPAP, however he was doing poorly and I recommended a backup rate of IMV. Later on I cut down his IMV from 8 down to 4. And he Doing quite well, he was moving good tidal volume, his rate was in the teens, and I recommended an ABG after 1 hour of being on pressure support and CPAP. His ABG was noted to be acceptable, pO2 of 170 pCO2 43 pH of 7.46, hence I recommended extubating the patient to a nasal cannula. I am a bit concerned that he may have some difficulty swallowing, and may consider a swallow evaluation on this patient. Patient remains fairly slow. His CBC is relatively normal. Electrolytes are normal renal profile showed a BUN of 37 creatinine of 1.21. Last troponin yesterday and today before was 2.2. Chest x-ray showed minimal bibasilar atelectasis. Doubt pneumonia. Although the patient was a good set up for possible aspiration pneumonia. Reevaluated today on 04/22/2021, patient is sitting in bed, doing well, remains in the ICU as an overflow, he was seen by cardiology yesterday, and the plan is to place a dual-chamber ICD today mostly because of the presentation of ventricular fibrillation arrest. Patient does have history of ischemic cardiomyopathy. The plan is to proceed with the surgery sometime today. In the meantime the patient is doing great clinically, he is on room air, asymptomatic. CBC is normal. Electrolytes are normal. Renal profile is normal. Reevaluated today on 04/23/2021, patient is doing well, his ICD placement was po stponed to next Tuesday mostly because of thrombophlebitis in his right brachial area. The supervising airplane pilot is concerned that there may be infection, and he is recommending antibiotics, and planning to do the procedure next Tuesday. Pulmonary-bee the patient is doing great, asymptomatic, no cough no wheezing no shortness of breath, hence I have recommended that we continue the same treatment plan, I will sign off, and I will see the patient on when necessary basis. Objective - Vital Signs Vital signs: Vital Signs Temp 98.2 F 04/24/21 04:00 Pulse 63 04/24/21 04:00 Resp 18 04/24/21 04:00 BP 147/63 04/24/21 04:00 Pulse Ox 95 04/24/21 04:00 Intake & Output 04/23/21 04/24/21 04/24/21 18:59 06:59 18:59 Intake Total 1550 805 240 Output Total 925 350 Balance 625 455 240 Weight 88.2 kg Intake: IV 1550 75 Piperacillin-Tazobactam 3 200 .375 gm In Sodium Chloride 0.9% 100 ml @ 25 mls/hr IVPB Q8HR [facility] Rx# :[id number] Sodium Chloride 0.9% 1, 1350 75 000 ml @ 75 mls/hr IV . [id number] [facility] Rx#:[id number] Intake, IV Titration 250 Amount Vancomycin 1,500 mg In 250 Sodium Chloride 0.9% 250 ml @ 125 mls/hr IVPB Q12H [facility] Rx#:[id number] Oral 480 240 Output: Urine 925 350 Other: Voiding Method Bedside Commode Bedside Commode Urinal Urinal # Voids 1 1 - Exam Physical Exam revealed a 71-year-old white male awake, room air, in no distress. Head: Atraumatic, normocephalic. . HEENT:[Neck is supple.] [No neck masses.] [No thyromegaly.] [No JVD.] Chest: Symmetrical chest expansion, clear throughout no crackles or rhonchi or wheezes. Cardiac Exam: [Normal S1 and S2, no S3 gallop, 2/6 systolic murmur thought the precordium. Abdomen: [Soft, nontender, no megaly, no rebound, no guarding, normal bowel sounds.] Extremities: [No clubbing, no edema, no cyanosis.] Neurological Exam: Alert and oriented 3 focal deficits. Psychiatric: Normal mood, affect and normal mental status examination. Skin: minimal thrombophlebitis noted in the right brachial area most likely from previous IV sites/access. Slightly erythematous, nontender, recommending warm compresses - Labs CBC & Chem 7: 04/24/21 07:51 04/24/21 07:51 Labs: Abnormal Lab Results - Last 24 Hours (Table) 04/23/21 04/23/21 04/23/21 Range/Units 13:02 17:55 22:52 RBC (4.30-5.90) m/uL Hgb (13.0-17.5) gm/dL Hct (39.0-53.0) % Lymphocytes # (1.0-4.8) k/uL BUN (9-20) mg/dL Glucose (74-99) mg/dL POC Glucose (mg/dL) 133 H 116 H 196 H (75-99) mg/dL Total Bilirubin (0.2-1.3) mg/dL ALT (4-49) U/L Total Protein (6.3-8.2) g/dL Albumin (3.5-5.0) g/dL 04/24/21 04/24/21 04/24/21 Range/Units 04:48 07:51 07:51 RBC 3.15 L (4.30-5.90) m/uL Hgb 9.9 L (13.0-17.5) gm/dL Hct 27.8 L (39.0-53.0) % Lymphocytes # 0.6 L (1.0-4.8) k/uL BUN 28 H (9-20) mg/dL Glucose 146 H (74-99) mg/dL POC Glucose (mg/dL) 152 H (75-99) mg/dL Total Bilirubin 1.8 H (0.2-1.3) mg/dL ALT 76 H (4-49) U/L Total Protein 5.7 L (6.3-8.2) g/dL Albumin 3.0 L (3.5-5.0) g/dL 04/24/21 Range/Units 12:07 RBC (4.30-5.90) m/uL Hgb (13.0-17.5) gm/dL Hct (39.0-53.0) % Lymphocytes # (1.0-4.8) k/uL BUN (9-20) mg/dL Glucose (74-99) mg/dL POC Glucose (mg/dL) 220 H (75-99) mg/dL Total Bilirubin (0.2-1.3) mg/dL ALT (4-49) U/L Total Protein (6.3-8.2) g/dL Albumin (3.5-5.0) g/dL Assessment and Plan Assessment: 1 Acute hypoxic respiratory failure most likely secondary to acute ventricular fibrillation cardiac arrest, status post CPR for 5 minutes, received epi nephrine, amiodarone, defibrillation 2 and subsequent return of spontaneous circulation. Patient was extubated 3 days ago, and he tolerated the extubation well. [address] segment elevation myocardial infarction and the patient received emergent cardiac catheterization and stenting of the LAD. 3 Acute pulmonary edema, possible aspiration pneumonia, most likely secondary to acute ischemic cardiomyopathy and LV dysfunction. 4 Acute leukocytosis, likely reactive. 5 chronic ischemic cardiomyopathy and LV dysfunction. Patient is scheduled to undergo ICD placement. However the procedure was postponed mostly because of superficial thrombophlebitis in his right brachial region. Recommendation: Continue treatment plan as per the admitting physician and cardiology. Continue incentive spirometry. We will sign off and see the patient on when necessary basis. Time with Patient: Less than 30
--- NOTE | 2021-04-24 16:46 | US ---
EXAMINATION TYPE: US venous doppler duplex UE RT DATE OF EXAM: 04/24/2021 COMPARISON: NONE CLINICAL HISTORY: 71-year-old male with mass. Redness, edema right antecubital fossa. History of rece nt IV SIDE PERFORMED: right TECHNIQUE: Grayscale, color doppler, spectral doppler imaging performed of the deep veins of the upp er extremities. FINDINGS: Right Arm: Known evidence of DVT. Exam positive for superficial thrombus right cephalic vein IMPRESSION: 1. Exam positive for SVT involving the cephalic vein. 2. No evidence for DVT within the right upper extremity.
--- NOTE | 2021-04-24 16:47 | US ---
EXAMINATION TYPE: US extremity nonvasc mass RT DATE OF EXAM: 04/24/2021 COMPARISON: NONE CLINICAL HISTORY: 71-year-old male mass. Redness, edema right antecubital fossa. Hx of recent IV Technique: Quality Project Manager notes: scanned within area of concern, right antecubital fossa. FINDINGS: No solid or cystic lesion. Thrombus is noted within the Cephalic vein IMPRESSION: Palpable area corresponds to cephalic vein thrombosis. No other solid or cystic lesion seen along the antecubital fossa.
--- NOTE | 2021-04-24 17:31 | P.PN ---
Subjective Progress Note Date: 04/24/21 Patient was seen for a follow-up. Patient's and a couple daughters were also present today. Patient is sitting in the recliner. Offers no complaints. He is doing very well. Patient's memory functions is improving. Patient denies any headache. Patient still is slightly confused, although getting orientation better now. Denies any new weakness, numbness or tingling or problem with the vision. Patient had been very active prior to the acute MA and cardiac arrest. 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 Objective - Vital Signs Vital signs: Vital Signs Temp 98.2 F 04/24/21 16:00 Pulse 69 04/24/21 16:00 Resp 20 04/24/21 16:00 BP 152/69 04/24/21 16:00 Pulse Ox 92 L 04/24/21 16:00 Intake & Output 04/23/21 04/24/21 04/24/21 18:59 06:59 18:59 Intake Total 1550 805 358 Output Total 925 350 Balance 625 455 358 Weight 88.2 kg Intake: IV 1550 75 Piperacillin-Tazobactam 3 200 .375 gm In Sodium Chloride 0.9% 100 ml @ 25 mls/hr IVPB Q8HR [facility] Rx# :[id number] Sodium Chloride 0.9% 1, 1350 75 000 ml @ 75 mls/hr IV . [id number] [facility] Rx#:[id number] Intake, IV Titration 250 Amount Vancomycin 1,500 mg In 250 Sodium Chloride 0.9% 250 ml @ 125 mls/hr IVPB Q12H [facility] Rx#:[id number] Oral 480 358 Output: Urine 925 350 Other: Voiding Method Bedside Commode Bedside Commode Bedside Commode Urinal Urinal Urinal # Voids 1 1 2 - Exam Patient is an elderly male, appears younger than his stated age. Patient is sitting in the recliner. Patient is very alert and awake. Patient states is the month of April and the year is . He knows he is in [facility] and name of the current president. Speech and language functions appears normal. Attention, concentration and fund of knowledge is improving. On cranial examination, pupils are round and reacting to light, visual sheikh are full on confrontation, with no neglect on double simultaneous stimulation. extraocular muscles are intact with no nystagmus. Face has mild right-sided droop, tongue protrudes to the midline. Palatal elevation and sensation normal, hearing and shoulder shrug normal, facial sensation normal. On muscle strength testing, the strength is normal in arms and legs distally and proximally. Deep tendon reflexes are brisk particularly in the legs, but plantars are downgoing versus withdrawal bilaterally. Sensory to touch is equal with no neglect. Cerebellar function showed no ataxia for [id number]-[id number] testing. Tone and bulk of muscles normal. Gait not checked. On general examination, there is no carotid bruit or murmur, S1-S2 audible. Abdomen is soft nontender. Chest is clear. Peripheral pulses are present. No edema. - Labs CBC & Chem 7: 04/24/21 07:51 04/24/21 07:51 Labs: Abnormal Lab Results - Last 24 Hours (Table) 04/23/21 04/23/21 04/24/21 Range/Units 17:55 22:52 04:48 RBC (4.30-5.90) m/uL Hgb (13.0-17.5) gm/dL Hct (39.0-53.0) % Lymphocytes # (1.0-4.8) k/uL BUN (9-20) mg/dL Glucose (74-99) mg/dL POC Glucose (mg/dL) 116 H 196 H 152 H (75-99) mg/dL Total Bilirubin (0.2-1.3) mg/dL ALT (4-49) U/L Total Protein (6.3-8.2) g/dL Albumin (3.5-5.0) g/dL 04/24/21 04/24/21 04/24/21 Range/Units 07:51 07:51 12:07 RBC 3.15 L (4.30-5.90) m/uL Hgb 9.9 L (13.0-17.5) gm/dL Hct 27.8 L (39.0-53.0) % Lymphocytes # 0.6 L (1.0-4.8) k/uL BUN 28 H (9-20) mg/dL Glucose 146 H (74-99) mg/dL POC Glucose (mg/dL) 220 H (75-99) mg/dL Total Bilirubin 1.8 H (0.2-1.3) mg/dL ALT 76 H (4-49) U/L Total Protein 5.7 L (6.3-8.2) g/dL Albumin 3.0 L (3.5-5.0) g/dL Assessment and Plan Assessment: * Cardiac arrest with somewhat prolonged downtime. Patient is recovering very well. His mentation is remarkably improved, although still with some short- term memory issues and orientation. Hopefully will further improve with time. * Status post extubation for ventilator-dependent respiratory failure. * Acute MA, status post cardiac catheterization requiring stenting. * Hypertension Plan: * Patient is doing very well. His memory functions are improving. * MRI of the brain revealed age-related atrophic and chronic small vessel ischemic change. No acute process. No CVA. * Pacemaker placement was held because of superficial venous thrombus in the right upper limb. No evidence of DVT on ultrasound. * For persistent memory issues, we will start Aricept 5 mg daily. * EEG was abnormal due to background slowing of moderate degree. This is suggestive of generalized cerebral dysfunction as can be seen with toxic metabolic encephalopathy or related to diffuse structural brain abnormality. No epileptiform activity was seen. * Continue aspirin 81 mg, Brilinta 90 mg twice a day and Lipitor 80 mg. Patient on heparin subcu for DVT prophylaxis.. * Other medical management as per IM/critical care and cardiology
[2021-04-24 18:00] LABS: Glucose,Whole Blood 134 mg/dL (75-99)
[2021-04-24] MEDS ORDERED: DONEPEZIL 5 MG TAB PO SCH (21:00)
[2021-04-24] MEDS: LOSARTAN 25 MG TAB PO SCH (21:21)
[2021-04-24] MEDS: QUEtiapine 50 MG TAB PO SCH (21:22)
[2021-04-24] MEDS: ATORVASTATIN 80 MG TAB PO SCH (21:22)
[2021-04-24] MEDS: DONEPEZIL 5 MG TAB PO SCH (21:22)
[2021-04-25 00:54] LABS: Glucose,Whole Blood 161 mg/dL (75-99)
[2021-04-25] MEDS: INSULIN ASPART (NovoLOG) 100 UNIT/ML VIAL SQ SCH ×4 (00:57→18:07)
[2021-04-25] MEDS: PIPERACILLIN-TAZOBACTAM 3.375 GM in SODIUM CHLORIDE 0.9% 100 ML IVPB SCH (00:57)
[2021-04-25] MEDS ORDERED: VANCOMYCIN TROUGH DUE 1 EACH MISC MISCELLANE ONE (05:00)
[2021-04-25 06:17] LABS: African American GFR (CKD) >90 (>60 ml/min/1.73 sqM); Magnesium 1.9 mg/dL (1.6-2.3); Non-African American GFR(CKD) 82 (>60 ml/min/1.73 sqM); Potassium 3.6 mmol/L (3.5-5.1)
[2021-04-25] MEDS: carvediloL 12.5 MG TAB PO SCH ×2 (06:35→17:17)
[2021-04-25] MEDS: VANCOMYCIN 1,500 MG in SODIUM CHLORIDE 0.9% 250 ML IVPB SCH (06:36)
[2021-04-25 06:46] LABS: Glucose,Whole Blood 123 mg/dL (75-99)
[2021-04-25] MEDS ORDERED: POTASSIUM CHLORIDE ER 20 MEQ TAB.ER PO STA (09:36)
[2021-04-25] MEDS: AMIODARONE 200 MG TAB PO SCH ×2 (09:53→20:53)
[2021-04-25] MEDS: TICAGRELOR 90 MG TAB PO SCH ×2 (09:53→20:53)
[2021-04-25] MEDS: ESCITALOPRAM 10 MG TAB PO SCH ×2 (09:53→09:54)
[2021-04-25] MEDS: busPIRone HCl 10 MG TAB PO SCH ×2 (09:53→20:53)
[2021-04-25] MEDS: ASPIRIN 81 MG PO SCH (09:53)
[2021-04-25] MEDS: SPIRONOLACTONE 25 MG TAB PO SCH (09:53)
[2021-04-25] MEDS: HEPARIN SODIUM,PORCINE/PF 5,000 UNIT/0.5 ML SYRINGE SQ SCH ×2 (09:53→20:53)
--- NOTE | 2021-04-25 10:23 | P.PN ---
Subjective Progress Note Date: 04/25/21 patient is doing fairly well today. His right arm improved significantly. There is no redness anymore. Objective - Vital Signs Vital signs: Vital Signs Temp 98.8 F 04/25/21 04:00 Pulse 68 04/25/21 04:00 Resp 20 04/25/21 04:00 BP 150/68 04/25/21 04:00 Pulse Ox 97 04/25/21 08:34 Intake & Output 04/24/21 04/25/21 04/25/21 18:59 06:59 18:59 Intake Total 358 240 240 Output Total 500 200 Balance 358 -260 40 Weight 88 kg Intake: Oral 358 240 240 Output: Urine 500 200 Other: Voiding Method Bedside Commode Bedside Commode Urinal Urinal # Voids 2 1 1 - Exam General: The patient is awake and alert, in no distress Eye: there is normal conjunctiva bilaterally. Neck: The neck is supple, there is no JVD. Cardiovascular: Normal S1-S2, no S3-S4, no murmurs. Respiratory: Lungs clear to auscultation bilaterally Gastrointestinal: Abdomen is soft, nontender Musculoskeletal: There is no pedal edema. Skin: Skin is warm and dry - Labs CBC & Chem 7: 04/24/21 07:51 04/25/21 05:13 Labs: Abnormal Lab Results - Last 24 Hours (Table) 04/24/21 04/24/21 04/25/21 Range/Units 12:07 17:58 00:51 POC Glucose (mg/dL) 220 H 134 H 161 H (75-99) mg/dL 04/25/21 Range/Units 06:26 POC Glucose (mg/dL) 123 H (75-99) mg/dL Assessment and Plan Assessment: This is a 71-year-old male who presented to the emergency department after cardiac arrest. Per documents patient had a witnessed arrest by his while he was sitting on the couch eating potato chips. CPR was initiated for 5 minutes. Patient continued to be unresponsive. Neighbor who is a border police was called and began CPR. Upon arrival, EMS identified Afib arrest. Patient was defibrillated with return of spontaneous circulation. Patient was intubated and given 2 rounds of epinephrine. Patient was taken straight to produce laborer. 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 Assessment and Plan Ventilator dependent respiratory failure secondary to cardiac arrest/V. fib extubated successfully on 04/21 Coronary artery disease presenting with V. fib arrest Ischemic cardiomyopathy with EF of 35-40% Status post cardiac cath triple vessel disease identified and successful stent placement to LAD Cardiology recommendations appreciated, plan for AICD on Tuesday KAVITHA secondary to hypoperfusion due to #1 -Kidney function improving Hyperglycemia/underlying diabetes mellitus Insulin sliding scale A1c 6.6 Thrombophlebitis of the right arm -Started on antibiotic prophylactically by cardiology in anticipation of ICD implantation on Tuesday DVT prophylaxis Subcu heparin Continue current management. Discharge planning possibly on Tuesday
--- NOTE | 2021-04-25 11:12 | XR ---
EXAMINATION TYPE: XR chest 2V DATE OF EXAM: 04/25/2021 COMPARISON: 04/22/2021 HISTORY: 71-year-old male increased cough TECHNIQUE: PA and lateral views FINDINGS: Heart normal size. Redemonstrated diffuse interstitial densities especially in the periphery of the l ungs. Slightly less confluent on the left. No pleural effusion. Mild hyperinflation. Large appearance to the right main pulmonary artery on the lateral view. IMPRESSION: 1. Possible underlying COPD and pulmonary arterial hypertension. 2. Continued interstitial infiltrates (query Covid pneumonia) especially in the periphery of the lung s. There may be minimal improvement on the left.
[2021-04-25] MEDS ORDERED: SODIUM CHLORIDE 0.9% 1,000 ML IV SCH (11:30)
[2021-04-25] MEDS: SODIUM CHLORIDE 0.9% 1,000 ML IV SCH (12:30)
[2021-04-25 13:01] LABS: Glucose,Whole Blood 174 mg/dL (75-99)
--- NOTE | 2021-04-25 13:50 | P.PN ---
Subjective Progress Note Date: 04/25/21 04/25/2021: This is a Tele-neurology follow up performed today on 04/25/2021. Patient was seen for a follow-up. Patient's one of the daughters was also present today. Patient is sitting in the recliner. Offers no complaints. Patient denies any headache, no dizziness. Patient states that he walked with a physical therapy, walked by himself. His balance is good. He feels he is almost back to baseline. Patient's memory functions is improving. Patient had been very active prior to the acute CA and cardiac arrest. 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 Objective - Vital Signs Vital signs: Vital Signs Temp 98.8 F 04/25/21 04:00 Pulse 68 04/25/21 04:00 Resp 20 04/25/21 04:00 BP 150/68 04/25/21 04:00 Pulse Ox 97 04/25/21 08:34 Intake & Output 04/24/21 04/25/21 04/25/21 18:59 06:59 18:59 Intake Total 358 240 240 Output Total 500 200 Balance 358 -260 40 Weight 88 kg Intake: Oral 358 240 240 Output: Urine 500 200 Other: Voiding Method Bedside Commode Bedside Commode Urinal Urinal # Voids 2 1 1 - Exam Patient is an elderly male, appears younger than his stated age. Patient is sitting in the recliner. Patient is very alert and awake. Patient knows it is April and the year is 2020. He states that he is in [place] in [place], but then changed to [place]. He knows he is in [facility]. He knows name of the current president Perez Berkowitz. He was having slight difficulty recalling who was the pres ident prior to Perez Justinetorsten, but after some prompting was able to recognize. Patient's speech and language functions are normal. Detailed examination deferred. - Labs CBC & Chem 7: 04/24/21 07:51 04/25/21 05:13 Labs: Abnormal Lab Results - Last 24 Hours (Table) 04/24/21 04/24/21 04/25/21 Range/Units 12:07 17:58 00:51 POC Glucose (mg/dL) 220 H 134 H 161 H (75-99) mg/dL 04/25/21 Range/Units 06:26 POC Glucose (mg/dL) 123 H (75-99) mg/dL Assessment and Plan Assessment: * Cardiac arrest with somewhat prolonged downtime. Patient is recovering very well. His mentation is remarkably improved. His orientation and short-term memory also improving. * Status post extubation for ventilator-dependent respiratory failure. * Acute CA, status post cardiac catheterization requiring stenting. * Hypertension Plan: * Patient is doing very well. His memory functions are further improving. * MRI of the brain revealed age-related atrophic and chronic small vessel ischemic change. No acute process. No CVA. * Pacemaker placement was held because of superficial venous thrombus in the right upper limb. No evidence of DVT on ultrasound. Possible pacemaker placement on Tuesday. * For persistent memory issues, continue Aricept 5 mg daily. * EEG was abnormal due to background slowing of moderate degree. This is suggestive of generalized cerebral dysfunction as can be seen with toxic metabolic encephalopathy or related to diffuse structural brain abnormality. No epileptiform activity was seen. * Continue aspirin 81 mg, Brilinta 90 mg twice a day and Lipitor 80 mg. Patient on heparin subcu for DVT prophylaxis.. * Other medical management as per IM/critical care and cardiology. * Neurologically clear otherwise.
--- NOTE | 2021-04-25 14:56 | PN ---
PROGRESS NOTE This is a gentleman with status post cardiac arrest with ischemic ventricular fibrillation. He underwent stenting of LAD and also is considered for ICD dual-chamber to be performed by Dr. Wakefield on Tuesday. Indication for this is secondary prevention. Patient already had a sudden cardiac , was resuscitated without any evidence of acute AK. His right upper arm thrombophlebitis area has improved a lot. He is doing well. He will have ICD on Tuesday. Vitals are stable. No JVD. S1-S2 heard normally. Short systolic murmur noted. Lungs reveal diminished air entry. Abdomen is soft. Lower extremities reveal diminished pulses. Central nervous system grossly within normal limits. Patient has some cough and fine rales which have cleared after coughing. I will place him on a small dose of IV Lasix 20 mg q.8 hours and check a BMP tomorrow. MMODL / IJN: [id number] /
[2021-04-25] MEDS: FUROSEMIDE 10 MG/ML 2 ML VIAL IV SCH ×2 (16:11→23:36)
[2021-04-25] MEDS: VANCOMYCIN 1,750 MG in SODIUM CHLORIDE 0.9% 500 ML 500 ML IVPB SCH (17:51)
[2021-04-25 18:05] LABS: Glucose,Whole Blood 144 mg/dL (75-99)
[2021-04-25] MEDS: LOSARTAN 25 MG TAB PO SCH (20:53)
[2021-04-25] MEDS: ATORVASTATIN 80 MG TAB PO SCH (20:53)
[2021-04-25] MEDS: QUEtiapine 50 MG TAB PO SCH (20:53)
[2021-04-25] MEDS: DONEPEZIL 5 MG TAB PO SCH (20:53)
[2021-04-25 23:55] LABS: Glucose,Whole Blood 131 mg/dL (75-99)
[2021-04-26] MEDS: INSULIN ASPART (NovoLOG) 100 UNIT/ML VIAL SQ SCH ×4 (01:17→17:02)
[2021-04-26] MEDS: ASPIRIN 81 MG PO SCH (06:07)
[2021-04-26] MEDS: SPIRONOLACTONE 25 MG TAB PO SCH (06:08)
[2021-04-26] MEDS: carvediloL 12.5 MG TAB PO SCH ×2 (06:08→17:01)
[2021-04-26] MEDS: TICAGRELOR 90 MG TAB PO SCH ×2 (06:08→20:01)
[2021-04-26] MEDS: VANCOMYCIN 1,750 MG in SODIUM CHLORIDE 0.9% 500 ML 500 ML IVPB SCH ×2 (06:08→17:02)
[2021-04-26] MEDS: ESCITALOPRAM 10 MG TAB PO SCH (06:08)
[2021-04-26] MEDS: AMIODARONE 200 MG TAB PO SCH ×2 (06:08→20:02)
[2021-04-26] MEDS: busPIRone HCl 10 MG TAB PO SCH ×2 (06:08→20:02)
[2021-04-26 06:48] LABS: Glucose,Whole Blood 136 mg/dL (75-99)
[2021-04-26] MEDS ORDERED: ceFAZolin 1 GM in SODIUM CHLORIDE 0.9% 250 ML IRRIGATION PRN (08:00)
[2021-04-26] MEDS ORDERED: SODIUM CHLORIDE 0.9% 500 ML 500 ML IV ONE (08:45)
[2021-04-26] MEDS ORDERED: IV FLUID CONTINUATION 1,000 ML IV ONE (08:45)
[2021-04-26] MEDS ORDERED: fentaNYL (PF) 50 MCG/ML 2 ML AMP ONE (08:57)
[2021-04-26] MEDS ORDERED: PROPOFOL 10 MG/ML 20 ML VIAL IV ONE (08:57)
[2021-04-26] MEDS ORDERED: FUROSEMIDE 10 MG/ML 4 ML VIAL IV SCH (09:00)
[2021-04-26] MEDS ORDERED: IOPAMIDOL-370 50ML BTL INJ ONE (09:00)
[2021-04-26] MEDS ORDERED: POTASSIUM CHLORIDE ER 20 MEQ TAB.ER PO SCH (09:00)
[2021-04-26 09:25] LABS: African American GFR (CKD) >90 (>60 ml/min/1.73 sqM); Non-African American GFR(CKD) 81 (>60 ml/min/1.73 sqM)
[2021-04-26] MEDS ORDERED: LIDOCAINE 1% INJ 10MG/ML (20 ML MDV) SQ ONE ×2 (09:40→09:47)
--- NOTE | 2021-04-26 10:50 | P.PN ---
Progress Note - Text Update Successful single-chamber ICD implantation [facility] medical Plan Continue IV vancomycin up until discharge At discharge oral antibiotics for thrombophlebitis Carvedilol 12.5 mg twice daily Lasix 40 mg by mouth twice a day all this will be reduced to 40 mg once daily Spironolactone 25 mg by mouth daily and later this may be increased to 50 mrem once daily Lisinopril 10 mg by mouth daily. He was taking 20 mg at home Continue aspirin and Brilinta Follow-up with primary back office medical assistant in the office Follow-up in the device clinic in 5-7 days
--- NOTE | 2021-04-26 10:55 | P.EPPROC ---
- EP Procedure Note Electrophysiology Procedure Note: Left upper extremity venogram 10 mL IV dye injected in the left arm Patent left axillary, left subclavian Patent innominate vein Plan Proceed with ICD implantation
[2021-04-26] MEDS: SODIUM CHLORIDE 0.9% 1,000 ML IV SCH (11:08)
[2021-04-26] MEDS: HEPARIN SODIUM,PORCINE/PF 5,000 UNIT/0.5 ML SYRINGE SQ SCH ×2 (11:09→20:02)
--- NOTE | 2021-04-26 11:24 | PCN ---
PROCEDURE NOTE Mr. Aldrich is a 71-year-old male patient who presented with primary ventricular fibrillation. Initially it was thought that he had an ST-elevation CO, but when the cardiac catheterization was performed he was found to have chronic lesions with triple- vessel disease. His peak troponin was only 2.2, consistent with a VF arrest, not an acute ST-elevation CO. His ST elevations on 12-lead EKG persist and are wireless sales representative of old infarct/akinesis/aneurysm anteroapically. A single-chamber ICD was implanted for secondary prevention of sudden cardiac . His beta blockers have been maximized to 12.5 mg twice daily of carvedilol. He is on oral amiodarone 200 mg twice daily at this time. The patient was brought to the EP lab in a fasting state. Written informed consent was obtained prior to the procedure. He is on IV vancomycin and his right arm thrombophlebitis has improved significantly. The left pectoral area was prepped and draped as per protocol. Lidocaine 1% was used for local anesthesia. IV antibiotics were administered and local anesthesia was administered. An incision was made near the deltopectoral groove and carried down to the level of the pectoralis muscle. A subfascial pocket was made. Hemostasis was assured. The left axillary vein was accessed at a single point under fluoroscopy, and via appropriately sized introducer sheath, a single-coil ICD lead was positioned in the RV apex and screwed in. R-waves 11.5 mV, pacing impedance 530 ohms, pacing threshold 1.2 V at 0.5 milliseconds. Later, the high-voltage impedance was [address] [facility] [employer], model number [id number] 210Q, 58 cm in length and serial number [id number]. The lead was secured to the underlying pectoralis muscle and then connected to the generator ([facility] [facility] [place] VR model number CDVRA 500Q, serial number [id number]. The leads and the generator were then placed in the subfascial pocket and the wound was closed in 3 layers and dressed per protocol. DFT testing was not performed. RESULTS: Successful single-chamber ICD implantation. The device was programmed to the programming. First cardioversion at 20 joules, first defibrillation at 36 joules. The patient tolerated the procedure well without any acute complications MMODL / IJN: [id number] /
[2021-04-26 11:36] LABS: Glucose,Whole Blood 116 mg/dL (75-99)
[2021-04-26] MEDS: ACETAMINOPHEN TAB 325 MG TAB PO PRN (11:46)
[2021-04-26] MEDS ORDERED: ACETAMINOPHEN IV (For NPO) 1,000 MG in EMPTY BAG 1 BAG IVPB ONE (12:00)
--- NOTE | 2021-04-26 14:12 | XR ---
EXAMINATION TYPE: XR chest 1V portable DATE OF EXAM: 04/26/2021 COMPARISON: 04/25/2021 HISTORY: Cough TECHNIQUE: Single view FINDINGS: There is coarse interstitial density in the lungs. There is left axillary pacemaker. Heart size is normal. There is no obvious heart failure. There is no definite pleural effusion. IMPRESSION: Pulmonary interstitial infiltrates without change compared to yesterday.
--- NOTE | 2021-04-26 14:24 | P.PN ---
Subjective Progress Note Date: 04/26/21 04/26/2021: This is a Tele-neurology follow up performed today on 04/26/2021. Patient was seen for a follow-up. Patient's was present today. Patient is laying in the bed. He just came back from OR after having in surgeon of defibrillator. Offers no complaints. Patient denies any headache, no d izziness. Patient's memory functions is improving. Patient had been very active prior to the acute [place] and cardiac arrest. 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 Objective - Vital Signs Vital signs: Vital Signs Temp 98.1 F 04/26/21 08:00 Pulse 59 L 04/26/21 08:00 Resp 20 04/26/21 08:00 BP 128/72 04/26/21 08:00 Pulse Ox 98 04/26/21 08:00 Intake & Output 04/25/21 04/26/21 04/26/21 18:59 06:59 18:59 Intake Total 360 120 200 Output Total 200 Balance 160 120 200 Weight 90.3 kg Intake: IV 200 Oral 360 120 Output: Urine 200 Other: Voiding Method Bedside Commode Urinal Urinal Urinal # Voids 3 2 - Exam 04/26/2021: Patient is laying comfortably in the bed. He is alert and awake. Speech and language functions are normal. Detailed testing deferred. He just came from OR after defibrillator placement. 04/25/2021: Patient is an elderly male, appears younger than his stated age. Patient is sitting in the recliner. Patient is very alert and awake. Patient knows it is April and the year is 2020. He states that he is in [place] in [place], but then changed to [place]. He knows he is in [facility]. He knows name of the current president Perez Berkowitz. He was having slight difficulty recalling who was the president prior to Perez Justinetorsten, but after some prompting was able to recognize. Patient's speech and language functions are normal. Detailed examination deferred. - Labs CBC & Chem 7: 04/24/21 07:51 04/26/21 07:52 Labs: Abnormal Lab Results - Last 24 Hours (Table) 04/25/21 04/25/21 04/25/21 Range/Units 13:00 18:04 23:53 POC Glucose (mg/dL) 174 H 144 H 131 H (75-99) mg/dL 04/26/21 Range/Units 05:56 POC Glucose (mg/dL) 136 H (75-99) mg/dL Assessment and Plan Assessment: * Cardiac arrest with somewhat prolonged downtime. Patient is recovering very well. His mentation is remarkably improved. His orientation and short-term memory also remarkably improving. * Status post defibrillator placement. * Status post extubation for ventilator-dependent respiratory failure. * Acute [place], status post cardiac catheterization requiring stenting. * Hypertension Plan: * Patient is doing very well. His memory functions are further improving. * MRI of the brain revealed age-related atrophic and chronic small vessel is chemic change. No acute process. No CVA. * Patient is status post defibrillator placement. * For persistent memory issues, continue Aricept 5 mg daily. * EEG was abnormal due to background slowing of moderate degree. This is suggestive of generalized cerebral dysfunction as can be seen with toxic me tabolic encephalopathy or related to diffuse structural brain abnormality. No epileptiform activity was seen. * Continue aspirin 81 mg, Brilinta 90 mg twice a day and Lipitor 80 mg. Patient on heparin subcu for DVT prophylaxis.. * Other medical management as per IM/critical care and cardiology. * Neurologically clear otherwise. Suggest patient follow up with neurologist in 2-4 weeks as outpatient. Neurology will sign off. Please reconsult if any concerns.
--- NOTE | 2021-04-26 16:31 | P.PN ---
Subjective Progress Note Date: 04/26/21 Patient is status post ICD placement today, doing well after the procedure. No pain, no palpitations. Has good appetite, is very hungry. Objective - Vital Signs Vital signs: Vital Signs Temp 99 F 04/26/21 15:49 Pulse 80 04/26/21 15:49 Resp 20 04/26/21 15:49 BP 143/67 04/26/21 15:49 Pulse Ox 98 04/26/21 15:49 Intake & Output 04/25/21 04/26/21 04/26/21 18:59 06:59 18:59 Intake Total 360 120 318 Output Total 200 300 Balance 160 120 18 Weight 90.3 kg Intake: IV 200 Oral 360 120 118 Output: Urine 200 300 Other: Voiding Method Bedside Commode Urinal Urinal Urinal # Voids 3 2 1 - Exam Gen: awake, alert HEENT: normocephalic, atraumatic, good hearing acuity, moist mucous membranes Resp: good air exchange, breathing comfortably with no accessory muscle use CVS: good distal perfusion x 4, GI: soft, NTTP, ND : no SPT, no CVAT, stephen catheter not present MSK: no pitting edema, no clubbing Neuro: non-focal, moving all extremities Psych: cooperative, euthymic mood - Labs CBC & Chem 7: 04/24/21 07:51 04/26/21 07:52 Labs: Abnormal Lab Results - Last 24 Hours (Table) 04/25/21 04/25/21 04/26/21 Range/Units 18:04 23:53 05:56 POC Glucose (mg/dL) 144 H 131 H 136 H (75-99) mg/dL 04/26/21 Range/Units 11:34 POC Glucose (mg/dL) 116 H (75-99) mg/dL Assessment and Plan Assessment: This is a 71-year-old male who presented to the emergency department after cardiac arrest. Per documents patient had a witnessed arrest by his while he was sitting on the couch eating potato chips. CPR was initiated for 5 minutes. Patient continued to be unresponsive. Neighbor who is a pediatric oncology nurse was called and began CPR. Upon arrival, EMS identified Afib arrest. Patient was defibrillated with return of spontaneous circulation. Patient was intubated and given 2 rounds of epinephrine. Patient was taken straight to aquatic life laborer. 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 Assessment and Plan Ventilator dependent respiratory failure secondary to cardiac arrest/V. fib extubated successfully on 04/21 Coronary artery disease presenting with V. fib arrest Ischemic cardiomyopathy with EF of 35-40% Status post cardiac cath triple vessel disease identified and successful stent placement to LAD Cardiology recommendations appreciated, status post AICD on 04/26 KAVITHA secondary to hypoperfusion due to #1 -Kidney function improving Hyperglycemia/underlying diabetes mellitus Insulin sliding scale A1c 6.6 Thrombophlebitis of the right arm -Started on antibiotic prophylactically by cardiology in anticipation of ICD implantation on Tuesday DVT prophylaxis Subcu heparin Continue current management. Discharge planning possibly on Tuesday
[2021-04-26 16:54] LABS: Glucose,Whole Blood 222 mg/dL (75-99)
[2021-04-26] MEDS: FUROSEMIDE 40 MG TAB PO SCH (17:01)
[2021-04-26] MEDS: LOSARTAN 25 MG TAB PO SCH (20:01)
[2021-04-26] MEDS: QUEtiapine 50 MG TAB PO SCH (20:01)
[2021-04-26] MEDS: DONEPEZIL 5 MG TAB PO SCH (20:02)
[2021-04-26] MEDS: ATORVASTATIN 80 MG TAB PO SCH (20:02)
[2021-04-27 00:10] LABS: Glucose,Whole Blood 163 mg/dL (75-99)
[2021-04-27] MEDS: INSULIN ASPART (NovoLOG) 100 UNIT/ML VIAL SQ SCH ×3 (00:18→11:23)
[2021-04-27] MEDS: ACETAMINOPHEN TAB 325 MG TAB PO PRN (00:19)
[2021-04-27] MEDS ORDERED: VANCOMYCIN TROUGH DUE 1 EACH MISC MISCELLANE ONE (05:00)
[2021-04-27 06:03] LABS: Glucose,Whole Blood 133 mg/dL (75-99)
[2021-04-27] MEDS: carvediloL 12.5 MG TAB PO SCH (06:25)
[2021-04-27] MEDS: VANCOMYCIN 1,750 MG in SODIUM CHLORIDE 0.9% 500 ML 500 ML IVPB SCH (06:26)
[2021-04-27 08:33] VITALS: RESP 17; TEMP 98.5
[2021-04-27] MEDS: HEPARIN SODIUM,PORCINE/PF 5,000 UNIT/0.5 ML SYRINGE SQ SCH (08:37)
[2021-04-27] MEDS: busPIRone HCl 10 MG TAB PO SCH (08:37)
[2021-04-27] MEDS: AMIODARONE 200 MG TAB PO SCH (08:37)
[2021-04-27] MEDS: ESCITALOPRAM 10 MG TAB PO SCH (08:37)
[2021-04-27] MEDS: TICAGRELOR 90 MG TAB PO SCH (08:38)
[2021-04-27] MEDS: FUROSEMIDE 40 MG TAB PO SCH (08:38)
[2021-04-27] MEDS: ASPIRIN 81 MG PO SCH (08:38)
[2021-04-27] MEDS ORDERED: SPIRONOLACTONE 25 MG TAB PO SCH (09:00)
[2021-04-27] MEDS ORDERED: FUROSEMIDE 40 MG TAB PO SCH (09:00)
[2021-04-27 11:54] LABS: Glucose,Whole Blood 205 mg/dL (75-99)
--- NOTE | 2021-04-27 11:56 | P.PN ---
Subjective This is a 71-year-old male with a past medical history hypertension. Patient does not follow with a religious education coordinator. Patient admitted on 04/19/21 with cardiac arrest at home. EKG revealed ST elevations in inferolateral and anterolateral leads. Patient underwent cardiac catheterization with Dr. Gould on 04/19/21 which revealed multivessel CAD with 100% LAD, 100% circumflex and 100% RCA stenosis. He underwent stenting to the LAD. Echocardiogram revealed an EF of 3540%, basal posterior, atypical. An apical septum LV wall hypokinetic, mild mitral tissue, mild tricuspid regurgitation, moderate pulmonary hypertension. Patient was stabilized in ICU and was transferred to . Plan for patient to undergo dual chamber ICD placement with Dr. Wakefield, however, patient with right upper arm thrombophlebitis and procedure was rescheduled until 04/26/21. Patient underwent successful single-chamber ICD implantation on 04/26/[address] Wakefield Patient seen and examined at bedside, up in the bedside chair. Denies chest pain and shortness of breath. ICD device was checked, functioning normally, no acute events. He is increasing his activity as tolerated. His thrombophlebitis in the right arm has improved. He is currently maintained on amiodarone 200 mg twice a day, aspirin 81 mg daily, atorvastatin 80 mg nightly, carvedilol 12.5 mg twice a day, losartan 25 mg nightly, spironolactone 25 mg daily and Brilinta 90 mg twice a day. Telemetry reviewed patient in sinus mechanism heart rate in the 60s/70s, occasional PVCs. Laboratory reviewed, serum creatinine 1.05. GENERAL: In no acute distress. NECK: Supple without JVD or thyromegaly. LUNGS: Breath sounds clear to auscultation bilaterally. Respiration equal and unlabored. No wheezes, rales or rhonchi. HEART: Regular rate and rhythm Systolic ejection murmur. S1 and S2 heard. EXTREMITIES: Normal range of motion, no edema. No clubbing or cyanosis. Peripheral pulses intact. SKIN: right groin site, clean, dry 2+ peripheral pulse ICD placement site, clean, dry, no hematoma ASSESSMENT V fib arrest Multivessel coronary artery disease with 100% LAD, 100% circumflex and 100% RCA stenosis. Status post PCI to the LAD 04/19/21 Ischemic cardiomyopathy Hypertension Acute Kidney Injury, improved Elevated liver enzymes, improved Type 2 Diabetes, Hgb A1C 6.6 status post ICD implantation 04/26/21 PLAN Continue dual antiplatelet therapy with aspirin and Brilinta Continue amiodarone 200mg BID for one month, then 200mg daily Continue statin, carvedilol , losartan , spironolactone Decrease Lasix to 40mg daily Start Keflex 500mg Q8hr for 5 days Discussed this with patient and in detail From cardiology, patient stable to be discharged home. Follow up with Dr. Wakefield in one week and follow up in the device clinic Nurse Practitioner note has been reviewed, I agree with a documented findings and plan of care. Patient was seen and examined. Objective - Vital Signs Vital signs: Vital Signs Temp 98.5 F 04/27/21 08:31 Pulse 62 04/27/21 08:31 Resp 17 04/27/21 08:31 BP 132/58 04/27/21 08:31 Pulse Ox 93 L 04/27/21 08:31 Intake & Output 04/26/21 04/27/21 04/27/21 18:59 06:59 18:59 Intake Total 318 118 120 Output Total 300 150 Balance 18 -32 120 Weight 89.5 kg Intake: IV 200 Oral 118 118 120 Output: Urine 300 150 Other: Voiding Method Urinal Toilet Toilet # Voids 1 1 - Labs CBC & Chem 7: 04/24/21 07:51 04/27/21 05:34 Labs: Abnormal Lab Results - Last 24 Hours (Table) 04/26/21 04/27/21 04/27/21 Range/Units 16:53 00:09 06:01 POC Glucose (mg/dL) 222 H 163 H 133 H (75-99) mg/dL
[2021-04-27 12:14] VITALS: BP 144/76; PULSE 77
--- NOTE | 2021-04-27 13:19 | P.DS ---
Providers Date of admission: 04/19/21 15:18 Expected date of discharge: 04/27/21 Attending physician: Bernice Strong DO Consults: 04/19/21 15:16 Consult Physician Stat Consulting Provider: Tenisha Lim Consult Reason/Comments: STEMI ACTIVATION COMPLETE Do you want consulting provider notified?: Yes 04/19/21 17:44 Consult Physician Routine Consulting Provider: Cardiology Carina Consult Reason/Comments: Post Interventional patient Do you want consulting provider notified?: Already Contacted 04/19/21 19:06 Consult Physician Routine Consulting Provider: Art Hammer Consult Reason/Comments: ICU/vent managment Do you want consulting provider notified?: Already Contacted 04/20/21 12:09 Consult Physician Stat Consulting Provider: Karine Mario Consult Reason/Comments: s/p VT Do you want consulting provider notified?: Already Contacted Primary care physician: [facility] Course: Ventilator dependent respiratory failure secondary to cardiac arrest/V. fib extubated successfully on 04/21 Coronary artery disease presenting with V. fib arrest Ischemic cardiomyopathy with EF of 35-40% KAVITHA secondary to hypoperfusion due to #1 Newly diagnoised Diabetes mellitus Thrombophlebitis of the right arm This is a 71-year-old male who presented to the emergency department after cardiac arrest. Per documents patient had a witnessed arrest by his while he was sitting on the couch eating potato chips. CPR was initiated for 5 minutes. Patient continued to be unresponsive. Neighbor who is a supervisor home energy consultant was called and began CPR. Upon arrival, EMS identified Afib arrest. Patient was defibrillated with return of spontaneous circulation. Patient was intubated and given 2 rounds of epinephrine. Patient was taken straight to prosthetic lab technician. 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 with 100% occlusion of LAD and LCx, and severe stenosis of RCA. Pt underwent stenting of LAD, with planned outpatient staging procedure for LCx, and likely RCA at a later point. Pt also underwent AICD placement on 04/26. Pt started on multiple new medications as recommended by cardiology. He will f/u with them in 1 week, as well as with PCP. He was found to have DM while in house, and I discharged him on a new prescription for metformin and atorvastatin. I spent 45 minutes coordinating this discharge. Assessment: Gen: awake, alert HEENT: normocephalic, atraumatic, good hearing acuity, moist mucous membranes Resp: good air exchange, breathing comfortably with no accessory muscle use CVS: good distal perfusion x 4, GI: soft, NTTP, ND : no SPT, no CVAT, stephen catheter not present MSK: no pitting edema, no clubbing Neuro: non-focal, moving all extremities Psych: cooperative, euthymic mood Patient Condition at Discharge: Good Plan - Discharge Summary Discharge Rx Participant: No New Discharge Prescriptions: New Ticagrelor [Brilinta] 90 mg PO BID #180 tab Carvedilol [Coreg] 12.5 mg PO BID #180 tablet Lisinopril [Prinivil] 10 mg PO DAILY #90 tab Furosemide [Lasix] 40 mg PO DAILY 30 Days #30 tab Cephalexin [Keflex] 500 mg PO Q8HR 5 Days #15 cap Aspirin EC [Ecotrin Low Dose] 81 mg PO DAILY #90 tab Spironolactone 25 mg PO DAILY #90 tablet Amiodarone [Cordarone] 200 mg PO BID 120 Days #240 tab Atorvastatin [Lipitor] 80 mg PO HS #30 tab metFORMIN HCL [Glucophage] 500 mg PO BID #60 tab Continue Multivitamins, Thera [Multivitamin (formulary)] 1 tab PO DAILY QUEtiapine [SEROquel] 50 mg PO HS ALPRAZolam [Xanax] 0.25 mg PO BID PRN PRN Reason: Anxiety Selenium 50 mcg PO DAILY Escitalopram [Lexapro] 30 mg PO DAILY Biotin 5 mg PO DAILY busPIRone HCl [Buspar] 10 mg PO BID Discontinued lisinopriL [Zestril] 20 mg PO DAILY Aspirin EC [Ecotrin Low Dose] 81 mg PO DAILY hydrOXYzine HCL [Atarax] 25 mg PO DAILY Discharge Medication List ALPRAZolam [Xanax] 0.25 mg PO BID PRN 04/19/21 [History] Biotin 5 mg PO DAILY 04/19/21 [History] Escitalopram [Lexapro] 30 mg PO DAILY 04/19/21 [History] Multivitamins, Thera [Multivitamin (formulary)] 1 tab PO DAILY 04/19/21 [History] QUEtiapine [SEROquel] 50 mg PO HS 04/19/21 [History] Selenium 50 mcg PO DAILY 04/19/21 [History] busPIRone HCl [Buspar] 10 mg PO BID 04/19/21 [History] Aspirin EC [Ecotrin Low Dose] 81 mg PO DAILY #90 tab 04/26/21 [Rx] Carvedilol [Coreg] 12.5 mg PO BID #180 tablet 04/26/21 [Rx] Lisinopril [Prinivil] 10 mg PO DAILY #90 tab 04/26/21 [Rx] Spironolactone 25 mg PO DAILY #90 tablet 04/26/21 [Rx] Ticagrelor [Brilinta] 90 mg PO BID #180 tab 04/26/21 [Rx] Amiodarone [Cordarone] 200 mg PO BID 120 Days #240 tab 04/27/21 [Rx] Atorvastatin [Lipitor] 80 mg PO HS #30 tab 04/27/21 [Rx] Cephalexin [Keflex] 500 mg PO Q8HR 5 Days #15 cap 04/27/21 [Rx] Furosemide [Lasix] 40 mg PO DAILY 30 Days #30 tab 04/27/21 [Rx] metFORMIN HCL [Glucophage] 500 mg PO BID #60 tab 04/27/21 [Rx] Follow up Appointment(s)/Referral(s): Bradley Wakefield MD [STAFF PHYSICIAN] - 1 Week (Device clinic follow-up in one week and follow with primary bakery associate; Unable to get ahold of office. Please call to make followup appointment within one week. ) None,Stated [REFERRING] - 1-2 days [facility] Visiting Nurse, [NON-STAFF] - 1-2 Days Patient Instructions/Handouts: Heart Attack (DC), Heart Catheterization (DC), Pacemaker (DC) Activity/Diet/Wound Care/Special Instructions: PATIENT EDUCATION MATERIAL Instructions following a heart rhythm device implant. 1. Keep dressing DRY for 5 DAYS. You may cover the area with Saran or Cling Wrap, prior to a shower. 2. The dressing will be removed in the Device Clinic at [facility]. Absorbable sutures were used to close the wound. 3. Avoid raising the left arm above the shoulder level. 4 week restriction 4. Avoid arm movements, like backscratching, rubbing the head, or pulling on a cord. 4 weeks restriction 5. Gentle range of motion movements of the shoulder, closest to the incision should be performed to avoid a frozen shoulder. (Pendulum exercises of the shoulder) 6. The opposite arm may be used freely. 7. Avoid driving for 7 days. 8. Avoid activities such as golfing, swimming, weed whacking, lifting more than 10 pounds weight, bowling, gymnastics and weight training/lifting. (6 weeks restriction) 9. Activities such as wood chopping with an axe, pull-ups in the gymnasium, power lifting, arc-welding, being close to home induction cooktops will always be a problem. 10. Arm sling is only a reminder not to raise the arm above the head. You do not need to keep the arm completely immobilized. Your free to move the arm and use it and for normal activities. In case of any problems, please call [facility], Kendra Vieira, @ [phone], Attention: Device Clinic Device clinic follow-up in 5 days Follow-up with primary bakery associate in 2-3 months Amiodarone 200 mg twice daily for performed milligrams daily for one month After one month reduce the dose to 200 mg by mouth daily Carvedilol 12.5 mg twice daily Spironolactone 25 mg by mouth daily Lisinopril has been reduced to 10 mg by mouth daily. Previously at home he was taking 20 mg by mouth daily Continue aspirin and Brilinta Lasix 40 mg twice daily Discharge/Stand Alone Forms: Who Do I Call?, Help In The Home, Personal Director Of Property Management Discharge Disposition: HOME SELF-CARE
== END 2021-04-27 13:20 | disposition home or self-care (01) | DRG 224 ==
LOC: EC 15:08 → 2SICU 15:18 → 3SCARD 04-23 21:58
PROVIDERS: ADMIT Internal Medicine; ATTEND Internal Medicine
PROC: 4A023N7 Measurement of Cardiac Sampling and Pressure, Left Heart, Percutaneous Approach (ICD-10-PCS; 2021-04-19)
PROC: 027037Z Dilation of Coronary Artery, One Artery with Four or More Drug-eluting Intraluminal Devices, Percutaneous Approach (ICD-10-PCS; 2021-04-19)
PROC: 3E033XZ Introduction of Vasopressor into Peripheral Vein, Percutaneous Approach (ICD-10-PCS; 2021-04-19)
PROC: 5A2204Z Restoration of Cardiac Rhythm, Single (ICD-10-PCS; 2021-04-19)
PROC: B2111ZZ Fluoroscopy of Multiple Coronary Arteries using Low Osmolar Contrast (ICD-10-PCS; 2021-04-19)
PROC: 5A1945Z Respiratory Ventilation, 24-96 Consecutive Hours (ICD-10-PCS; 2021-04-19)
PROC: 0BH17EZ Insertion of Endotracheal Airway into Trachea, Via Natural or Artificial Opening (ICD-10-PCS; 2021-04-19)
PROC: 02HK3KZ Insertion of Defibrillator Lead into Right Ventricle, Percutaneous Approach (ICD-10-PCS; 2021-04-26)
PROC: B51N1ZZ Fluoroscopy of Left Upper Extremity Veins using Low Osmolar Contrast (ICD-10-PCS; 2021-04-26)
PROC: 0JH608Z Insertion of Defibrillator Generator into Chest Subcutaneous Tissue and Fascia, Open Approach (ICD-10-PCS; principal; 2021-04-26 09:05)
DX: I49.01 Ventricular fibrillation (principal); J96.01 Acute respiratory failure with hypoxia; R57.0 Cardiogenic shock; I50.23 Acute on chronic systolic (congestive) heart failure; N17.9 Acute kidney failure, unspecified; Z99.11 Dependence on respirator [ventilator] status; I46.2 Cardiac arrest due to underlying cardiac condition; D72.829 Elevated white blood cell count, unspecified; E11.65 Type 2 diabetes mellitus with hyperglycemia; F41.9 Anxiety disorder, unspecified; H57.04 Mydriasis; I25.10 Atherosclerotic heart disease of native coronary artery without angina pectoris; I25.5 Ischemic cardiomyopathy; I25.82 Chronic total occlusion of coronary artery; I27.20 Pulmonary hypertension, unspecified; I48.91 Unspecified atrial fibrillation; I11.0 Hypertensive heart disease with heart failure; I49.3 Ventricular premature depolarization; Z20.822 Contact with and (suspected) exposure to COVID-19; I80.8 Phlebitis and thrombophlebitis of other sites; Z79.02 Long term (current) use of antithrombotics/antiplatelets; Z79.82 Long term (current) use of aspirin; Z79.899 Other long term (current) drug therapy; Z82.49 Family history of ischemic heart disease and other diseases of the circulatory system; Z53.09 Procedure and treatment not carried out because of other contraindication
CPT/HCPCS: 33249; 36415; 36600; 70450; 70551; 71045; 71046; 80048; 80053; 80061; 80074; 80202; 82565; 82805; 83036; 83735; 83880; 84100; 84132; 84439; 84443; 84484; 85025; 85027; 85610; 85730; 87070; 87205; 87635; 92950; 93005; 93306; 93458; 94002; 94003; 94760; 95822; 99291

== ENCOUNTER 2021-07-30 14:35 | Inpatient (IN) | payer BC, MEDICARE ==
--- NOTE | 2021-07-30 14:47 | ED ---
General Adult HPI - General Chief complaint: Arrhythmia/Palpitations Stated complaint: Defibrillator firing Time Seen by Provider: 07/30/21 14:36 Source: patient, EMS, RN notes reviewed, old records reviewed Mode of arrival: EMS Limitations: no limitations - History of Present Illness Initial comments: Patient is a pleasant 8 he 11-year-old male presenting to the emergency department after defibrillator firing. Patient was at cardiac rehab today when he started feeling lightheaded while exerting himself. Patient was on the monitor. Patient did have V. tach run that was estimated at 30 seconds. Patient then experienced defibrillator firing. Patient did have some discomfort during the defibrillator firing only difficult acupuncture the chest and just lasted for a second. Otherwise no chest discomfort at all. Lightheadedness resolved following this. No dyspnea. No nausea. No vomiting. No history of similar symptoms previously. Patient was last hospitalized in April with cardiac stent and placement of defibrillator and pacemaker. - Related Data Home Medications Medication Instructions Recorded Confirmed ALPRAZolam [Xanax] 0.25 mg PO BID PRN 04/19/21 04/19/21 Biotin 5 mg PO DAILY 04/19/21 04/19/21 Escitalopram [Lexapro] 30 mg PO DAILY 04/19/21 04/19/21 Multivitamins, Thera [Multivitamin 1 tab PO DAILY 04/19/21 04/19/21 (formulary)] QUEtiapine [SEROquel] 50 mg PO HS 04/19/21 04/19/21 Selenium 50 mcg PO DAILY 04/19/21 04/19/21 busPIRone HCl [Buspar] 10 mg PO BID 04/19/21 04/19/21 Previous Rx's Medication Instructions Recorded Aspirin EC [Ecotrin Low Dose] 81 mg PO DAILY #90 tab 04/26/21 Carvedilol [Coreg] 12.5 mg PO BID #180 tablet 04/26/21 Lisinopril [Prinivil] 10 mg PO DAILY #90 tab 04/26/21 Spironolactone 25 mg PO DAILY #90 tablet 04/26/21 Ticagrelor [Brilinta] 90 mg PO BID #180 tab 04/26/21 Amiodarone [Cordarone] 200 mg PO BID 120 Days #240 tab 04/27/21 Atorvastatin [Lipitor] 80 mg PO HS #30 tab 04/27/21 Cephalexin [Keflex] 500 mg PO Q8HR 5 Days #15 cap 04/27/21 Furosemide [Lasix] 40 mg PO DAILY 30 Days #30 tab 04/27/21 metFORMIN HCL [Glucophage] 500 mg PO BID #60 tab 04/27/21 Allergies Allergy/AdvReac Type Severity Reaction Status Date / Time bee venom protein (honey bee) Allergy Swelling Verified 07/30/21 14:37 Review of Systems ROS Statement: Those systems with pertinent positive or pertinent negative responses have been documented in the HPI. ROS Other: All systems not noted in ROS Statement are negative. Constitutional: Denies: fever Eyes: Denies: eye pain ENT: Denies: ear pain Respiratory: Denies: cough, dyspnea Cardiovascular: Denies: chest pain, palpitations Endocrine: Denies: fatigue Gastrointestinal: Denies: abdominal pain Genitourinary: Denies: dysuria Musculoskeletal: Denies: back pain Skin: Denies: rash Neurological: Denies: weakness Past Medical History Past Medical History: Hypertension, Myocardial Infarction ([place]) Additional Past Medical History / Comment(s): unk Last Myocardial Infarction Date:: 04/19/21 History of Any Multi-Drug Resistant Organisms: None Reported Past Surgical History: Back Surgery, Tonsillectomy Additional Past Surgical History / Comment(s): unk Past Anesthesia/Blood Transfusion Reactions: No Reported Reaction Past Psychological History: Anxiety Past Alcohol Use History: Unable to Obtain - Past Family History Brother(s) Family Medical History: Coronary Artery Disease (CAD), Hyperlipidemia, Hypertension Father Family Medical History: Dementia Sister(s) Family Medical History: Cancer Additional Family Medical History / Comment(s): breast General Exam Limitations: no limitations General appearance: alert, in no apparent distress Head exam: Present: normocephalic Eye exam: Present: normal appearance Neck exam: Present: normal inspection Respiratory exam: Present: normal lung sounds bilaterally Cardiovascular Exam: Present: regular rate, normal rhythm, normal heart sounds Expanded Peripheral pulses: 2+: Radial (R), Radial (L), Posterior Tibialis (R), Posterior Tibialis (L) GI/Abdominal exam: Present: soft. Absent: tenderness Extremities exam: Present: normal inspection. Absent: pedal edema, calf te nderness Neurological exam: Present: alert Psychiatric exam: Present: normal affect, normal mood Skin exam: Present: normal color Course Vital Signs 07/30/21 07/30/21 14:37 14:46 Temperature 98.4 F Pulse Rate 75 75 Respiratory 18 18 Rate Blood Pressure 179/97 161/98 O2 Sat by Pulse 97 96 Oximetry EKG Findings - EKG Comments: EKG Findings:: Sinus rhythm with a rate of 77. For screening AV block, VA 223. QRS 110. QT 361. QTC 393. Normal axis. Inferior Q waves. Nonspecific ST-T. Medical Decision Making - Medical Decision Making Patient reevaluated and resting comfortably in bed. Patient and family updated on results and plan. Case was discussed with Dr. Shah, will admit For hospital call. - Lab Data Result diagrams: 07/30/21 14:42 07/30/21 14:42 Lab Results 07/30/21 07/30/21 07/30/21 Range/Units 14:42 14:42 14:42 WBC 7.5 (3.8-10.6) k/uL RBC 4.04 L (4.30-5.90) m/uL Hgb 12.1 L (13.0-17.5) gm/dL Hct 36.5 L (39.0-53.0) % MCV 90.3 (80.0-100.0) fL MCH 30.0 (25.0-35.0) pg MCHC 33.2 (31.0-37.0) g/dL RDW 14.8 (11.5-15.5) % Plt Count 194 (150-450) k/uL MPV 7.1 Neutrophils % 75 % Lymphocytes % 13 % Monocytes % 6 % Eosinophils % 3 % Basophils % 1 % Neutrophils # 5.6 (1.3-7.7) k/uL Lymphocytes # 1.0 (1.0-4.8) k/uL Monocytes # 0.5 (0-1.0) k/uL Eosinophils # 0.2 (0-0.7) k/uL Basophils # 0.1 (0-0.2) k/uL PT 11.8 (9.0-12.0) sec INR 1.1 (<1.2) APTT 22.5 (22.0-30.0) sec Sodium 138 (137-145) mmol/L Potassium 5.1 (3.5-5.1) mmol/L Chloride 103 (98-107) mmol/L Carbon Dioxide 25 (22-30) mmol/L Anion Gap 10 mmol/L BUN 37 H (9-20) mg/dL Creatinine 1.40 H (0.66-1.25) mg/dL Est GFR (CKD-EPI)AfAm 59 (>60 ml/min/1.73 sqM) Est GFR (CKD-EPI)NonAf 51 (>60 ml/min/1.73 sqM) Glucose 111 H (74-99) mg/dL Calcium 9.6 (8.4-10.2) mg/dL Magnesium 2.0 (1.6-2.3) mg/dL Total Bilirubin 0.7 (0.2-1.3) mg/dL AST 34 (17-59) U/L ALT 28 (4-49) U/L Alkaline Phosphatase 78 (38-126) U/L Total Protein 8.0 (6.3-8.2) g/dL Albumin 4.5 (3.5-5.0) g/dL - Radiology Data Radiology results: image reviewed (Chest x-ray shows cardiac megaly. Peripheral lung opacities.) Disposition Clinical Impression: Ventricular tachycardia Disposition: ADMITTED IP TO THIS HOSP Is patient prescribed a controlled substance at d/c from ED?: No Referrals: None,Stated [REFERRING] - 1-2 days Decision Time: 15:08
[2021-07-30 14:49] LABS: Basophils # (A) 0.1 k/uL (0-0.2); Basophils % (A) 1 %; Eosinophils # (A) 0.2 k/uL (0-0.7); Eosinophils % (A) 3 %; HCT 36.5 % (39.0-53.0); HGB 12.1 gm/dL (13.0-17.5); Lymphocytes % (A) 13 %; MCHC 33.2 g/dL (31.0-37.0); MCV 90.3 fL (80.0-100.0); Mean Platelet Volume 7.1; Monocytes # (A) 0.5 k/uL (0-1.0); Monocytes % (A) 6 %; Neutrophils # (A) 5.6 k/uL (1.3-7.7); Neutrophils % (A) 75 %; Platelet Count 194 k/uL (150-450); RBC 4.04 m/uL (4.30-5.90); RDW 14.8 % (11.5-15.5); WBC 7.5 k/uL (3.8-10.6)
[2021-07-30 14:57] LABS: Albumin 4.5 g/dL (3.5-5.0); Calcium 9.6 mg/dL (8.4-10.2); Potassium 5.1 mmol/L (3.5-5.1); Total Bilirubin 0.7 mg/dL (0.2-1.3)
--- NOTE | 2021-07-30 15:05 | XR ---
EXAMINATION TYPE: XR chest 1V portable DATE OF EXAM: 07/30/2021 Comparison: 04/26/2021 Clinical History: 71-year-old male dysrhythmia Findings: Left anterior chest wall AICD generator with right ventricular lead. Heart mildly enlarged. Periphera l bilateral lung opacities are similar to prior exam. No pleural effusion. Possible rotator cuff tear on the right given bony irregularity at the greater tuberosity and some narrowing of the subacromial space. Impression: 1. Mild cardiomegaly persists. Left anterior chest wall AICD generator. 2. Relatively similar peripheral lung opacities. Query any current symptoms of COVID pneumonia or int erstitial pneumonitis such as SOFTWOOD FALLER. These lung opacities can also be seen with inflammatory etiologies such as eosinophillic pneumonia. If there are no active respiratory symptoms and there was recent CO VID infection, post infectious scarring can be considered. Consider pulmonary medicine referral.
[2021-07-30 15:06] LABS: INR 1.1 (<1.2); Partial Thromboplastin Time 22.5 sec (22.0-30.0); Prothrombin Time 11.8 sec (9.0-12.0)
[2021-07-30] MEDS ORDERED: ASPIRIN 81 MG PO STA (15:09)
[2021-07-30] MEDS ORDERED: NITROGLYCERIN SL TABS 0.4 MG TAB SUBLINGUAL PRN (15:09)
[2021-07-30 15:14] LABS: T4, Free (Free Thyroxine) 1.36 ng/dL (0.78-2.19)
[2021-07-30 16:50] LABS: Glucose,Whole Blood 113 mg/dL (75-99)
--- NOTE | 2021-07-30 18:51 | P.HPIM ---
History of Present Illness This is a pleasant 71 years old male with past medical history of hypertension, history of V. fib on 04/19/2021 status post defibrillator and pacemaker since 04/2021 Was undergoing cardiac rehab today when he was working on 3 devices including a treadmill and elliptical like device when he felt weak and dizzy and shortly thereafter he felt like a little pound on his chest secondary to defibrillator firing, after that and currently his back to his baseline, now currently is as symptomatic he denies chest pain or dyspnea or abdominal pain. No change in urine or bowel habits. No fever. No difficulty breathing, no coughing. He denies smoking, alcohol or illicit drugs. Currently vital signs stable, blood pressure 151/75. Labs including CBC, BMP and liver enzymes are unremarkable except for creatinine of 1.4, baseline 1.0 TSH 0.1 which is low but normal free T4 and free T3. Coronavirus not detected. Troponins 2 are negative. EKG showing normal sinus rhythm at [address]-T changes and QTC 393. Chest x-ray: No acute process. However there is relatively similar peripheral lung capacity, query any current symptoms of cough with pneumonia. The lung capacity can also be seen with inflammatory etiology like eosinophilic Pneumonia. There is no active respiratory symptoms then consider covert scarring. Consider pulmonary referral Review of Systems CONSTITUTIONAL: No fever, no malaise, no fatigue. HEENT: No recent visual problems or hearing problems. Denied any sore throat. CARDIOVASCULAR: No orthopnea, PND, no palpitations, no syncope. PULMONARY: No shortness of breath, no cough, no hemoptysis. GASTROINTESTINAL: No diarrhea, no nausea, no vomiting, no abdominal pain. Normoactive bowel sounds. NEUROLOGICAL: No headaches, no weakness, no numbness. HEMATOLOGICAL: Denies any bleeding or petechiae. GENITOURINARY: Denies any burning micturition, frequency, or urgency. MUSCULOSKELETAL/RHEUMATOLOGICAL: Denies any joint pain, swelling, or any muscle pain. ENDOCRINE: Denies any polyuria or polydipsia. Past Medical History Past Medical History: Hypertension, Myocardial Infarction ([place]) Additional Past Medical History / Comment(s): unk Last Myocardial Infarction Date:: 04/19/21 History of Any Multi-Drug Resistant Organisms: None Reported Past Surgical History: Back Surgery, Tonsillectomy Additional Past Surgical History / Comment(s): unk Past Anesthesia/Blood Transfusion Reactions: No Reported Reaction Past Psychological History: Anxiety Past Alcohol Use History: Unable to Obtain - Past Family History Brother(s) Family Medical History: Coronary Artery Disease (CAD), Hyperlipidemia, Hypertension Father Family Medical History: Dementia Sister(s) Family Medical History: Cancer Additional Family Medical History / Comment(s): breast Medications and Allergies Home Medications Medication Instructions Recorded Confirmed Type ALPRAZolam [Xanax] 0.25 mg PO DAILY 04/19/21 07/30/21 History Escitalopram [Lexapro] 30 mg PO DAILY 04/19/21 07/30/21 History QUEtiapine [SEROquel] 25 - 50 mg PO HS 04/19/21 07/30/21 History busPIRone HCl [Buspar] 10 mg PO BID 04/19/21 07/30/21 History Spironolactone 25 mg PO DAILY #90 tablet 04/26/21 07/30/21 Rx Ticagrelor [Brilinta] 90 mg PO BID #180 tab 04/26/21 07/30/21 Rx Atorvastatin [Lipitor] 80 mg PO HS #30 tab 04/27/21 07/30/21 Rx Amiodarone [Cordarone] 200 mg PO DAILY 07/30/21 07/30/21 History Carvedilol [Coreg] 6.25 mg PO BID 07/30/21 07/30/21 History Venlafaxine HCl ER [Effexor Xr] 112.5 mg PO DAILY 07/30/21 07/30/21 History hydrOXYzine HCL [Atarax] 25 mg PO DAILY 07/30/21 07/30/21 History lisinopriL [Zestril] 20 mg PO DAILY 07/30/21 07/30/21 History metFORMIN HCL [Glucophage] 250 mg PO BID 07/30/21 07/30/21 History Allergies Allergy/AdvReac Type Severity Reaction Status Date / Time bee venom protein (honey bee) Allergy Swelling @ Verified 07/30/21 16:16 sting site Physical Exam Vitals: Vital Signs Temp Pulse Resp BP Pulse Ox 07/30/21 14:46 75 18 161/98 96 07/30/21 14:37 98.4 F 75 18 179/97 97 Intake and Output 02/23/22 02/24/22 02/24/22 22:59 06:59 14:59 Other: Weight 87.543 kg GENERAL: The patient is alert and oriented x3, not in any acute distress. Well developed, well nourished. HEENT: Pupils are round and equally reacting to light. EOMI. No scleral icterus. No conjunctival pallor. Normocephalic, atraumatic. No pharyngeal erythema. No thyromegaly. CARDIOVASCULAR: S1 and S2 present. No murmurs, rubs, or gallops. PULMONARY: Chest is clear to auscultation, no wheezing or crackles. ABDOMEN: Soft, nontender, nondistended, normoactive bowel sounds. No palpable organomegaly. MUSCULOSKELETAL: No joint swelling or deformity. EXTREMITIES: No cyanosis, clubbing, or pedal edema. NEUROLOGICAL: Gross neurological examination did not reveal any focal deficits. SKIN: No rashes. No petechiae Results CBC & Chem 7: 07/30/21 14:42 07/30/21 14:42 Assessment and Plan Assessment: Possible cardiac arrhythmia status post firing of his defibrillator Recent history of V. fib cardiac arrest status post defibrillator Acute kidney injury Abnormal chest x-ray, suspicious for eosinophilic Pneumonia, versus interstitial pneumonia Hypertension Diabetes mellitus hyperlipidemia Recent history of he is a status post single chamber ICD implantation Acute [place], status post cardiac catheterization requiring stenting. Multivessel coronary artery disease with 100% LAD, 100% circumflex and 100% RCA stenosis. Status post PCI to the LAD 04/19/21 Ischemic cardiomyopathy Plan: This is a pleasant 71 years old male who presents with defibrillator firing, possible cardiac arrhythmia Continue with telemetry Cardiology consult Gentle hydration Patient given aspirin Labs and medication were reviewed.. Continue same treatment. Continue with symptomatic treatment. Resume home medication. Monitor lytes and vitals. DVT and GI prophylaxis. Further recommendations depends on the clinical course of the patient DVT prophylaxis: Subcutaneous heparin GI Prophylaxis: Pepcid Prognosis is guarded
[2021-07-30] MEDS ORDERED: SODIUM CHLORIDE 0.9% 1,000 ML IV SCH (19:00)
[2021-07-30 20:55] LABS: Glucose,Whole Blood 152 mg/dL (75-99)
[2021-07-30] MEDS ORDERED: INSULIN ASPART (NovoLOG) 100 UNIT/ML VIAL SQ SCH (21:00)
[2021-07-30] MEDS ORDERED: FAMOTIDINE 20 MG/2 ML VIAL IV SCH (21:00)
[2021-07-30] MEDS: HEPARIN SODIUM,PORCINE/PF 5,000 UNIT/0.5 ML SYRINGE SQ SCH (21:07)
[2021-07-30] MEDS: INSULIN ASPART (NovoLOG) 100 UNIT/ML VIAL SQ SCH (21:09)
[2021-07-30] MEDS: TICAGRELOR 90 MG TAB PO SCH (21:09)
[2021-07-30] MEDS: ATORVASTATIN 80 MG TAB PO SCH (21:09)
[2021-07-30] MEDS: busPIRone HCl 10 MG TAB PO SCH (21:09)
[2021-07-30] MEDS: QUEtiapine 25 MG TAB PO SCH (21:09)
[2021-07-31] MEDS ORDERED: FAMOTIDINE 20 MG TAB PO SCH (02:07)
[2021-07-31] MEDS: INSULIN ASPART (NovoLOG) 100 UNIT/ML VIAL SQ SCH ×5 (06:25→21:23)
[2021-07-31 06:32] LABS: Glucose,Whole Blood 136 mg/dL (75-99)
[2021-07-31] MEDS: carvediloL 6.25 MG TAB PO SCH ×3 (06:38→23:09)
[2021-07-31 08:13] LABS: Basophils # (A) 0.1 k/uL (0-0.2); Basophils % (A) 1 %; Eosinophils # (A) 0.2 k/uL (0-0.7); Eosinophils % (A) 3 %; HCT 38.5 % (39.0-53.0); HGB 12.7 gm/dL (13.0-17.5); Lymphocytes # (A) 1.1 k/uL (1.0-4.8); Lymphocytes % (A) 15 %; MCH 30.1 pg (25.0-35.0); MCHC 32.9 g/dL (31.0-37.0); MCV 91.5 fL (80.0-100.0); Mean Platelet Volume 7.7; Monocytes # (A) 0.5 k/uL (0-1.0); Monocytes % (A) 7 %; Neutrophils # (A) 5.3 k/uL (1.3-7.7); Neutrophils % (A) 73 %; Platelet Count 200 k/uL (150-450); RDW 14.9 % (11.5-15.5); WBC 7.3 k/uL (3.8-10.6)
[2021-07-31 08:26] LABS: African American GFR (CKD) 63 (>60 ml/min/1.73 sqM); Anion Gap 7 mmol/L; Blood Urea Nitrogen 31 mg/dL (9-20); Calcium 9.4 mg/dL (8.4-10.2); Carbon Dioxide 24 mmol/L (22-30); Chloride 106 mmol/L (98-107); Glucose 132 mg/dL (74-99); Magnesium 2.1 mg/dL (1.6-2.3); Non-African American GFR(CKD) 55 (>60 ml/min/1.73 sqM); Sodium 137 mmol/L (137-145)
[2021-07-31] MEDS ORDERED: ASPIRIN 325 MG TAB PO SCH (09:00)
[2021-07-31] MEDS ORDERED: AMIODARONE 200 MG TAB PO SCH (09:00)
[2021-07-31] MEDS: hydrOXYzine HCL 25 MG TAB PO SCH (09:28)
[2021-07-31] MEDS: SPIRONOLACTONE 25 MG TAB PO SCH (09:29)
[2021-07-31] MEDS: ALPRAZolam 0.25 MG TAB PO SCH (09:29)
[2021-07-31] MEDS: FAMOTIDINE 20 MG TAB PO SCH ×2 (09:29→21:22)
[2021-07-31] MEDS: lisinopriL 20 MG TAB PO SCH (09:29)
[2021-07-31] MEDS: TICAGRELOR 90 MG TAB PO SCH (09:30)
[2021-07-31] MEDS: busPIRone HCl 10 MG TAB PO SCH ×2 (09:30→21:22)
[2021-07-31] MEDS: HEPARIN SODIUM,PORCINE/PF 5,000 UNIT/0.5 ML SYRINGE SQ SCH (09:31)
[2021-07-31] MEDS: ESCITALOPRAM 10 MG TAB PO SCH (09:31)
[2021-07-31] MEDS: VENLAFAXINE HCL ER 37.5 MG CAP PO SCH (09:41)
[2021-07-31] MEDS ORDERED: AMIODARONE 360 MG in DEXTROSE 5% IN WATER 200 ML IV ONE ×2 (09:48)
[2021-07-31] MEDS ORDERED: DEXTROSE 5% IN WATER 100 ML with AMIODARONE 150 MG IV ONE (09:48)
[2021-07-31] MEDS ORDERED: ASPIRIN 81 MG PO SCH (10:00)
[2021-07-31] MEDS ORDERED: CLOPIDOGREL 75 MG TAB PO STA (10:21)
[2021-07-31] MEDS: APIXABAN 5 MG TAB PO SCH ×2 (11:32→21:22)
[2021-07-31 11:50] LABS: Glucose,Whole Blood 139 mg/dL (75-99)
[2021-07-31 12:07] LABS: Chol/HDL Ratio 2.21 Ratio; LDL Cholesterol,Calculated 55.7 mg/dL (0.0-131.0)
[2021-07-31 12:22] LABS: Appearance,Urine Clear (Clear); Bilirubin,Urine Negative (Negative); Blood,Urine Negative (Negative); Color,Urine Light Yellow; Glucose,Urine (UA) Negative (Negative); Ketones,Urine Negative (Negative); Leukocyte Esterase,Urine Negative (Negative); Nitrite,Urine Negative (Negative); Protein,Urine Negative (Negative); Urobilinogen,Urine <2.0 mg/dL (<2.0)
--- NOTE | 2021-07-31 12:22 | ECHOF ---
Referral Reason:LV function MEASUREMENTS -------- HEIGHT: 152.4 cm WEIGHT: 87.5 kg BP: RVIDd: 3.1 cm (< 3.3) IVSd: 1.3 cm (0.6 - 1.1) LVIDd: 4.5 cm (3.9 - 5.3) LVPWd: 1.9 cm (0.6 - 1.1) IVSs: 1.9 cm LVIDs: 4.2 cm LVPWs: 1.4 cm LA Diam: 5.1 cm (2.7 - 3.8) LAESV Index (A-L): 58.33 ml/m Ao Diam: 3.2 cm (2.0 - 3.7) AV Cusp: 1.7 cm (1.5 - 2.6) LA Diam: 4.1 cm (2.7 - 3.8) MV EXCURSION: 21.171 mm (> 18.000) MV EF SLOPE: 69 mm/s (70 - 150) EPSS: 0.7 cm MV E Garett: 0.68 m/s MV DecT: 228 ms MV A Garett: 0.93 m/s MV E/A Ratio: 0.73 RAP: 5.00 mmHg RVSP: 13.59 mmHg FINDINGS -------- Pacerwire seen in RV and RA. This was a technically adequate study. The left ventricular size is normal. There is mild concentric left ventricular hypertrophy. Overa ll left ventricular systolic function is low-normal with, an EF between 50 - 55 %. The right ventricle is normal in size. LA is severely dilated >40 ml/m2 The right atrial size is normal. Aortic valve is trileaflet and is mildly thickened. There is no evidence of aortic regurgitation. The mitral valve is normal. Mild mitral regurgitation is present. The tricuspid valve appears structurally normal. Mild tricuspid regurgitation present. Right vent ricular systolic pressure is normal at < 35 mmHg. There is no pulmonic regurgitation present. The aortic root size is normal. There is no pericardial effusion. CONCLUSIONS -------- 1. There is mild concentric left ventricular hypertrophy. 2. Overall left ventricular systolic function is low-normal with, an EF between 50 - 55 %. 3. LA is severely dilated >40 ml/m2 4. Aortic valve is trileaflet and is mildly thickened. 5. Mild mitral regurgitation is present. 6. Mild tricuspid regurgitation present. 7. There is no pericardial effusion. LAUNDRY WASHER: Yvette Ramsey RDCS
--- NOTE | 2021-07-31 13:28 | CONS ---
CONSULTATION Jd Aldrich is a 71-year-old gentleman with ischemic cardiomyopathy who presented with a cardiac arrest and had an acute anterior WI, underwent stenting of totally occluded LAD with multiple stents in April. He also had a total occlusion of circumflex and RCA, but he was treated medically for this. He recovered well. LV function improved up to 40%. He has a single-chamber ICD. Yesterday he was exercising in cardiac rehab and he pushed himself quite a bit and he felt lightheaded, dizzy, stopped, and then he felt a shock, then he felt back to normal again. On reviewing the strips from his ICD interrogation, it suggests that he had atrial fibrillation with a rapid ventricular rate followed by antitachycardia pacing at least on 3 occasions, which was unsuccessful, and then he had a shock. He is now in a sinus rhythm with preserved precordial R-waves, nonspecific ST abnormality, no troponin elevation. He is resting comfortably without symptoms. It appears that this was a very rapid paroxysmal atrial fibrillation causing him to feel dizzy and lightheaded, and then he had a shock as well. There does not appear to be ventricular tachycardia based on the rhythm strip review. However I will seek input from Dr. Wakefield later on today or as outpatient. He is resting comfortably without symptoms. Past medical history is remarkable for an acute WI in April 2021 followed by stenting of LAD. RCA and circumflex are also occluded. He has inferolateral fixed defect. His circumflex apparently is a dominant one and technically RCA is nondominant with a long lesion in the mid portion. He has a history of hypertension and hypercholesterolemia as well. He is status post previous back surgery. Medications at home include: 1. Brilinta 90 mg b.i.d. 2. Aspirin 81 mg daily. 3. Lexapro. 4. Seroquel. 5. BuSpar. 6. Aldactone 25 mg daily. 7. Amiodarone 200 mg daily. 8. Coreg 6.25 mg b.i.d. 9. Lisinopril 20 mg daily. 10.Patient is a type 2 diabetic and also takes metformin. ALLERGIES: NO KNOWN DRUG ALLERGIES. On examination, blood pressure is 140/70, pulse rate is 56 per minute, regular. HEENT unremarkable. Fundus was not examined by me. Neck is supple. No JVD. I do not hear a carotid bruit. Heart exam reveals S1, S2 heard normally. There is a short systolic murmur at the base. Second heart sound is preserved. Lungs are clear. Abdomen is soft, nontender. Lower extremities reveal palpable pulses. No edema. Central nervous system is normal. EKG revealed normal sinus rhythm with evidence of old inferior WI with nonspecific ST-T changes in the lateral leads. No acute ST-elevation noted. Laboratory data revealed unremarkable troponins. IMPRESSION: 1. Atrial fibrillation with rapid ventricular rate in the setting of very active physical exercise in cardiac rehab followed by antitachycardia pacing and eventual shock from his single-chamber ICD. 2. Ischemic cardiomyopathy with known previous anterior myocardial infarction and stenting of LAD in April 2021. 3. Hypertension. 4. Hypercholesterolemia. RECOMMENDATIONS: I reviewed the rhythm strips and talked to Dr. Singh and left a message for Dr. Wakefield, also. I will proceed with intravenous amiodarone bolus and drip followed by an echocardiogram to reassess LV function, switch him from Brilinta and aspirin to Plavix and Eliquis 5 mg b.i.d. I will load him with 300 mg of Plavix. If he is asymptomatic, he may be discharged, to be seen by Dr. Wakefield for atrial fibrillation ablation to be performed sooner than later. Discussed my thoughts in detail with the patient and his . Based on clinical course, we will make further recommendations. Patient has other comorbid conditions in the form of type 2 diabetes, hypertension, hyperlipidemia. MMODL / IJN: [id number] /
--- NOTE | 2021-07-31 14:01 | P.PN ---
Subjective This is a pleasant 71 years old male with past medical history of hypertension, history of V. fib on 04/19/2021 status post defibrillator and pacemaker since 04/2021 Was undergoing cardiac rehab today when he was working on 3 devices including a treadmill and elliptical like device when he felt weak and dizzy and shortly thereafter he felt like a little pound on his chest secondary to defibrillator firing, after that and currently his back to his baseline, now currently is as symptomatic he denies chest pain or dyspnea or abdominal pain. No change in urine or bowel habits. No fever. No difficulty breathing, no coughing. He denies smoking, alcohol or illicit drugs. Currently vital signs stable, blood pressure 151/75. Labs including CBC, BMP and liver enzymes are unremarkable except for creatinine of 1.4, baseline 1.0 TSH 0.1 which is low but normal free T4 and free T3. Coronavirus not detected. Troponins 2 are negative. EKG showing normal sinus rhythm at [address]-T changes and QTC 393. Chest x-ray: No acute process. However there is relatively similar peripheral lung capacity, query any current symptoms of cough with pneumonia. The lung capacity can also be seen with inflammatory etiology like eosinophilic Pneumonia. There is no active respiratory symptoms then consider covert scarring. Consider pulmonary referral 07/31/2021 Patient is asymptomatic today. No chest pain or dyspnea. Hemodynamically stable. His ejection fraction is 50-55% Urine analysis is negative. Creatinine is coming down 1.3, he kept on normal saline 75 mm per hour. Discuss chest cartilage team today, we switched his aspirin and brillinta into Plavix and Eliquis, also start him on amiodarone drip Patient will need seen by Dr. Benitez Possible discharge tomorrow once cleared by associate music professor Objective - Vital Signs Vital signs: Vital Signs Temp 98.5 F 07/31/21 11:28 Pulse 54 L 07/31/21 11:28 Resp 18 07/31/21 11:28 BP 157/75 07/31/21 11:28 Pulse Ox 97 07/31/21 11:28 Intake & Output 07/30/21 07/31/21 07/31/21 18:59 06:59 18:59 Intake Total 360 1200 Output Total 325 325 Balance 35 875 Weight 87.543 kg Intake: Oral 360 1200 Output: Urine 325 325 Other: # Voids 1 - Exam GENERAL: The patient is alert and oriented x3, not in any acute distress. Well developed, well nourished. HEENT: Pupils are round and equally reacting to light. EOMI. No scleral icterus. No conjunctival pallor. Normocephalic, atraumatic. No pharyngeal erythema. No thyromegaly. CARDIOVASCULAR: S1 and S2 present. No murmurs, rubs, or gallops. PULMONARY: Chest is clear to auscultation, no wheezing or crackles. ABDOMEN: Soft, nontender, nondistended, normoactive bowel sounds. No palpable organomegaly. MUSCULOSKELETAL: No joint swelling or deformity. EXTREMITIES: No cyanosis, clubbing, or pedal edema. NEUROLOGICAL: Gross neurological examination did not reveal any focal deficits. SKIN: No rashes. no petechiae. - Labs CBC & Chem 7: 07/31/21 07:50 07/31/21 07:50 Labs: Abnormal Lab Results - Last 24 Hours (Table) 07/30/21 07/30/21 07/30/21 Range/Units 14:42 14:42 16:45 RBC 4.04 L (4.30-5.90) m/uL Hgb 12.1 L (13.0-17.5) gm/dL Hct 36.5 L (39.0-53.0) % BUN 37 H (9-20) mg/dL Creatinine 1.40 H (0.66-1.25) mg/dL Glucose 111 H (74-99) mg/dL POC Glucose (mg/dL) 113 H (75-99) mg/dL TSH 0.154 L (0.465-4.680) mIU/L 07/30/21 07/31/21 07/31/21 Range/Units 20:49 06:20 07:50 RBC (4.30-5.90) m/uL Hgb (13.0-17.5) gm/dL Hct (39.0-53.0) % BUN 31 H (9-20) mg/dL Creatinine 1.33 H (0.66-1.25) mg/dL Glucose 132 H (74-99) mg/dL POC Glucose (mg/dL) 152 H 136 H (75-99) mg/dL TSH (0.465-4.680) mIU/L 07/31/21 07/31/21 Range/Units 07:50 11:46 RBC 4.20 L (4.30-5.90) m/uL Hgb 12.7 L (13.0-17.5) gm/dL Hct 38.5 L (39.0-53.0) % BUN (9-20) mg/dL Creatinine (0.66-1.25) mg/dL Glucose (74-99) mg/dL POC Glucose (mg/dL) 139 H (75-99) mg/dL TSH (0.465-4.680) mIU/L Assessment and Plan Assessment: Atrial fibrillation's with RVR in the setting of very active physical activity per associate music professor followed by an T cardiac pacing and eventual check from his single-chamber ICD Recent history of V. fib cardiac arrest status post defibrillator Acute kidney injury Abnormal chest x-ray, suspicious for eosinophilic Pneumonia, versus interstitial pneumonia Hypertension Diabetes mellitus hyperlipidemia Recent history of he is a status post single chamber ICD implantation Acute WV, status post cardiac catheterization requiring stenting. Multivessel coronary artery disease with 100% LAD, 100% circumflex and 100% RCA stenosis. Status post PCI to the LAD 04/19/21 History of Ischemic cardiomyopathy Plan: This is a pleasant 71 years old male who presents with defibrillator firing, possible cardiac arrhythmia Continue with telemetry Cardiology consult Gentle hydration Continue with Plavix and started on Eliquis Labs and medication were reviewed.. Continue same treatment. Continue with symptomatic treatment. Resume home medication. Monitor lytes and vitals. DVT and GI prophylaxis. Further recommendations depends on the clinical course of the patient DVT prophylaxis: Eliquis GI Prophylaxis: Pepcid Prognosis is guarded
[2021-07-31 16:37] LABS: Glucose,Whole Blood 143 mg/dL (75-99)
[2021-07-31] MEDS: AMIODARONE 450 MG in DEXTROSE 5% IN WATER 250 ML IV SCH ×2 (17:06)
[2021-07-31 20:06] LABS: Glucose,Whole Blood 110 mg/dL (75-99)
[2021-07-31] MEDS: ATORVASTATIN 80 MG TAB PO SCH (21:22)
[2021-07-31] MEDS: QUEtiapine 25 MG TAB PO SCH (21:22)
[2021-08-01 04:15] VITALS: RESP 16
[2021-08-01 06:06] LABS: Glucose,Whole Blood 116 mg/dL (75-99)
[2021-08-01] MEDS: INSULIN ASPART (NovoLOG) 100 UNIT/ML VIAL SQ SCH (06:10)
[2021-08-01] MEDS: AMIODARONE 450 MG in DEXTROSE 5% IN WATER 250 ML IV SCH ×2 (06:42)
[2021-08-01] MEDS: ESCITALOPRAM 10 MG TAB PO SCH (08:15)
[2021-08-01] MEDS: busPIRone HCl 10 MG TAB PO SCH (08:15)
[2021-08-01] MEDS: SPIRONOLACTONE 25 MG TAB PO SCH (08:15)
[2021-08-01] MEDS: lisinopriL 20 MG TAB PO SCH (08:15)
[2021-08-01] MEDS: ALPRAZolam 0.25 MG TAB PO SCH (08:16)
[2021-08-01] MEDS: FAMOTIDINE 20 MG TAB PO SCH (08:16)
[2021-08-01] MEDS: carvediloL 6.25 MG TAB PO SCH (08:16)
[2021-08-01] MEDS: APIXABAN 5 MG TAB PO SCH (08:16)
[2021-08-01] MEDS: VENLAFAXINE HCL ER 37.5 MG CAP PO SCH ×2 (08:17→08:22)
[2021-08-01] MEDS: hydrOXYzine HCL 25 MG TAB PO SCH (08:21)
[2021-08-01] MEDS ORDERED: CLOPIDOGREL 75 MG TAB PO SCH (09:00)
[2021-08-01] MEDS ORDERED: AMIODARONE 200 MG TAB PO SCH (09:00)
[2021-08-01 09:57] VITALS: BP 123/59; PULSE 67; TEMP 97.7
--- NOTE | 2021-08-01 15:55 | PN ---
PROGRESS NOTE Mr. Aldrich came in with what seemed to be an ICD discharge. He has a single-chamber ICD and previous stenting of LAD. On reviewing the device interrogation information, it appears that he had atrial fibrillation with rapid ventricular rate. He is now on amiodarone 200 mg b.i.d. He will be discharged on this and he will see Dr. Singh in one week. He require atrial fibrillation ablation to be performed as an outpatient, and he will see Dr. Wakefield as an outpatient. He is in sinus rhythm at this time. S1, S2 heard normally. Short systolic murmur at the base is audible. Lungs are clear. Abdomen is soft, nontender. Lower extremities reveal normal pulses. No edema. Central nervous system is normal. Patient will be discharged on a combination of Plavix and Eliquis 5 mg b.i.d. in addition to his other medications, and he will see Dr. Singh in one week. Patient can be discharged. MMODL / IJN: [id number] /
== END 2021-08-01 11:17 | disposition home or self-care (01) | DRG 308 ==
LOC: EC 14:35 → 3SCARD 15:09
PROVIDERS: ADMIT Internal Medicine; ATTEND Internal Medicine
DX: I48.0 Paroxysmal atrial fibrillation (principal); J18.9 Pneumonia, unspecified organism; J82.81 Chronic eosinophilic pneumonia; I25.2 Old myocardial infarction; I47.2 Ventricular tachycardia; I25.10 Atherosclerotic heart disease of native coronary artery without angina pectoris; E11.9 Type 2 diabetes mellitus without complications; E78.00 Pure hypercholesterolemia, unspecified; R01.1 Cardiac murmur, unspecified; Z20.822 Contact with and (suspected) exposure to COVID-19; E78.5 Hyperlipidemia, unspecified; F41.9 Anxiety disorder, unspecified; I10 Essential (primary) hypertension; I25.5 Ischemic cardiomyopathy; Z79.02 Long term (current) use of antithrombotics/antiplatelets; Z79.82 Long term (current) use of aspirin; Z79.84 Long term (current) use of oral hypoglycemic drugs; Z79.899 Other long term (current) drug therapy; Z82.49 Family history of ischemic heart disease and other diseases of the circulatory system; Z95.5 Presence of coronary angioplasty implant and graft; Z95.810 Presence of automatic (implantable) cardiac defibrillator; Z91.030 Bee allergy status; Z86.74 Personal history of sudden cardiac arrest
CPT/HCPCS: 36415; 71045; 80048; 80053; 80061; 81003; 83735; 83880; 84439; 84443; 84481; 84484; 85025; 85610; 85730; 87635; 93005; 93306; 99285

== ENCOUNTER 2022-01-08 20:00 | Emergency (ER) | payer BC, MEDICARE ==
--- NOTE | 2022-01-08 22:04 | ED ---
URI HPI - General Chief Complaint: Upper Respiratory Infection Stated Complaint: covid +; low pulse ox Time Seen by Provider: 01/08/22 21:33 Source: patient Mode of arrival: ambulatory Limitations: no limitations - History of Present Illness Initial Comments: This patient is a 71-year-old man who presents with complaint of cough and fevers. His symptoms first developed on Tuesday. He did take a coated test that day and it was negative. When the patient went to visit family member today he was urged again to take Coban test and this time test was positive. Patient has had cardiac history and therefore called his tapper helper. He was recommended to him that he be seen in the emergency department. When I interview the patient, he is not having chest pain. He is not having dyspnea. No hemoptysis. He has not had change in bowel movements or urination. MD Complaint: fever, cough -: days(s) Consistency: constant Improves With: nothing Worsens With: nothing Associated Symptoms: fever, nasal congestion, cough Treatments Prior to Arrival: none - Related Data Home Medications Medication Instructions Recorded Confirmed ALPRAZolam [Xanax] 0.25 mg PO DAILY 04/19/21 07/30/21 Escitalopram [Lexapro] 30 mg PO DAILY 04/19/21 07/30/21 QUEtiapine [SEROquel] 25 - 50 mg PO HS 04/19/21 07/30/21 busPIRone HCl [Buspar] 10 mg PO BID 04/19/21 07/30/21 carvediloL [Coreg] 6.25 mg PO BID 07/30/21 07/30/21 lisinopriL [Zestril] 20 mg PO DAILY 07/30/21 07/30/21 metFORMIN HCL [Glucophage] 250 mg PO BID 07/30/21 07/30/21 Previous Rx's Medication Instructions Recorded Spironolactone 25 mg PO DAILY #90 tablet 04/26/21 Atorvastatin [Lipitor] 80 mg PO HS #30 tab 04/27/21 Amiodarone [Cordarone] 200 mg PO BID #60 tab 08/01/21 Apixaban [Eliquis] 5 mg PO BID #60 tab 08/01/21 Clopidogrel [Plavix] 75 mg PO DAILY #30 tab 08/01/21 Nirmatrelvir/Ritonavir [Paxlovid 1 each PO ONCE #1 pack 01/08/22 2X150 mg-100 mg (Eua)] Allergies Allergy/AdvReac Type Severity Reaction Status Date / Time bee venom protein (honey bee) Allergy Swelling @ Verified 01/08/22 20:28 sting site Review of Systems ROS Statement: Those systems with pertinent positive or pertinent negative responses have been documented in the HPI. ROS Other: All systems not noted in ROS Statement are negative. Constitutional: Reports: fever ENT: Reports: congestion. Denies: throat pain Respiratory: Reports: cough. Denies: dyspnea, hemoptysis Cardiovascular: Denies: chest pain, palpitations, edema, syncope Gastrointestinal: Denies: abdominal pain, nausea, vomiting, diarrhea Genitourinary: Denies: dysuria, hematuria Musculoskeletal: Denies: back pain Skin: Denies: rash Neurological: Denies: headache, weakness, numbness Past Medical History Past Medical History: Hypertension, Myocardial Infarction (SC) Additional Past Medical History / Comment(s): unk Last Myocardial Infarction Date:: 04/19/21 History of Any Multi-Drug Resistant Organisms: None Reported Past Surgical History: Back Surgery, Tonsillectomy Additional Past Surgical History / Comment(s): unk Past Anesthesia/Blood Transfusion Reactions: No Reported Reaction Past Psychological History: Anxiety Smoking Status: Never smoker Past Alcohol Use History: Unable to Obtain Past Drug Use History: None Reported - Past Family History Brother(s) Family Medical History: Coronary Artery Disease (CAD), Hyperlipidemia, Hypertension Father Family Medical History: Dementia Sister(s) Family Medical History: Cancer Additional Family Medical History / Comment(s): breast General Exam Limitations: no limitations General appearance: alert, in no apparent distress Head exam: Present: atraumatic, normocephalic Eye exam: Present: normal appearance. Absent: scleral icterus, conjunctival injection Neck exam: Present: normal inspection Respiratory exam: Present: normal lung sounds bilaterally. Absent: respiratory distress, wheezes, rales, rhonchi, stridor, accessory muscle use, decreased breath sounds, prolonged expiratory Cardiovascular Exam: Present: regular rate, normal rhythm, normal heart sounds. Absent: systolic murmur, diastolic murmur, rubs, gallop GI/Abdominal exam: Present: soft. Absent: distended, tenderness, guarding, rebound, rigid, mass Extremities exam: Present: normal inspection, normal capillary refill. Absent: pedal edema, calf tenderness Back exam: Present: normal inspection. Absent: CVA tenderness (R), CVA tenderness (L) Neurological exam: Present: alert Skin exam: Present: warm, dry, intact, normal color. Absent: rash Course Vital Signs 01/08/22 20:25 Temperature 98.3 F Pulse Rate 68 Respiratory 20 Rate Blood Pressure 127/74 O2 Sat by Pulse 97 Oximetry Disposition Clinical Impression: COVID-19 Disposition: HOME SELF-CARE Condition: Good Instructions (If sedation given, give patient instructions): COVID-19 (Coronavirus Disease 2019) (ED) Prescriptions: Nirmatrelvir/Ritonavir [Paxlovid 2X150 mg-100 mg (Eua)] 1 each PO ONCE #1 pack Is patient prescribed a controlled substance at d/c from ED?: No Referrals: Celina Encinas MD [Primary Care Provider] - 1-2 days
--- NOTE | 2022-01-08 22:23 | XR ---
EXAMINATION TYPE: XR chest 2V DATE OF EXAM: 01/08/2022 COMPARISON: NONE HISTORY: Cough TECHNIQUE: 2 views FINDINGS: There is coarse pulmonary interstitial density. Heart size is normal. No heart failure. Cos tophrenic angles are clear. There is left axillary pacemaker. Bony thorax is intact. IMPRESSION: Pulmonary interstitial fibrosis. Normal heart. No significant change.
[2022-01-08 22:56] VITALS: BP 130/72; PULSE 64; RESP 18; TEMP 98.9
== END 2022-01-08 23:00 | disposition home or self-care (01) ==
LOC: EC 20:00
DX: U07.1 COVID-19 (principal); I10 Essential (primary) hypertension; Z82.49 Family history of ischemic heart disease and other diseases of the circulatory system; Z91.030 Bee allergy status
CPT/HCPCS: 71046

== ENCOUNTER 2023-08-11 17:43 | Inpatient (IN) | payer BC, MEDICARE ==
--- NOTE | 2023-08-11 18:14 | ED ---
General Adult HPI - General Source: patient, RN notes reviewed Mode of arrival: ambulatory Limitations: no limitations <Marilyn Loja - Last Filed: 08/11/23 18:12> <Willie Van - Last Filed: 08/11/23 20:47> - General Stated complaint: Dizziness, Lightheaded Time Seen by Provider: 08/11/23 18:12 - History of Present Illness Initial comments: Quick Note: 73-year-old male presents to the emergency department for evaluation of weakness, lightheadedness. Symptoms have been going on for around 3 weeks. Family states that she noticed his color has been more pale over the past 2 to 3 days. (Marilyn Loja) This is a 73-year-old male presents emergency department complaining that for the last couple weeks he has been lightheaded every time he stands in the morning and he sits down it kind of goes away. Patient also states been having some shortness of breath. Patient [place] any fever chills or cough or patient has chest pain or palpitations. Patient states they recently took him off of spironolactone. Patient has had increased swelling to the legs lately. Patient denies any abdominal pain patient has nausea vomiting diarrhea. (Willie Van) - Related Data Home Medications Medication Instructions Recorded Confirmed ALPRAZolam [Xanax] 0.25 mg PO DAILY 04/19/21 07/30/21 Escitalopram [Lexapro] 30 mg PO DAILY 04/19/21 07/30/21 QUEtiapine [SEROquel] 25 - 50 mg PO HS 04/19/21 07/30/21 busPIRone HCl [Buspar] 10 mg PO BID 04/19/21 07/30/21 carvediloL [Coreg] 6.25 mg PO BID 07/30/21 07/30/21 lisinopriL [Zestril] 20 mg PO DAILY 07/30/21 07/30/21 metFORMIN HCL [Glucophage] 250 mg PO BID 07/30/21 07/30/21 Previous Rx's Medication Instructions Recorded Spironolactone 25 mg PO DAILY #90 tablet 04/26/21 Atorvastatin [Lipitor] 80 mg PO HS #30 tab 04/27/21 Amiodarone [Cordarone] 200 mg PO BID #60 tab 08/01/21 Apixaban [Eliquis] 5 mg PO BID #60 tab 08/01/21 Clopidogrel [Plavix] 75 mg PO DAILY #30 tab 08/01/21 Nirmatrelvir/Ritonavir [Paxlovid 1 each PO ONCE #1 pack 01/08/22 2X150 mg-100 mg (Eua)] Allergies Allergy/AdvReac Type Severity Reaction Status Date / Time bee venom protein (honey bee) Allergy Swelling @ Verified 08/11/23 18:17 sting site Review of Systems ROS Other: All systems not noted in ROS Statement are negative. <Marilyn Loja - Last Filed: 08/11/23 18:12> ROS Other: All systems not noted in ROS Statement are negative. <Willie Van - Last Filed: 08/11/23 20:47> ROS Statement: Those systems with pertinent positive or pertinent negative responses have been documented in the HPI. Past Medical History Past Medical History: Hypertension, Myocardial Infarction ([place]) Additional Past Medical History / Comment(s): unk Last Myocardial Infarction Date:: 04/19/21 History of Any Multi-Drug Resistant Organisms: None Reported Past Surgical History: Back Surgery, Tonsillectomy Additional Past Surgical History / Comment(s): unk Past Anesthesia/Blood Transfusion Reactions: No Reported Reaction Past Psychological History: Anxiety Smoking Status: Never smoker Past Alcohol Use History: Unable to Obtain Past Drug Use History: None Reported - Past Family History Brother(s) Family Medical History: Coronary Artery Disease (CAD), Hyperlipidemia, Hypertension Father Family Medical History: Dementia Sister(s) Family Medical History: Cancer Additional Family Medical History / Comment(s): breast <Marilyn Loja - Last Filed: 08/11/23 18:12> General Exam <Marilyn Loja - Last Filed: 08/11/23 18:12> <Willie Van - Last Filed: 08/11/23 20:47> - General Exam Comments Initial Comments: Visual Physical Exam Vital signs reviewed General: Well-appearing, nontoxic, no acute distress. Head: Normocephalic, atraumatic Eyes: PERRLA, EOMI ENT: Airway patent Chest: Nonlabored breathing Skin: No visual rash, pallor Neuro: Alert and oriented 3 Musculoskeletal: No gross abnormalities (Marilyn Loja) GENERAL: Patient is well-developed and well-nourished. Patient is nontoxic and well- hydrated and is in mild distress. ENT: Neck is soft and supple. No significant lymphadenopathy is noted. Oropharynx is clear. Moist mucous membranes. Neck has full range of motion without eliciting any pain. EYES: The sclera were anicteric and conjunctiva were pink and moist. Extraocular movements were intact and pupils were equal round and reactive to light. Eyelids were unremarkable. PULMONARY: Unlabored respirations. Good breath sounds bilaterally. Patient has some crackles at the bases. CARDIOVASCULAR: There is a regular rate and rhythm without any murmurs gallops or rubs. ABDOMEN: Soft and nontender with normal bowel sounds. SKIN: Skin is clear with no lesions or rashes and otherwise unremarkable. NEUROLOGIC: Patient is alert and oriented x3. Cranial nerves II through XII are grossly intact. Motor and sensory are also intact. Normal speech, volume and content. Symmetrical smile. MUSCULOSKELETAL: Normal extremities with adequate strength and full range of motion. 1+ edema bilaterally LYMPHATICS: No significant lymphadenopathy is noted PSYCHIATRIC: Normal psychiatric evaluation. (Willie Van) Course Vital Signs 08/11/23 08/11/23 08/11/23 18:11 18:55 19:39 Temperature 98.2 F Pulse Rate 64 58 L Pulse Rate [ 63 Sitting A&P Mechanic] Pulse Rate [ 63 Standing A&P Mechanic ] Pulse Rate [ 62 Supine A&P Mechanic] Respiratory 18 18 18 Rate Blood Pressure 110/67 136/85 Blood Pressure 129/65 [Right Arm Sitting] Blood Pressure 146/67 [Right Arm Standing] Blood Pressure 137/87 [Right Arm Supine] O2 Sat by Pulse 98 95 94 L Oximetry Medical Decision Making <Marilyn Loja - Last Filed: 08/11/23 18:12> - Lab Data Result diagrams: 08/11/23 18:51 08/11/23 18:51 <Willie Van - Last Filed: 08/11/23 20:47> - Medical Decision Making Quick note preformed and signed electronically by Marilyn Loja PA-C (Marilyn Loja) EKG is interpreted by myself read EKG shows a sinus rhythm at 66 bpm parables 230 QRS is 110 QT interval 385 QTc is 398 the patient's EKG shows inverted T waves in leads I to III and aVF as well as precordial leads V4 through V6. Patient has Q waves inferior leads as well Was pt. sent in by a medical professional or institution (ANANYA Warren, INSTALLATION HELPER, urgent care, hospital, or fdc...) When possible be specific @ -No Did you speak to anyone other than the patient for history (EMS, parent, family, police, friend...)? What history was obtained from this source @ -No Did you review nursing and triage notes (agree or disagree)? Why? @ -I reviewed and agree with nursing and triage notes Were old charts reviewed (outside hosp., previous admission, EMS record, old EKG, old radiological studies, urgent care reports/EKG's, fdc records)? Report findings @ -I reviewed old charts old lab work and prior radiological studies Differential Diagnosis (chest pain, altered mental status, abdominal pain women, abdominal pain men, vaginal bleeding, weakness, fever, dyspnea, syncope, headache, dizziness, GI bleed, back pain, seizure, CVA, palpatations, mental health, musculoskeletal)? @ -Differential Dyspnea: Coronary syndrome, arrhythmia, tamponade, asthma, COPD, pulmonary embolism, pneumonia, pneumothorax, pulmonary effusion, anaphylaxis, diabetic ketoacidosis, flailed chest, pulmonary contusion, diaphragmatic rupture, anemia, neur omuscular, this is not meant to be an all-inclusive list. Differential Dizziness: Benign paroxysmal positional Vertigo, Menieres disease, otitis media, acoustic neuroma, vertebrobasilar insufficiency, cerebellar stroke, encephalitis, hypovolemic, arrhythmia, coronary artery syndrome, anemia, this is not meant to be an all-inclusive list EKG interpreted by me (3pts min.). @ -As above X-rays interpreted by me (1pt min.). @ -Chest x-ray is consistent with pulmonary edema CT interpreted by me (1pt min.). @ -None done U/S interpreted by me (1pt. min.). @ -None done What testing was considered but not performed or refused? (CT, X-rays, U/S, labs)? Why? @ -None What meds were considered but not given or refused? Why? @ -None Did you discuss the management of the patient with other professionals (professionals i.e. ANANYA Warren, INSTALLATION HELPER, lab, RT, psych nurse, social work job titles, last repairer, teacher, fire management officer, embedded case manager)? Give summary @ -I spoke with sound physicians and they agreed to admit the patient admit the patient wrote admitting orders Was smoking cessation discussed for >3mins.? @ -No Was critical care preformed (if so, how long)? @ -No Were there social determinants of health that impacted care today? How? (Homelessness, low income, unemployed, alcoholism, drug addiction, transportatio n, low edu. Level, literacy, decrease access to med. care, intermediate, rehab)? @ -No Was there de-escalation of care discussed even if they declined (Discuss DNR or withdrawal of care, Hospice)? DNR status @ -No What co-morbidities impacted this encounter? (DM, HTN, Smoking, COPD, CAD, Cancer, CVA, ARF, Chemo, Hep., AIDS, mental health diagnosis, sleep apnea, morbid obesity)? @ -None Was patient admitted / discharged? Hospital course, mention meds given and route, prescriptions, significant lab abnormalities, going to OR and other pertinent info. @ -Patient's x-ray showed pulm edema I started the patient on Lasix and give the patient Nitropaste. Patient's orthostatics were normal. Patient did have a mildly elevated troponin which I will repeat. I will consult cardiology and I will write admitting orders Undiagnosed new problem with uncertain prognosis? @ -No Drug Therapy requiring intensive monitoring for toxicity (Heparin, Nitro, Insulin, Cardizem)? @ -No Were any procedures done? @ -No Diagnosis/symptom? @ -Pulmonary edema Acute, or Chronic, or Acute on Chronic? @ -Acute Uncomplicated (without systemic symptoms) or Complicated (systemic symptoms)? @ -Complicated Side effects of treatment? @ -No Exacerbation, Progression, or Severe Exacerbation? @ -No Poses a threat to life or bodily function? How? (Chest pain, [place], [place], pneumonia, PE, COPD, DKA, ARF, appy, cholecystitis, CVA, Diverticulitis, Homicidal, Suicidal, threat to staff... and all critical care pts) @ -Yes patient could become hypoxic and cause end organ dysfunction yes Diagnosis/symptom? @ -Elevated troponin Acute, or Chronic, or Acute on Chronic? @ -Default Uncomplicated (without systemic symptoms) or Complicated (systemic symptoms)? @ -Acute complicated Side effects of treatment? @ -None Exacerbation, Progression, or Severe Exacerbation] @ -No Poses a threat to life or bodily function? @ -Yes this could be a precursor to heart attack which could lead to endorgan dysfunction (Willie Van) - Lab Data Lab Results 08/11/23 08/11/23 08/11/23 Range/Units 18:51 18:51 18:51 WBC 7.1 (3.8-10.6) k/uL RBC 3.04 L (4.30-5.90) m/uL Hgb 9.4 L (13.0-17.5) gm/dL Hct 28.3 L (39.0-53.0) % MCV 93.1 (80.0-100.0) fL MCH 30.9 (25.0-35.0) pg MCHC 33.2 (31.0-37.0) g/dL RDW 12.8 (11.5-15.5) % Plt Count 203 (150-450) k/uL MPV 7.8 Neutrophils % 73 % Lymphocytes % 15 % Monocytes % 9 % Eosinophils % 1 % Basophils % 0 % Neutrophils # 5.2 (1.3-7.7) k/uL Lymphocytes # 1.1 (1.0-4.8) k/uL Monocytes # 0.6 (0-1.0) k/uL Eosinophils # 0.0 (0-0.7) k/uL Basophils # 0.0 (0-0.2) k/uL PT 14.4 H (10.0-12.5) sec INR 1.4 H (<1.2) APTT 30.5 H (22.0-30.0) sec Sodium 135 L (137-145) mmol/L Potassium 4.4 (3.5-5.1) mmol/L Chloride 102 (98-107) mmol/L Carbon Dioxide 23 (22-30) mmol/L Anion Gap 10 mmol/L BUN 49 H (9-20) mg/dL Creatinine 1.75 H (0.66-1.25) mg/dL Est GFR (CKD-EPI)AfAm 44 (>60 ml/min/1.73 sqM) Est GFR (CKD-EPI)NonAf 38 (>60 ml/min/1.73 sqM) Glucose 113 H (74-99) mg/dL Plasma Lactic Acid Raymond (0.7-2.0) mmol/L Calcium 8.9 (8.4-10.2) mg/dL Magnesium 2.0 (1.6-2.3) mg/dL Total Bilirubin 1.0 (0.2-1.3) mg/dL AST 64 H (17-59) U/L ALT 87 H (4-49) U/L Alkaline Phosphatase 65 (38-126) U/L Troponin I (0.000-0.034) ng/mL NT-Pro-B Natriuret Pep 5190 pg/mL Total Protein 6.8 (6.3-8.2) g/dL Albumin 3.7 (3.5-5.0) g/dL 08/11/23 08/11/23 Range/Units 18:51 18:51 WBC (3.8-10.6) k/uL RBC (4.30-5.90) m/uL Hgb (13.0-17.5) gm/dL Hct (39.0-53.0) % MCV (80.0-100.0) fL MCH (25.0-35.0) pg MCHC (31.0-37.0) g/dL RDW (11.5-15.5) % Plt Count (150-450) k/uL MPV Neutrophils % % Lymphocytes % % Monocytes % % Eosinophils % % Basophils % % Neutrophils # (1.3-7.7) k/uL Lymphocytes # (1.0-4.8) k/uL Monocytes # (0-1.0) k/uL Eosinophils # (0-0.7) k/uL Basophils # (0-0.2) k/uL PT (10.0-12.5) sec INR (<1.2) APTT (22.0-30.0) sec Sodium (137-145) mmol/L Potassium (3.5-5.1) mmol/L Chloride (98-107) mmol/L Carbon Dioxide (22-30) mmol/L Anion Gap mmol/L BUN (9-20) mg/dL Creatinine (0.66-1.25) mg/dL Est GFR (CKD-EPI)AfAm (>60 ml/min/1.73 sqM) Est GFR (CKD-EPI)NonAf (>60 ml/min/1.73 sqM) Glucose (74-99) mg/dL Plasma Lactic Acid Raymond 1.1 (0.7-2.0) mmol/L Calcium (8.4-10.2) mg/dL Magnesium (1.6-2.3) mg/dL Total Bilirubin (0.2-1.3) mg/dL AST (17-59) U/L ALT (4-49) U/L Alkaline Phosphatase (38-126) U/L Troponin I 0.061 H* (0.000-0.034) ng/mL NT-Pro-B Natriuret Pep pg/mL Total Protein (6.3-8.2) g/dL Albumin (3.5-5.0) g/dL Disposition <Marilyn Loja - Last Filed: 08/11/23 18:12> Time of Disposition: 20:38 <Willie Van - Last Filed: 08/11/23 20:47> Clinical Impression: Pulmonary edema, Elevated troponin Disposition: ADMITTED IP TO THIS HOSP Referrals: Celina Encinas MD [Primary Care Provider] - 1-2 days
[2023-08-11 19:20] LABS: Basophils % (A) 0 %; Eosinophils % (A) 1 %; HCT 28.3 % (39.0-53.0); HGB 9.4 gm/dL (13.0-17.5); Lymphocytes # (A) 1.1 k/uL (1.0-4.8); Lymphocytes % (A) 15 %; MCH 30.9 pg (25.0-35.0); MCHC 33.2 g/dL (31.0-37.0); MCV 93.1 fL (80.0-100.0); Mean Platelet Volume 7.8; Monocytes # (A) 0.6 k/uL (0-1.0); Monocytes % (A) 9 %; Neutrophils # (A) 5.2 k/uL (1.3-7.7); Neutrophils % (A) 73 %; Platelet Count 203 k/uL (150-450); RBC 3.04 m/uL (4.30-5.90); RDW 12.8 % (11.5-15.5); WBC 7.1 k/uL (3.8-10.6)
[2023-08-11 19:28] LABS: INR 1.4 (<1.2); Partial Thromboplastin Time 30.5 sec (22.0-30.0); Prothrombin Time 14.4 sec (10.0-12.5)
--- NOTE | 2023-08-11 19:36 | XR ---
EXAMINATION: XR chest 2V: 08/11/2023 7:30 PM CLINICAL INDICATION: Weakness TECHNIQUE: Departmental protocol COMPARISON: 01/08/2022 FINDINGS/IMPRESSION: There is marked silhouetting of the pulmonary vasculature bilaterally, predominantly throughout the l ower and mid lung zones suggesting advanced interstitial phase pulmonary edema. However, the lateral view shows prominent ill-defined consolidation in the lung bases posteriorly, suggesting pneumonia. T he pleural spaces are negative. The cardiac silhouette is prominent enlarged, stable. Cardiac pacemaker and EKG leads noted. The skeletal structures and soft tissues are negative for acute findings.
[2023-08-11 20:19] LABS: ALT 87 U/L (4-49); AST 64 U/L (17-59); African American GFR (CKD) 44 (>60 ml/min/1.73 sqM); Albumin 3.7 g/dL (3.5-5.0); Alkaline Phosphatase 65 U/L (38-126); Anion Gap 10 mmol/L; Blood Urea Nitrogen 49 mg/dL (9-20); Calcium 8.9 mg/dL (8.4-10.2); Carbon Dioxide 23 mmol/L (22-30); Chloride 102 mmol/L (98-107); Glucose 113 mg/dL (74-99); Non-African American GFR(CKD) 38 (>60 ml/min/1.73 sqM); Potassium 4.4 mmol/L (3.5-5.1); Sodium 135 mmol/L (137-145); Total Protein 6.8 g/dL (6.3-8.2)
[2023-08-11 20:28] LABS: NT-Pro-B-Type Natriuretic Pept 5190 pg/mL
[2023-08-11] MEDS: FUROSEMIDE 10 MG/ML 4 ML VIAL IV STA (20:52)
[2023-08-11] MEDS: FUROSEMIDE 10 MG/ML 4 ML VIAL IV SCH (20:53)
[2023-08-11 21:22] LABS: Basophils % (A) 0 %; Eosinophils # (A) 0.1 k/uL (0-0.7); Eosinophils % (A) 1 %; HCT 27.1 % (39.0-53.0); HGB 9.2 gm/dL (13.0-17.5); Lymphocytes # (A) 1.2 k/uL (1.0-4.8); Lymphocytes % (A) 15 %; MCH 31.4 pg (25.0-35.0); MCV 92.5 fL (80.0-100.0); Monocytes # (A) 0.6 k/uL (0-1.0); Monocytes % (A) 8 %; Neutrophils % (A) 74 %; Platelet Count 199 k/uL (150-450); RBC 2.93 m/uL (4.30-5.90); RDW 12.9 % (11.5-15.5); WBC 8.1 k/uL (3.8-10.6)
[2023-08-12] MEDS ORDERED: ALPRAZolam 0.25 MG TAB PO PRN (02:30)
[2023-08-12] MEDS: NITROGLYCERIN OINT 1 INCH/GM PACKET TOPICAL SCH (02:35)
--- NOTE | 2023-08-12 02:50 | P.HPIM ---
History of Present Illness H&P Date: 08/11/23 Chief Complaint: Shortness of breath 73-year-old male with coronary artery disease status post stents, AICD He is coming in for evaluation of 3-week history recurrent episodes of positional dizziness shortness of breath with progressive edema of the legs. He describes his shortness of breath more of a doom sensation or a panic attack every time he gets up to walk around this has been progressive and got worse over the past couple days. He saw his assistant purchasing manager about 2 to 3 days ago and they discussed to have an echocardiogram and a stress test in the future however he felt like his symptoms became more recurrent and severe over the past couple days and decided to come in for evaluation today. However he reports no episodes of any chest pain during all this time. He denies any GI bleeding denies any hemoptysis denies any headache denies any changes in vision or hearing denies any new focal neurodeficits. Denies any abdominal pain he denies any chest pain denies any nausea vomiting fevers runny nose or upper respiratory infection symptoms Patient is not sure if he has chronic kidney disease. He is currently feeling fine as long as he is laying in bed he denies any orthopnea or paroxysmal nocturnal dyspnea. He reports that recently spironolactone was taken off his list of medication due to his renal function after which he noticed some increased leg edema Patient denies tobacco smoking illicit drugs or heavy alcohol review of systems Pertinent positives as noted in HPI. All other systems were reviewed and are negative on exam Constitutional: No acute distress, conversant, pleasant Eyes: Anicteric sclerae, moist conjunctiva, Pupils equal round reactive to light ENMT: NC/AT Oropharynx clear, no erythema, or exudates Neck: Supple, no masses, or JVD No carotid bruits No thyromegaly Lungs: Clear to auscultation Clear to percussion Normal respiratory effort, no accessory muscle use Cardiovascular: Heart regular in rate and rhythm, No murmurs, gallops, or rubs No peripheral edema Abdominal: Soft Nontender, no guarding, rebound or rigidity Abdomen moving with respiration Normoactive bowel sounds Extremities: No digital cyanosis No clubbing Pedal pulses intact and symmetrical Radial pulses intact and symmetrical No calf tenderness Psychiatric: Alert and oriented to person, place and time Appropriate affect fair judgement Neuro Muscles Strength 5/5 in all 4 extremities Sensation to light touch grossly present throughout Cranial nerves II-XII grossly intact Past Medical History Past Medical History: Hypertension, Myocardial Infarction ([place]) Additional Past Medical History / Comment(s): unk Last Myocardial Infarction Date:: 04/19/21 History of Any Multi-Drug Resistant Organisms: None Reported Past Surgical History: Back Surgery, Tonsillectomy Additional Past Surgical History / Comment(s): unk Past Anesthesia/Blood Transfusion Reactions: No Reported Reaction Past Psychological History: Anxiety Smoking Status: Never smoker Past Alcohol Use History: Unable to Obtain Past Drug Use History: None Reported - Past Family History Brother(s) Family Medical History: Coronary Artery Disease (CAD), Hyperlipidemia, Hypertension Father Family Medical History: Dementia Sister(s) Family Medical History: Cancer Additional Family Medical History / Comment(s): breast Medications and Allergies Home Medications Medication Instructions Recorded Confirmed Type ALPRAZolam [Xanax] 0.25 mg PO HS 04/19/21 08/11/23 History Escitalopram [Lexapro] 30 mg PO HS 04/19/21 08/11/23 History QUEtiapine [SEROquel] 50 mg PO HS 04/19/21 08/11/23 History busPIRone HCl [Buspar] 10 mg PO BID 04/19/21 08/11/23 History Atorvastatin [Lipitor] 80 mg PO HS #30 tab 04/27/21 08/11/23 Rx metFORMIN HCL [Glucophage] 1,000 mg PO DAILY 07/30/21 08/11/23 History Apixaban [Eliquis] 5 mg PO BID #60 tab 08/01/21 08/11/23 Rx Amiodarone [Cordarone] 100 mg PO DAILY 08/11/23 08/11/23 History Aspirin EC [Ecotrin Low Dose] 81 mg PO DAILY 08/11/23 08/11/23 History Biotin 5 mg PO DAILY 08/11/23 08/11/23 History Ezetimibe [Zetia] 10 mg PO HS 08/11/23 08/11/23 History Multivitamins, Thera [Multivitamin 1 tab PO DAILY 08/11/23 08/11/23 History (formulary)] Sacubitril/Valsartan [Entresto 24 1 tab PO BID 08/11/23 08/11/23 History mg-26 mg Tablet] Selenium 50 mcg PO DAILY 08/11/23 08/11/23 History Ubidecarenone [Co Q-10] 300 mg PO DAILY 08/11/23 08/11/23 History carvediloL [Coreg] 25 mg PO BID 08/11/23 08/11/23 History metFORMIN HCL 500 mg PO HS 08/11/23 08/11/23 History Allergies Allergy/AdvReac Type Severity Reaction Status Date / Time bee venom protein (honey bee) Allergy Swelling @ Verified 08/11/23 22:10 sting site Physical Exam Vitals: Vital Signs Temp Pulse Pulse Pulse Pulse Resp BP 08/11/23 20:50 58 L 18 147/85 08/11/23 19:39 63 63 62 18 08/11/23 18:55 58 L 18 136/85 08/11/23 18:11 98.2 F 64 18 110/67 BP BP BP Pulse Ox 08/11/23 20:50 95 08/11/23 19:39 129/65 146/67 137/87 94 L 08/11/23 18:55 95 08/11/23 18:11 98 Intake and Output 08/11/23 08/11/23 08/11/23 06:59 14:59 22:59 Other: Weight 88.451 kg Results CBC & Chem 7: 08/11/23 21:15 08/11/23 18:51 Labs: Abnormal Lab Results - Last 24 Hours (Table) 08/11/23 08/11/23 08/11/23 Range/Units 18:51 18:51 18:51 RBC 3.04 L (4.30-5.90) m/uL Hgb 9.4 L (13.0-17.5) gm/dL Hct 28.3 L (39.0-53.0) % PT 14.4 H (10.0-12.5) sec INR 1.4 H (<1.2) APTT 30.5 H (22.0-30.0) sec Sodium 135 L (137-145) mmol/L BUN 49 H (9-20) mg/dL Creatinine 1.75 H (0.66-1.25) mg/dL Glucose 113 H (74-99) mg/dL AST 64 H (17-59) U/L ALT 87 H (4-49) U/L Troponin I (0.000-0.034) ng/mL 08/11/23 08/11/23 Range/Units 18:51 21:15 RBC 2.93 L (4.30-5.90) m/uL Hgb 9.2 L (13.0-17.5) gm/dL Hct 27.1 L (39.0-53.0) % PT (10.0-12.5) sec INR (<1.2) APTT (22.0-30.0) sec Sodium (137-145) mmol/L BUN (9-20) mg/dL Creatinine (0.66-1.25) mg/dL Glucose (74-99) mg/dL AST (17-59) U/L ALT (4-49) U/L Troponin I 0.061 H* (0.000-0.034) ng/mL Assessment and Plan Assessment: 73-year-old male with coronary artery disease status post stents, AICD. Coming in for evaluation of recurrent episodes of positional dizziness associated with shortness of breath improves with rest. Recent visit to his assistant purchasing manager couple days ago recommended an echocardiogram and a stress test in the near future he felt like his symptoms got worse over the past couple days and decided to come in for evaluation I discussed case with ED doctor and accepted the admission for exertional dyspnea to rule out acute coronary syndrome with anticipated length of stay less than 2 midnights Exertional dyspnea multifactorial rule out underlying CHF versus acute coronary syndrome History of coronary artery disease status post stents and AICD Nitro as needed for pain Check orthostatic vitals Cardiology consult Cardiac monitoring Monitor vital signs Resume cardiac meds aspirin and statin Resume Coreg 25 mg p.o. twice daily EKG showing old Q wave in lead III, and showed new T wave inversion in lateral leads Elevated troponin 0.061 this could be multifactorial rule out acute coronary syndrome. This could be secondary to chronic kidney disease versus lab artifact due to patient being on biotin continue to trend troponins Patient will not be anticoagulated due to being on Eliquis 5 mg p.o. twice daily which will continue Chest x-ray was suggestive of possible pulmonary vascular congestion In light of his symptoms and elevated BNP we will wait for echocardiogram to rule out underlying CHF Lasix 40 mg IV push every 8 hours History of arrhythmia possible A-fib Status post AICD Continue with amiodarone and Eliquis Denies any GI bleeding Hemoglobin 9.4 patient reports that this is chronic possibly secondary to chronic kidney disease Suspected chronic kidney disease unknown baseline Creatinine 1.75 BUN 49 Sodium 135 potassium 4.4 He was recently about 3 weeks ago stopped his Aldactone due to worsening renal function Continue to monitor renal function Continue to monitor urine output Avoid nephrotoxic meds Liver enzymes slightly elevated AST 64 ALT 87 Continue to monitor Continue statin for now for hyperlipidemia, if liver enzymes worsens in the morning consider holding statin Full code DVT prophylaxis on Eliquis for history of arrhythmia possible A-fib GI prophylaxis Protonix 40 mg p.o. daily
[2023-08-12 05:46] LABS: Basophils # (A) 0.1 k/uL (0-0.2); Basophils % (A) 1 %; Eosinophils # (A) 0.1 k/uL (0-0.7); Eosinophils % (A) 2 %; HCT 27.1 % (39.0-53.0); HGB 9.3 gm/dL (13.0-17.5); Lymphocytes # (A) 0.9 k/uL (1.0-4.8); Lymphocytes % (A) 13 %; MCH 31.8 pg (25.0-35.0); MCHC 34.4 g/dL (31.0-37.0); MCV 92.5 fL (80.0-100.0); Mean Platelet Volume 7.4; Monocytes # (A) 0.7 k/uL (0-1.0); Monocytes % (A) 10 %; Neutrophils # (A) 4.9 k/uL (1.3-7.7); Neutrophils % (A) 72 %; Platelet Count 211 k/uL (150-450); RBC 2.93 m/uL (4.30-5.90); WBC 6.8 k/uL (3.8-10.6)
[2023-08-12 07:58] LABS: ALT 75 U/L (4-49); AST 50 U/L (17-59); African American GFR (CKD) 46 (>60 ml/min/1.73 sqM); Albumin 3.7 g/dL (3.5-5.0); Alkaline Phosphatase 64 U/L (38-126); Anion Gap 12 mmol/L; Blood Urea Nitrogen 47 mg/dL (9-20); Calcium 9.1 mg/dL (8.4-10.2); Carbon Dioxide 26 mmol/L (22-30); Chloride 101 mmol/L (98-107); Glucose 174 mg/dL (74-99); Non-African American GFR(CKD) 40 (>60 ml/min/1.73 sqM); Potassium 4.1 mmol/L (3.5-5.1); Sodium 139 mmol/L (137-145); Total Bilirubin 0.7 mg/dL (0.2-1.3); Total Protein 6.8 g/dL (6.3-8.2)
[2023-08-12] MEDS: APIXABAN 5 MG TAB PO SCH (08:32)
[2023-08-12] MEDS: PANTOPRAZOLE 40 MG TABLET PO SCH (08:32)
[2023-08-12] MEDS: ASPIRIN 81 MG PO SCH (08:32)
[2023-08-12] MEDS: carvediloL 12.5 MG TAB PO SCH (08:33)
[2023-08-12] MEDS: busPIRone HCl 10 MG TAB PO SCH (08:33)
[2023-08-12] MEDS: SACUBITRIL/VALSARTAN 24 MG-26 MG TABLET PO SCH (10:07)
[2023-08-12] MEDS: AMIODARONE 100 MG TAB PO SCH (10:07)
--- NOTE | 2023-08-12 17:24 | P.PN ---
Subjective Progress Note Date: 08/12/23 Patient is a 73-year-old male with history of coronary artery disease, hypertension, atrial fibrillation, prior V-fib arrest status post AICD, diabetes, ischemic cardiomyopathy (ejection fraction 07/31/2019 to 50 to 55%) and dyslipidemia who presented to the emergency department complaints of shortness of breath and lower extremity edema. Extensive evaluation. His initial vital signs were within normal limits. However he dropped to an O2 sat of 87% on room air while in the emergency department. Initial laboratory analysis consisted of CBC, coags, CMP, troponin which were remarkable for hemoglobin 9.4, creatinine 1.75, and troponin of 0.061. BNP was elevated at 5190. Chest x-ray demon strates increased pulmonary vascular congestion with possible pneumonia. In the ER the patient was ordered a dose of Lasix. Arrangements were made for admission for acute exacerbation of congestive heart failure. Patient seen and examined at bedside. Patient reports that his breathing is much improved from yesterday. His swelling is much improved. He is overall feeling well. He follows with Dr. Gould and he was supposed to get an echocardiogram and stress test done later this month. was present at bedside. All questions answered. They adamantly deny any known history of congestive heart failure. Vital signs reviewed General: Nontoxic, no distress, appears at stated age Cardiovascular: S1S2 reg, no murmur Lungs: CTA bilateral, no rhonchi, no rales, no accessory muscle use Abdominal: Soft, nontender to palpation, no guarding Ext: No gross muscle atrophy, trace edema b/l lower extremities, no contractures Neuro: CN II-XI grossly intact, no focal neuro deficits Psych: Alert, oriented, appropriate affect Assessment/Plan: Acute hypoxic respiratory failure Acute exacerbation of CHF with recovered EF 55% Paroxysmal A fib Elevated troponin HTN -Check stat troponin -Lasix 40 mg IV every 8 hours transitioned to oral lasix 40 daily, consider aldactone on discharge only if continues on lasix as well as K+ near 5 in outpatient setting without aldactone. -Coreg 25 mg twice daily, entresto 24 mg-26 mg PO BID -Await echocardiogram, continue telemetry -Consult cardio -Aspirin 81 mg daily, Eliquis 5 mg twice daily, Lipitor 80 mg daily, Zetia 10 mg daily, amiodarone 100 mg daily DM 2 - holf metformin -Sliding scale insulin -Follow blood sugars KAVITHA on CKD stage III transaminitis, improved Imaging: None new Data Review: Labs reviewed from today include basic metabolic profile which is remarkable for BUN 47 and creatinine 1.69 DVT prophylaxis: Eliquis Anticipated discharge date: in AM Anticipated discharge place: Home This dictation was prepared using [employer] voice recognition software. Though every attempt is made to correct errors during dictation some may still exist. Objective - Vital Signs Vital signs: Vital Signs Temp 98.2 F 08/12/23 08:00 Pulse 60 08/12/23 08:00 Resp 20 08/12/23 08:00 BP 139/107 08/12/23 08:00 Pulse Ox 96 08/12/23 08:00 FiO2 Intake & Output 08/11/23 08/12/23 08/12/23 18:59 06:59 18:59 Weight 88.451 kg - Labs CBC & Chem 7: 08/12/23 05:40 08/12/23 06:52 Labs: Abnormal Lab Results - Last 24 Hours (Table) 08/11/23 08/11/23 08/11/23 Range/Units 18:51 18:51 18:51 RBC 3.04 L (4.30-5.90) m/uL Hgb 9.4 L (13.0-17.5) gm/dL Hct 28.3 L (39.0-53.0) % Lymphocytes # (1.0-4.8) k/uL PT 14.4 H (10.0-12.5) sec INR 1.4 H (<1.2) APTT 30.5 H (22.0-30.0) sec Sodium 135 L (137-145) mmol/L BUN 49 H (9-20) mg/dL Creatinine 1.75 H (0.66-1.25) mg/dL Glucose 113 H (74-99) mg/dL AST 64 H (17-59) U/L ALT 87 H (4-49) U/L Troponin I (0.000-0.034) ng/mL 08/11/23 08/11/23 08/12/23 Range/Units 18:51 21:15 05:40 RBC 2.93 L 2.93 L (4.30-5.90) m/uL Hgb 9.2 L 9.3 L (13.0-17.5) gm/dL Hct 27.1 L 27.1 L (39.0-53.0) % Lymphocytes # 0.9 L (1.0-4.8) k/uL PT (10.0-12.5) sec INR (<1.2) APTT (22.0-30.0) sec Sodium (137-145) mmol/L BUN (9-20) mg/dL Creatinine (0.66-1.25) mg/dL Glucose (74-99) mg/dL AST (17-59) U/L ALT (4-49) U/L Troponin I 0.061 H* (0.000-0.034) ng/mL 08/12/23 Range/Units 06:52 RBC (4.30-5.90) m/uL Hgb (13.0-17.5) gm/dL Hct (39.0-53.0) % Lymphocytes # (1.0-4.8) k/uL PT (10.0-12.5) sec INR (<1.2) APTT (22.0-30.0) sec Sodium (137-145) mmol/L BUN 47 H (9-20) mg/dL Creatinine 1.69 H (0.66-1.25) mg/dL Glucose 174 H (74-99) mg/dL AST (17-59) U/L ALT 75 H (4-49) U/L Troponin I (0.000-0.034) ng/mL
--- NOTE | 2023-08-12 17:42 | CA ---
Transthoracic Echo Report Name: Jd Aldrich Age: 73 Gender: M : 1950 Exam Date: 08/12/2023 15:32 Exam Location: [facility] Ht (in): 70 Wt (lb): 195 Ordering Physician: Bernice Strong DO Attending/Referring Phys: [id number], Tae Art Director Hailee Alvarado RDCS Procedure CPT: Indications: chf Cardiac Hx: Technical Quality: Contrast 1: Total Dose (mL): Contrast 2: Total Dose (mL): MEASUREMENTS (Male / Female) Normal Values 2D ECHO LV Diastolic Diameter PLAX 5.6 cm 4.2 - 5.9 / 3.9 - 5.3 cm LV Systolic Diameter PLAX 4.4 cm IVS Diastolic Thickness 0.9 cm 0.6 - 1.0 / 0.6 - 0.9 cm LVPW Diastolic Thickness 0.9 cm 0.6 - 1.0 / 0.6 - 0.9 cm LV Relative Wall Thickness 0.3 LVOT Diameter 2.0 cm Aortic Root Diameter 3.2 cm LA Systolic Diameter LX 4.7 cm 3.0 - 4.0 / 2.7 - 3.8 cm LV Diastolic Volume MOD BP 146.0 cm??? 67 - 155 / 56 - 104 cm??? LV Systolic Volume MOD BP 47.8 cm??? - 58 / 19 - 49 cm??? LV Ejection Fraction MOD BP 67.2 % >= 55 % LV Cardiac Index MOD BP 2793.5 cm???/min???m??? LV Diastolic Volume MOD 4C 142.1 cm??? LV Systolic Volume MOD 4C 65.0 cm??? LV Ejection Fraction MOD 4C 54.3 % LV Cardiac Index MOD 4C 2196.6 cm???/min???m??? LV Diastolic Length 4C 9.1 cm LV Systolic Length 4C 7.7 cm LV Diastolic Volume MOD 2C 141.3 cm??? LV Systolic Volume MOD 2C 36.8 cm??? LV Ejection Fraction MOD 2C 74.0 % LV Cardiac Index MOD 2C 2975.9 cm???/min???m??? LV Diastolic Length 2C 9.7 cm LV Systolic Length 2C 7.7 cm LA Volume 75.7 cm??? 18 - 58 / 22 - 52 cm??? LA Volume Index 35.9 cm???/m??? 16 - 28 cm???/m??? DOPPLER AV Peak Velocity 116.3 cm/s AV Peak Gradient 5.4 mmHg AV Mean Velocity 72.6 cm/s AV Mean Gradient 2.4 mmHg AV Velocity Time Integral 21.1 cm LVOT Peak Velocity 116.4 cm/s LVOT Peak Gradient 5.4 mmHg LVOT Velocity Time Integral 26.2 cm LVOT Stroke Volume 84.4 cm??? LVOT Stroke Volume Index 40.9 ml/m??? LVOT Cardiac Index 2403.6 cm???/min???m??? AV Area Cont Eq vti 4.0 cm??? AV Area Cont Eq pk 3.2 cm??? MV Area PHT 3.7 cm??? MR Peak Velocity 314.1 cm/s MR Peak Gradient 39.5 mmHg Mitral E Point Velocity 99.8 cm/s Mitral A Point Velocity 75.6 cm/s Mitral E to A Ratio 1.3 MV Deceleration Time 206.7 ms TR Peak Velocity 212.8 cm/s TR Peak Gradient 18.1 mmHg PV Peak Velocity 76.4 cm/s PV Peak Gradient 2.3 mmHg FINDINGS Left Ventricle Left ventricular ejection fraction is estimated at 45-50 %. Normal left ventricular wall motion. Mild concentric left ventricular hypertrophy. Right Ventricle Normal right ventricular size. Right Atrium Normal right atrial size. Left Atrium Mildly increased left atrial diameter. Moderately increased left atrial volume. Mildly increased left atrial area. Mitral Valve Mild mitral regurgitation. Aortic Valve Thickened aortic valve without stenosis. Tricuspid Valve Trace to mild tricuspid regurgitation. Pulmonic Valve No pulmonic regurgitation. Pericardium No pericardial effusion. Aorta Normal size aortic root. CONCLUSIONS Mild LV systolic dysfunction with an ejection fraction of 45% Left atrial enlargement Mild mitral regurgitation Previewed by: Dr. Guy Vann MD (Electronically Signed) Final Date: 12 August 2023 17:41
[2023-08-12] MEDS: EZETIMIBE 10 MG TAB PO SCH (20:52)
[2023-08-12] MEDS: ESCITALOPRAM 10 MG TAB PO SCH (20:52)
[2023-08-12] MEDS: QUEtiapine 50 MG TAB PO SCH (20:52)
[2023-08-12] MEDS: ATORVASTATIN 80 MG TAB PO SCH (20:52)
[2023-08-13] MEDS: FUROSEMIDE 40 MG TAB PO SCH (08:57)
[2023-08-13 11:25] LABS: HCT 29.1 % (39.0-53.0); HGB 9.5 gm/dL (13.0-17.5); Hypochromasia Slight; MCHC 32.5 g/dL (31.0-37.0); MCV 95.3 fL (80.0-100.0); Mean Platelet Volume 8.1; Platelet Count 217 k/uL (150-450); RBC 3.06 m/uL (4.30-5.90); RDW 12.8 % (11.5-15.5); WBC 6.3 k/uL (3.8-10.6)
[2023-08-13 13:19] VITALS: BMI 25.4
[2023-08-13 13:32] LABS: ALT 55 U/L (4-49); AST 39 U/L (17-59); African American GFR (CKD) 61 (>60 ml/min/1.73 sqM); Albumin 3.4 g/dL (3.5-5.0); Alkaline Phosphatase 58 U/L (38-126); Anion Gap 8 mmol/L; Blood Urea Nitrogen 32 mg/dL (9-20); Calcium 8.5 mg/dL (8.4-10.2); Carbon Dioxide 29 mmol/L (22-30); Chloride 99 mmol/L (98-107); Glucose 292 mg/dL (74-99); Magnesium 1.7 mg/dL (1.6-2.3); Non-African American GFR(CKD) 52 (>60 ml/min/1.73 sqM); Potassium 4.2 mmol/L (3.5-5.1); Sodium 136 mmol/L (137-145); Total Bilirubin 0.9 mg/dL (0.2-1.3); Total Protein 6.3 g/dL (6.3-8.2)
--- NOTE | 2023-08-13 13:47 | P.CRDCN ---
History of Present Illness Consult date: 08/13/23 History of present illness: HISTORY OF PRESENTING ILLNESS 73-year-old with past medical history of V-fib cardiac arrest, AR in April 2021. Since then he has been established with Dr. Gould. On his presentation at that time he had V-fib cardiac arrest. 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 Patient had PCI of his distal LAD with 5 NETTIE. He had epicardial collaterals to right. There was a possible discussion of staged PCI to LCx but it was never performed. Patient also had a secondary prevention ICD. Over last 1 to 2 years patient has been well compensated. He is scheduled for an outpatient echo and a nuclear stress test in October. He presented to the hospital because of increased fatigue, lightheadedness and shortness of breath. Sinus rhythm with positive AV block, mild IVCD, Q waves in inferior lead, nonspecific ST changes in lateral leads. CXR showed bilateral pulm congestion Hemoglobin 9.2, troponin 0.06, 0.05, creatinine 1.7, 1.69, His echocardiogram showed an EF of 45 to 50% with no significant valvular abnormality. REVIEW OF SYSTEMS 14 point review of system is negative except what is mentioned above in HPI. PHYSICAL EXAMINATION Vital signs reviewed. Head: Normocephalic. Eyes: Sclerae nonicteric. Neck: Brisk carotid upstroke, mild elevated JVD Lungs: Mild crackles audible in bilateral lung sheikh. Heart: Regular rate and rhythm, S1-S2, no S3, no murmur or rub. Abdomen: Soft nontender, positive bowel sounds. Extremities: 1+ pitting edema bilateral lower extremities Neuro: Alert, oritented, no focal deficits. Detailed neuro exam was not performed. ASSESSMENT Moderate HFrEF exacerbation EF 45% History of V-fib cardiac arrest in October 2020 s/p secondary ICD CAD s/p PCI with 5 NETTIE to distal LAD. Epicardial collaterals to CENTRAL OFFICE INSTALLER RCA. 100% ostial LCx disease Lightheadedness and dizziness KAVITHA. Creatinine in 2020 0.9. Creatinine this time 1.7 PLAN Hold Entresto due to KAVITHA Increase Lasix. Got 40 mg p.o. today. Give 40 mg IV again today. Monitor renal function. If does not decline, give 1 more day of IV Lasix twice daily Based on renal function, will decide if he would resume Entresto. Patient's Aldactone was recently stopped outpatient due to elevated potassium. Continue Coreg 25 mg twice daily, aspirin, atorvastatin, Zetia Once optimized by heart failure standpoint, and patient does not have any lightheadedness or dizziness, patient is okay to be discharged with a 6-minute walk test for home O2 evaluation. He would benefit from an outpatient stress test which is scheduled in October. Patient should follow-up with Dr. Gould and decide if stress test should be moved up. Guillermo Hannah MD, FAC, RPVI Thank you for allowing [facility] to participate in this patient's care. Feel free to reach out in case of any followup questions. Past Medical History Past Medical History: Hypertension, Myocardial Infarction (AR) Additional Past Medical History / Comment(s): PRE DIABETIC Last Myocardial Infarction Date:: 04/19/21 History of Any Multi-Drug Resistant Organisms: None Reported Past Surgical History: AICD, Back Surgery, Heart Catheterization With Stent, Pacemaker, Tonsillectomy Additional Past Surgical History / Comment(s): unk Past Anesthesia/Blood Transfusion Reactions: No Reported Reaction Date of Last Stent Placement:: APR 2021 Type of Cardiac Device: Permanent Pacemaker, AICD Device Placement Date:: APR 2021 Smoking Status: Former smoker - Past Family History Brother(s) Family Medical History: Coronary Artery Disease (CAD), Hyperlipidemia, Hypertension Father Family Medical History: Dementia Sister(s) Family Medical History: Cancer Additional Family Medical History / Comment(s): breast Medications and Allergies Home Medications Medication Instructions Recorded Confirmed Type ALPRAZolam [Xanax] 0.25 mg PO HS 04/19/21 08/11/23 History Escitalopram [Lexapro] 30 mg PO HS 04/19/21 08/11/23 History QUEtiapine [SEROquel] 50 mg PO HS 04/19/21 08/11/23 History busPIRone HCl [Buspar] 10 mg PO BID 04/19/21 08/11/23 History Atorvastatin [Lipitor] 80 mg PO HS #30 tab 04/27/21 08/11/23 Rx metFORMIN HCL [Glucophage] 1,000 mg PO DAILY 07/30/21 08/11/23 History Apixaban [Eliquis] 5 mg PO BID #60 tab 08/01/21 08/11/23 Rx Amiodarone [Cordarone] 100 mg PO DAILY 08/11/23 08/11/23 History Aspirin EC [Ecotrin Low Dose] 81 mg PO DAILY 08/11/23 08/11/23 History Biotin 5 mg PO DAILY 08/11/23 08/11/23 History Ezetimibe [Zetia] 10 mg PO HS 08/11/23 08/11/23 History Multivitamins, Thera [Multivitamin 1 tab PO DAILY 08/11/23 08/11/23 History (formulary)] Sacubitril/Valsartan [Entresto 24 1 tab PO BID 08/11/23 08/11/23 History mg-26 mg Tablet] Selenium 50 mcg PO DAILY 08/11/23 08/11/23 History Ubidecarenone [Co Q-10] 300 mg PO DAILY 08/11/23 08/11/23 History carvediloL [Coreg] 25 mg PO BID 08/11/23 08/11/23 History metFORMIN HCL 500 mg PO HS 08/11/23 08/11/23 History Allergies Allergy/AdvReac Type Severity Reaction Status Date / Time bee venom protein (honey bee) Allergy Swelling @ Verified 08/11/23 22:10 sting site Physical Exam Vitals: Vital Signs Temp Pulse Pulse Pulse Pulse Resp BP 08/13/23 11:30 53 L 17 08/13/23 10:38 08/13/23 08:50 99.4 F 68 18 08/13/23 03:20 98.1 F 61 14 08/12/23 23:24 98.2 F 58 L 18 08/12/23 20:58 98.2 F 59 L 18 08/12/23 20:11 63 18 127/91 08/12/23 16:07 97.8 F 64 20 BP BP BP Pulse Ox Pulse Ox Pulse Ox 08/13/23 11:30 133/67 98 08/13/23 10:38 96 83 L 08/13/23 08:50 100/58 96 08/13/23 03:20 120/65 94 L 08/12/23 23:24 113/67 98 08/12/23 20:58 158/74 96 08/12/23 20:11 94 L 08/12/23 16:07 151/80 95 Intake and Output 08/12/23 08/13/23 08/13/23 22:59 06:59 14:59 Intake Total 240 358 Balance 240 358 Intake: Oral 240 358 Other: # Voids 2 1 1 Weight 80.5 kg 80.5 kg Results 08/13/23 08:30 08/13/23 12:26 Cardiac Enzymes 08/13/23 Range/Units 12:26 AST 39 (17-59) U/L CBC 08/13/23 Range/Units 08:30 WBC 6.3 (3.8-10.6) k/uL RBC 3.06 L (4.30-5.90) m/uL Hgb 9.5 L (13.0-17.5) gm/dL Hct 29.1 L (39.0-53.0) % Plt Count 217 (150-450) k/uL Comprehensive Metabolic Panel 08/13/23 Range/Units 12:26 Sodium 136 L (137-145) mmol/L Potassium 4.2 (3.5-5.1) mmol/L Chloride 99 (98-107) mmol/L Carbon Dioxide 29 (22-30) mmol/L BUN 32 H (9-20) mg/dL Creatinine 1.35 H (0.66-1.25) mg/dL Glucose 292 H (74-99) mg/dL Calcium 8.5 (8.4-10.2) mg/dL AST 39 (17-59) U/L ALT 55 H (4-49) U/L Alkaline Phosphatase 58 (38-126) U/L Total Protein 6.3 (6.3-8.2) g/dL Albumin 3.4 L (3.5-5.0) g/dL Current Medications Generic Name Dose Route Start Last Admin Trade Name Freq PRN Reason Stop Dose Admin Alprazolam 0.25 mg 08/12/23 02:30 Alprazolam 0.25 Mg Tab PO HS PRN Agitation or Acute Anxiety Amiodarone HCl 100 mg 08/12/23 09:00 08/13/23 08:56 Amiodarone 100 Mg Tab PO 100 mg DAILY KIKI Administration Apixaban 5 mg 08/12/23 09:00 08/13/23 08:56 Apixaban 5 Mg Tab PO 5 mg BID KIKI Administration Protocol Aspirin 81 mg 08/12/23 09:00 08/13/23 08:56 Aspirin 81 Mg PO 81 mg DAILY KIKI Administration Atorvastatin Calcium 80 mg 08/12/23 21:00 08/12/23 20:52 Atorvastatin 80 Mg Tab PO 80 mg HS KIKI Administration Buspirone HCl 10 mg 08/12/23 09:00 08/13/23 08:57 Buspirone Hcl 10 Mg Tab PO 10 mg BID KIKI Administration Carvedilol 25 mg 08/12/23 09:00 08/13/23 08:56 Carvedilol 12.5 Mg Tab PO 25 mg BID KIKI Administration Dapagliflozin 5 mg 08/14/23 09:00 Dapagliflozin Propanediol 5 Mg Tablet PO DAILY KIKI Ezetimibe 10 mg 08/12/23 21:00 08/12/23 20:52 Ezetimibe 10 Mg Tab PO 10 mg HS KIKI Administration Escitalopram Oxalate 30 mg 08/12/23 21:00 08/12/23 20:52 Escitalopram 10 Mg Tab PO 30 mg HS KIKI Administration Furosemide 40 mg 08/14/23 09:00 Furosemide 10 Mg/Ml 4 Ml Vial IV DAILY KIKI Pantoprazole Sodium 40 mg 08/12/23 07:30 08/13/23 06:33 Pantoprazole 40 Mg Tablet PO 40 mg [id number] KIKI Administration Quetiapine Fumarate 50 mg 08/12/23 21:00 08/12/23 20:52 Quetiapine 50 Mg Tab PO 50 mg HS KIKI Administration Intake and Output 08/12/23 08/13/23 08/13/23 22:59 06:59 14:59 Intake Total 240 358 Balance 240 358 Intake: Oral 240 358 Other: # Voids 2 1 1 Weight 80.5 kg 80.5 kg Patient Weight 08/14/23 07:59 Weight 80.5 kg 08/13/23 08:30 08/13/23 12:26
[2023-08-13] MEDS: FUROSEMIDE 10 MG/ML 4 ML VIAL IV STA (14:12)
[2023-08-13] MEDS ORDERED: DEXTROSE 50% SYRINGE 50 ML IVP PRN ×2 (15:07)
--- NOTE | 2023-08-13 15:08 | P.PN ---
Subjective Progress Note Date: 08/13/23 (delayed charting seen at 1030) Patient is a 73-year-old male with history of coronary artery disease, hypertension, atrial fibrillation, prior V-fib arrest status post AICD, diabetes, ischemic cardiomyopathy (ejection fraction 07/31/2019 to 50 to 55%) and dyslipidemia who presented to the emergency department complaints of shortness of breath and lower extremity edema. Extensive evaluation. His initial vital signs were within normal limits. However he dropped to an O2 sat of 87% on room air while in the emergency department. Initial laboratory analysis consisted of CBC, coags, CMP, troponin which were remarkable for hemoglobin 9.4, creatinine 1.75, and troponin of 0.061. BNP was elevated at 5190. Chest x-ray demonstrates increased pulmonary vascular congestion with possible pneumonia. In the ER the patient was ordered a dose of Lasix. Arrangements were made for admission for acute exacerbation of congestive heart failure. Patient seen and examined at bedside. Patient seen and examined at bedside with present. They state that his problem started approximately 3 weeks ago when his Aldactone was discontinued by his family care physician due to hyperkalemia. His breathing is better. Swelling is better. We discussed that his ejection fraction is slightly lower than it had been on his last echocardiogram available to us. He had been getting dizziness with ambulation at home. I suspect this is due to hypoxemia as his O2 sat with ambulation here has been 85%. Vital signs reviewed General: Nontoxic, no distress, appears at stated age Cardiovascular: S1S2 reg, no murmur Lungs: CTA bilateral, no rhonchi, no rales, no accessory muscle use Abdominal: Soft, nontender to palpation, no guarding Ext: No gross muscle atrophy, trace edema b/l lower extremities, no contractures Neuro: CN II-XI grossly intact, no focal neuro deficits Psych: Alert, oriented, appropriate affect Assessment/Plan: Acute hypoxic respiratory failure Acute exacerbation of CHF with EF 45% Paroxysmal A fib Elevated troponin, flat not consistent with ACS HTN -Lasix transitioned back to IV by cardio, entresto held by cardio -Coreg 25 mg twice daily - cardio consult reviewed: they would like 2 more doses of IV lasix. Farxiga 5 mg daily. Entrestro held for KAVITHA - Patinet with room air pulse ox at rest of 83%, likely will need home O2 on discharge. -Aspirin 81 mg daily, Eliquis 5 mg twice daily, Lipitor 80 mg daily, Zetia 10 mg daily, amiodarone 100 mg daily DM 2 - hold metformin - started on entresto by cardio -Sliding scale insulin -Follow blood sugars KAVITHA on CKD stage III, KAVITHA resolved - was likely due to fluid overload state - baseline Cr in 2021 after starting entresto was 1.3, currently at baseline transaminitis, improved Imaging: None new Data Review: Labs reviewed from today include CBC and basic metabolic profile which are remarkable for white blood cell count 6.3, hemoglobin 9.5, sodium 136, BUN 32, creatinine 1.35. DVT prophylaxis: Eliquis Anticipated discharge date: in AM Anticipated discharge place: Home This dictation was prepared using [employer] voice recognition software. Though every attempt is made to correct errors during dictation some may still exist. Objective - Vital Signs Vital signs: Vital Signs Temp 99.4 F 08/13/23 08:50 Pulse 53 L 08/13/23 11:30 Resp 17 08/13/23 11:30 BP 133/67 08/13/23 11:30 Pulse Ox 98 08/13/23 11:30 FiO2 Intake & Output 08/12/23 08/13/23 08/13/23 18:59 06:59 18:59 Intake Total 480 0 476 Balance 480 0 476 Weight 88.451 kg 80.5 kg 80.5 kg Intake: Oral 480 0 476 Other: # Voids 2 1 1 - Labs CBC & Chem 7: 08/13/23 08:30 08/13/23 12:26 Labs: Abnormal Lab Results - Last 24 Hours (Table) 08/13/23 08/13/23 Range/Units 08:30 12:26 RBC 3.06 L (4.30-5.90) m/uL Hgb 9.5 L (13.0-17.5) gm/dL Hct 29.1 L (39.0-53.0) % Sodium 136 L (137-145) mmol/L BUN 32 H (9-20) mg/dL Creatinine 1.35 H (0.66-1.25) mg/dL Glucose 292 H (74-99) mg/dL ALT 55 H (4-49) U/L Albumin 3.4 L (3.5-5.0) g/dL
[2023-08-13 16:46] LABS: Glucose,Whole Blood 153 mg/dL (70-110)
[2023-08-13] MEDS: INSULIN ASPART (NovoLOG) 100 UNIT/ML VIAL SQ SCH (16:50)
[2023-08-13 20:25] LABS: Glucose,Whole Blood 145 mg/dL (70-110)
[2023-08-14 06:08] LABS: Glucose,Whole Blood 125 mg/dL (70-110)
[2023-08-14] MEDS: FUROSEMIDE 10 MG/ML 4 ML VIAL IV SCH (08:20)
[2023-08-14] MEDS: DAPAGLIFLOZIN PROPANEDIOL 5 MG TABLET PO SCH (08:21)
[2023-08-14 08:58] LABS: African American GFR (CKD) 57 (>60 ml/min/1.73 sqM); Anion Gap 7 mmol/L; Blood Urea Nitrogen 36 mg/dL (9-20); Calcium 8.9 mg/dL (8.4-10.2); Carbon Dioxide 30 mmol/L (22-30); Chloride 98 mmol/L (98-107); Glucose 208 mg/dL (74-99); Magnesium 1.6 mg/dL (1.6-2.3); Non-African American GFR(CKD) 50 (>60 ml/min/1.73 sqM); Potassium 3.9 mmol/L (3.5-5.1); Sodium 135 mmol/L (137-145)
[2023-08-14 11:41] LABS: Glucose,Whole Blood 205 mg/dL (70-110)
--- NOTE | 2023-08-14 14:07 | P.PN ---
Subjective Progress Note Date: 08/14/23 (delayed charting seen at 0905) Patient is a 73-year-old male with history of coronary artery disease, hypertension, atrial fibrillation, prior V-fib arrest status post AICD, diabetes, ischemic cardiomyopathy (ejection fraction 07/31/2019 to 50 to 55%) and dyslipidemia who presented to the emergency department complaints of shortness of breath and lower extremity edema. Extensive evaluation. His initial vital signs were within normal limits. However he dropped to an O2 sat of 87% on room air while in the emergency department. Initial laboratory analysis consisted of CBC, coags, CMP, troponin which were remarkable for hemoglobin 9.4, creatinine 1.75, and troponin of 0.061. BNP was elevated at 5190. Chest x-ray demonstrates increased pulmonary vascular congestion with possible pneumonia. In the ER the patient was ordered a dose of Lasix. Arrangements were made for admission for acute exacerbation of congestive heart failure. He was continued on diuretics. Cardio was consulted. Echo done here shows an EF of 45% Patient seen and examined at bedside. He is doing well. Denies any chest pain or shortness of breath. No nausea or vomiting. He is able to recount to me what Dr. Hannah said to him yesterday. Vital signs reviewed General: Nontoxic, no distress, appears at stated age Cardiovascular: S1S2 reg, no murmur Lungs: CTA bilateral, no rhonchi, no rales, no accessory muscle use Abdominal: Soft, nontender to palpation, no guarding Ext: No gross muscle atrophy, trace edema b/l lower extremities, no contractures Neuro: CN II-XI grossly intact, no focal neuro deficits Psych: Alert, oriented, appropriate affect Assessment/Plan: Acute hypoxic respiratory failure Acute exacerbation of CHF with EF 45% Paroxysmal A fib Elevated troponin, flat not consistent with ACS HTN -Lasix 40 mg IV daily, -Entresto held by cardio -Coreg 25 mg twice daily - Await further cario recs - Patinet with room air pulse ox at rest of 83%, likely will need home O2 on discharge. -Aspirin 81 mg daily, Eliquis 5 mg twice daily, Lipitor 80 mg daily, Zetia 10 mg daily, amiodarone 100 mg daily DM 2 - hold metformin, anticipate home on farxiga or jardiance only as A1C 6.5 - Farxiga 5 mg PO daily -Sliding scale insulin - Follow blood sugars CKD stage III, KAVITHA resolved - was likely due to fluid overload state - baseline Cr in 2021 after starting entresto was 1.3, currently at baseline transaminitis, improved Imaging: None new Data Review: Labs reviewed which demonstrated a sodium of 135, BUN 36, creatinine 1. 4 2. A1c 6.5. DVT prophylaxis: Eliquis Anticipated discharge date: in AM Anticipated discharge place: Home This dictation was prepared using [employer] voice recognition software. Though every attempt is made to correct errors during dictation some may still exist. Objective - Vital Signs Vital signs: Vital Signs Temp 98.5 F 08/14/23 08:15 Pulse 97 08/14/23 12:00 Resp 18 08/14/23 12:00 BP 93/57 08/14/23 12:00 Pulse Ox 97 08/14/23 12:00 FiO2 Intake & Output 08/13/23 08/14/23 08/14/23 17:59 06:59 18:59 Intake Total 358 Output Total 750 Balance -392 Weight Intake: Oral 358 Output: Urine 750 Other: # Voids - Labs CBC & Chem 7: 08/13/23 08:30 08/14/23 07:51 Labs: Abnormal Lab Results - Last 24 Hours (Table) 08/13/23 08/13/23 08/13/23 Range/Units 12:26 16:44 20:23 Sodium 136 L (137-145) mmol/L BUN 32 H (9-20) mg/dL Creatinine 1.35 H (0.66-1.25) mg/dL Glucose 292 H (74-99) mg/dL POC Glucose (mg/dL) 153 H 145 H (70-110) mg/dL Hemoglobin A1c (<=6.0) % ALT 55 H (4-49) U/L Albumin 3.4 L (3.5-5.0) g/dL 08/14/23 08/14/23 08/14/23 Range/Units 06:07 07:51 07:51 Sodium 135 L (137-145) mmol/L BUN 36 H (9-20) mg/dL Creatinine 1.42 H (0.66-1.25) mg/dL Glucose 208 H (74-99) mg/dL POC Glucose (mg/dL) 125 H (70-110) mg/dL Hemoglobin A1c 6.5 H (<=6.0) % ALT (4-49) U/L Albumin (3.5-5.0) g/dL 08/14/23 Range/Units 11:39 Sodium (137-145) mmol/L BUN (9-20) mg/dL Creatinine (0.66-1.25) mg/dL Glucose (74-99) mg/dL POC Glucose (mg/dL) 205 H (70-110) mg/dL Hemoglobin A1c (<=6.0) % ALT (4-49) U/L Albumin (3.5-5.0) g/dL
[2023-08-14] MEDS: FUROSEMIDE 10 MG/ML 4 ML VIAL IV STA (16:25)
[2023-08-14] MEDS: SPIRONOLACTONE 25 MG TAB PO SCH (16:26)
[2023-08-14 16:30] LABS: Glucose,Whole Blood 184 mg/dL (70-110)
[2023-08-14] MEDS: FERROUS SULFATE 325 MG TAB PO STA (16:33)
--- NOTE | 2023-08-14 18:41 | P.PN ---
Subjective Progress Note Date: 08/14/23 HISTORY OF PRESENTING ILLNESS 73-year-old with past medical history of V-fib cardiac arrest, [place] in April 2021. Since then he has been established with Dr. Gould. On his pres entation at that time he had V-fib cardiac arrest. Cardiac cath showed 100% occlusion of distal LAD, BLOCK HANDLER of RCA, 100% ostial LCx disease. Patient had PCI of his distal LAD with 5 NETTIE. He had epicardial collaterals to right. There was a possible discussion of staged PCI to LCx but it was never performed. Patient also had a secondary prevention ICD. Over last 1 to 2 years patient has been well compensated. He is scheduled for an outpatient echo and a nuclear stress test in October. He presented to the hospital because of increased fatigue, lightheadedness and shortness of breath. Sinus rhythm with positive AV block, mild IVCD, Q waves in inferior lead, nonspecific ST changes in lateral leads. CXR showed bilateral pulm congestion Hemoglobin 9.2, troponin 0.06, 0.05, creatinine 1.7, 1.69, His echocardiogram showed an EF of 45 to 50% with no significant valvular abnormality. Progress note 08/14/2023 Patient is hemodynamically stable. He appears euvolemic. PHYSICAL EXAMINATION Vital signs reviewed. Head: Normocephalic. Eyes: Sclerae nonicteric. Neck: Brisk carotid upstroke, no JVD Lungs: Mild crackles audible in bilateral lung sheikh. Heart: Regular rate and rhythm, S1-S2, no S3, no murmur or rub. Abdomen: Soft nontender, positive bowel sounds. Extremities: no edema bilateral lower extremities Neuro: Alert, oritented, no focal deficits. Detailed neuro exam was not performed. ASSESSMENT Moderate HFrEF exacerbation EF 45% History of V-fib cardiac arrest in October 2020 s/p secondary ICD CAD s/p PCI with 5 NETTIE to distal LAD. Epicardial collaterals to BLOCK HANDLER RCA. 100% ostial LCx disease Lightheadedness and dizziness KAVITHA. Creatinine in 2020 0.9. Creatinine this time 1.7 PLAN His kidney function has improved with diuretic therapy. His creatinine is somewhat stable at 1.42. Hemoglobin is 9.5, sodium 135 Aspirin 81, atorvastatin 80, Eliquis 5 mg twice daily Coreg 25 mg twice daily Give IV Lasix 40 twice daily today. Transition to Bumex 1 mg p.o. daily from tomorrow And lisinopril 2.5 mg daily. Low-dose due to low resting blood pressure and patient presented with lightheadedness. He had borderline positive orthostats on admission. Add Farxiga 5 mg daily Add iron sulfate for anemia Patient's Aldactone was recently stopped outpatient due to hyperkalemia so we will not start it Patient will need home oxygen He would benefit from an outpatient stress test which is scheduled in October. Patient should follow-up with Dr. Gould and decide if stress test should be moved up. He will need a BMP repeated within 1 week Cleared to be discharged from cardiovascular standpoint Objective - Vital Signs Vital signs: Vital Signs Temp 98.5 F 08/14/23 08:15 Pulse 55 L 08/14/23 16:00 Resp 19 08/14/23 16:00 BP 139/62 08/14/23 17:50 Pulse Ox 98 08/14/23 16:00 FiO2 Intake & Output 08/13/23 08/14/23 08/14/23 17:59 06:59 18:59 Intake Total 716 Output Total 1650 Balance -934 Weight Intake: Oral 716 Output: Urine 1650 Other: # Voids 1 - Labs CBC & Chem 7: 08/13/23 08:30 08/14/23 07:51 Labs: Abnormal Lab Results - Last 24 Hours (Table) 08/13/23 08/14/23 08/14/23 Range/Units 20:23 06:07 07:51 Sodium (137-145) mmol/L BUN (9-20) mg/dL Creatinine (0.66-1.25) mg/dL Glucose (74-99) mg/dL POC Glucose (mg/dL) 145 H 125 H (70-110) mg/dL Hemoglobin A1c 6.5 H (<=6.0) % 08/14/23 08/14/23 08/14/23 Range/Units 07:51 11:39 16:28 Sodium 135 L (137-145) mmol/L BUN 36 H (9-20) mg/dL Creatinine 1.42 H (0.66-1.25) mg/dL Glucose 208 H (74-99) mg/dL POC Glucose (mg/dL) 205 H 184 H (70-110) mg/dL Hemoglobin A1c (<=6.0) %
[2023-08-14 20:54] LABS: Glucose,Whole Blood 180 mg/dL (70-110)
[2023-08-15 04:18] VITALS: RESP 16
[2023-08-15 06:27] LABS: Glucose,Whole Blood 142 mg/dL (70-110)
[2023-08-15 08:09] LABS: African American GFR (CKD) 46 (>60 ml/min/1.73 sqM); Anion Gap 6 mmol/L; Blood Urea Nitrogen 46 mg/dL (9-20); Calcium 9.1 mg/dL (8.4-10.2); Carbon Dioxide 35 mmol/L (22-30); Chloride 94 mmol/L (98-107); Glucose 151 mg/dL (74-99); Magnesium 1.9 mg/dL (1.6-2.3); Non-African American GFR(CKD) 40 (>60 ml/min/1.73 sqM); Potassium 4.8 mmol/L (3.5-5.1); Sodium 135 mmol/L (137-145)
[2023-08-15] MEDS: BUMETANIDE 1 MG TAB PO SCH (09:16)
[2023-08-15 09:25] VITALS: BP 113/58; PULSE 65; TEMP 98.4
--- NOTE | 2023-08-15 11:25 | P.DS ---
Providers Date of admission: 08/11/23 20:45 Expected date of discharge: 08/15/23 Attending physician: Rohini Frank MD Consults: 08/12/23 10:39 Consult Physician Routine Consulting Provider: Fernando Gould Consult Reason/Comments: Congestive heart failure Do you want consulting provider notified?: Yes Primary care physician: Celina Encinas Hospital Course: Discharge Diagnosis: Acute hypoxic respiratory failure Acute exacerbation of CHF with EF 45% Paroxysmal A fib Elevated troponin, flat not consistent with ACS HTN DM 2 CKD stage III, KAVITHA resolved transaminitis Hospital Course: Patient is a 73-year-old male with history of coronary artery disease, hypertension, atrial fibrillation, prior V-fib arrest status post AICD, diabetes, ischemic cardiomyopathy (ejection fraction 07/31/2019 to 50 to 55%) and dyslipidemia who presented to the emergency department complaints of shortness of breath and lower extremity edema. His initial vital signs were within normal limits. However he dropped to an O2 sat of 87% on room air while in the emergency department. Initial laboratory analysis consisted of CBC, coags, CMP, troponin which were remarkable for hemoglobin 9.4, creatinine 1.75, and troponin of 0.061. BNP was elevated at 5190. Chest x-ray demonstrates increased pulmonary vascular congestion with possible pneumonia. In the ER the patient was ordered a dose of Lasix. Arrangements were made for admission for acute exacerbation of congestive heart failure. He was continued on diuretics. Cardio was consulted. Echo done here shows an EF of 45%. Elevated troponin not consistent with ACS. Patient had acute kidney injury on CKD stage III, Entresto was discontinued. Further changes made to his diuretics. Patient on room air at the time of discharge. Metformin dose decreased to 500 twice daily due to poor renal function. Patient being discharged on oral diuretics, follow-up with PCP and cardiology, repeat BMP in 1 week. Patient seen and examined at bedside. Vital signs reviewed and stable. General: Nontoxic, no distress, appears at stated age Derm: Warm, dry Head: Atraumatic, normocephalic, symmetric Eyes: EOMI, no lid lag, anicteric sclera Mouth: No lip lesion, mucus membranes moist Cardiovascular: S1S2 reg, no murmur Lungs: CTA bilateral, no rhonchi, no rales, no accessory muscle use Abdominal: Soft, nontender to palpation, no guarding, no appreciable organomegaly Ext: No gross muscle atrophy, no edema, no contractures Neuro: CN II-XI grossly intact, no focal neuro deficits Psych: Alert, oriented, appropriate affect A total of 33 minutes of time were spent preparing this complex discharge summary. Patient was discharged on 08/15/2023 at 1121. Patient Condition at Discharge: Stable Plan - Discharge Summary Discharge Rx Participant: No New Discharge Prescriptions: New Spironolactone [Aldactone] 12.5 mg PO DAILY 30 Days #30 tab Bumetanide [BUMEX] 1 mg PO DAILY 30 Days #30 tab lisinopriL [Zestril] 2.5 mg PO DAILY #30 tab Dapagliflozin Propanediol [Farxiga] 5 mg PO DAILY #30 tab Continue QUEtiapine [SEROquel] 50 mg PO HS ALPRAZolam [Xanax] 0.25 mg PO HS Amiodarone [Cordarone] 100 mg PO DAILY carvediloL [Coreg] 25 mg PO BID metFORMIN HCL 500 mg PO HS Multivitamins, Thera [Multivitamin (formulary)] 1 tab PO DAILY Biotin 5 mg PO DAILY Escitalopram [Lexapro] 30 mg PO HS busPIRone HCl [Buspar] 10 mg PO BID Atorvastatin [Lipitor] 80 mg PO HS #30 tab Apixaban [Eliquis] 5 mg PO BID #60 tab Ezetimibe [Zetia] 10 mg PO HS Selenium 50 mcg PO DAILY Aspirin EC [Ecotrin Low Dose] 81 mg PO DAILY Ubidecarenone [Co Q-10] 300 mg PO DAILY Changed metFORMIN HCL [Glucophage] 500 mg PO DAILY #0 Discontinued Sacubitril/Valsartan [Entresto 24 mg-26 mg Tablet] 1 tab PO BID Discharge Medication List ALPRAZolam [Xanax] 0.25 mg PO HS 04/19/21 [History] Escitalopram [Lexapro] 30 mg PO HS 04/19/21 [History] QUEtiapine [SEROquel] 50 mg PO HS 04/19/21 [History] busPIRone HCl [Buspar] 10 mg PO BID 04/19/21 [History] Atorvastatin [Lipitor] 80 mg PO HS #30 tab 04/27/21 [Rx] Apixaban [Eliquis] 5 mg PO BID #60 tab 08/01/21 [Rx] Amiodarone [Cordarone] 100 mg PO DAILY 08/11/23 [History] Aspirin EC [Ecotrin Low Dose] 81 mg PO DAILY 08/11/23 [History] Biotin 5 mg PO DAILY 08/11/23 [History] Ezetimibe [Zetia] 10 mg PO HS 08/11/23 [History] Multivitamins, Thera [Multivitamin (formulary)] 1 tab PO DAILY 08/11/23 [History] Selenium 50 mcg PO DAILY 08/11/23 [History] Ubidecarenone [Co Q-10] 300 mg PO DAILY 08/11/23 [History] carvediloL [Coreg] 25 mg PO BID 08/11/23 [History] metFORMIN HCL 500 mg PO HS 08/11/23 [History] Bumetanide [BUMEX] 1 mg PO DAILY 30 Days #30 tab 08/14/23 [Rx] Dapagliflozin Propanediol [Farxiga] 5 mg PO DAILY #30 tab 08/14/23 [Rx] Spironolactone [Aldactone] 12.5 mg PO DAILY 30 Days #30 tab 08/14/23 [Rx] lisinopriL [Zestril] 2.5 mg PO DAILY #30 tab 08/14/23 [Rx] metFORMIN HCL [Glucophage] 500 mg PO DAILY #0 08/15/23 [Rx] Follow up Appointment(s)/Referral(s): Fernando Gould DO [STAFF PHYSICIAN] - 1 Week [facility],Equipment [NON-STAFF] - 1 Week (Call [facility] when you get home and they will deliver your oxygen concentrator) Celina Encinas MD [Primary Care Provider] - 1-2 days Ambulatory/Diagnostic Orders: Basic Metabolic Panel [LAB.AMB] Time Frame: 1 Week, Facility: [facility], Location: [facility] Patient Instructions/Handouts: Heart Failure (DC) Activity/Diet/Wound Care/Special Instructions: Please see cardiology and PCP. Repeat blood work in 1 week. Discharge Disposition: HOME SELF-CARE
[2023-08-15 11:30] LABS: Glucose,Whole Blood 217 mg/dL (70-110)
--- NOTE | 2023-08-16 14:34 | P.PN ---
Subjective Progress Note Date: 08/15/23 HISTORY OF PRESENTING ILLNESS 73-year-old with past medical history of V-fib cardiac arrest, [place] in April 2021. Since then he has been established with Dr. Gould. On his pres entation at that time he had V-fib cardiac arrest. Cardiac cath showed 100% occlusion of distal LAD, AWNING ASSEMBLER of RCA, 100% ostial LCx disease. Patient had PCI of his distal LAD with 5 NETTIE. He had epicardial collaterals to right. There was a possible discussion of staged PCI to LCx but it was never performed. Patient also had a secondary prevention ICD. Over last 1 to 2 years patient has been well compensated. He is scheduled for an outpatient echo and a nuclear stress test in October. He presented to the hospital because of increased fatigue, lightheadedness and shortness of breath. Sinus rhythm with positive AV block, mild IVCD, Q waves in inferior lead, nonspecific ST changes in lateral leads. CXR showed bilateral pulm congestion Hemoglobin 9.2, troponin 0.06, 0.05, creatinine 1.7, 1.69, His echocardiogram showed an EF of 45 to 50% with no significant valvular abnormality. Progress note 08/14/2023 Patient is hemodynamically stable. He appears euvolemic. 08/14 Patient has been on IV Lasix transition to Bumex this morning. He has a negative fluid balance of 2034 mL. Blood pressure 113/58, heart rate 65, pulse ox 96% on 2 L nasal cannula. Repeat blood work reveals sodium 135, potassium 4.8, BUN 46 creatinine 1.7. PHYSICAL EXAMINATION Vital signs reviewed. Head: Normocephalic. Eyes: Sclerae nonicteric. Neck: Brisk carotid upstroke, no JVD Lungs: Mild crackles audible in bilateral lung sheikh. Heart: Regular rate and rhythm, S1-S2, no S3, no murmur or rub. Abdomen: Soft nontender, positive bowel sounds. Extremities: no edema bilateral lower extremities Neuro: Alert, oritented, no focal deficits. Detailed neuro exam was not performed. ASSESSMENT Moderate HFrEF exacerbation EF 45% History of V-fib cardiac arrest in October 2020 s/p secondary ICD CAD s/p PCI with 5 NETTIE to distal LAD. Epicardial collaterals to AWNING ASSEMBLER RCA. 100% ostial LCx disease Lightheadedness and dizziness KAVITHA. Creatinine in 2020 0.9. Creatinine this time 1.7 PLAN Continue current cardiac medications Cleared to be discharged from cardiovascular standpoint and may follow-up in the office with Dr. Gould in 1 to 2 weeks. Nurse practitioner note has been reviewed, I agree with documented findings and plan of care. Patient was seen and examined. Objective - Vital Signs Vital signs: Vital Signs Temp 98.4 F 08/15/23 09:13 Pulse 65 08/15/23 09:13 Resp 16 08/15/23 09:13 BP 113/58 08/15/23 09:13 Pulse Ox 96 08/15/23 09:13 FiO2 Intake & Output 08/14/23 08/15/23 08/15/23 18:59 06:59 18:59 Intake Total 716 670 Output Total 1650 1100 Balance -934 -1100 670 Weight 80.2 kg Intake: IV 10 Invasive Line 1 10 Oral 716 660 Output: Urine 1650 1100 Other: Voiding Method Toilet # Voids 1 - Labs CBC & Chem 7: 08/13/23 08:30 08/15/23 07:05 Labs: Abnormal Lab Results - Last 24 Hours (Table) 08/14/23 08/14/23 08/14/23 Range/Units 07:51 11:39 16:28 Sodium (137-145) mmol/L Chloride (98-107) mmol/L Carbon Dioxide (22-30) mmol/L BUN (9-20) mg/dL Creatinine (0.66-1.25) mg/dL Glucose (74-99) mg/dL POC Glucose (mg/dL) 205 H 184 H (70-110) mg/dL Hemoglobin A1c 6.5 H (<=6.0) % 08/14/23 08/15/23 08/15/23 Range/Units 20:24 06:12 07:05 Sodium 135 L (137-145) mmol/L Chloride 94 L (98-107) mmol/L Carbon Dioxide 35 H (22-30) mmol/L BUN 46 H (9-20) mg/dL Creatinine 1.70 H (0.66-1.25) mg/dL Glucose 151 H (74-99) mg/dL POC Glucose (mg/dL) 180 H 142 H (70-110) mg/dL Hemoglobin A1c (<=6.0) %
== END 2023-08-15 11:58 | disposition home or self-care (01) | DRG 291 ==
LOC: EC 17:43 → 3SCARD 20:45
PROVIDERS: ADMIT Internal Medicine; ATTEND Internal Medicine
DX: I13.0 Hypertensive heart and chronic kidney disease with heart failure and stage 1 through stage 4 chronic kidney disease, or unspecified chronic kidney disease (principal); I50.23 Acute on chronic systolic (congestive) heart failure; J96.01 Acute respiratory failure with hypoxia; N18.30 Chronic kidney disease, stage 3 unspecified; E11.22 Type 2 diabetes mellitus with diabetic chronic kidney disease; N17.9 Acute kidney failure, unspecified; I48.0 Paroxysmal atrial fibrillation; E78.5 Hyperlipidemia, unspecified; F41.0 Panic disorder [episodic paroxysmal anxiety]; I25.5 Ischemic cardiomyopathy; I25.10 Atherosclerotic heart disease of native coronary artery without angina pectoris; I25.82 Chronic total occlusion of coronary artery; I44.30 Unspecified atrioventricular block; R74.01 Elevation of levels of liver transaminase levels; I25.2 Old myocardial infarction; Z79.01 Long term (current) use of anticoagulants; Z79.82 Long term (current) use of aspirin; Z79.84 Long term (current) use of oral hypoglycemic drugs; Z79.899 Other long term (current) drug therapy; Z86.74 Personal history of sudden cardiac arrest; Z95.5 Presence of coronary angioplasty implant and graft; Z95.810 Presence of automatic (implantable) cardiac defibrillator; Z82.49 Family history of ischemic heart disease and other diseases of the circulatory system
CPT/HCPCS: 36415; 71046; 80048; 80053; 83036; 83605; 83735; 83880; 84484; 85025; 85027; 85610; 85730; 93005; 93306; 94760; 96374; 96376; 99285

== ENCOUNTER 2023-10-12 08:47 | Emergency (ER) | payer BC, MEDICARE ==
--- NOTE | 2023-10-12 09:45 | ED ---
Head Injury HPI - General Chief complaint: Head Injury Stated complaint: Fall Time Seen by Provider: 10/12/23 08:55 Source: patient, family, RN notes reviewed Mode of arrival: ambulatory Limitations: no limitations - History of Present Illness Initial comments: 73-year-old male presents emergency department chief complaint of a fall. Patient states he was walking at work became very dizzy and states he fell face forward. Patient states his tetanus up-to-date he denies any loss conscious. Patient states he has abrasions on his face. Patient states he is on blood thinners. Patient states he has frequent dizzy spells in which he is being followed by cardiology and PCP has had some medication adjustments. Patient states that he has no current symptoms now. Patient denies any nausea vomiting no extremity injuries - Related Data Home Medications Medication Instructions Recorded Confirmed ALPRAZolam [Xanax] 0.25 mg PO HS 04/19/21 08/11/23 Escitalopram [Lexapro] 30 mg PO HS 04/19/21 08/11/23 QUEtiapine [SEROquel] 50 mg PO HS 04/19/21 08/11/23 busPIRone HCl [Buspar] 10 mg PO BID 04/19/21 08/11/23 Amiodarone [Cordarone] 100 mg PO DAILY 08/11/23 08/11/23 Aspirin EC [Ecotrin Low Dose] 81 mg PO DAILY 08/11/23 08/11/23 Biotin 5 mg PO DAILY 08/11/23 08/11/23 Ezetimibe [Zetia] 10 mg PO HS 08/11/23 08/11/23 Multivitamins, Thera [Multivitamin 1 tab PO DAILY 08/11/23 08/11/23 (formulary)] Selenium 50 mcg PO DAILY 08/11/23 08/11/23 Ubidecarenone [Co Q-10] 300 mg PO DAILY 08/11/23 08/11/23 carvediloL [Coreg] 25 mg PO BID 08/11/23 08/11/23 metFORMIN HCL 500 mg PO HS 08/11/23 08/11/23 Previous Rx's Medication Instructions Recorded Atorvastatin [Lipitor] 80 mg PO HS #30 tab 04/27/21 Apixaban [Eliquis] 5 mg PO BID #60 tab 08/01/21 Bumetanide [BUMEX] 1 mg PO DAILY 30 Days #30 tab 08/14/23 Dapagliflozin Propanediol [Farxiga] 5 mg PO DAILY #30 tab 08/14/23 Spironolactone [Aldactone] 12.5 mg PO DAILY 30 Days #30 tab 08/14/23 lisinopriL [Zestril] 2.5 mg PO DAILY #30 tab 08/14/23 metFORMIN HCL [Glucophage] 500 mg PO DAILY #0 08/15/23 Allergies/Adverse reactions: Allergies Allergy/AdvReac Type Severity Reaction Status Date / Time bee venom protein (honey bee) Allergy Swelling @ Verified 10/12/23 09:10 sting site Review of Systems ROS Statement: Those systems with pertinent positive or pertinent negative responses have been documented in the HPI. ROS Other: All systems not noted in ROS Statement are negative. Past Medical History Past Medical History: Hypertension, Myocardial Infarction (NE) Additional Past Medical History / Comment(s): PRE DIABETIC Last Myocardial Infarction Date:: 04/19/21 History of Any Multi-Drug Resistant Organisms: None Reported Past Surgical History: AICD, Back Surgery, Heart Catheterization With Stent, Pacemaker, Tonsillectomy Additional Past Surgical History / Comment(s): unk Past Anesthesia/Blood Transfusion Reactions: No Reported Reaction Date of Last Stent Placement:: APR 2021 Type of Cardiac Device: Permanent Pacemaker, AICD Device Placement Date:: APR 2021 Past Psychological History: Anxiety, Depression Smoking Status: Former smoker - Past Family History Brother(s) Family Medical History: Coronary Artery Disease (CAD), Hyperlipidemia, Hypertension Father Family Medical History: Dementia Sister(s) Family Medical History: Cancer Additional Family Medical History / Comment(s): breast General Exam Limitations: no limitations General appearance: alert, in no apparent distress Head exam: Present: atraumatic, normocephalic, normal inspection Eye exam: Present: normal appearance, PERRL, EOMI. Absent: scleral icterus, conjunctival injection, periorbital swelling ENT exam: Present: mucous membranes moist. Absent: normal exam (Facial abrasions) Neck exam: Present: normal inspection, full ROM. Absent: tenderness, meningismus, lymphadenopathy Respiratory exam: Present: normal lung sounds bilaterally. Absent: respiratory distress, wheezes, rales, rhonchi, stridor Cardiovascular Exam: Present: regular rate, normal rhythm, normal heart sounds. Absent: systolic murmur, diastolic murmur, rubs, gallop, clicks GI/Abdominal exam: Present: soft, normal bowel sounds. Absent: distended, tenderness, guarding, rebound, rigid Extremities exam: Present: normal inspection, full ROM, normal capillary refill. Absent: tenderness, pedal edema, joint swelling, calf tenderness Neurological exam: Present: alert, oriented X3, CN II-XII intact, reflexes normal. Absent: motor sensory deficit Course Vital Signs 10/12/23 10/12/23 10/12/23 09:06 11:10 12:05 Temperature 98.9 F 98 F 98 F Pulse Rate 63 64 65 Respiratory 20 18 18 Rate Blood Pressure 103/62 139/78 120/77 O2 Sat by Pulse 94 L 97 97 Oximetry Medical Decision Making - Medical Decision Making Was pt. sent in by a medical professional or institution (, PA, [employer], urgent care, hospital, or jail...) When possible be specific @ -No Did you speak to anyone other than the patient for history (EMS, parent, family, police, friend...)? What history was obtained from this source @ -No Did you review nursing and triage notes (agree or disagree)? Why? @ -I reviewed and agree with nursing and triage notes Were old charts reviewed (outside hosp., previous admission, EMS record, old EKG, old radiological studies, urgent care reports/EKG's, jail records)? Report findings @ -No old charts were reviewed Differential Diagnosis (chest pain, altered mental status, abdominal pain women, abdominal pain men, vaginal bleeding, weakness, fever, dyspnea, syncope, headache, dizziness, GI bleed, back pain, seizure, CVA, palpatations, mental health, musculoskeletal)? @ -Differential Dizziness: Benign paroxysmal positional Vertigo, Menieres disease, otitis media, acoustic neuroma, vertebrobasilar insufficiency, cerebellar stroke, encephalitis, hypovolemic, arrhythmia, coronary artery syndrome, anemia, this is not meant to be an all-inclusive list EKG interpreted by me (3pts min.). @ -As above X-rays interpreted by me (1pt min.). @ -Chest ray shows no acute cardiopulmonary process CT interpreted by me (1pt min.). @ -CT brain, C-spine shows degenerative cervical changes no acute intracranial hemorrhage or mass effect U/S interpreted by me (1pt. min.). @ -None done What testing was considered but not performed or refused? (CT, X-rays, U/S, labs)? Why? @ -None What meds were considered but not given or refused? Why? @ -None Did you discuss the management of the patient with other professionals (professionals i.e. Dr., PA, [employer], lab, RT, psych nurse, social work coordinator, visual presentation manager, teacher, special technical operations officer, case management manager)? Give summary @ -No Was smoking cessation discussed for >3mins.? @ -No Was critical care preformed (if so, how long)? @ -No Were there social determinants of health that impacted care today? How? (Homelessness, low income, unemployed, alcoholism, drug addiction, transportation, low edu. Level, literacy, decrease access to med. care, fpc, rehab)? @ -No Was there de-escalation of care discussed even if they declined (Discuss DNR or withdrawal of care, Hospice)? DNR status @ -No What co-morbidities impacted this encounter? (DM, HTN, Smoking, COPD, CAD, Cancer, CVA, ARF, Chemo, Hep., AIDS, mental health diagnosis, sleep apnea, morbid obesity)? @ -Dizziness, CHF Was patient admitted / discharged? Hospital course, mention meds given and route, prescriptions, significant lab abnormalities, going to OR and other pertinent info. @ -[Discharge patient feels greatly improved, patient is asymptomatic CT labor atory studies unremarkable patient feels comfortable discharge and close follow- up. Undiagnosed new problem with uncertain prognosis? @ -No Drug Therapy requiring intensive monitoring for toxicity (Heparin, Nitro, Insulin, Cardizem)? @ -No Were any procedures done? @ -No Diagnosis/symptom? @ -Dizziness, fall, head injury Acute, or Chronic, or Acute on Chronic? @ -Acute Uncomplicated (without systemic symptoms) or Complicated (systemic symptoms)? @ -Complicated Side effects of treatment? @ -No Exacerbation, Progression, or Severe Exacerbation? @ -No Poses a threat to life or bodily function? How? (Chest pain, USA, NE, pneumonia, PE, COPD, DKA, ARF, appy, cholecystitis, CVA, Diverticulitis, Homicidal, Suicidal, threat to staff... and all critical care pts) @ -No - Lab Data Result diagrams: 10/12/23 09:28 10/12/23 09:28 Lab Results 10/12/23 10/12/23 10/12/23 Range/Units 09:28 09:28 09:28 WBC 9.6 (3.8-10.6) k/uL RBC 3.87 L (4.30-5.90) m/uL Hgb 11.5 L (13.0-17.5) gm/dL Hct 35.0 L (39.0-53.0) % MCV 90.6 (80.0-100.0) fL MCH 29.7 (25.0-35.0) pg MCHC 32.7 (31.0-37.0) g/dL RDW 14.9 (11.5-15.5) % Plt Count 218 (150-450) k/uL MPV 7.8 Neutrophils % 83 % Lymphocytes % 8 % Monocytes % 6 % Eosinophils % 1 % Basophils % 0 % Neutrophils # 8.0 H (1.3-7.7) k/uL Lymphocytes # 0.7 L (1.0-4.8) k/uL Monocytes # 0.6 (0-1.0) k/uL Eosinophils # 0.1 (0-0.7) k/uL Basophils # 0.0 (0-0.2) k/uL Sodium 137 (137-145) mmol/L Potassium 5.0 (3.5-5.1) mmol/L Chloride 107 (98-107) mmol/L Carbon Dioxide 24 (22-30) mmol/L Anion Gap 6 mmol/L BUN 46 H (9-20) mg/dL Creatinine 1.66 H (0.66-1.25) mg/dL Est GFR (CKD-EPI)AfAm 47 (>60 ml/min/1.73 sqM) Est GFR (CKD-EPI)NonAf 41 (>60 ml/min/1.73 sqM) Glucose 128 H (74-99) mg/dL Calcium 9.4 (8.4-10.2) mg/dL Magnesium 2.1 (1.6-2.3) mg/dL Total Bilirubin 0.7 (0.2-1.3) mg/dL AST 31 (17-59) U/L ALT 19 (4-49) U/L Alkaline Phosphatase 61 (38-126) U/L Troponin I <0.012 (0.000-0.034) ng/mL Total Protein 7.6 (6.3-8.2) g/dL Albumin 4.1 (3.5-5.0) g/dL - EKG Data -: EKG Interpreted by Me EKG Comments: EKG performed at 9: 20 sinus bradycardia with first-degree block rate of 58 ME 230 QRS 113 QT/QTc 412/408 Disposition Clinical Impression: Fall, Dizziness Disposition: HOME SELF-CARE Condition: Stable Instructions (If sedation given, give patient instructions): Head Injury (ED) Additional Instructions: Please return to the Emergency Department if symptoms worsen or any other concerns. Is patient prescribed a controlled substance at d/c from ED?: No Referrals: Celina Encinas MD [Primary Care Provider] - 1-2 days Time of Disposition: 11:55
[2023-10-12 10:02] LABS: Basophils % (A) 0 %; Eosinophils # (A) 0.1 k/uL (0-0.7); Eosinophils % (A) 1 %; HGB 11.5 gm/dL (13.0-17.5); Lymphocytes # (A) 0.7 k/uL (1.0-4.8); Lymphocytes % (A) 8 %; MCH 29.7 pg (25.0-35.0); MCHC 32.7 g/dL (31.0-37.0); MCV 90.6 fL (80.0-100.0); Mean Platelet Volume 7.8; Monocytes # (A) 0.6 k/uL (0-1.0); Monocytes % (A) 6 %; Neutrophils % (A) 83 %; Platelet Count 218 k/uL (150-450); RBC 3.87 m/uL (4.30-5.90); RDW 14.9 % (11.5-15.5); WBC 9.6 k/uL (3.8-10.6)
[2023-10-12 10:13] LABS: ALT 19 U/L (4-49); AST 31 U/L (17-59); African American GFR (CKD) 47 (>60 ml/min/1.73 sqM); Albumin 4.1 g/dL (3.5-5.0); Alkaline Phosphatase 61 U/L (38-126); Anion Gap 6 mmol/L; Blood Urea Nitrogen 46 mg/dL (9-20); Calcium 9.4 mg/dL (8.4-10.2); Carbon Dioxide 24 mmol/L (22-30); Chloride 107 mmol/L (98-107); Glucose 128 mg/dL (74-99); Magnesium 2.1 mg/dL (1.6-2.3); Non-African American GFR(CKD) 41 (>60 ml/min/1.73 sqM); Sodium 137 mmol/L (137-145); Total Bilirubin 0.7 mg/dL (0.2-1.3); Total Protein 7.6 g/dL (6.3-8.2)
--- NOTE | 2023-10-12 11:22 | CT ---
EXAMINATION TYPE: CT brain cspine wo con CT DLP: 1400.5 mGycm, Automated exposure control for dose reduction was used. DATE OF EXAM: 10/12/2023 10:30 AM COMPARISON: 04/19/2021 CLINICAL INDICATION:Male, 73 years old with history of Trauma on thinners; pain after fall. Abrasion to forehead between eyes TECHNIQUE: Brain: Multiple axial CT images of the brain were obtained without IV contrast. Cspine: Axial CT images from the skull base to the inferior aspect of T2 we obtained without intraven ous contrast. Coronal and sagittal reformatted images were also reviewed. FINDINGS: Brain: Extra-axial spaces: No abnormal extra-axial fluid collections. Ventricular system: Within normal limits Cerebral parenchyma: No acute intraparenchymal hemorrhage or mass effect. The mancuso-white junction is well differentiated. Cerebellum: Unremarkable. Mass effect: No evidence of midline shift. Intracranial vasculature: unremarkable Soft tissues: Normal. Calvarium/osseous structures: No depressed skull fracture. Paranasal sinuses and mastoid air cells: Clear. Visualized orbits: Orbital contents are intact. Cervical spine: Fracture: None. Osseous structures: Unremarkable Vertebral alignment: Within normal limits. Spinal canal/Neural Foramina: No evidence of significant spinal canal narrowing. No evidence for sign ificant neural foraminal stenosis. Moderately pronounced degenerative disc disease and endplate handley ges, especially the inferior endplate of C4. Neck soft tissues: Prevertebral soft tissues are within normal limits. Other: The airway is patent. The lung apices are clear. IMPRESSION: No acute intracranial process. No evidence of cervical spine fracture. Moderately severe multilevel degenerative disc disease including endplate changes especially the infe rior endplate of C4..
[2023-10-12 11:25] VITALS: RESP 18; TEMP 98
--- NOTE | 2023-10-12 11:25 | XR ---
EXAMINATION TYPE: XR chest 1V DATE OF EXAM: 10/12/2023 10:22 AM CLINICAL INDICATION:Male, 73 years old with history of pain; [facility] COMPARISON: Chest radiograph 08/11/2023 TECHNIQUE: XR chest 1V Frontal view of the chest. FINDINGS: Lungs/Pleura: There is no evidence of pleural effusion, focal consolidation, or pneumothorax. Pulmonary vascularity: Unremarkable. Heart/mediastinum: Cardiomediastinal silhouette is unremarkable. Musculoskeletal: No acute osseous pathology. Other findings: None Lines/Tubes/devices: ICD generator projects over the left hemithorax. IMPRESSION: No acute cardiopulmonary disease/process.
[2023-10-12] MEDS: BACITRACIN OINT 1 EACH PACKET TOPICAL ONE (11:34)
[2023-10-12 12:10] VITALS: BP 120/77; PULSE 65
== END 2023-10-12 12:05 | disposition home or self-care (01) ==
LOC: EC 08:47
DX: S00.81XA Abrasion of other part of head, initial encounter (principal); R00.1 Bradycardia, unspecified; Z91.030 Bee allergy status; Z87.891 Personal history of nicotine dependence; W18.30XA Fall on same level, unspecified, initial encounter
CPT/HCPCS: 36415; 70450; 71045; 72125; 80053; 83735; 84484; 85025; 93005; 99285

== ENCOUNTER → 2023-12-05 | Outpatient (CLI) | payer BC ==
--- NOTE | 2023-12-05 15:23 | CT ---
EXAMINATION TYPE: CT chest wo con CT DLP: 392.3 mGycm, Automated exposure control for dose reduction was used. DATE OF EXAM: 12/05/2023 2:53 PM COMPARISON: 11/24/2023. CLINICAL INDICATION:Male, 73 years old with history of R06.09 OTHER FORMS OF DYSPNEA; PHH, BO x 6 mo nths - since patient had COVID. TECHNIQUE: Multiple axial images were obtained through the chest. Sagittal and coronal reformats were created for review. Contrast used: mL of (None if empty) Oral contrast used: (None if empty) FINDINGS: LUNGS/ PLEURA: Scattered groundglass opacities increased interstitial thickening. Most pronounced irwin ng the periphery and worse in the lung bases. AIRWAY: Patent and unremarkable. HEART: Heart is mildly enlarged for size. Coronary artery atherosclerosis. Cardiac conduction leads p resent. MEDIASTINUM: No gross evidence of adenopathy. VASCULATURE: No aortic aneurysm. MUSCULOSKELETAL: Moderate disc degeneration changes are present throughout the thoracolumbar spine. SOFT TISSUES/LYMPH NODES: Bilateral gynecomastia changes. LOWER NECK: No significant findings. UPPER ABDOMEN: No significant findings. IMPRESSION: 1. Interstitial lung disease changes worse in the lung bases. No honeycombing at this time to sugges t pulmonary fibrosis. Findings could represent sequela prior infection. Correlate with serum BNP to r ule out congestive heart failure 2. Cardiomegaly. 3. Severe coronary artery atherosclerosis.
== END | disposition home or self-care (01) ==
LOC: RADCTMAIN 14:39
PROVIDERS: ATTEND Internal Medicine Critical Care Medicine
DX: J84.9 Interstitial pulmonary disease, unspecified (principal); I51.7 Cardiomegaly; I25.10 Atherosclerotic heart disease of native coronary artery without angina pectoris; R06.09 Other forms of dyspnea
CPT/HCPCS: 71250

== ENCOUNTER 2024-06-30 09:00 | Inpatient (IN) | payer BC, MEDICARE ==
--- NOTE | 2024-06-30 09:30 | ED ---
General Adult HPI - General Chief complaint: Shortness of Breath Stated complaint: sob Time Seen by Provider: 06/30/24 09:09 Source: patient, RN notes reviewed Mode of arrival: ambulatory Limitations: no limitations - History of Present Illness Initial comments: Patient is a 74-year-old male present to the emergency department with concerns with difficulty in breathing. Onset of symptoms was over the past week. Symptoms do worsen with exertion. No orthopnea. No leg swelling. No cough, congestion, or fever. Patient does have history of similar symptoms around a year ago associated with congestive heart failure however symptoms were worse at that time. Patient also has history of renal insufficiency and was recently taken off diuretic. - Related Data Home Medications Medication Instructions Recorded Confirmed ALPRAZolam [Xanax] 0.25 mg PO HS 04/19/21 08/11/23 Escitalopram [Lexapro] 30 mg PO HS 04/19/21 08/11/23 QUEtiapine [SEROquel] 50 mg PO HS 04/19/21 08/11/23 busPIRone HCl [Buspar] 10 mg PO BID 04/19/21 08/11/23 Amiodarone [Cordarone] 100 mg PO DAILY 08/11/23 08/11/23 Aspirin EC [Ecotrin Low Dose] 81 mg PO DAILY 08/11/23 08/11/23 Biotin 5 mg PO DAILY 08/11/23 08/11/23 Ezetimibe [Zetia] 10 mg PO HS 08/11/23 08/11/23 Multivitamins, Thera [Multivitamin 1 tab PO DAILY 08/11/23 08/11/23 (formulary)] Selenium 50 mcg PO DAILY 08/11/23 08/11/23 Ubidecarenone [Co Q-10] 300 mg PO DAILY 08/11/23 08/11/23 carvediloL [Coreg] 25 mg PO BID 08/11/23 08/11/23 metFORMIN HCL 500 mg PO HS 08/11/23 08/11/23 Previous Rx's Medication Instructions Recorded Atorvastatin [Lipitor] 80 mg PO HS #30 tab 04/27/21 Apixaban [Eliquis] 5 mg PO BID #60 tab 08/01/21 Bumetanide [BUMEX] 1 mg PO DAILY 30 Days #30 tab 08/14/23 Dapagliflozin Propanediol [Farxiga] 5 mg PO DAILY #30 tab 08/14/23 Spironolactone [Aldactone] 12.5 mg PO DAILY 30 Days #30 tab 08/14/23 lisinopriL [Zestril] 2.5 mg PO DAILY #30 tab 08/14/23 metFORMIN HCL [Glucophage] 500 mg PO DAILY #0 08/15/23 Allergies Allergy/AdvReac Type Severity Reaction Status Date / Time bee venom protein (honey bee) Allergy Swelling @ Verified 06/30/24 09:08 sting site Review of Systems ROS Statement: Those systems with pertinent positive or pertinent negative responses have been documented in the HPI. ROS Other: All systems not noted in ROS Statement are negative. Constitutional: Denies: fever Eyes: Denies: eye pain ENT: Denies: ear pain Respiratory: Reports: as per HPI, dyspnea. Denies: cough Cardiovascular: Reports: dyspnea on exertion. Denies: chest pain, orthopnea, edema Gastrointestinal: Denies: abdominal pain Musculoskeletal: Denies: back pain Past Medical History Past Medical History: Heart Failure, Hypertension, Myocardial Infarction (CA), Renal Disease Additional Past Medical History / Comment(s): PRE DIABETIC Last Myocardial Infarction Date:: 04/19/21 History of Any Multi-Drug Resistant Organisms: None Reported Past Surgical History: AICD, Back Surgery, Heart Catheterization With Stent, Pacemaker, Tonsillectomy Additional Past Surgical History / Comment(s): unk Past Anesthesia/Blood Transfusion Reactions: No Reported Reaction Date of Last Stent Placement:: APR 2021 Type of Cardiac Device: Permanent Pacemaker, AICD Device Placement Date:: APR 2021 Past Psychological History: Anxiety, Depression Smoking Status: Former smoker Past Alcohol Use History: None Reported Past Drug Use History: None Reported - Past Family History Brother(s) Family Medical History: Coronary Artery Disease (CAD), Hyperlipidemia, Hypertension Father Family Medical History: Dementia Sister(s) Family Medical History: Cancer Additional Family Medical History / Comment(s): breast General Exam Limitations: no limitations General appearance: alert, in no apparent distress Head exam: Present: normocephalic Eye exam: Present: normal appearance Neck exam: Present: normal inspection Respiratory exam: Present: normal lung sounds bilaterally Cardiovascular Exam: Present: regular rate, normal rhythm GI/Abdominal exam: Present: soft. Absent: tenderness Extremities exam: Present: normal inspection. Absent: pedal edema, calf tenderness Neurological exam: Present: alert Psychiatric exam: Present: normal affect, normal mood Skin exam: Present: normal color Course Vital Signs 06/30/24 06/30/24 09:08 09:18 Temperature 98.2 F Pulse Rate 63 Respiratory 20 20 Rate Blood Pressure 94/64 O2 Sat by Pulse 85 L Oximetry EKG Findings - EKG Results: EKG: interpreted by ERMD (Inferior Q waves with T wave inversion. Lateral T wave inversion. Repolarization changes. Previous EKGs reviewed), sinus rhythm, normal axis Medical Decision Making - Medical Decision Making Was pt. sent in by a medical professional or institution (, PA, SPEECH INSTRUCTOR, urgent care, hospital, or snf...) When possible be specific @ -No Did you speak to anyone other than the patient for history (EMS, parent, family, police, friend...)? What history was obtained from this source @ - is present helps provide history including history of heart failure Did you review nursing and triage notes (agree or disagree)? Why? @ -I reviewed and agree with nursing and triage notes Were old charts reviewed (outside hosp., previous admission, EMS record, old EKG, old radiological studies, urgent care reports/EKG's, snf records)? Report findings @ -Multiple previous x-rays reviewed including inpatient Differential Diagnosis (chest pain, altered mental status, abdominal pain women, abdominal pain men, vaginal bleeding, weakness, fever, dyspnea, syncope, headache, dizziness, GI bleed, back pain, seizure, CVA, palpatations, mental health, musculoskeletal)? @ -Differential Dyspnea: Coronary syndrome, arrhythmia, tamponade, asthma, COPD, pulmonary embolism, pneumonia, pneumothorax, pulmonary effusion, anaphylaxis, diabetic ketoacidosis, flailed chest, pulmonary contusion, diaphragmatic rupture, anemia, neuromuscular, this is not meant to be an all-inclusive list. EKG interpreted by me (3pts min.). @ -As above X-rays interpreted by me (1pt min.). @ -Chest x-ray shows interstitial changes CT interpreted by me (1pt min.). @ -None done U/S interpreted by me (1pt. min.). @ -None done What testing was considered but not performed or refused? (CT, X-rays, U/S, labs)? Why? @ -None What meds were considered but not given or refused? Why? @ -None Did you discuss the management of the patient with other professionals (professionals i.e. , PA, SPEECH INSTRUCTOR, lab, RT, psych nurse, social economist, engine monitor, teacher, deputy probation officer, director of casework department)? Give summary @ -Case discussed with Dr. Quinn who will admit covering hospital call Was smoking cessation discussed for >3mins.? @ -No Was critical care preformed (if so, how long)? @ -No Were there social determinants of health that impacted care today? How? (Homelessness, low income, unemployed, alcoholism, drug addiction, transportation, low edu. Level, literacy, decrease access to med. care, fpc, rehab)? @ -No Was there de-escalation of care discussed even if they declined (Discuss DNR or withdrawal of care, Hospice)? DNR status @ -No What co-morbidities impacted this encounter? (DM, HTN, Smoking, COPD, CAD, Cancer, CVA, ARF, Chemo, Hep., AIDS, mental health diagnosis, sleep apnea, morbid obesity)? @ -History of CHF Was patient admitted / discharged? Hospital course, mention meds given and route, prescriptions, significant lab abnormalities, going to OR and other pertinent info. @ -Patient presents with dyspnea over the past couple days and hypoxia. Patient remains hypoxic on evaluation. Lung sounds are unremarkable. Patient has interstitial changes on chest x-ray however does also have increase of BNP. Despite this clinically I do have some more concern for primary pulmonary disease process today. Patient will be admitted with pulmonary and cardiac consults for further evaluation and treatment. Patient reevaluated. Patient and family updated. Admission orders written. Undiagnosed new problem with uncertain prognosis? @ -No Drug Therapy requiring intensive monitoring for toxicity (Heparin, Nitro, In sulin, Cardizem)? @ -No Were any procedures done? @ -No Diagnosis/symptom? @ -Dyspnea Acute, or Chronic, or Acute on Chronic? @ -Acute Uncomplicated (without systemic symptoms) or Complicated (systemic symptoms)? @ -Complicated with hypoxia Side effects of treatment? @ -No Exacerbation, Progression, or Severe Exacerbation? @ -No Poses a threat to life or bodily function? How? (Chest pain, USA, CA, pneumonia, PE, COPD, DKA, ARF, appy, cholecystitis, CVA, Diverticulitis, Homicidal, Suicidal, threat to staff... and all critical care pts) @ -Threat to pulmonary function - Lab Data Result diagrams: 06/30/24 09:31 06/30/24 09:31 Lab Results 06/30/24 06/30/24 06/30/24 Range/Units 09:31 09:31 09:31 WBC 12.0 H (3.8-10.6) k/uL RBC 3.82 L (4.30-5.90) m/uL Hgb 11.9 L (13.0-17.5) gm/dL Hct 35.3 L (39.0-53.0) % MCV 92.4 (80.0-100.0) fL MCH 31.0 (25.0-35.0) pg MCHC 33.5 (31.0-37.0) g/dL RDW 13.8 (11.5-15.5) % Plt Count 192 (150-450) k/uL MPV 7.1 Neutrophils % 86 % Lymphocytes % 6 % Monocytes % 6 % Eosinophils % 2 % Basophils % 0 % Neutrophils # 10.3 H (1.3-7.7) k/uL Lymphocytes # 0.7 L (1.0-4.8) k/uL Monocytes # 0.7 (0-1.0) k/uL Eosinophils # 0.2 (0-0.7) k/uL Basophils # 0.0 (0-0.2) k/uL PT 15.1 H (10.0-12.5) sec INR 1.4 H (<1.2) APTT 28.9 (22.0-30.0) sec D-Dimer 0.57 (<0.60) mg/L FEU Sodium (137-145) mmol/L Potassium (3.5-5.1) mmol/L Chloride (98-107) mmol/L Carbon Dioxide (22-30) mmol/L Anion Gap mmol/L BUN (9-20) mg/dL Creatinine (0.66-1.25) mg/dL Est GFR (CKD-EPI)AfAm (>60 ml/min/1.73 sqM) Est GFR (CKD-EPI)NonAf (>60 ml/min/1.73 sqM) Glucose (74-99) mg/dL Plasma Lactic Acid Raymond (0.7-2.0) mmol/L Calcium (8.4-10.2) mg/dL Magnesium (1.6-2.3) mg/dL Total Bilirubin (0.2-1.3) mg/dL AST (17-59) U/L ALT (4-49) U/L Alkaline Phosphatase (38-126) U/L Troponin I (0.000-0.034) ng/mL NT-Pro-B Natriuret Pep pg/mL Total Protein (6.3-8.2) g/dL Albumin (3.5-5.0) g/dL Influenza Type A (PCR) Not Detected (Not Detectd) Influenza Type B (PCR) Not Detected (Not Detectd) RSV (PCR) Not Detected (Not Detectd) SARS-CoV-2 (PCR) Not Detected (Not Detectd) 06/30/24 06/30/24 06/30/24 Range/Units 09:31 09:31 09:31 WBC (3.8-10.6) k/uL RBC (4.30-5.90) m/uL Hgb (13.0-17.5) gm/dL Hct (39.0-53.0) % MCV (80.0-100.0) fL MCH (25.0-35.0) pg MCHC (31.0-37.0) g/dL RDW (11.5-15.5) % Plt Count (150-450) k/uL MPV Neutrophils % % Lymphocytes % % Monocytes % % Eosinophils % % Basophils % % Neutrophils # (1.3-7.7) k/uL Lymphocytes # (1.0-4.8) k/uL Monocytes # (0-1.0) k/uL Eosinophils # (0-0.7) k/uL Basophils # (0-0.2) k/uL PT (10.0-12.5) sec INR (<1.2) APTT (22.0-30.0) sec D-Dimer (<0.60) mg/L FEU Sodium 138 (137-145) mmol/L Potassium 4.7 (3.5-5.1) mmol/L Chloride 103 (98-107) mmol/L Carbon Dioxide 26 (22-30) mmol/L Anion Gap 9 mmol/L BUN 44 H (9-20) mg/dL Creatinine 1.50 H (0.66-1.25) mg/dL Est GFR (CKD-EPI)AfAm 53 (>60 ml/min/1.73 sqM) Est GFR (CKD-EPI)NonAf 46 (>60 ml/min/1.73 sqM) Glucose 192 H (74-99) mg/dL Plasma Lactic Acid Raymond 1.4 (0.7-2.0) mmol/L Calcium 9.2 (8.4-10.2) mg/dL Magnesium 2.2 (1.6-2.3) mg/dL Total Bilirubin 1.0 (0.2-1.3) mg/dL AST 66 H (17-59) U/L ALT 127 H (4-49) U/L Alkaline Phosphatase 81 (38-126) U/L Troponin I <0.012 (0.000-0.034) ng/mL NT-Pro-B Natriuret Pep 6150 pg/mL Total Protein 7.0 (6.3-8.2) g/dL Albumin 3.8 (3.5-5.0) g/dL Influenza Type A (PCR) (Not Detectd) Influenza Type B (PCR) (Not Detectd) RSV (PCR) (Not Detectd) SARS-CoV-2 (PCR) (Not Detectd) Disposition Clinical Impression: Dyspnea Disposition: ADMITTED IP TO THIS HOSP Condition: Serious Is patient prescribed a controlled substance at d/c from ED?: No Referrals: Celina Encinas MD [Primary Care Provider] - 1-2 days Time of Disposition: 10:52
[2024-06-30 09:52] LABS: Basophils % (A) 0 %; Eosinophils # (A) 0.2 k/uL (0-0.7); Eosinophils % (A) 2 %; HCT 35.3 % (39.0-53.0); HGB 11.9 gm/dL (13.0-17.5); Lymphocytes # (A) 0.7 k/uL (1.0-4.8); Lymphocytes % (A) 6 %; MCHC 33.5 g/dL (31.0-37.0); MCV 92.4 fL (80.0-100.0); Mean Platelet Volume 7.1; Monocytes # (A) 0.7 k/uL (0-1.0); Monocytes % (A) 6 %; Neutrophils # (A) 10.3 k/uL (1.3-7.7); Neutrophils % (A) 86 %; Platelet Count 192 k/uL (150-450); RBC 3.82 m/uL (4.30-5.90); RDW 13.8 % (11.5-15.5)
--- NOTE | 2024-06-30 09:56 | XR ---
Chest, 2 view. HISTORY: Difficulty breathing COMPARISON: 10/12/2023 TECHNIQUE: PA and lateral views the chest are obtained. FINDINGS: There is diffuse marked interstitial opacity in both lungs which could represent chronic interstitial change versus pulmonary edema and clinical correlation is recommended. The heart is not enlarged and the technique. There is a single-lead cardiac pacemaker. There is no pleural effusion or pneumothorax. The osseous structures are intact. IMPRESSION: Diffuse stable interstitial process which reflect either chronic or acute interstitial changes and cl inical correlation is recommended. There is been no significant interval change. [facility], , 06/30/2024 9:53 AM
[2024-06-30 10:03] LABS: INR 1.4 (<1.2); Partial Thromboplastin Time 28.9 sec (22.0-30.0); Prothrombin Time 15.1 sec (10.0-12.5)
[2024-06-30 10:06] LABS: ALT 127 U/L (4-49); AST 66 U/L (17-59); African American GFR (CKD) 53 (>60 ml/min/1.73 sqM); Albumin 3.8 g/dL (3.5-5.0); Alkaline Phosphatase 81 U/L (38-126); Anion Gap 9 mmol/L; Blood Urea Nitrogen 44 mg/dL (9-20); Calcium 9.2 mg/dL (8.4-10.2); Carbon Dioxide 26 mmol/L (22-30); Chloride 103 mmol/L (98-107); Glucose 192 mg/dL (74-99); Magnesium 2.2 mg/dL (1.6-2.3); Non-African American GFR(CKD) 46 (>60 ml/min/1.73 sqM); Potassium 4.7 mmol/L (3.5-5.1); Sodium 138 mmol/L (137-145)
[2024-06-30 10:14] LABS: NT-Pro-B-Type Natriuretic Pept 6150 pg/mL
[2024-06-30 10:25] LABS: Influenza A Not Detected (Not Detectd); Influenza B Not Detected (Not Detectd); RSV Not Detected (Not Detectd)
[2024-06-30] MEDS ORDERED: ACETAMINOPHEN TAB 325 MG TAB PO PRN (10:52)
[2024-06-30] MEDS ORDERED: IPRATROPIUM-ALBUTEROL 3 ML NEB INHALATION PRN (10:52)
[2024-06-30] MEDS ORDERED: NALOXONE 0.4 MG/ML 1 ML VIAL IVP PRN (10:52)
[2024-06-30] MEDS: IPRATROPIUM-ALBUTEROL 3 ML NEB INHALATION STA (11:21)
[2024-06-30] MEDS: methylPREDNISolone SOD SUCCI 125 MG/2 ML VIAL IV STA (11:35)
[2024-06-30] MEDS: FUROSEMIDE 10 MG/ML 4 ML VIAL IV STA (11:35)
[2024-06-30] MEDS: IPRATROPIUM-ALBUTEROL 3 ML NEB INHALATION SCH (12:13)
[2024-06-30] MEDS ORDERED: DEXTROSE 50% SYRINGE 50 ML IVP PRN ×2 (13:21)
--- NOTE | 2024-06-30 14:50 | P.HPIM ---
History of Present Illness H&P Date: 06/30/24 History of present illness; Patient is a 74-year-old man with heart failure, hypertension, history of [place] with stent placement and permanent AICD, and renal disease who presents with progressive shortness of breath. Patient states symptoms began 1 week ago. Symptoms are worse with ambulation and cold air. He does state he has some associated dizziness while ambulating. He does not wear home oxygen. He follows for pulmonology Dr. Hammer for treatment of possible interstitial fibrotic lung disease. He attest to receiving flu and pneumococcal vaccine 1 week ago. At this time patient reports absence of fever, chills, chest pain, palpitations, diaphoresis, dyspnea, cough, abdominal pain, nausea, vomiting, constipation, diarrhea, weakness, headache, and dysuria. Spoke with the ER physician, patient admission was accepted by internal medicine service for treatment. REVIEW OF SYSTEMS: Pertinent positives and negatives noted in HPI. PHYSICAL EXAMINATION: Vitals reviewed GENERAL: Resting comfortably in bed. EYES: PERRL, no scleral injection or icterus. No vision loss HENT: Normocephalic, atraumatic, hearing acuity intact, moist mucous membranes NECK: No tracheal deviation, full range of motion. CARDIOVASCULAR: S1 and S2 present. No murmurs, rubs, or gallops. PULMONARY: Bilateral wheeze L > R, no rhonchi, or crackles. ABDOMEN: Soft, nontender, nondistended. No palpable organomegaly. MUSCULOSKELETAL: No apparent joint swelling and deformities. EXTREMITIES: No apparent cyanosis, clubbing. No pedal edema. NEUROLOGICAL: Alert and oriented. Gross neurological examination with no apparent focal deficits. SKIN: No apparent rashes. ER FINDINGS: Labs significant for WBC 12.0, hemoglobin 11.9, PT 15.1, INR 1.4, sodium 138, potassium 4.7, bicarb 26, BUN 44, creatinine 1.5, glucose 192, AST 66, ALT 127, troponin negative, proBNP is 6150, negative viral respiratory panel EKG independently interpreted showed sinus bradycardia heart rate of 56, first- degree AV block, no ST segment elevation or depression seen, with preventricular complexes noted. Chest x-ray done independently interpreted showed diffuse stable interstitial process, chronic versus acute. Possible pulmonary edema. Pacemaker seen. Assessment and Plan: In summary, patient is a 74-year-old man with heart failure, hypertension, history of [place] with stent placement and permanent AICD, and CKD who presents with progressive shortness of breath. #Acute hypoxic respiratory failure, likely due to exacerbation of underlying lung disease #Interstitial Lung Disease, Possible Usual Interstitial Pneumonia pattern #Leukocytosis, likely to be reactive Chest x-ray,personally interpreted, with interstitial process, similar in nature to previous, possibly a bit worse - Ct Chest ordered without contrast, personally interpreted, honeycombing is possible with areas of clear parenchyma - Begin bronchodilators DuoNeb 0.5-3mg/3ml 4 times daily and as needed - Begin Solu-medrol 60 mg IVq 6 hr Continue O2, maintain >92% saturation - Discontinued amiodarone due to pulmonary toxicity - Cefrionxone 2g, azithromycin 500 qd, deescalate if negative procal Procalcitonin pending Pulmonology consulted #Chronic systolic (congestive) heart failure EF of 45%, not in exacerbation -proBNP is 6150, August 2023 was 5190 -Resume home Bumex 0.5 mg daily Resume home cardiac medications -cardiac monitoring Echocardiogram pending -Cardiology consulted #Chronic kidney disease, stage IIIb #Normocytic anemia -Last known GFR on October 2023 was 41, initial hospital GFR 46, at baseline -Last known creatinine on October 2023 was 1.66, initial hospital creatinine 1.50 -Continue home BuSpar, and vitamins #Transaminitis Initial AST 66, ALT 127 No symptoms at this time, correlate with amiodarone use Monitor CMP #Hyperglycemia #Diabetes mellitus, type 2 Holding oral medications Begin Accu-Cheks and low-dose sliding scale, monitor for hypoglycemia HbA1c pending Chronic Medical Conditions #Essential hypertension - Resume home carvedilol, Bumex #History of V-fib arrest s/p ICD placement continue -resume home cardiac medication #Coronary artery disease - Resume home medication #Paroxysmal A-fib #Anxiety/Depression- Resume home Xanax, BuSpar, Seroquel DVT ppx: Apixaban 5 mg twice daily Code status: Full code F: P.o. E: Replete as needed N: Heart healthy diet A: Ambulatory Anticipated discharge place: Pending clinical course Anticipated discharge time: Pending clinical course Dictation was produced using [email or web address] dictation software. Please excuse any grammatical, word or spelling errors. I saw and evaluated the patient during the barrientos and critical portions of this encounter, and discussed the case in detail with the resident author of this note, I agree with the Assessment and Plan, and my changes, if any, are highlighted in blue. Past Medical History Past Medical History: Heart Failure, Hypertension, Myocardial Infarction ([place]), Renal Disease Additional Past Medical History / Comment(s): PRE DIABETIC Last Myocardial Infarction Date:: 04/19/21 History of Any Multi-Drug Resistant Organisms: None Reported Past Surgical History: AICD, Back Surgery, Heart Catheterization With Stent, Pacemaker, Tonsillectomy Additional Past Surgical History / Comment(s): unk Past Anesthesia/Blood Transfusion Reactions: No Reported Reaction Date of Last Stent Placement:: APR 2021 Type of Cardiac Device: Permanent Pacemaker, AICD Device Placement Date:: APR 2021 Past Psychological History: Anxiety, Depression Smoking Status: Former smoker Past Alcohol Use History: None Reported Past Drug Use History: None Reported - Past Family History Brother(s) Family Medical History: Coronary Artery Disease (CAD), Hyperlipidemia, Hypertension Father Family Medical History: Dementia Sister(s) Family Medical History: Cancer Additional Family Medical History / Comment(s): breast Medications and Allergies Home Medications Medication Instructions Recorded Confirmed Type ALPRAZolam [Xanax] 0.25 mg PO HS 04/19/21 06/30/24 History Escitalopram [Lexapro] 30 mg PO HS 04/19/21 06/30/24 History QUEtiapine [SEROquel] 50 mg PO HS 04/19/21 06/30/24 History busPIRone HCl [Buspar] 10 mg PO BID 04/19/21 06/30/24 History Atorvastatin [Lipitor] 80 mg PO HS #30 tab 04/27/21 06/30/24 Rx Apixaban [Eliquis] 5 mg PO BID #60 tab 08/01/21 06/30/24 Rx Amiodarone [Cordarone] 100 mg PO DAILY 08/11/23 06/30/24 History Aspirin EC [Ecotrin Low Dose] 81 mg PO DAILY 08/11/23 06/30/24 History Biotin 5 mg PO DAILY 08/11/23 06/30/24 History Ezetimibe [Zetia] 10 mg PO HS 08/11/23 06/30/24 History Multivitamins, Thera [Multivitamin 1 tab PO DAILY 08/11/23 06/30/24 History (formulary)] Selenium 50 mcg PO DAILY 08/11/23 06/30/24 History Ubidecarenone [Co Q-10] 300 mg PO DAILY 08/11/23 06/30/24 History carvediloL [Coreg] 12.5 mg PO BID 08/11/23 06/30/24 History Dapagliflozin Propanediol [Farxiga] 5 mg PO DAILY #30 tab 08/14/23 06/30/24 Rx Spironolactone [Aldactone] 12.5 mg PO DAILY 30 Days #30 tab 08/14/23 06/30/24 Rx Bumetanide [BUMEX] 0.5 mg PO DAILY 06/30/24 06/30/24 History metFORMIN HCL [Glucophage] 500 mg PO BID 06/30/24 06/30/24 History Allergies Allergy/AdvReac Type Severity Reaction Status Date / Time bee venom protein (honey bee) Allergy Swelling @ Verified 06/30/24 11:25 sting site Physical Exam Osteopathic Statement: *. No significant issues noted on an osteopathic structural exam other than those noted in the History and Physical/Consult. Vitals: Vital Signs Temp Pulse Resp BP Pulse Ox 06/30/24 11:32 57 L 18 147/74 94 L 06/30/24 11:31 68 06/30/24 11:22 64 06/30/24 09:18 20 06/30/24 09:08 98.2 F 63 20 94/64 85 L Intake and Output 06/29/24 06/30/24 06/30/24 22:59 06:59 14:59 Other: Weight 79.379 kg Results CBC & Chem 7: 06/30/24 09:31 06/30/24 09:31 Labs: Abnormal Lab Results - Last 24 Hours (Table) 06/30/24 06/30/24 06/30/24 Range/Units 09:31 09:31 09:31 WBC 12.0 H (3.8-10.6) k/uL RBC 3.82 L (4.30-5.90) m/uL Hgb 11.9 L (13.0-17.5) gm/dL Hct 35.3 L (39.0-53.0) % Neutrophils # 10.3 H (1.3-7.7) k/uL Lymphocytes # 0.7 L (1.0-4.8) k/uL PT 15.1 H (10.0-12.5) sec INR 1.4 H (<1.2) BUN 44 H (9-20) mg/dL Creatinine 1.50 H (0.66-1.25) mg/dL Glucose 192 H (74-99) mg/dL AST 66 H (17-59) U/L ALT 127 H (4-49) U/L
--- NOTE | 2024-06-30 15:00 | CT ---
EXAMINATION TYPE: CT chest wo con DATE OF EXAM: 06/30/2024 2:29 PM COMPARISON: CT chest 12/05/2023. CLINICAL INDICATION: Male, 74 years old with history of dyspnea; PHH, dyspnea TECHNIQUE: Multiple axial images were obtained through the chest. Sagittal and coronal reformats were created for review. MIP was performed on a separate workstation. CT DLP: 329.3 mGycm, Automated exposure control for dose reduction was used. FINDINGS: LUNGS/ PLEURA: Subpleural reticular changes, bronchiectasis and interlobular septal thickening with s uperimposed groundglass attenuation changes. Additionally, possible developing lower lobe honeycombin g. There is suggestion of an apical basal gradient with findings most pronounced in the lower lobes. Indeterminate pleural-based 15 mm pulmonary nodule or nodular region of loculated pleural fluid (Houn sfield attenuation mean -2.5) in the left lower lobe, not significantly changed from prior study 2023, recommend follow-up CT chest in 3-6 months to confirm stability. No sizable pleural effusion. N o pneumothorax. AIRWAY: Patent and unremarkable. HEART: Cardiomegaly without pericardial effusion. Left chest wall cardiac ICD device with lead termin ating in the right ventricle. Coronary artery calcifications. MEDIASTINUM: Mildly prominent nonspecific mediastinal lymph nodes measuring up to 13 mm in short axis in the right lower paratracheal region. Limited evaluation for hilar lymphadenopathy given lack of I V contrast. Bilateral mastoid changes. VASCULATURE: No aortic aneurysm. MUSCULOSKELETAL: No acute osseous abnormalities SOFT TISSUES/LYMPH NODES: Unremarkable. LOWER NECK: No significant findings. UPPER ABDOMEN: No significant acute findings. Small hiatal hernia. IMPRESSION: 1. No acute abnormality in the chest. 2. Findings compatible with chronic interstitial lung disease with probable UIP pattern as described above. 3. Cardiomegaly and coronary artery calcifications. 4. Additional nonacute findings as above. [facility], , 06/30/2024 2:58 PM
[2024-06-30] MEDS: PANTOPRAZOLE 40 MG TABLET PO SCH (15:47)
[2024-06-30 16:49] LABS: Glucose,Whole Blood 173 mg/dL (70-110)
[2024-06-30] MEDS: methylPREDNISolone SOD SUCCI 125 MG/2 ML VIAL IV SCH (17:01)
[2024-06-30] MEDS: INSULIN ASPART (NovoLOG) 100 UNIT/ML VIAL SQ SCH (17:02)
[2024-06-30] MEDS: AZITHROMYCIN 500 MG in SODIUM CHLORIDE 0.9% 250 ML IVPB SCH (17:02)
[2024-06-30] MEDS: ASPIRIN 81 MG PO SCH (19:08)
[2024-06-30 19:54] LABS: Glucose,Whole Blood 413 mg/dL (70-110)
[2024-06-30] MEDS ORDERED: metFORMIN 500 MG TAB PO SCH (21:00)
[2024-06-30] MEDS: ATORVASTATIN 80 MG TAB PO SCH (21:18)
[2024-06-30] MEDS: carvediloL 12.5 MG TAB PO SCH (21:18)
[2024-06-30] MEDS: EZETIMIBE 10 MG TAB PO SCH (21:18)
[2024-06-30] MEDS: APIXABAN 5 MG TAB PO SCH (21:18)
[2024-06-30] MEDS: ALPRAZolam 0.25 MG TAB PO SCH (21:18)
[2024-06-30] MEDS: busPIRone HCl 10 MG TAB PO SCH (21:18)
[2024-06-30] MEDS: ESCITALOPRAM 10 MG TAB PO SCH (21:49)
[2024-06-30] MEDS: QUEtiapine 50 MG TAB PO SCH (21:49)
[2024-07-01 06:42] LABS: Glucose,Whole Blood 211 mg/dL (70-110)
[2024-07-01] MEDS ORDERED: NON FORMULARY DRUG (Biotin [Biotin] 5 MG Capsule) PO SCH (09:00)
[2024-07-01] MEDS ORDERED: NON FORMULARY DRUG (Ubidecarenone [Co Q-10] 300 MG Capsule) PO SCH (09:00)
[2024-07-01] MEDS ORDERED: NON FORMULARY DRUG (Selenium [Selenium] 50 MCG Tablet) PO SCH (09:00)
[2024-07-01] MEDS ORDERED: AMIODARONE 100 MG TAB PO SCH (09:00)
[2024-07-01] MEDS ORDERED: SPIRONOLACTONE 25 MG TAB PO SCH (09:00)
[2024-07-01] MEDS: BUMETANIDE 0.5 MG TABLET PO SCH (09:07)
[2024-07-01] MEDS: MULTIVITAMINS, THERA 1 EACH TAB PO SCH (09:08)
[2024-07-01] MEDS: DAPAGLIFLOZIN PROPANEDIOL 5 MG TABLET PO SCH (09:08)
[2024-07-01 09:34] LABS: Basophils # (A) 0 X 10*3/uL (0.00-0.10); Basophils % (A) 0 %; Eosinophils # (A) 0 X 10*3/uL (0.04-0.35); Eosinophils % (A) 0 %; HCT 34.6 % (39.6-50.0); HGB 10.9 g/dL (13.0-17.0); Lymphocytes # (A) 0.44 X 10*3/uL (0.90-5.00); Lymphocytes % (A) 5.8 %; MCH 29.1 pg (27.0-32.0); MCHC 31.5 g/dL (32.0-37.0); MCV 92.3 FL (80.0-97.0); Mean Platelet Volume 10.1 FL (9.5-12.2); Monocytes # (A) 0.11 X 10*3/uL (0.20-1.00); Monocytes % (A) 1.5 %; NRBC Per 100 WBC 0 X 10*3/uL (0.00-0.01); Neutrophils # (A) 6.99 X 10*3/uL (1.80-7.70); Neutrophils % (A) 92.2 %; Platelet Count 205 X 10*3/uL (140-440); RBC 3.75 X 10*6/uL (4.40-5.60); RDW 13.8 % (11.5-14.5); WBC 7.58 X 10*3/uL (4.50-10.00)
[2024-07-01 09:50] LABS: ALT 96 U/L (10-49); AST 32 U/L (14-35); Albumin 3.7 g/dL (3.8-4.9); Albumin/Globulin Ratio 1.12 Ratio (1.60-3.17); Alkaline Phosphatase 77 U/L (41-126); BUN/Creat Ratio 27.93 Ratio (12.00-20.00); Blood Urea Nitrogen 41.9 mg/dL (9.0-27.0); Carbon Dioxide 22.9 mmol/L (21.6-31.8); Chloride 102 mmol/L (96-109); Globulin 3.3 g/dL (1.6-3.3); Glucose 188 mg/dL (70-110); Potassium 4.1 mmol/L (3.5-5.5); Sodium 138 mmol/L (135-145); Total Bilirubin 0.6 mg/dL (0.3-1.2)
[2024-07-01 11:33] LABS: Glucose,Whole Blood 279 mg/dL (70-110)
--- NOTE | 2024-07-01 12:16 | P.CNPUL ---
History of Present Illness Consult date: 07/01/24 Requesting physician: Celina Wharton Reason for consult: dyspnea Chief complaint: Shortness of breath, dizziness History of present illness: This is a very pleasant 74-year-old male patient with a known history of interstitial lung disease and has home oxygen that he uses when he exercises. He does have a history of myocardial infarction with coronary artery disease and previous stent placement and ischemic cardiomyopathy status post AICD placement with episodes of congestive heart failure. He has hypertension. Renal disease. Anxiety/depression and former smoking. He presented here to the hospital yesterday with complaints of increasing shortness of breath mostly with exertion. He denied any fever or chills. No cough or congestion. No lower extremity edema. Chest x-ray reveals diffuse stable interstitial process representing chronic interstitial changes. No interval change compared to previous in October 2023. CT scan of the chest revealed no acute abnormalities. Findings compatible with chronic interstitial lung disease with probable UIP pattern. Cardiomegaly with coronary artery calcifications. White count 7.5. Hemoglobin 10.9. Platelets 205. Sodium 138. Potassium 4.1. Bicarb 23. BUN 42. Creatinine 1.5. Glucose 188. He is seen today in consultation on the [facility] medical floor. He is currently resting quite comfortably in bed. Awake and alert in no acute distress. Maintaining O2 saturations in the 90s on 2 L/min per nasal cannula. He is afebrile. Hemodynamically stable.. Review of Systems REVIEW OF SYSTEMS: CONSTITUTIONAL: Denies any recent significant weight loss or weight gain. EYES: Denies change in vision. EARS, NOSE, MOUTH, THROAT: Denies headaches, denies sore throat. CARDIOVASCULAR: Denies chest pain, palpitations or syncopal episodes. RESPIRATORY: Positive for shortness of breath, no cough, congestion or he moptysis. GASTROINTESTINAL: Denies change in appetite, denies abdominal pain GENITOURINARY: Denies hematuria, denies infections. MUSKULOSKELETAL: Denies pain, denies swelling. INTEGUMENTARY: Denies rash, denies eczema. NEUROLOGICAL: Denies recent memory loss, no recent seizure activity. PSYCHIATRIC: Denies anxiety, denies depression. HEMATOLOGIC/LYMPHATIC: Denies anemia, denies enlarged lymph nodes. Past Medical History Past Medical History: Heart Failure, Hypertension, Myocardial Infarction ([place]), Renal Disease Additional Past Medical History / Comment(s): PRE DIABETIC Last Myocardial Infarction Date:: 04/19/21 History of Any Multi-Drug Resistant Organisms: None Reported Past Surgical History: AICD, Back Surgery, Heart Catheterization With Stent, P acemaker, Tonsillectomy Additional Past Surgical History / Comment(s): unk Past Anesthesia/Blood Transfusion Reactions: No Reported Reaction Date of Last Stent Placement:: APR 2021 Type of Cardiac Device: Permanent Pacemaker, AICD Device Placement Date:: APR 2021 Past Psychological History: Anxiety, Depression Smoking Status: Former smoker Past Alcohol Use History: None Reported Past Drug Use History: None Reported - Past Family History Brother(s) Family Medical History: Coronary Artery Disease (CAD), Hyperlipidemia, Hypertension Father Family Medical History: Dementia Sister(s) Family Medical History: Cancer Additional Family Medical History / Comment(s): breast Medications and Allergies Home Medications Medication Instructions Recorded Confirmed Type ALPRAZolam [Xanax] 0.25 mg PO HS 04/19/21 06/30/24 History Escitalopram [Lexapro] 30 mg PO HS 04/19/21 06/30/24 History QUEtiapine [SEROquel] 50 mg PO HS 04/19/21 06/30/24 History busPIRone HCl [Buspar] 10 mg PO BID 04/19/21 06/30/24 History Atorvastatin [Lipitor] 80 mg PO HS #30 tab 04/27/21 06/30/24 Rx Apixaban [Eliquis] 5 mg PO BID #60 tab 08/01/21 06/30/24 Rx Amiodarone [Cordarone] 100 mg PO DAILY 08/11/23 06/30/24 History Biotin 5 mg PO DAILY 08/11/23 06/30/24 History Ezetimibe [Zetia] 10 mg PO HS 08/11/23 06/30/24 History Multivitamins, Thera [Multivitamin 1 tab PO DAILY 08/11/23 06/30/24 History (formulary)] Selenium 50 mcg PO DAILY 08/11/23 06/30/24 History Ubidecarenone [Co Q-10] 300 mg PO DAILY 08/11/23 06/30/24 History carvediloL [Coreg] 12.5 mg PO BID 08/11/23 06/30/24 History Dapagliflozin Propanediol [Farxiga] 5 mg PO DAILY #30 tab 08/14/23 06/30/24 Rx Bumetanide [BUMEX] 0.5 mg PO DAILY 06/30/24 06/30/24 History metFORMIN HCL [Glucophage] 500 mg PO BID 06/30/24 06/30/24 History Allergies Allergy/AdvReac Type Severity Reaction Status Date / Time bee venom protein (honey bee) Allergy Swelling @ Verified 06/30/24 11:25 sting site Physical Exam Vitals: Vital Signs Temp Pulse Pulse Resp BP BP Pulse Ox 07/01/24 10:29 70 07/01/24 10:18 68 07/01/24 07:10 98.3 F 66 18 142/74 94 L 07/01/24 00:17 97.5 F L 57 L 16 149/68 95 06/30/24 20:11 97.9 F 55 L 15 125/72 94 L 06/30/24 16:37 64 06/30/24 16:26 64 06/30/24 15:30 98.1 F 57 L 18 129/67 95 06/30/24 14:32 60 18 150/76 96 06/30/24 13:45 60 20 157/74 95 Intake and Output 06/30/24 07/01/24 07/01/24 22:59 06:59 14:59 Intake Total 1620 Balance 1620 Intake: Oral 1620 Other: Voiding Method Toilet Toilet # Voids 2 3 Weight 78.6 kg GENERAL EXAM: Alert, pleasant 74-year-old male, on 2 L nasal cannula,, comfortable in no apparent distress. HEAD: Normocephalic. EYES: Normal reaction of pupils, equal size. NOSE: Clear with pink turbinates. THROAT: No erythema or exudates. NECK: No masses, no JVD. CHEST: No chest wall deformity. LUNGS: Equal air entry with Velcro crackles in the bilateral bases. CVS: S1 and S2 normal with no audible murmur, regular rhythm. ABDOMEN: No hepatosplenomegaly, normal bowel sounds, no guarding or rigidity. SPINE: No scoliosis or deformity SKIN: No rashes CENTRAL NERVOUS SYSTEM: No focal deficits, tone is normal in all 4 extremities. EXTREMITIES: There is no peripheral edema. No clubbing, no cyanosis. Periph eral pulses are intact. Results - Laboratory Findings CBC and BMP: 07/01/24 03:54 07/01/24 03:54 PT/INR, D-dimer PT 15.1 sec (10.0-12.5) H 06/30/24 09:31 INR 1.4 (<1.2) H 06/30/24 09:31 D-Dimer 0.57 mg/L FEU (<0.60) 06/30/24 09:31 Abnormal lab findings: Abnormal Labs 06/30/24 06/30/24 06/30/24 09:31 09:31 09:31 WBC 12.0 H RBC 3.82 L Hgb 11.9 L Hct 35.3 L MCHC Neutrophils # 10.3 H Lymphocytes # 0.7 L Monocytes # Eosinophils # PT 15.1 H INR 1.4 H Anion Gap BUN 44 H Creatinine 1.50 H Est GFR (CKD-EPI) BUN/Creatinine Ratio Glucose 192 H POC Glucose (mg/dL) Hemoglobin A1c AST 66 H ALT 127 H Albumin Albumin/Globulin Ratio 06/30/24 06/30/24 07/01/24 16:48 19:52 03:54 WBC RBC Hgb Hct MCHC Neutrophils # Lymphocytes # Monocytes # Eosinophils # PT INR Anion Gap BUN Creatinine Est GFR (CKD-EPI) BUN/Creatinine Ratio Glucose POC Glucose (mg/dL) 173 H 413 H Hemoglobin A1c 6.8 H AST ALT Albumin Albumin/Globulin Ratio 07/01/24 07/01/24 07/01/24 03:54 03:54 06:38 WBC RBC 3.75 L Hgb 10.9 L Hct 34.6 L MCHC 31.5 L Neutrophils # Lymphocytes # 0.44 L Monocytes # 0.11 L Eosinophils # 0 L PT INR Anion Gap 13.10 H BUN 41.9 H Creatinine Est GFR (CKD-EPI) 49 L BUN/Creatinine Ratio 27.93 H Glucose 188 H POC Glucose (mg/dL) 211 H Hemoglobin A1c AST ALT 96 H Albumin 3.7 L Albumin/Globulin Ratio 1.12 L 07/01/24 11:32 WBC RBC Hgb Hct MCHC Neutrophils # Lymphocytes # Monocytes # Eosinophils # PT INR Anion Gap BUN Creatinine Est GFR (CKD-EPI) BUN/Creatinine Ratio Glucose POC Glucose (mg/dL) 279 H Hemoglobin A1c AST ALT Albumin Albumin/Globulin Ratio - Diagnostic Findings Chest x-ray: image reviewed CT scan - chest: image reviewed Assessment and Plan Assessment: Acute on chronic hypoxemic respiratory failure secondary to suspected acute exacerbation of systolic congestive heart failure, proBNP 6150. Procalcitonin negative at 0.20 Chronic hypoxemic respiratory failure secondary to interstitial lung disease Ischemic cardiomyopathy with previous echocardiogram of 2022 and ejection fracti on of 45% Atrial fibrillation, anticoagulated with Eliquis AICD placement Coronary disease with previous stent placement History of anxiety/depression Former smoker Hyperlipidemia Diabetes mellitus Plan: The patient was seen and evaluated Imaging, labs and medications reviewed Procalcitonin negative Discontinue antibiotics Continue IV Solu-Medrol Continue DuoNeb inhalations Continue diuretics Anticoagulated with Eliquis Titrate the FiO2 as tolerated We will continue to follow and make further recommendations based on his clinical status I have personally seen and examined the patient, performed the documentation and the assessment and plan as written. Number of minutes spent on the visit: 20 Dictation was produced using [employer] dictation software. Please excuse any grammatical, word or spelling errors.
--- NOTE | 2024-07-01 12:21 | P.CRDCN ---
History of Present Illness Consult date: 07/01/24 Reason for Consult (text): BO History of present illness: This is a 74-year-old male patient of Dr. Gould with past medical history of coronary artery disease with cardiac arrest in April 2021 with resultant cardiomyopathy, V. tach s/p AICD placement, coronary artery disease status post PCI of the LAD with residual PATIENT COMPANION of the circumflex and RCA, hyperlipidemia, persistent atrial fibrillation, diabetes mellitus type 2, ischemic cardi omyopathy with EF of 35%, long COVID, home oxygen which he uses as needed. We have been asked to evaluate the patient for difficulty breathing. Patient states that he developed shortness of breath, no edema. He was recently taken off Aldactone by his c application developer because of kidney results. Blood pressure 142/74, heart rate 66, pulse ox 94% on 2 L nasal cannula. Patient is been afebrile. Patient is status post 1 dose of IV Lasix 40 mg. -EKG: Sinus bradycardia with first-degree AV block nonspecific changes. -Chest x-ray: Diffuse interstitial process either chronic or acute. -CT chest: No acute abnormality in the chest. Chronic interstitial lung disease with probable UIP pattern. Cardiomegaly and coronary artery calcifications. -Laboratory studies: WBC 7.5, hemoglobin 10.9, platelet count 205. Electrolytes are normal, BUN 41 creatinine 1.5. Cepheid viral panel negative. Troponin negative x 1. proBNP 6150. -Home cardiac medications: Amiodarone 100 mg daily, Eliquis 5 mg twice daily, atorvastatin 80 mg at bedtime, Bumex 0.5 mg daily, Coreg 12.5 mg twice daily, Farxiga 5 mg daily, Zetia 10 mg at bedtime. -Lexiscan stress test performed 09/2019 revealed reversible inferior and inferior lateral perfusion defect consistent with PATIENT COMPANION of the circumflex and RCA. No other inducible ischemia with EF closer to 55%. -Cardiac catheterization in 2020 revealed triple-vessel disease including 100% RCA, circumflex and LAD stenosis. LAD was thought to be culprit lesion and he underwent PCI on 04/2021. Review Of Systems: At the time of my exam: CONSTITUTIONAL: Denies fever or chills. HEENT: Denies blurred vision, vision changes, or eye pain. Denies hemoptysis CARDIOVASCULAR: Denies chest pain. Denies orthopnea. Denies PND. Denies palpitations RESPIRATORY: Reports shortness of breath. GASTROINTESTINAL: Denies abdominal pain. Denies nausea or vomiting. HEMATOLOGIC: Denies bleeding disorders. GENITOURINARY: Denies any blood in urine. SKIN: Denies puritis. Denies rash. Physical examination: Gen: This is a 74-year-old male in no acute distress VS: reviewed HEENT: Head is atraumatic, normocephalic. Pupils equal, round. Sclerae is anicteric. NECK: Supple. No JVD. LUNGS: Bilateral crackles. No intercostal retractions. HEART: Regular rate and rhythm. No murmur. ABDOMEN: Soft No tenderness. EXTREMITIES: No pedal edema. No calf tenderness. NEUROLOGICAL: Patient is awake, alert and oriented x3. Assessment: Acute hypoxic respiratory failure secondary to interstitial lung disease exacerbation with possible component of mild acute on chronic diastolic heart failure Acute kidney injury with chronic kidney disease Coronary artery disease status post PCI of the LAD and residual PATIENT COMPANION of the circumflex and RCA Cardiac arrest in April 2021 with resultant cardiomyopathy V. tach s/p AICD placement Hyperlipidemia Persistent atrial fibrillation currently in sinus rhythm Diabetes mellitus type 2 Ischemic cardiomyopathy with EF of 35% Long COVID Home oxygen which he uses as needed. Plan: Resume patient's home cardiac medications with the following changes Increase Bumex to 1 mg daily oral Aldactone was recently discontinued by c application developer due to worsening renal function Cautious use of diuretics Obtain 2-D echocardiogram and Doppler study to assess cardiac structure and function Further recommendations to follow based upon clinical course Thank you kindly for this consultation. Nurse practitioner note has been reviewed, I agree with documented findings and plan of care. Patient was seen and examined. Past Medical History Past Medical History: Heart Failure, Hypertension, Myocardial Infarction ([place]), Renal Disease Additional Past Medical History / Comment(s): PRE DIABETIC Last Myocardial Infarction Date:: 04/19/21 History of Any Multi-Drug Resistant Organisms: None Reported Past Surgical History: AICD, Back Surgery, Heart Catheterization With Stent, Pacemaker, Tonsillectomy Additional Past Surgical History / Comment(s): unk Past Anesthesia/Blood Transfusion Reactions: No Reported Reaction Date of Last Stent Placement:: APR 2021 Type of Cardiac Device: Permanent Pacemaker, AICD Device Placement Date:: APR 2021 Past Psychological History: Anxiety, Depression Smoking Status: Former smoker Past Alcohol Use History: None Reported Past Drug Use History: None Reported - Past Family History Brother(s) Family Medical History: Coronary Artery Disease (CAD), Hyperlipidemia, Hypertension Father Family Medical History: Dementia Sister(s) Family Medical History: Cancer Additional Family Medical History / Comment(s): breast Medications and Allergies Home Medications Medication Instructions Recorded Confirmed Type ALPRAZolam [Xanax] 0.25 mg PO HS 04/19/21 06/30/24 History Escitalopram [Lexapro] 30 mg PO HS 04/19/21 06/30/24 History QUEtiapine [SEROquel] 50 mg PO HS 04/19/21 06/30/24 History busPIRone HCl [Buspar] 10 mg PO BID 04/19/21 06/30/24 History Atorvastatin [Lipitor] 80 mg PO HS #30 tab 04/27/21 06/30/24 Rx Apixaban [Eliquis] 5 mg PO BID #60 tab 08/01/21 06/30/24 Rx Amiodarone [Cordarone] 100 mg PO DAILY 08/11/23 06/30/24 History Biotin 5 mg PO DAILY 08/11/23 06/30/24 History Ezetimibe [Zetia] 10 mg PO HS 08/11/23 06/30/24 History Multivitamins, Thera [Multivitamin 1 tab PO DAILY 08/11/23 06/30/24 History (formulary)] Selenium 50 mcg PO DAILY 08/11/23 06/30/24 History Ubidecarenone [Co Q-10] 300 mg PO DAILY 08/11/23 06/30/24 History carvediloL [Coreg] 12.5 mg PO BID 08/11/23 06/30/24 History Dapagliflozin Propanediol [Farxiga] 5 mg PO DAILY #30 tab 08/14/23 06/30/24 Rx Bumetanide [BUMEX] 0.5 mg PO DAILY 06/30/24 06/30/24 History metFORMIN HCL [Glucophage] 500 mg PO BID 06/30/24 06/30/24 History Allergies Allergy/AdvReac Type Severity Reaction Status Date / Time bee venom protein (honey bee) Allergy Swelling @ Verified 06/30/24 11:25 sting site Physical Exam Vitals: Vital Signs Temp Pulse Pulse Resp BP BP Pulse Ox 07/01/24 10:18 68 07/01/24 07:10 98.3 F 66 18 142/74 94 L 07/01/24 00:17 97.5 F L 57 L 16 149/68 95 06/30/24 20:11 97.9 F 55 L 15 125/72 94 L 06/30/24 16:37 64 06/30/24 16:26 64 06/30/24 15:30 98.1 F 57 L 18 129/67 95 06/30/24 14:32 60 18 150/76 96 06/30/24 13:45 60 20 157/74 95 06/30/24 11:32 57 L 18 147/74 94 L 06/30/24 11:31 68 06/30/24 11:22 64 Intake and Output 06/30/24 07/01/24 07/01/24 22:59 06:59 14:59 Intake Total 1620 Balance 1620 Intake: Oral 1620 Other: Voiding Method Toilet Toilet # Voids 2 3 Weight 78.6 kg Results 07/01/24 03:54 07/01/24 03:54 Cardiac Enzymes 07/01/24 Range/Units 03:54 AST 32 (14-35) U/L CBC 07/01/24 Range/Units 03:54 WBC 7.58 (4.50-10.00) X 10*3/uL RBC 3.75 L (4.40-5.60) X 10*6/uL Hgb 10.9 L (13.0-17.0) g/dL Hct 34.6 L (39.6-50.0) % Plt Count 205 (140-440) X 10*3/uL Comprehensive Metabolic Panel 07/01/24 Range/Units 03:54 Sodium 138 (135-145) mmol/L Potassium 4.1 (3.5-5.5) mmol/L Chloride 102 (96-109) mmol/L Carbon Dioxide 22.9 (21.6-31.8) mmol/L BUN 41.9 H (9.0-27.0) mg/dL Creatinine 1.5 (0.6-1.5) mg/dL Glucose 188 H (70-110) mg/dL Calcium 9.0 (8.7-10.3) mg/dL AST 32 (14-35) U/L ALT 96 H (10-49) U/L Alkaline Phosphatase 77 (41-126) U/L Total Protein 7.0 (6.2-8.2) g/dL Albumin 3.7 L (3.8-4.9) g/dL Current Medications Generic Name Dose Route Start Last Admin Trade Name Freq PRN Reason Stop Dose Admin Acetaminophen 650 mg 06/30/24 10:52 Acetaminophen Tab 325 Mg Tab PO Q4HR PRN Mild Pain or Fever > 100.5 Albuterol/Ipratropium 3 ml 06/30/24 12:00 07/01/24 10:18 Ipratropium-Albuterol 3 Ml Neb INHALATION 3 ml RT-QID KIKI Administration Albuterol/Ipratropium 3 ml 06/30/24 10:52 Ipratropium-Albuterol 3 Ml Neb INHALATION RT-Q2H PRN Shortness Of Breath Or Wheezing Alprazolam 0.25 mg 06/30/24 21:00 06/30/24 21:18 Alprazolam 0.25 Mg Tab PO 0.25 mg HS KIKI Administration Apixaban 5 mg 06/30/24 21:00 07/01/24 09:07 Apixaban 5 Mg Tab PO 5 mg BID KIKI Administration Protocol Aspirin 81 mg 07/01/24 09:00 06/30/24 19:08 Aspirin 81 Mg PO Not Given DAILY KIKI Atorvastatin Calcium 80 mg 06/30/24 21:00 06/30/24 21:18 Atorvastatin 80 Mg Tab PO 80 mg HS KIKI Administration Bumetanide 0.5 mg 07/01/24 09:00 07/01/24 09:07 Bumetanide 0.5 Mg Tablet PO 0.5 mg DAILY KIIK Administration Buspirone HCl 10 mg 06/30/24 21:00 07/01/24 09:08 Buspirone Hcl 10 Mg Tab PO 10 mg BID KIKI Administration Carvedilol 12.5 mg 06/30/24 21:00 07/01/24 09:08 Carvedilol 12.5 Mg Tab PO 12.5 mg BID KIKI Administration Dapagliflozin 5 mg 07/01/24 09:00 07/01/24 09:08 Dapagliflozin Propanediol 5 Mg Tablet PO 5 mg DAILY KIKI Administration Dextrose/Water 25 ml 06/30/24 13:21 Dextrose 50% Syringe 50 Ml IVP PER PROTOCOL PRN Hypoglycemia Protocol Dextrose/Water 50 ml 06/30/24 13:21 Dextrose 50% Syringe 50 Ml IVP PER PROTOCOL PRN Hypoglycemia Protocol Ezetimibe 10 mg 06/30/24 21:00 06/30/24 21:18 Ezetimibe 10 Mg Tab PO 10 mg HS KIKI Administration Escitalopram Oxalate 30 mg 06/30/24 21:00 06/30/24 21:49 Escitalopram 10 Mg Tab PO 30 mg HS KIKI Administration Ceftriaxone Sodium 2 gm/ 50 mls @ 100 mls/hr 06/30/24 15:15 07/01/24 09:07 Sodium Chloride IVPB 100 mls/hr Q24HR KIKI Administration Protocol Azithromycin 500 mg/ Sodium 250 mls @ 250 mls/hr 06/30/24 15:15 06/30/24 17:02 Chloride IVPB 07/02/24 09:59 250 mls/hr DAILY KIKI Administration Protocol Insulin Aspart 0 unit 06/30/24 17:30 07/01/24 06:38 Insulin Aspart (Novolog) 100 Unit/Ml Vial SQ 4 unit ACHS KIKI Administration Protocol Methylprednisolone Sodium Succinate 60 mg 06/30/24 18:00 07/01/24 06:36 Methylprednisolone Sod Succi 125 Mg/2 Ml Vial IV 60 mg Q6HR KIKI Administration Multivitamins 1 each 07/01/24 09:00 07/01/24 09:08 Multivitamins, Thera 1 Each Tab PO 1 each DAILY KIKI Administration Naloxone HCl 0.2 mg 06/30/24 10:52 Naloxone 0.4 Mg/Ml 1 Ml Vial IVP Q2M PRN Opioid Reversal Pantoprazole Sodium 40 mg 06/30/24 14:00 07/01/24 06:36 Pantoprazole 40 Mg Tablet PO 40 mg [id number] KIKI Administration Quetiapine Fumarate 50 mg 06/30/24 21:00 06/30/24 21:49 Quetiapine 50 Mg Tab PO 50 mg HS KIKI Administration Intake and Output 06/30/24 07/01/24 07/01/24 22:59 06:59 14:59 Intake Total 1620 Balance 1620 Intake: Oral 1620 Other: Voiding Method Toilet Toilet # Voids 2 3 Weight 78.6 kg 07/01/24 03:54 07/01/24 03:54
--- NOTE | 2024-07-01 15:25 | P.PN ---
Subjective Progress Note Date: 07/01/24 No new complaints today. Dyspnea improved. Ongoing diuretic. Abx discontinued. Gen: In NAD, non-toxic HEENT: normocephalic, atraumatic, hearing acuity is intant, mucous membranes moist CVS: perfusing all extremities well, no pitting edema, Respiratory: symmetric chest expansion, no accessory muscle use, crackles in the bases GI: soft, NTTP, ND, : no suprapubic tenderness, no CVA tenderness MSK/Derm: no rashes, cyanosis Neuro: CN II-XII intact, no motor weakness, Psych: cooperative, euthymic mood, judgment and insight is intact Hospital Course: Patient is a 74-year-old man with heart failure, hypertension, history of HI with stent placement and permanent AICD, and renal disease who presents with progressive shortness of breath. ER FINDINGS: Labs significant for WBC 12.0, hemoglobin 11.9, PT 15.1, INR 1.4, sodium 138, potassium 4.7, bicarb 26, BUN 44, creatinine 1.5, glucose 192, AST 66, ALT 127, troponin negative, proBNP is 6150, negative viral respiratory panel EKG independently interpreted showed sinus bradycardia heart rate of 56, first- degree AV block, no ST segment elevation or depression seen, with preventricular complexes noted. Chest x-ray done independently interpreted showed diffuse stable interstitial process, chronic versus acute. Possible pulmonary edema. Pacemaker seen. Assessment and Plan: In summary, patient is a 74-year-old man with heart failure, hypertension, history of HI with stent placement and permanent AICD, and CKD who presents with progressive shortness of breath. #Acute hypoxic respiratory failure, likely due to exacerbation of underlying lung disease #Interstitial Lung Disease, Usual Interstitial Pneumonia pattern #Leukocytosis, likely to be reactive - Ct Chest ordered without contrast, personally interpreted, honeycombing is possible with areas of clear parenchyma - Continue bronchodilators DuoNeb 0.5-3mg/3ml 4 times daily and as needed - Continue Solu-medrol 60 mg IVq 6 hr Continue O2, maintain >92% saturation - Discontinued amiodarone due to pulmonary toxicity - Cefrionxone 2g, azithromycin 500 qd were both discontinued Procalcitonin 0.2 Pulmonology consulted #Chronic systolic (congestive) heart failure EF of 45%, not in exacerbation -proBNP is 6150, August 2023 was 5190 -Bumex 1 mg daily Resume home cardiac medications -cardiac monitoring Echocardiogram pending -Cardiology consulted #Chronic kidney disease, stage IIIb #Normocytic anemia -Last known GFR on October 2023 was 41, initial hospital GFR 46, at baseline -Last known creatinine on October 2023 was 1.66, initial hospital creatinine 1.50 -Continue home BuSpar, and vitamins #Transaminitis Initial AST 66, ALT 127 No symptoms at this time, correlate with amiodarone use Monitor CMP #Hyperglycemia #Diabetes mellitus, type 2 Holding oral medications Begin Accu-Cheks and low-dose sliding scale, monitor for hypoglycemia HbA1c pending Chronic Medical Conditions #Essential hypertension - Resume home carvedilol, Bumex #History of V-fib arrest s/p ICD placement continue -resume home cardiac medication #Coronary artery disease - Resume home medication #Paroxysmal A-fib #Anxiety/Depression- Resume home Xanax, BuSpar, Seroquel DVT ppx: Apixaban 5 mg twice daily Code status: Full code F: P.o. E: Replete as needed N: Heart healthy diet A: Ambulatory Anticipated discharge place: Pending clinical course Anticipated discharge time: Pending clinical course Dictation was produced using [employer] dictation software. Please excuse any gra mmatical, word or spelling errors. Objective - Vital Signs Vital signs: Vital Signs Temp 97.9 F 07/01/24 13:40 Pulse 67 07/01/24 13:40 Resp 18 07/01/24 13:40 BP 117/58 07/01/24 13:40 Pulse Ox 93 L 07/01/24 13:40 FiO2 Intake & Output 06/30/24 07/01/24 07/01/24 18:59 06:59 18:59 Intake Total 1620 Balance 1620 Weight 79.379 kg 78.6 kg Intake: Oral 1620 Other: Voiding Method Toilet Toilet # Voids 2 3 - Labs CBC & Chem 7: 07/01/24 03:54 07/01/24 03:54 Labs: Abnormal Lab Results - Last 24 Hours (Table) 06/30/24 06/30/24 07/01/24 Range/Units 16:48 19:52 03:54 RBC (4.40-5.60) X 10*6/uL Hgb (13.0-17.0) g/dL Hct (39.6-50.0) % MCHC (32.0-37.0) g/dL Lymphocytes # (0.90-5.00) X 10*3/uL Monocytes # (0.20-1.00) X 10*3/uL Eosinophils # (0.04-0.35) X 10*3/uL Anion Gap (4.00-12.00) mmol/L BUN (9.0-27.0) mg/dL Est GFR (CKD-EPI) (>=60) BUN/Creatinine Ratio (12.00-20.00) Ratio Glucose (70-110) mg/dL POC Glucose (mg/dL) 173 H 413 H (70-110) mg/dL Hemoglobin A1c 6.8 H (<=6.0) % ALT (10-49) U/L Albumin (3.8-4.9) g/dL Albumin/Globulin Ratio (1.60-3.17) Ratio 07/01/24 07/01/24 07/01/24 Range/Units 03:54 03:54 06:38 RBC 3.75 L (4.40-5.60) X 10*6/uL Hgb 10.9 L (13.0-17.0) g/dL Hct 34.6 L (39.6-50.0) % MCHC 31.5 L (32.0-37.0) g/dL Lymphocytes # 0.44 L (0.90-5.00) X 10*3/uL Monocytes # 0.11 L (0.20-1.00) X 10*3/uL Eosinophils # 0 L (0.04-0.35) X 10*3/uL Anion Gap 13.10 H (4.00-12.00) mmol/L BUN 41.9 H (9.0-27.0) mg/dL Est GFR (CKD-EPI) 49 L (>=60) BUN/Creatinine Ratio 27.93 H (12.00-20.00) Ratio Glucose 188 H (70-110) mg/dL POC Glucose (mg/dL) 211 H (70-110) mg/dL Hemoglobin A1c (<=6.0) % ALT 96 H (10-49) U/L Albumin 3.7 L (3.8-4.9) g/dL Albumin/Globulin Ratio 1.12 L (1.60-3.17) Ratio // Range/Units 11:32 RBC (4.40-5.60) X 10*6/uL Hgb (13.0-17.0) g/dL Hct (39.6-50.0) % MCHC (32.0-37.0) g/dL Lymphocytes # (0.90-5.00) X 10*3/uL Monocytes # (0.20-1.00) X 10*3/uL Eosinophils # (0.04-0.35) X 10*3/uL Anion Gap (4.00-12.00) mmol/L BUN (9.0-27.0) mg/dL Est GFR (CKD-EPI) (>=60) BUN/Creatinine Ratio (12.00-20.00) Ratio Glucose (70-110) mg/dL POC Glucose (mg/dL) 279 H (70-110) mg/dL Hemoglobin A1c (<=6.0) % ALT (10-49) U/L Albumin (3.8-4.9) g/dL Albumin/Globulin Ratio (1.60-3.17) Ratio
[2024-07-01 17:12] LABS: Glucose,Whole Blood 266 mg/dL (70-110)
[2024-07-01 20:35] LABS: Glucose,Whole Blood 367 mg/dL (70-110)
[2024-07-02 06:41] LABS: Glucose,Whole Blood 216 mg/dL (70-110)
[2024-07-02 07:27] VITALS: RESP 18
[2024-07-02] MEDS: BUMETANIDE 1 MG TAB PO SCH (08:00)
[2024-07-02] MEDS: ALPRAZolam 0.25 MG TAB PO STA (08:06)
[2024-07-02 08:43] LABS: BUN/Creat Ratio 28.86 Ratio (12.00-20.00); Blood Urea Nitrogen 40.4 mg/dL (9.0-27.0); Chloride 102 mmol/L (96-109); Glucose 204 mg/dL (70-110); Potassium 4.4 mmol/L (3.5-5.5); Sodium 137 mmol/L (135-145)
[2024-07-02 08:44] LABS: ALT 78 U/L (10-49); AST 23 U/L (14-35); Albumin 3.6 g/dL (3.8-4.9); Albumin/Globulin Ratio 1.12 Ratio (1.60-3.17); Alkaline Phosphatase 72 U/L (41-126); Calcium 8.8 mg/dL (8.7-10.3); Carbon Dioxide 23.4 mmol/L (21.6-31.8); Globulin 3.2 g/dL (1.6-3.3); Total Bilirubin 0.3 mg/dL (0.3-1.2); Total Protein 6.8 g/dL (6.2-8.2)
[2024-07-02 10:05] LABS: Basophils # (A) 0.01 X 10*3/uL (0.00-0.10); Basophils % (A) 0.1 %; Eosinophils # (A) 0 X 10*3/uL (0.04-0.35); Eosinophils % (A) 0 %; HCT 33.9 % (39.6-50.0); Lymphocytes # (A) 0.45 X 10*3/uL (0.90-5.00); Lymphocytes % (A) 3.3 %; MCH 29.6 pg (27.0-32.0); MCHC 32.4 g/dL (32.0-37.0); MCV 91.1 FL (80.0-97.0); Monocytes # (A) 0.29 X 10*3/uL (0.20-1.00); Monocytes % (A) 2.2 %; NRBC Per 100 WBC 0 X 10*3/uL (0.00-0.01); Neutrophils # (A) 12.64 X 10*3/uL (1.80-7.70); Neutrophils % (A) 93.9 %; Platelet Count 216 X 10*3/uL (140-440); RBC 3.72 X 10*6/uL (4.40-5.60); RDW 13.8 % (11.5-14.5); WBC 13.46 X 10*3/uL (4.50-10.00)
--- NOTE | 2024-07-02 11:30 | XR ---
EXAMINATION TYPE: XR chest 1V portable DATE OF EXAM: 07/02/2024 11:04 AM COMPARISON: 06/30/2024 CLINICAL INDICATION: Male, 74 years old with history of Increased oxygen demand, , FINDINGS: Left anterior chest wall AICD generator with right ventricular lead. Heart mildly enlarged. Medium in terstitial opacities are present throughout with slight improvement at the lower lungs. No pleural ef fusion. IMPRESSION: Mild cardiomegaly and diffuse interstitial opacities which show slight improvement. Consider intersti tial pulmonary edema versus underlying pneumonitis. [facility], Workstation: [facility], 07/02/2024 11:28 AM
[2024-07-02 11:46] LABS: Glucose,Whole Blood 323 mg/dL (70-110)
--- NOTE | 2024-07-02 12:59 | P.PN ---
Subjective This is a 74-year-old male patient of Dr. Gould with past medical history of coronary artery disease with cardiac arrest in April 2021 with resultant cardiomyopathy, V. tach s/p AICD placement, coronary artery disease status post PCI of the LAD with residual TOOL RADIAL DRILL PRESS SET UP OPERATOR of the circumflex and RCA, hyperlipidemia, persistent atrial fibrillation, diabetes mellitus type 2, ischemic cardiomyopathy with EF of 35%, long COVID, home oxygen which he uses as needed. We have been asked to evaluate the patient for difficulty breathing. Patient states that he developed shortness of breath, no edema. He was recently taken off Aldactone by his grease packer because of kidney results. Blood pressure 142/74, heart rate 66, pulse ox 94% on 2 L nasal cannula. Patient is been afebrile. Patient is status post 1 dose of IV Lasix 40 mg. -EKG: Sinus bradycardia with first-degree AV block nonspecific changes. -Chest x-ray: Diffuse interstitial process either chronic or acute. -CT chest: No acute abnormality in the chest. Chronic interstitial lung disease with probable UIP pattern. Cardiomegaly and coronary artery calcifications. -Laboratory studies: WBC 7.5, hemoglobin 10.9, platelet count 205. Electrolytes are normal, BUN 41 creatinine 1.5. Cepheid viral panel negative. Troponin negative x 1. proBNP 6150. -Home cardiac medications: Amiodarone 100 mg daily, Eliquis 5 mg twice daily, atorvastatin 80 mg at bedtime, Bumex 0.5 mg daily, Coreg 12.5 mg twice daily, Farxiga 5 mg daily, Zetia 10 mg at bedtime. -Lexiscan stress test performed 09/2019 revealed reversible inferior and inferior lateral perfusion defect consistent with TOOL RADIAL DRILL PRESS SET UP OPERATOR of the circumflex and RCA. No other inducible ischemia with EF closer to 55%. -Cardiac catheterization in 2020 revealed triple-vessel disease including 100% RCA, circumflex and LAD stenosis. LAD was thought to be culprit lesion and he underwent PCI on 04/2021. 07/02/2024 Pt seen and examined sitting up in bed with family at the bedside doing a breathing treatment. Weight is down 2 kg. Laboratory data reviewed, sodium 137, potassium 4.4, creatinine 1.4. He had a dizzy episode this morning when he was walking over to try and get dressed he got lightheaded and had to lower himself to the ground. Nursing obtained orthostatic blood pressures which were positive of a 40 point drop from supine to standing. Telemetry tracings unremarkable. He is maintaining sinus rhythm. Physical examination: Gen: This is a 74-year-old male in no acute distress HEENT: Head is atraumatic, normocephalic. Pupils equal, round. Sclerae is anicteric. NECK: Supple. No JVD. LUNGS: Bilateral crackles. No intercostal retractions. HEART: Regular rate and rhythm. No murmur. ABDOMEN: Soft No tenderness. EXTREMITIES: No pedal edema. No calf tenderness. NEUROLOGICAL: Patient is awake, alert and oriented x3. Assessment: Acute hypoxic respiratory failure secondary to interstitial lung disease exacerbation with possible component of mild acute on chronic diastolic heart failure Leukocytosis Acute kidney injury with chronic kidney disease, renal function stable Coronary artery disease status post PCI of the LAD and residual TOOL RADIAL DRILL PRESS SET UP OPERATOR of the circumflex and RCA Cardiac arrest in April 2021 with resultant cardiomyopathy V. tach s/p AICD placement Hyperlipidemia Persistent atrial fibrillation currently in sinus rhythm Diabetes mellitus type 2 Ischemic cardiomyopathy with EF of 35% Long COVID Home oxygen which he uses as needed. Plan: Echocardiogram pending. Once resulted he can be discharged to follow up with Dr. Gould. Decrease bumex back to home dose of 0.5 mg daily and his will hold his am dose tomorrow until noontime. Nurse practitioner note has been reviewed, I agree with documented findings and plan of care. Patient was seen and examined. Objective - Vital Signs Vital signs: Vital Signs Temp 97.5 F L 07/02/24 07:26 Pulse 72 07/02/24 08:07 Resp 18 07/02/24 07:26 BP 178/80 07/02/24 07:26 Pulse Ox 94 L 07/02/24 07:26 FiO2 Intake & Output 07/01/24 07/02/24 07/02/24 18:59 06:59 18:59 Intake Total 2700 Balance 2700 Weight 76.5 kg Intake: Oral 2700 Other: Voiding Method Toilet Toilet # Voids 8 7 - Labs CBC & Chem 7: 07/02/24 04:03 07/02/24 04:03 Labs: Abnormal Lab Results - Last 24 Hours (Table) 07/01/24 07/01/24 07/01/24 Range/Units 11:32 17:11 20:33 WBC (4.50-10.00) X 10*3/uL RBC (4.40-5.60) X 10*6/uL Hgb (13.0-17.0) g/dL Hct (39.6-50.0) % Immature Gran # (0.00-0.04) X 10*3/uL Neutrophils # (1.80-7.70) X 10*3/uL Lymphocytes # (0.90-5.00) X 10*3/uL Eosinophils # (0.04-0.35) X 10*3/uL BUN (9.0-27.0) mg/dL Est GFR (CKD-EPI) (>=60) BUN/Creatinine Ratio (12.00-20.00) Ratio Glucose (70-110) mg/dL POC Glucose (mg/dL) 279 H 266 H 367 H (70-110) mg/dL ALT (10-49) U/L Albumin (3.8-4.9) g/dL Albumin/Globulin Ratio (1.60-3.17) Ratio 07/02/24 07/02/24 07/02/24 Range/Units 04:03 04:03 06:40 WBC 13.46 H (4.50-10.00) X 10*3/uL RBC 3.72 L (4.40-5.60) X 10*6/uL Hgb 11.0 L (13.0-17.0) g/dL Hct 33.9 L (39.6-50.0) % Immature Gran # 0.07 H (0.00-0.04) X 10*3/uL Neutrophils # 12.64 H (1.80-7.70) X 10*3/uL Lymphocytes # 0.45 L (0.90-5.00) X 10*3/uL Eosinophils # 0 L (0.04-0.35) X 10*3/uL BUN 40.4 H (9.0-27.0) mg/dL Est GFR (CKD-EPI) 53 L (>=60) BUN/Creatinine Ratio 28.86 H (12.00-20.00) Ratio Glucose 204 H (70-110) mg/dL POC Glucose (mg/dL) 216 H (70-110) mg/dL ALT 78 H (10-49) U/L Albumin 3.6 L (3.8-4.9) g/dL Albumin/Globulin Ratio 1.12 L (1.60-3.17) Ratio
--- NOTE | 2024-07-02 13:01 | CA ---
Transthoracic Echo Report Name: Jd Aldrich Age: 74 Gender: M : 1950 Exam Date: 07/02/2024 09:57 Exam Location: [facility] Ht (in): 70 Wt (lb): 175 Ordering Physician: Tito Cyr DO Attending/Referring Phys: Educational Technician Martha Watts RDCS Procedure CPT: Indications: dyspnea Cardiac Hx: AICD, 5 STENTS Technical Quality: Good Contrast 1: Total Dose (mL): Contrast 2: Total Dose (mL): MEASUREMENTS (Male / Female) Normal Values 2D ECHO LV Diastolic Diameter PLAX 5.3 cm 4.2 - 5.9 / 3.9 - 5.3 cm LV Systolic Diameter PLAX 3.7 cm IVS Diastolic Thickness 1.3 cm 0.6 - 1.0 / 0.6 - 0.9 cm LVPW Diastolic Thickness 1.1 cm 0.6 - 1.0 / 0.6 - 0.9 cm LV Relative Wall Thickness 0.4 RV Internal Dim ED PLAX 3.2 cm LA Systolic Diameter LX 3.9 cm 3.0 - 4.0 / 2.7 - 3.8 cm LV Diastolic Volume MOD 4C 134.2 cm??? LV Systolic Volume MOD 4C 74.9 cm??? LV Ejection Fraction MOD 4C 44.2 % LV Cardiac Index MOD 4C 1699.3 cm???/min???m??? LV Diastolic Length 4C 8.9 cm LV Systolic Length 4C 7.3 cm LV Diastolic Volume MOD 2C 122.5 cm??? LV Systolic Volume MOD 2C 54.1 cm??? LV Ejection Fraction MOD 2C 55.8 % LV Cardiac Index MOD 2C 1960.5 cm???/min???m??? LV Diastolic Length 2C 9.5 cm LV Systolic Length 2C 7.5 cm LA Volume 85.6 cm??? 18 - 58 / 22 - 52 cm??? LA Volume Index 43.0 cm???/m??? 16 - 28 cm???/m??? M-MODE Aortic Root Diameter MM 3.6 cm AV Cusp Separation MM 2.3 cm DOPPLER AV Peak Velocity 134.4 cm/s AV Peak Gradient 7.2 mmHg MV Area PHT 4.0 cm??? Mitral E Point Velocity 98.4 cm/s Mitral A Point Velocity 72.7 cm/s Mitral E to A Ratio 1.4 MV Deceleration Time 190.3 ms TR Peak Velocity 315.0 cm/s TR Peak Gradient 39.7 mmHg Right Ventricular Systolic Press 53.5 mmHg FINDINGS Left Ventricle Left ventricular ejection fraction is estimated at 40-45 %. Left ventricular cavity size normal. Mildly increased septal wall thickness. Right Ventricle Normal right ventricular size. Moderate pulmonary hypertension. Right ventricular systolic pressure estimated at 54 mm hg. Right Atrium Mild right atrial dilatation. No right atrial thrombus or mass seen. Left Atrium Severely increased left atrial volume. Mildly increased left atrial area. No left atrial thrombus or mass present. Mitral Valve Mitral valve thickened. Mild mitral regurgitation. Aortic Valve Trileaflet aortic valve. Thickened aortic valve without stenosis. Tricuspid Valve Structurally normal tricuspid valve. Mild tricuspid regurgitation. Pulmonic Valve Structurally normal pulmonic valve. No pulmonic regurgitation. Pericardium No pericardial effusion. Aorta Normal size aortic root and proximal ascending aorta. CONCLUSIONS LV systolic function is fairly well-preserved it is about 45% without wall motion abnormality. Mild mitral and tricuspid regurgitation. Moderate pulmonary hypertension. No pericardial effusion Previewed by: Dr. Gwen Hernandez MD (Electronically Signed) Final Date: 02 July 2024 13:00
[2024-07-02 14:27] VITALS: BP 123/64; TEMP 97.3
[2024-07-02 15:07] VITALS: PULSE 80
--- NOTE | 2024-07-02 15:25 | P.PN ---
Subjective Progress Note Date: 07/02/24 On 07/02/2024, the patient is being seen for a follow-up. The patient is known to have pulmonary fibrosis and the patient was hospitalized for worsening shortness of breath, acute kidney injury and hyperkalemia. Noted the patient was taken off the Aldactone and the creatinine is currently down to 1.4 and a potassium level is also normalized. He did become orthostatic and based on that, the patient was reduced to a Bumex dose of 0.5 mg on a daily basis. Remains on Coreg 12.5 mg p.o. twice a day. Remains on anticoagulation with Eliquis 5 mg p.o. daily. The white cell count is at 13.4 with hemoglobin of 11 and a platelet count of 260. BUN is 40 with a creatinine of 1.4 and a sodium level at 137 and a potassium level is at 4.4. The echocardiogram was done and the patient had impairment of the LV function and there is a mild drop in LV function with an ejection fraction of 45% and moderate degree of pulm hypertension. He is currently on oxygen at 2 L with a pulse ox of 96%. Objective - Vital Signs Vital signs: Vital Signs Temp 97.5 F L 07/02/24 07:26 Pulse 80 07/02/24 11:40 Resp 18 07/02/24 07:26 BP 151/77 07/02/24 11:34 Pulse Ox 94 L 07/02/24 07:26 FiO2 Intake & Output 07/01/24 07/02/24 07/02/24 18:59 06:59 18:59 Intake Total 2700 Balance 2700 Weight 76.5 kg Intake: Oral 2700 Other: Voiding Method Toilet Toilet # Voids 8 7 - Exam GENERAL EXAM: Alert, pleasant 74-year-old male, on 2 L nasal cannula,, c omfortable in no apparent distress. HEAD: Normocephalic. EYES: Normal reaction of pupils, equal size. NOSE: Clear with pink turbinates. THROAT: No erythema or exudates. NECK: No masses, no JVD. CHEST: No chest wall deformity. LUNGS: Equal air entry with Velcro crackles in the bilateral bases. CVS: S1 and S2 normal with no audible murmur, regular rhythm. ABDOMEN: No hepatosplenomegaly, normal bowel sounds, no guarding or rigidity. SPINE: No scoliosis or deformity SKIN: No rashes CENTRAL NERVOUS SYSTEM: No focal deficits, tone is normal in all 4 extremities. EXTREMITIES: There is no peripheral edema. No clubbing, no cyanosis. Peripheral pulses are intact. - Labs CBC & Chem 7: 07/02/24 04:03 07/02/24 04:03 Labs: Abnormal Lab Results - Last 24 Hours (Table) 07/01/24 07/01/24 07/02/24 Range/Units 17:11 20:33 04:03 WBC 13.46 H (4.50-10.00) X 10*3/uL RBC 3.72 L (4.40-5.60) X 10*6/uL Hgb 11.0 L (13.0-17.0) g/dL Hct 33.9 L (39.6-50.0) % Immature Gran # 0.07 H (0.00-0.04) X 10*3/uL Neutrophils # 12.64 H (1.80-7.70) X 10*3/uL Lymphocytes # 0.45 L (0.90-5.00) X 10*3/uL Eosinophils # 0 L (0.04-0.35) X 10*3/uL BUN (9.0-27.0) mg/dL Est GFR (CKD-EPI) (>=60) BUN/Creatinine Ratio (12.00-20.00) Ratio Glucose (70-110) mg/dL POC Glucose (mg/dL) 266 H 367 H (70-110) mg/dL ALT (10-49) U/L Albumin (3.8-4.9) g/dL Albumin/Globulin Ratio (1.60-3.17) Ratio 07/02/24 07/02/24 07/02/24 Range/Units 04:03 06:40 11:44 WBC (4.50-10.00) X 10*3/uL RBC (4.40-5.60) X 10*6/uL Hgb (13.0-17.0) g/dL Hct (39.6-50.0) % Immature Gran # (0.00-0.04) X 10*3/uL Neutrophils # (1.80-7.70) X 10*3/uL Lymphocytes # (0.90-5.00) X 10*3/uL Eosinophils # (0.04-0.35) X 10*3/uL BUN 40.4 H (9.0-27.0) mg/dL Est GFR (CKD-EPI) 53 L (>=60) BUN/Creatinine Ratio 28.86 H (12.00-20.00) Ratio Glucose 204 H (70-110) mg/dL POC Glucose (mg/dL) 216 H 323 H (70-110) mg/dL ALT 78 H (10-49) U/L Albumin 3.6 L (3.8-4.9) g/dL Albumin/Globulin Ratio 1.12 L (1.60-3.17) Ratio Assessment and Plan Plan: Acute on chronic hypoxemic respiratory failure secondary to suspected acute exacerbation of systolic congestive heart failure, proBNP 6150. Procalcitonin negative at 0.20 Chronic hypoxemic respiratory failure secondary to interstitial lung disease/IPF Ischemic cardiomyopathy with previous echocardiogram of 2022 and ejection fraction of 45% Atrial fibrillation, anticoagulated with Eliquis AICD placement Coronary disease with previous stent placement History of anxiety/depression Former smoker Hyperlipidemia Diabetes mellitus Acute on top of chronic kidney injury, improved and the creatinine is down to 1.4 Acute hyperkalemia related to Aldactone, improved Plan: The patient is clinically stable on 2 L of oxygen by nasal cannula Procalcitonin negative Discontinue antibiotics Discontinue IV Solu-Medrol Continue DuoNeb inhalations Continue diuretics and dropped to Bumex dose to 0.5 mg p.o. daily Anticoagulated with Eliquis Titrate the FiO2 as tolerated We will continue to follow and make further recommendations based on his clinical status
[2024-07-02 16:37] LABS: Glucose,Whole Blood 353 mg/dL (70-110)
--- NOTE | 2024-07-02 17:19 | P.DS ---
Providers Date of admission: 06/30/24 10:52 Discharge diagnoses; #Acute hypoxic respiratory failure, likely due to exacerbation of underlying lung disease #Interstitial Lung Disease, Usual Interstitial Pneumonia pattern #Leukocytosis, likely to be reactive #Chronic systolic (congestive) heart failure EF of 45%, not in exacerbation #Chronic kidney disease, stage IIIb #Normocytic anemia #Transaminitis #Hyperglycemia #Diabetes mellitus, type 2 Chronic Medical Conditions #Essential hypertension - Resume home carvedilol, Bumex #History of V-fib arrest s/p ICD placement continue -resume home cardiac medication #Coronary artery disease - Resume home medication #Paroxysmal A-fib #Anxiety/Depression- Resume home Xanax, BuSpar, [facility] course; 72-year-old man with PMH of heart failure, hypertension, history of myocardial infarction with stent placement and permanent AICD, and chronic kidney disease who presented with progressive shortness of breath. He had improvement in his dyspnea, with ongoing diuresis. He was seen by cardiology and pulmonology. Cardiology performed echocardiogram which showed left ventricular systolic function was fairly well-preserved ~45% without any wall motion abnormalities. From cardiology and pulmonology standpoint he was cleared for discharge. He has been instructed to change positions slowly, and maintain continued use of his oxygen while at home. PHYSICAL EXAMINATION: GENERAL: The patient is alert and oriented x3, not in any acute distress. Well developed, well nourished. HEENT: Pupils are round and equally reacting to light. EOMI. No scleral icterus. No conjunctival pallor. Normocephalic, atraumatic. CARDIOVASCULAR: S1 and S2 present. No murmurs, rubs, or gallops. PULMONARY: Expiratory wheeze present R>L ABDOMEN: Soft, nontender, nondistended, normoactive bowel sounds. No palpable organomegaly. MUSCULOSKELETAL: No joint swelling or deformity. EXTREMITIES: No cyanosis, clubbing, or pedal edema. NEUROLOGICAL: Gross neurological examination did not reveal any focal deficits. SKIN: No rashes. Dictation was produced using [employer] dictation software. please excuse any grammatical, word or spelling errors. I saw and evaluated the patient during the barrientos and critical portions of this encounter, and discussed the case in detail with the resident author of this note, I agree with the Assessment and Plan, and my changes, if any, are highlighted in blue. Patient was asked to hold his dose of Bumex tomorrow morning and then after, should follow-up with cardiology, pulmonology. Patient may be considered for pulmonary hypertension referral to a tertiary care center. Attending physician: Celina Wharton MD Consults: 06/30/24 10:52 Consult Physician Routine Consulting Provider: Alfonso Olivas Consult Reason/Comments: gwendolyn Do you want consulting provider notified?: Yes Consult Physician Routine Consulting Provider: Guy Vann Consult Reason/Comments: gwendolyn Do you want consulting provider notified?: Yes Primary care physician: Celina Encinas Patient Condition at Discharge: Serious Plan - Discharge Summary Discharge Rx Participant: No New Discharge Prescriptions: Continue QUEtiapine [SEROquel] 50 mg PO HS ALPRAZolam [Xanax] 0.25 mg PO HS carvediloL [Coreg] 12.5 mg PO BID Multivitamins, Thera [Multivitamin (formulary)] 1 tab PO DAILY Biotin 5 mg PO DAILY Bumetanide [BUMEX] 0.5 mg PO DAILY metFORMIN HCL [Glucophage] 500 mg PO BID Escitalopram [Lexapro] 30 mg PO HS busPIRone HCl [Buspar] 10 mg PO BID Atorvastatin [Lipitor] 80 mg PO HS #30 tab Apixaban [Eliquis] 5 mg PO BID #60 tab Ezetimibe [Zetia] 10 mg PO HS Selenium 50 mcg PO DAILY Ubidecarenone [Co Q-10] 300 mg PO DAILY Dapagliflozin Propanediol [Farxiga] 5 mg PO DAILY #30 tab Discontinued Amiodarone [Cordarone] 100 mg PO DAILY Discharge Medication List ALPRAZolam [Xanax] 0.25 mg PO HS 04/19/21 [History] Escitalopram [Lexapro] 30 mg PO HS 04/19/21 [History] QUEtiapine [SEROquel] 50 mg PO HS 04/19/21 [History] busPIRone HCl [Buspar] 10 mg PO BID 04/19/21 [History] Atorvastatin [Lipitor] 80 mg PO HS #30 tab 04/27/21 [Rx] Apixaban [Eliquis] 5 mg PO BID #60 tab 08/01/21 [Rx] Biotin 5 mg PO DAILY 08/11/23 [History] Ezetimibe [Zetia] 10 mg PO HS 08/11/23 [History] Multivitamins, Thera [Multivitamin (formulary)] 1 tab PO DAILY 08/11/23 [History] Selenium 50 mcg PO DAILY 08/11/23 [History] Ubidecarenone [Co Q-10] 300 mg PO DAILY 08/11/23 [History] carvediloL [Coreg] 12.5 mg PO BID 08/11/23 [History] Dapagliflozin Propanediol [Farxiga] 5 mg PO DAILY #30 tab 08/14/23 [Rx] Bumetanide [BUMEX] 0.5 mg PO DAILY 06/30/24 [History] metFORMIN HCL [Glucophage] 500 mg PO BID 06/30/24 [History] Follow up Appointment(s)/Referral(s): Fernando Gould DO [STAFF PHYSICIAN] - 1 Week Celina Encinas MD [Primary Care Provider] - 1-2 days [facility], [NON-STAFF] - As Needed ([facility] will call you to schedule your in home nursing visits. ) Activity/Diet/Wound Care/Special Instructions: Follow-up with Dr. Gould outpatient in 1-2 weeks; resume home Bumex dose of 0.5 mg daily, hold off on a.m. dose tomorrow (07/03/2024). Utilize oxygen at home all of the time Activity: As tolerated. Take breaks as needed. Diet: Heart healthy and carb consistent diet. Avoid salts, or foods with hidden salts such as canned or boxed foods and frozen dinners. Extra salt makes your heart work harder and traps the fluid in your body for longer. Special Instructions: Weigh yourself every morning after you urinate. If you gain 3 pounds overnight or more than 5 pounds in one week, call your primary physician and contact center specialist for guidance on your medications or they may want to see you in their office. Keep a daily log of your weights and be sure to bring with you at follow up visits with your PCP and contact center specialist. Take all of your medications as directed, especially your water pills. NEVER skip a dose. And remember to keep all of your doctor's appointments and follow- up as needed. Elevate your legs when you are not up moving around to help with circulation and prevent swelling. Compression stockings are also a great way to improve lower extremity circulation and prevent/improve lower extremity edema. Call your primary care provider and contact center specialist if you notice any extra swelling in your legs, ankles, feet or abdomen, if you have a new dry cough, if your shortness of breath worsens with activity or at rest, or if you feel more fatigued. Thank you for allowing us to participate in your care, it was truly a pleasure having you for our patient!!! Discharge Disposition: HOME SELF-CARE
[2024-07-03] MEDS ORDERED: BUMETANIDE 0.5 MG TABLET PO SCH (09:00)
--- NOTE | 2024-07-03 13:01 | CDI ---
Documentation Clarification Form Date: 07/03/2024 12:47:00 PM From: Gracia Ribeiro Phone: Admit Date: 06/30/2024 10:52:00 AM Patient Name: Jd Aldrich Visit Number: [id number] Discharge Date: 07/02/2024 05:47:00 PM ATTENTION: The Clinical Documentation Specialists (CDI) and [facility] Coding Staff appreciate your assistance in clarifying documentation. Please respond to the clarification below the line at the bottom and electronically sign. The CDI & [facility] Coding staff will review the response and follow-up if needed. Please note: Queries are made part of the Legal Health Record. If you have any questions, please contact the author of this message via ITS. Doctor/Provider: Gwen Hernandez Your patient has the documented diagnosis of unspecified CHF in H/P note on 06/30/2024 Additional information regarding the [type, ] of CHF is requested. History/Risk Factors: patient is a 74-year-old man withheart failure,hypertension, history of MIwithstentplacementand permanentAICD, andCKDwho presents with progressiveshortness of breath. Clinical Indicators: : BNP: 6150. Echocardiogram Results:on 07/02 -Left ventricular ejection fraction is estimated at 40-45 %. Left ventricular cavitysize normal. Mildly increased septal wall thickness. H/P note on 06/30 -#Chronic systolic (congestive)heart failureEF of 45%, not in exacerbation proBNP is 6150, August 2023 was 5190 Labs significant for WBC 12. 0, hemoglobin 11. 9,PT15. 1, INR 1. 4, sodium 138, potassium 4. 7, bicarb 26, BUN 44, creatinine 1. 5, glucose 192, AST 66, ALT 127, troponin negative, proBNP is 6150,negativeviralrespiratory panel EKG independently interpreted showedsinus bradycardiaheart rate of 56, first- degreeAV block,noST segmentelevationordepressionseen, with preventricular complexes noted. Chest x-raydone independently interpreted showed diffuse stable interstitial process, chronic versus acute. Possiblepulmonary edema. Pacemaker seen. Pulmonology consult on 07/01 - Acute on chronic hypoxemic respiratory failuresecondary tosuspectedacute exacerbation of systolic congestive heart failure, proBNP 6150. Procalcitonin negative at 0. 20 Cardiology consult on 07/01 -Acute hypoxic respiratory failuresecondary tointerstitial lung disease exacerbation withpossiblecomponent of mildacute on chronic diastolic heart failure Acute kidney injurywithchronic kidney disease Pn on 07/02 -Echo reviewed, EF 40-45 with MR and TR RVSP 55. Stable for discharge as planned. Pt seen and examined sitting up in bed with family at the bedside doing a breathing treatment. Weight is down 2 kg. Laboratory data reviewed, sodium 137, potassium 4. 4, creatinine 1. 4. He had adizzyepisode this morning when he was walkingover to try and get dressed he gotlightheadedand had to lower himself to the ground. Nursing obtained orthostatic bloodpressureswhich were positive of a 40 point drop from supine to standing. Treatment: Resume patient's home cardiac medications with the following changes Increase Bumex to 1 mg daily oral In your professional opinion, can you please clarify the [acuity and type] of CHF if known? [ ] Acute Systolic Heart Failure (reduced EF) [ ] Chronic Systolic Heart Failure (reduced EF) [ ] Acute on Chronic Systolic Heart Failure (reduced EF) [ ] Acute Diastolic Heart Failure (preserved EF) [ ] Chronic Diastolic Heart Failure (preserved EF) [ ] Acute on Chronic Diastolic Heart Failure (preserved EF) [ ] Acute Systolic & Diastolic Heart Failure [ ] Chronic Systolic & Diastolic Heart Failure [ ] Acute on Chronic Heart Failure Systolic & Diastolic Heart Failure [ ] Other, please specify [ ] Unable to determine (Template Last Revised: July 2020) Acute on Chronic Systolic Heart Failure (reduced EF) MTDD
== END 2024-07-02 17:47 | disposition home or self-care (01) | DRG 291 ==
LOC: EC 09:00 → 4SSUR 10:52
PROVIDERS: ADMIT Student in an Organized Health Care Education/Training Program; ATTEND Student in an Organized Health Care Education/Training Program
DX: I13.0 Hypertensive heart and chronic kidney disease with heart failure and stage 1 through stage 4 chronic kidney disease, or unspecified chronic kidney disease (principal); I50.23 Acute on chronic systolic (congestive) heart failure; J96.21 Acute and chronic respiratory failure with hypoxia; J84.112 Idiopathic pulmonary fibrosis; D63.1 Anemia in chronic kidney disease; D72.829 Elevated white blood cell count, unspecified; E11.22 Type 2 diabetes mellitus with diabetic chronic kidney disease; F32.A Depression, unspecified; N18.32 Chronic kidney disease, stage 3b; N17.9 Acute kidney failure, unspecified; I48.19 Other persistent atrial fibrillation; E11.65 Type 2 diabetes mellitus with hyperglycemia; I25.5 Ischemic cardiomyopathy; R74.01 Elevation of levels of liver transaminase levels; I25.10 Atherosclerotic heart disease of native coronary artery without angina pectoris; E78.5 Hyperlipidemia, unspecified; F41.9 Anxiety disorder, unspecified; R00.1 Bradycardia, unspecified; I44.0 Atrioventricular block, first degree; Z95.5 Presence of coronary angioplasty implant and graft; I25.2 Old myocardial infarction; E87.5 Hyperkalemia; Z95.810 Presence of automatic (implantable) cardiac defibrillator; Z79.899 Other long term (current) drug therapy; Z79.82 Long term (current) use of aspirin; Z79.84 Long term (current) use of oral hypoglycemic drugs; Z88.8 Allergy status to other drugs, medicaments and biological substances; Z91.030 Bee allergy status; Z87.891 Personal history of nicotine dependence; Z79.01 Long term (current) use of anticoagulants; Z86.74 Personal history of sudden cardiac arrest
CPT/HCPCS: 36415; 71045; 71046; 71250; 80053; 83036; 83605; 83735; 83880; 84145; 84484; 85025; 85379; 85610; 85730; 87636; 93005; 93306; 94640; 96374; 96375; 99285

== ENCOUNTER 2024-08-10 11:47 | Day surgery (SDC) | payer BC ==
[~2024-08-10 11:47] MED LIST: NITROGLYCERIN SL TABS 0.4 MG TAB SUBLINGUAL PRN
[2024-08-10] MEDS: ATORVASTATIN 80 MG TAB PO STA (12:02)
[2024-08-10] MEDS: SODIUM CHLORIDE 0.9% 1,000 ML in EMPTY BAG 1 BAG IV SCH ×2 (12:02→18:16)
[2024-08-10] MEDS: ASPIRIN 325 MG TAB PO STA (12:02)
[2024-08-10 12:12] LABS: Glucose,Whole Blood 168 mg/dL (70-110)
[2024-08-10] MEDS: HEPARIN SODIUM,PORCINE (1 ML) 2,500 UNIT in SODIUM CHLORIDE 0.9% 250 ML IRRIGATION PRN (12:20)
[2024-08-10] MEDS: IV FLUID CONTINUATION 1,000 ML IV ONE (12:20)
[2024-08-10] MEDS: HEPARIN SODIUM,PORCINE 10,000 UNIT in SODIUM CHLORIDE 0.9% 1,000 ML IRRIGATION PRN (12:20)
[2024-08-10 12:30] LABS: Basophils % (A) 0 %; Eosinophils # (A) 0.3 k/uL (0-0.7); Eosinophils % (A) 3 %; HCT 33.4 % (39.0-53.0); HGB 10.3 gm/dL (13.0-17.5); Hypochromasia Moderate; Lymphocytes % (A) 9 %; MCH 28.7 pg (25.0-35.0); MCV 92.7 fL (80.0-100.0); Mean Platelet Volume 7.3; Monocytes # (A) 0.7 k/uL (0-1.0); Monocytes % (A) 6 %; Neutrophils # (A) 9.3 k/uL (1.3-7.7); Neutrophils % (A) 81 %; Platelet Count 296 k/uL (150-450); RDW 14.3 % (11.5-15.5); WBC 11.5 k/uL (3.8-10.6)
[2024-08-10 12:41] LABS: African American GFR (CKD) 62 (>60 ml/min/1.73 sqM); Anion Gap 12 mmol/L; Blood Urea Nitrogen 35 mg/dL (9-20); Calcium 8.9 mg/dL (8.4-10.2); Carbon Dioxide 24 mmol/L (22-30); Chloride 99 mmol/L (98-107); Glucose 166 mg/dL (74-99); Non-African American GFR(CKD) 53 (>60 ml/min/1.73 sqM); Sodium 135 mmol/L (137-145)
[2024-08-10 12:58] LABS: Potassium 4.6 mmol/L (3.5-5.1)
[2024-08-10] MEDS: fentaNYL (PF) 50 MCG/ML 2 ML AMP IVP ONE (12:58)
[2024-08-10] MEDS: MIDAZOLAM 2 MG/2 ML VIAL IVP ONE (12:58)
[2024-08-10] MEDS: LIDOCAINE 1% INJ 10MG/ML (20 ML MDV) SQ ONE (13:08)
[2024-08-10] MEDS: SODIUM CHLORIDE 0.9% 1,000 ML IV ONE (13:08)
[2024-08-10] MEDS: HEPARIN SODIUM,PORCINE 10,000 UNIT in SODIUM CHLORIDE 0.9% 1,000 ML IRRIGATION ONE (13:09)
[2024-08-10] MEDS: HEPARIN SODIUM,PORCINE (1 ML) 2,500 UNIT in SODIUM CHLORIDE 0.9% 250 ML IRRIGATION ONE (13:09)
[2024-08-10] MEDS: VERAPAMIL SYRINGE (5 MG/10 ML) INTRAARTER ONE (13:11)
[2024-08-10] MEDS: HEPARIN SODIUM 1,000 UN/ML (10ML VL) IVP ONE ×3 (13:24→13:50)
[2024-08-10] MEDS: CLOPIDOGREL 75 MG TAB PO ONE (13:46)
[2024-08-10 13:49] LABS: O2 Sat Blood Gas 52.7 %
[2024-08-10 13:51] LABS: O2 Sat Blood Gas 94.5 %
[2024-08-10 13:51] LABS: O2 Sat Blood Gas 54.1 %
[2024-08-10] MEDS: NITROGLYCERIN 1000MCG/10ML SYRINGE INTRACORON ONE ×2 (13:53→13:59)
[2024-08-10] MEDS: IOPAMIDOL-370 100ML BTL INJ ONE (14:00)
[2024-08-10] MEDS ORDERED: RX INFO: IV CONTRAST WAS GIVEN 1 EACH MISC MISCELLANE PRN (14:49)
[2024-08-10] MEDS ORDERED: MAG HYDROX/AL HYDROX/SIMETH 30 ML CUP PO PRN (14:49)
[2024-08-10] MEDS ORDERED: ZOLPIDEM 5 MG TAB PO PRN (14:49)
[2024-08-10] MEDS ORDERED: ATROPINE SULFATE 0.1 MG/ML 10ML SYRINGE IV PRN (14:49)
--- NOTE | 2024-08-10 14:49 | P.PRCINT ---
Percutaneous Coronary Int. - Percutaneous Coronary Intervention Percutaneous Coronary Intervention: PROCEDURES PERFORMED: Left and right heart catheterization, bilateral coronary angiography, ultrasound guided arterial access, iFR LAD, balloon angioplasty mid LAD with a 3.0 x 12mm NC balloon INDICATION: NYHA class 3 angina, FABIAN, CAD CONSENT:I have discussed the risks, benefits and alternative therapies for the above-mentioned procedure and for both sedation/analgesia as well as necessary blood product administration, if indicated, as they pertain to this patient. The patient has indicated understanding and acceptance of the risks and procedures discussed. PROCEDURE: After the risks, benefits and alternatives of the above mentioned procedure explained in detail with the patient, informed consent was obtained. Patient was taken to the catheterization lab and prepped and draped in usual fashion. Ultrasound guidance was used to assess for arterial access. 1% lidocaine was used to anesthetize the right radial artery and right brachial area. A 6-Nepalese sheath was placed in the right radial artery and right brachial vein using modified Seldinger technique and ultrasound guidance. Left coronary angiography was performed with a 5-Nepalese JL 3.5 catheter and right coronary angiography was performed with a 5-Nepalese FR5 catheter in various views. A 5-Nepalese FR5 catheter was inserted into the left ventricle and pressure measurements were obtained. A 6 Nepalese Andrews-Alejandra catheter was inserted into the RA, RV, PA and pulmonary capillary wedge position and pressure measurements in the oxygen saturations were obtained. This was obtained on 4 L nasal cannula. The decision was made to perform functional assessment of the LAD with some lucency of the proximal and mid LAD. Heparin was given. A 6 Nepalese CLS 3.5 guide was used to engage the left main. A 0.014 pressure wire was advanced into the proximal left main and normalized. It was then advanced 1 cm distal to the distal LAD lesion and iFR was performed with 3 separate times with iFR 0.62 with no pullback drift. There was some more focal gradient across the mid to distal LAD lesion however otherwise gradual gradient related to diffuse disease. Therefore decision made to perform balloon angioplasty. An additional 0.014 BMW wire was advanced to the distal LAD. There was some difficulty advancing the intravascular ultrasound secondary to tortuosity and diffuse disease. Reference vessel appeared approximately 3.0 mm. Balloon angioplasty was performed across the entire mid to distal LAD with a 3.0 x 12 mm noncompliant balloon. Final angiograms were performed. Preintervention there was diffuse mild 20% LAD stenosis of the stent and more focal 40 to 50% stenosis mid to distally. There was preintervention and KEENA-3 flow. Postintervention there was less than 10% stenosis with KEENA-3 flow. The right radial sheath was removed and a TR band was placed with hemostasis achieved. The patient tolerated the procedure well. Patient was transported back to the post catheterization holding area in stable condition. Conscious Sedation: Patient was monitored under the direct supervision of myself for conscious sedation using Versed and fentanyl for a total duration of 53 minutes HEMODYNAMICS: Aorta: 153/69 LV: 156/6, LVEDP 15 PCWP: 21 PA: 68/34 RV: 72/3 RA: 9 PA action saturation: 53% RA action saturation: 54% Right radial oxygen saturation: 95% Cardiac output by Beryl: 5.3 L/min Cardiac index by Beryl: 2.7 L/min/m SELECTIVE CORONARY ARTERIOGRAPHY: LEFT MAIN: The left main is a large caliber vessel which bifurcates into the LAD and circumflex. There is distal left main 30% stenosis.. LEFT ANTERIOR DESCENDING CORONARY ARTERY: LAD is a large caliber vessel which wraps around to the apex. There is proximal LAD 20% stenosis and a somewhat more hazy 30 to 40% stenosis at the level of diagonal 1 takeoff. On intravascular ultrasound this has 30 to 40% stenosis. Diagonal 1 is moderate caliber with 30% stenosis. There is patent mid to distal LAD stent with diffuse 20 to 30% stenosis. There is a more focal mid LAD 40 to 50% stenosis at the level of the band with possible myocardial bridging at this level. There are [id number] collaterals and left to left collaterals. LEFT CIRCUMFLEX CORONARY ARTERY: Left circumflex is a moderate caliber vessel with 100% stenosis of the proximal circumflex leading to 2 OM branches.. RIGHT CORONARY ARTERY: The right coronary artery is a large caliber vessel which gives off a PDA and PLV branch and is the dominant vessel. There is 100% proximal stenosis. FINAL IMPRESSION: 1. CAD as described above including 30% left main, 100% circumflex, 100% RCA stenosis. Patent stent however diffuse 20 to 30% stenosis and more focal 40 to 50% stenosis of the mid LAD stent. 2. Relatively normal left and right sided filling pressures 3. Abnormal iFR with gradual gradient across most of the LAD stent with some more focal step down of the 40-50% stenosis 4. S/p balloon angioplasty mid LAD with a 3.0 x 12mm NC balloon 5. Pulmonary hypertension likely related to underlying lung disease PLAN: 1. Aggressive risk factor modification per most recent ACC/AHA guidelines. 2. Continue aspirin and Plavix for 6 months 3. Diffuse disease throughout the entire LAD and gradual stepdown across the entire LAD. If has more angina symptoms may consider bypass however stenting throughout most of the entire mid to distal LAD and unclear of landing area. Optimize antianginal medications as able.
[2024-08-10] MEDS ORDERED: ALPRAZolam 0.5 MG TAB PO PRN (18:40)
[2024-08-10 20:20] LABS: Glucose,Whole Blood 177 mg/dL (70-110)
[2024-08-10] MEDS: QUEtiapine 50 MG TAB PO SCH (20:44)
[2024-08-10] MEDS: carvediloL 12.5 MG TAB PO SCH (20:44)
[2024-08-10] MEDS: ESCITALOPRAM 10 MG TAB PO SCH (20:44)
[2024-08-10] MEDS: ATORVASTATIN 80 MG TAB PO SCH (20:44)
[2024-08-10] MEDS: EZETIMIBE 10 MG TAB PO SCH (20:44)
[2024-08-10] MEDS: busPIRone HCl 10 MG TAB PO SCH (20:44)
[2024-08-10] MEDS: ALPRAZolam 0.5 MG TAB PO PRN (20:48)
[2024-08-10] MEDS: PIRFENIDONE 267 MG PO SCH (20:49)
[2024-08-11 05:57] LABS: Glucose,Whole Blood 99 mg/dL (70-110)
--- NOTE | 2024-08-11 07:02 | XR ---
EXAMINATION TYPE: XR chest 1V DATE OF EXAM: 08/11/2024 COMPARISON: 07/02/2024 CLINICAL INDICATION: Male, 74 years old with history of sob; fibrosis; TECHNIQUE: Single frontal view of the chest is obtained. FINDINGS: There is marked cardiomegaly and a single lead cardiac pacemaker. There is a persistent diffuse interstitial opacity with interval development of increasing partially consolidated opacity in the right lower lobe. There is no large pleural effusion. There is no pneumothorax. The osseous structures are intact. IMPRESSION: 1. Stable marked cardiomegaly. 2. Stable diffuse interstitial process which has been demonstrated is chronic interstitial disease on prior chest CT. 3. Interval development of acute cardiopulmonary process in the right lower lobe consistent with pneu monia or pulmonary edema. [facility], , 08/11/2024 7:00 AM
[2024-08-11] MEDS: DAPAGLIFLOZIN PROPANEDIOL 5 MG TABLET PO SCH (08:54)
[2024-08-11] MEDS: APIXABAN 5 MG TAB PO SCH (08:54)
[2024-08-11] MEDS: CLOPIDOGREL 75 MG TAB PO SCH (08:54)
[2024-08-11] MEDS: ASPIRIN 81 MG PO SCH (08:55)
--- NOTE | 2024-08-11 13:51 | P.CNPUL ---
History of Present Illness Consult date: 08/11/24 Requesting physician: Fernando Gould Reason for consult: dyspnea, cough, hypoxemia, pulmonary fibrosis, abnormal CXR/CT Chief complaint: Shortness of breath. History of present illness: Pulmonary consult dated August 11, 2024. 74-year-old male seen in consultation, status post recent balloon, and stenting, of his LAD. That was done on August 10. I saw the patient last, on June 30, 2024. At that time, the patient was short of breath, likely from his interstitial lung disease, and fluid overload. The patient is seen today in room 353. He is on 4 L of oxygen. He is not receiving any IV fluids. His primary care physician is Dr. Encinas. He sees my partner for his idiopathic pulmonary fibrosis. He has a history of heart failure, chronic hypoxemic respiratory failure secondary to ILD, ischemic cardiomyopathy, atrial fibrillation, previous AICD placement, coronary disease status post stent, history of anxiety/depression, previous tobacco use, hyperlipidemia, diabetes. The patient is seen today, because of increasing shortness of breath. He was recently placed on Esbriet by my partner, for his pulmonary fibrosis. He seems to be tolerating it well. Both he and his feel like his issues as it relates to shortness of breath, in addition to being caused by his cardiac d isease and pulmonary disease, may relate to anxiety and depression. The patient is on a number of medications for that reason. Currently, he is on 4 L. He tolerated the procedure yesterday well. White count 11.5, hemoglobin 10.3, hematocrit 33.4, platelet count normal. Sodium 135, potassium 4.6, chlorides 99, CO2 24, BUN 35, and creatinine 1.33. Glucose is 99. N-terminal proBNP is elevated at 7660. Chest x-ray shows cardiomegaly, and diffuse interstitial edema, likely contributing to the patient's shortness of breath. In addition, there is interstitial changes from his underlying pulmonary fibrosis. Review of Systems REVIEW OF SYSTEMS: CONSTITUTIONAL: [Negative.] NEUROLOGIC: [ Negative.] HEENT: [ Negative.] CARDIAC: [Negative.] PULMONARY: Shortness of breath, more severe since June 2024. GI: [Negative.] : [Negative.] RHEUMATOLOGIC: [ Negative.] IMMUNOLOGIC: [ Negative.] ENDOCRINE: [Negative. ] DERMATOLOGIC: [Negative.] Past Medical History Past Medical History: Heart Failure, Diabetes Mellitus, Hyperlipidemia, Hypertension, Myocardial Infarction ([place]), Renal Disease, Respiratory Disorder Additional Past Medical History / Comment(s): Pulmonary Fibrosis recent diagno sis(2024), uses O2 3L/min NC ATC Last Myocardial Infarction Date:: 04/19/21 History of Any Multi-Drug Resistant Organisms: None Reported Past Surgical History: AICD, Back Surgery, Heart Catheterization With Stent, Pacemaker, Tonsillectomy Additional Past Surgical History / Comment(s): lumbar back surgery Past Anesthesia/Blood Transfusion Reactions: No Reported Reaction Date of Last Stent Placement:: APR 2021 Type of Cardiac Device: Permanent Pacemaker, AICD Device Placement Date:: APR 2021 Past Psychological History: Anxiety, Depression Smoking Status: Former smoker Past Alcohol Use History: None Reported Additional Past Alcohol Use History / Comment(s): quit smoking 1984, smoked 1 ppd x 7 yrs Past Drug Use History: None Reported - Past Family History Brother(s) Family Medical History: Coronary Artery Disease (CAD), Hyperlipidemia, Hypertension Father Family Medical History: Dementia Sister(s) Family Medical History: Cancer Additional Family Medical History / Comment(s): breast Medications and Allergies Home Medications Medication Instructions Recorded Confirmed Type ALPRAZolam [Xanax] 0.5 mg PO TID PRN 04/19/21 08/10/24 History Escitalopram [Lexapro] 30 mg PO HS 04/19/21 08/10/24 History QUEtiapine [SEROquel] 50 mg PO HS 04/19/21 08/10/24 History busPIRone HCl [Buspar] 10 mg PO BID 04/19/21 08/08/24 History Atorvastatin [Lipitor] 80 mg PO HS #30 tab 04/27/21 08/10/24 Rx Apixaban [Eliquis] 5 mg PO BID #60 tab 08/01/21 08/10/24 Rx Biotin 5 mg PO DAILY 08/11/23 08/10/24 History Ezetimibe [Zetia] 10 mg PO HS 08/11/23 08/10/24 History Multivitamins, Thera [Multivitamin 1 tab PO DAILY 08/11/23 08/10/24 History (formulary)] Selenium 50 mcg PO DAILY 08/11/23 08/08/24 History Ubidecarenone [Co Q-10] 300 mg PO DAILY 08/11/23 08/10/24 History carvediloL [Coreg] 12.5 mg PO BID 08/11/23 08/08/24 History Dapagliflozin Propanediol [Farxiga] 5 mg PO DAILY #30 tab 08/14/23 08/10/24 Rx Bumetanide [BUMEX] 0.5 mg PO PC-LUNCH 06/30/24 08/10/24 History metFORMIN HCL [Glucophage] 500 mg PO BID 06/30/24 08/10/24 History Pirfenidone 3 tab PO TID 08/08/24 08/08/24 History Clopidogrel [Plavix] 75 mg PO DAILY #90 tablet 08/10/24 Rx Allergies Allergy/AdvReac Type Severity Reaction Status Date / Time bee venom protein (honey bee) Allergy Swelling @ Verified 08/10/24 12:45 sting site Physical Exam Osteopathic Statement: *. No significant issues noted on an osteopathic structural exam other than those noted in the History and Physical/Consult. Vitals: Vital Signs Temp Pulse Resp BP Pulse Ox 08/11/24 12:05 67 20 121/65 97 08/11/24 08:40 98.6 F 71 18 109/58 92 L 08/11/24 04:20 98.0 F 65 16 127/67 96 08/11/24 01:17 61 16 08/11/24 01:11 98.0 F 61 16 115/65 93 L 08/10/24 23:54 98.0 F 61 16 115/65 93 L 08/10/24 20:00 61 16 08/10/24 19:55 97.9 F 66 18 148/74 94 L 08/10/24 16:58 63 18 145/67 97 08/10/24 15:58 59 L 18 154/71 98 08/10/24 15:28 58 L 18 142/62 98 08/10/24 14:58 59 L 18 137/69 98 08/10/24 14:43 66 18 127/53 98 08/10/24 14:28 60 18 143/69 98 08/10/24 14:13 67 18 128/58 98 Intake and Output 08/10/24 08/11/24 08/11/24 22:59 06:59 14:59 Intake Total 550 150 Output Total 300 325 Balance 250 -325 150 Intake: IV 550 Oral 150 Output: Urine 300 325 Other: Voiding Method Toilet Toilet Toilet Urinal Urinal Urinal Weight 76.1 kg 76 kg No acute distress, oriented 3. Currently on 4 L. The patient is tearful. HEENT examination is grossly unremarkable. Mucous membranes are moist. No oral lesions. Neck supple. Full range of motion. No adenopathy thyromegaly or neck vein distention. Cardiovascular examination reveals regular rhythm rate. S1-S2 normal. No S3 or S4. No discernible murmur noted. Lungs reveal bibasilar crackles. No wheezes or rhonchi. Breath sounds equal. Abdomen soft bowel sounds are heard. No masses or tenderness. Extremities are intact. No cyanosis clubbing or edema. Skin is without rash or lesion. Neurologic examination is brief but nonfocal. Results - Laboratory Findings CBC and BMP: 08/10/24 12:06 08/10/24 12:06 Abnormal lab findings: Abnormal Labs 08/10/24 08/10/24 08/10/24 12:06 12:06 12:10 WBC 11.5 H RBC 3.60 L Hgb 10.3 L Hct 33.4 L Neutrophils # 9.3 H Sodium 135 L BUN 35 H Creatinine 1.33 H Glucose 166 H POC Glucose (mg/dL) 168 H 08/10/24 20:18 WBC RBC Hgb Hct Neutrophils # Sodium BUN Creatinine Glucose POC Glucose (mg/dL) 177 H - Diagnostic Findings Chest x-ray: image reviewed Assessment and Plan Assessment: Progressive shortness, likely multifactorial, due to his underlying interstitial lung disease/pulmonary fibrosis, underlying cardiac disease, pulmonary edema/CHF, as well as anxiety. Postoperative day #1, S/P balloon, and stent, of the LAD. History of interstitial lung disease/pulmonary fibrosis, recently started on Esbriet. Chronic hypoxemic respiratory failure. Ischemic cardiomyopathy with an ejection fraction of 45%. Atrial fibrillation. Status post AICD placement. CAD with previous stent placement. Hyperlipidemia. Diabetes mellitus. Previous tobacco use. History of anxiety/depression. Plan: Plan dated August 11, 2024. Both the patient, the patient's were very tearful, about his shortness of breath. I explained that the shortness of breath was likely multifactorial, in part related to his cardiac disease, his interstitial lung disease, mild fluid overload/pulmonary edema, as well as chronic anxiety. We will see if we can get psychiatry to see the patient, to offer an opinion. Both he and his were very tearful. They seem to think that his shortness of breath, which was chronic in nature, became much worse beginning in June 2024. Labs, x-rays, m edications are reviewed. My partner sees this patient for his pulmonary fibrosis. He was recently started on Esbriet. He is tolerating it well. Dictation was produced using [employer] software. Please excuse any grammatical, word or spelling errors. Time with Patient: Greater than 30
[2024-08-11 13:52] LABS: African American GFR (CKD) 74 (>60 ml/min/1.73 sqM); Non-African American GFR(CKD) 64 (>60 ml/min/1.73 sqM)
[2024-08-11] MEDS: BUMETANIDE 0.5 MG TABLET PO SCH (13:56)
[2024-08-11] MEDS: PIRFENIDONE 267 MG PO SCH (15:06)
[2024-08-11] MEDS: ALPRAZolam 0.25 MG TAB PO PRN (18:11)
--- NOTE | 2024-08-12 12:59 | P.PN ---
Subjective Progress Note Date: 08/12/24 Principal diagnosis: Anxiety, shortness of breath. Pulmonary consult dated August 11, 2024. 74-year-old male seen in consultation, status post recent balloon, and stenting, of his LAD. That was done on August 10. I saw the patient last, on June 30, 2024. At that time, the patient was short of breath, likely from his interstitial lung disease, and fluid overload. The patient is seen today in room 353. He is on 4 L of oxygen. He is not receiving any IV fluids. His primary care physician is Dr. Encinas. He sees my partner for his idiopathic pulmonary fibrosis. He has a history of heart failure, chronic hypoxemic respiratory failure secondary to ILD, ischemic cardiomyopathy, atrial fibrillation, previous AICD placement, coronary disease status post stent, history of anxiety/depression, previous tobacco use, hyperlipidemia, diabetes. The patient is seen today, because of increasing shortness of breath. He was recently placed on Esbriet by my partner, for his pulmonary fibrosis. He seems to be tolerating it well. Both he and his feel like his issues as it relates to shortness of breath, in addition to being caused by his cardiac disease and pulmonary disease, may relate to anxiety and depression. The patient is on a number of medications for that reason. Currently, he is on 4 L. He tolerated the procedure yesterday well. White count 11.5, hemoglobin 10.3, hematocrit 33.4, platelet count normal. Sodium 135, potassium 4.6, chlorides 99, CO2 24, BUN 35, and creatinine 1.33. Glucose is 99. N-terminal proBNP is elevated at 7660. Chest x-ray shows cardiomegaly, and diffuse interstitial edema, likely contributing to the patient's shortness of breath. In addition, there is interstitial changes from his underlying pulmonary fibrosis. Progress note dated August 12, 2024. 74-year-old male with a history of recent balloon and stenting of his LAD. That was done on August 10. The patient was to be discharged home yesterday, but because of anxiety, was kept in the hospital, so he could see psychiatry today. The patient does see my partner, for hypoxia and respiratory failure secondary to pulmonary fibrosis. Currently, he is on 4 L of oxygen. He is not receiving any IV fluids. No new labs today. Labs from yesterday have been reviewed. The patient's , and daughter are in the room with the patient. They have a number of questions, all of which I answered. Objective - Vital Signs Vital signs: Vital Signs Temp 98.2 F 08/12/24 08:10 Pulse 73 08/12/24 11:25 Resp 18 08/12/24 11:25 BP 105/58 08/12/24 11:25 Pulse Ox 96 08/12/24 11:25 FiO2 Intake & Output 08/11/24 08/12/24 08/12/24 17:59 06:59 18:59 Intake Total 0 Output Total 300 Balance -300 Weight Intake: Oral 0 Output: Urine 300 Other: Voiding Method # Voids 0 # Bowel Movements 0 - Exam No acute distress, oriented 3. Currently on 4 L. The patient is tearful. HEENT examination is grossly unremarkable. Mucous membranes are moist. No oral lesions. Neck supple. Full range of motion. No adenopathy thyromegaly or neck vein distention. Cardiovascular examination reveals regular rhythm rate. S1-S2 normal. No S3 or S4. No discernible murmur noted. Lungs reveal bibasilar crackles. No wheezes or rhonchi. Breath sounds equal. Abdomen soft bowel sounds are heard. No masses or tenderness. Extremities are intact. No cyanosis clubbing or edema. Skin is without rash or lesion. Neurologic examination is brief but nonfocal. - Labs CBC & Chem 7: 08/10/24 12:06 08/11/24 11:57 Labs: Abnormal Lab Results - Last 24 Hours (Table) 08/11/24 Range/Units 11:57 Procalcitonin 0.62 H (0.02-0.50) ng/mL Assessment and Plan Assessment: Progressive shortness, likely multifactorial, due to his underlying interstitial lung disease/pulmonary fibrosis, underlying cardiac disease, pulmonary edema/CH F, as well as anxiety. Postoperative day #2, S/P balloon, and stent, of the LAD. History of interstitial lung disease/pulmonary fibrosis, recently started on Esbriet. Chronic hypoxemic respiratory failure. Ischemic cardiomyopathy with an ejection fraction of 45%. Atrial fibrillation. Status post AICD placement. CAD with previous stent placement. Hyperlipidemia. Diabetes mellitus. Previous tobacco use. History of anxiety/depression. Plan: Plan dated August 11, 2024. Both the patient, the patient's were very tearful, about his shortness of breath. I explained that the shortness of breath was likely multifactorial, in part related to his cardiac disease, his interstitial lung disease, mild fluid overload/pulmonary edema, as well as chronic anxiety. We will see if we can get psychiatry to see the patient, to offer an opinion. Both he and his were very tearful. They seem to think that his shortness of breath, which was chronic in nature, became much worse beginning in June 2024. Labs, x-rays, medications are reviewed. My partner sees this patient for his pulmonary fibrosis. He was recently started on Esbriet. He is tolerating it well. Dictation was produced using [employer] software. Please excuse any grammatical, word or spelling errors. Plan dated August 12, 2024. The patient is feeling about the same. The patient appropriate to be discharged today, after seeing psychiatry. He is hoping the psychiatrist can provide him something for his chronic anxiety. He gets very anxious, and gets more short of breath. He desaturates. Currently, he is on Esbriet, given to him by my partner for his pulmonary fibrosis. The patient will need follow-up in my office. I will speak to the office staff tomorrow, to see if we can get the patient in sooner. It will not be next week because Dr. Forte is on-call next week. Additional recommendations and suggestions are forthcoming. Prognosis is guarded. No new labs today. Dictation was produced using [employer] software. Please excuse any grammatical, word or spelling errors. Time with Patient: Less than 30
--- NOTE | 2024-08-12 15:15 | P.CN ---
Psychiatric Consult - . Consult date: 08/12/24 Consult:: 08/12/24 14:13 IDENTIFYING DATA: This patient is a 74-year-old male, currently , has 4 kids, lives with his in a house REASON FOR REFERRAL: Psychiatry was consulted for "anxiety" HISTORY OF PRESENT ILLNESS: The patient presented to the hospital initially on 08/10 for PCI, performed heart catheterization, and stenting. Patient has a history of coronary artery disease, A-fib, was having shortness of breath. Jenae ent also has history of pulmonary fibrosis and also edema. Patient has been reportedly fairly tearful, endorsing severe anxiety panic attacks and increasing shortness of breath. Patient's daughter and were at the bedside, wanted to speak to verse writer outside. They endorse that patient has had a long history of chronic anxiety and also depression for several years now. He is seeing an outpatient psychiatrist who has been prescribing him medications for this, recently increased his Xanax however they believe that is not helping him much. That he is pretty much anxious throughout the whole day and has been restless and wanting to go home. They claim that patient's medical health has been declining and that he had a recent diagnosis of pulmonary fibrosis since June 2024. Patient was seen at the bedside today agreeable to speak to verse writer. He appeared to be fairly anxious with his affect, endorsing chronic anxiety, claims that he has been dealing with more health problems and feeling ill. He claims that he has several panic attacks, states that he had 1 this morning while trying to go to the bathroom when he woke up. He states that he does feel short of breath, he was pleading verse writer for help. Claims that he is feeling depressed as well. He claims that his appetite is poor sleep has been poor.. At this time patient denies any suicidal or homical ideations, intent or plan. Patient denies any auditory, visual hallucinations and denies any paranoia or delusions. Patients admits to using no recreational drugs. PAST PSYCHIATRIC HISTORY: Patient has a a history of chronic anxiety and depression. Patient is currently on Lexapro 30 mg at night, Seroquel 50 mg nightly, BuSpar 10 mg twice daily and Xanax as needed for anxiety. Patient denies any previous psychiatric hospitalizations. He claims that he follows up with a psychiatrist in [place]. Patient denies any history of suicide attempts in the past. PAST MEDICAL HISTORY: As per medical H&P. ALLERGIES: as per EMR. CHEMICAL DEPENDENCY HISTORY: as per HPI. FAMILY PSYCHIATRIC/SUBSTANCE USE HISTORY: Denies SOCIAL HISTORY: Patient was born and raised in [facility]. Claims that he completed some college and high school. 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 Denies any legal history. He is he has 4 kids, lives with his in a house MENTAL STATUS EXAM: General Appearance: Patient appears to be thin, balding, stated age is alert, appears anxious, attempts to cooperate. Patient appears to have fair hygiene and grooming wearing hospital gown with fair eye contact. Behavior: Patient appears to be fairly anxious, pleading for help and in mild distress secondary to respiratory Speech: Patient's speech is fluent and nonpressured. Hesitant at times Mood/Affect: Patient reports their mood is "depressed and anxious", affect is congruent anxious affect Suicidality/Homicidality: Patient denies having any suicidal or homicidal ideation intent or plan. Perceptions: Patient denies any visual hallucinations and denies any auditory hallucinations Though content/process: There is no evidence of any delusional thought content and thought process is linear and goal-directed. Focused on his medical illness and also his anxiety/mood Memory and concentration: AOX3, grossly intact for the purposes of this session. Can spell "WORLD" backwards Judgment and insight: fair IMPRESSIONS: Generalized anxiety disorder, with panic attacks Depressive disorder unspecified PLAN: -At this time patient DOES NOT meet criteria for inpatient psychiatric admission. -Would recommend the following medication changes/additions: Increase BuSpar to 15 mg twice daily for anxiety, discontinue Lexapro and replace with Zoloft 50 mg now, increased to 75 mg starting tomorrow daily for mood/anxiety. Increase Seroquel to 75 mg nightly +25 mg daily for severe anxiety/mood/sleep. Can continue with Xanax as needed for anxiety -Spoke with patient's and daughter about patient's condition, how patient's shortness of breath and declining respiratory and medical condition will be likely increasing patient's anxiety/panic attacks over time. We spoke about possibility of having a palliative care consultation if the family/patient and primary team agree with it given patient's worsening chronic condition. -Communicated plan to patient's nurse -Will continue to follow along tomorrow -Please contact with any questions. 08/12/24 15:02 08/12/24 15:11
[2024-08-12] MEDS: QUEtiapine 25 MG TAB PO SCH ×2 (15:42→20:55)
[2024-08-12] MEDS: SERTRALINE 50 MG TAB PO STA (15:42)
[2024-08-12 16:26] VITALS: TEMP 98.1
--- NOTE | 2024-08-12 16:58 | P.PN ---
Progress Note - Text Progress Note Date: 08/12/24 We are taking over care for this patient, full progress note to follow tomorrow.
--- NOTE | 2024-08-12 18:44 | P.CRDCN ---
History of Present Illness Consult date: 08/11/24 History of present illness: HISTORY OF PRESENTING ILLNESS: Patient has prior history of coronary artery disease, NYHA class III congestive heart failure with his known exertion. He underwent cardiac catheterization as an outpatient on 08/10/[address] Gould. He eventually got PCI to LAD. Postcardiac catheterization patient was doing well. He was noticed to be in more short of breath therefore he was admitted overnight with pulmonary consult. At this time patient is very anxious and would like to get inpatient psych consultation for management of his anxiety. REVIEW OF SYSTEMS: 14 point review of system is negative except what is mentioned above in HPI. PHYSICAL EXAMINATION: Neck: Brisk carotid upstroke, no jugular venous distention. Lungs: Clear to auscultation. Heart: Regular rate and rhythm, S1-S2, , no murmur or rub. Abdomen: Soft nontender, positive bowel sounds. Extremities: No edema, intact distal pulses. Neuro: Alert, oritented, no focal deficits. Detailed neuro exam was not performed. ASSESSMENT: # CAD status post PCI to LAD # Congestive heart failure, not in exacerbation # Pulmonary fibrosis # Generalized anxiety disorder # Paroxysmal A-fib PLAN: Continue dual antiplatelet therapy with aspirin Plavix Continue Eliquis 5 mg twice daily. On discharge discharge him on triple therapy for 1 week. After 1 week discontinue aspirin. Continue Plavix and Eliquis thereafter. Coreg 12.5 mg twice daily, Bumex 0.5 mg daily, At this time patient is awaiting psychiatric consultation. He is otherwise stable from cardiac standpoint Guillermo Hannah MD, FACC, RPVI Thank you for allowing [facility] to participate in this patient's care. Feel free to reach out in case of any followup questions. Past Medical History Past Medical History: Heart Failure, Diabetes Mellitus, Hyperlipidemia, Hypertension, Myocardial Infarction ([place]), Renal Disease, Respiratory Disorder Additional Past Medical History / Comment(s): Pulmonary Fibrosis recent diagnosis(2024), uses O2 3L/min NC ATC Last Myocardial Infarction Date:: 04/19/21 History of Any Multi-Drug Resistant Organisms: None Reported Past Surgical History: AICD, Back Surgery, Heart Catheterization With Stent, Pacemaker, Tonsillectomy Additional Past Surgical History / Comment(s): lumbar back surgery Past Anesthesia/Blood Transfusion Reactions: No Reported Reaction Date of Last Stent Placement:: APR 2021 Type of Cardiac Device: Permanent Pacemaker, AICD Device Placement Date:: APR 2021 Past Psychological History: Anxiety, Depression Smoking Status: Former smoker Past Alcohol Use History: None Reported Additional Past Alcohol Use History / Comment(s): quit smoking 1984, smoked 1 ppd x 7 yrs Past Drug Use History: None Reported - Past Family History Brother(s) Family Medical History: Coronary Artery Disease (CAD), Hyperlipidemia, Hypertension Father Family Medical History: Dementia Sister(s) Family Medical History: Cancer Additional Family Medical History / Comment(s): breast Medications and Allergies Home Medications Medication Instructions Recorded Confirmed Type ALPRAZolam [Xanax] 0.5 mg PO TID PRN 04/19/21 08/10/24 History Escitalopram [Lexapro] 30 mg PO HS 04/19/21 08/10/24 History QUEtiapine [SEROquel] 50 mg PO HS 04/19/21 08/10/24 History busPIRone HCl [Buspar] 10 mg PO BID 04/19/21 08/08/24 History Atorvastatin [Lipitor] 80 mg PO HS #30 tab 04/27/21 08/10/24 Rx Apixaban [Eliquis] 5 mg PO BID #60 tab 08/01/21 08/10/24 Rx Biotin 5 mg PO DAILY 08/11/23 08/10/24 History Ezetimibe [Zetia] 10 mg PO HS 08/11/23 08/10/24 History Multivitamins, Thera [Multivitamin 1 tab PO DAILY 08/11/23 08/10/24 History (formulary)] Selenium 50 mcg PO DAILY 08/11/23 08/08/24 History Ubidecarenone [Co Q-10] 300 mg PO DAILY 08/11/23 08/10/24 History carvediloL [Coreg] 12.5 mg PO BID 08/11/23 08/08/24 History Dapagliflozin Propanediol [Farxiga] 5 mg PO DAILY #30 tab 08/14/23 08/10/24 Rx Bumetanide [BUMEX] 0.5 mg PO PC-LUNCH 06/30/24 08/10/24 History metFORMIN HCL [Glucophage] 500 mg PO BID 06/30/24 08/10/24 History Pirfenidone 3 tab PO TID 08/08/24 08/08/24 History Clopidogrel [Plavix] 75 mg PO DAILY #90 tablet 08/10/24 Rx Allergies Allergy/AdvReac Type Severity Reaction Status Date / Time bee venom protein (honey bee) Allergy Swelling @ Verified 08/10/24 12:45 sting site Physical Exam Vitals: Vital Signs Temp Pulse Resp BP Pulse Ox 08/12/24 15:20 98.1 F 69 16 129/74 96 08/12/24 11:25 73 18 105/58 96 08/12/24 08:10 98.2 F 66 24 123/69 80 L 08/12/24 04:00 69 20 120/62 92 L 08/12/24 03:00 74 20 08/12/24 00:00 72 22 114/64 92 L 08/11/24 20:00 74 20 117/67 91 L Intake and Output 08/12/24 08/12/24 08/12/24 06:59 14:59 22:59 Intake Total 0 Output Total 300 500 Balance -300 -500 Intake: Oral 0 Output: Urine 300 500 Other: Voiding Method Toilet Urinal # Voids 0 # Bowel Movements 0 0 Weight Results 08/10/24 12:06 08/11/24 11:57 Current Medications Generic Name Dose Route Start Last Admin Trade Name Freq PRN Reason Stop Dose Admin Al Hydroxide/Mg Hydroxide 30 ml 08/10/24 14:49 Mag Hydrox/Al Hydrox/Simeth 30 Ml Cup PO 09/09/24 14:48 Q4HR PRN Heartburn Alprazolam 0.25 mg 08/10/24 05:41 08/12/24 11:33 Alprazolam 0.25 Mg Tab PO 09/09/24 05:40 0.25 mg Q6HR PRN Administration Mild Anxiety Alprazolam 0.5 mg 08/10/24 05:41 08/12/24 08:17 Alprazolam 0.5 Mg Tab PO 09/09/24 05:40 0.5 mg Q6HR PRN Administration Moderate Anxiety Apixaban 5 mg 08/11/24 09:00 08/12/24 08:16 Apixaban 5 Mg Tab PO 5 mg BID KIKI Administration Protocol Aspirin 81 mg 08/11/24 09:00 08/12/24 08:17 Aspirin 81 Mg PO 09/10/24 08:59 81 mg DAILY KIKI Administration Atorvastatin Calcium 80 mg 08/10/24 21:00 08/11/24 20:46 Atorvastatin 80 Mg Tab PO 80 mg HS KIKI Administration Atropine Sulfate 0.5 mg 08/10/24 14:49 Atropine Sulfate 0.1 Mg/Ml 10ml Syringe IV 09/09/24 14:48 ONCE PRN Symptomatic Bradycardia Bumetanide 0.5 mg 08/11/24 13:30 08/12/24 15:41 Bumetanide 0.5 Mg Tablet PO 0.5 mg PC-LUNCH KIKI Administration Buspirone HCl 15 mg 08/12/24 21:00 Buspirone Hcl 5 Mg Tab PO BID KIKI Carvedilol 12.5 mg 08/10/24 21:00 08/12/24 15:41 Carvedilol 12.5 Mg Tab PO 12.5 mg BID-W/MEALS KIKI Administration Clopidogrel Bisulfate 75 mg 08/11/24 09:00 08/12/24 08:17 Clopidogrel 75 Mg Tab PO 09/10/24 08:59 75 mg DAILY KIKI Administration Protocol Dapagliflozin 5 mg 08/11/24 09:00 08/12/24 08:18 Dapagliflozin Propanediol 5 Mg Tablet PO 5 mg DAILY KIKI Administration Ezetimibe 10 mg 08/10/24 21:00 08/11/24 20:46 Ezetimibe 10 Mg Tab PO 10 mg HS KIKI Administration Sodium Chloride 1,000 ml/ IV 1,000 mls @ 77.111 mls/hr 08/10/24 05:41 08/12/24 08:54 Solution IV 09/09/24 05:40 Not Given .[id number] KIKI 1 ML/KG/HR Sodium Chloride 1,000 ml/ IV 1,000 mls @ 76.1 mls/hr 08/10/24 15:00 08/12/24 15:46 Solution IV 09/09/24 14:59 Not Given .[id number] KIKI 1 ML/KG/HR Nitroglycerin 0.4 mg 08/10/24 05:41 Nitroglycerin Sl Tabs 0.4 Mg Tab SUBLINGUAL 09/09/24 05:40 Q5M PRN Chest Pain Pirfenidone [ 3 each 08/11/24 16:00 08/12/24 15:42 Pirfenidone] 267 Mg PO 3 each Tablet TID KIKI Administration Quetiapine Fumarate 75 mg 08/12/24 21:00 Quetiapine 25 Mg Tab PO HS KIKI Quetiapine Fumarate 25 mg 08/12/24 15:15 08/12/24 15:42 Quetiapine 25 Mg Tab PO 25 mg DAILY KIKI Administration Sertraline HCl 75 mg 08/13/24 15:15 Sertraline 25 Mg Tab PO DAILY KIKI Zolpidem Tartrate 5 mg 08/10/24 14:49 Zolpidem 5 Mg Tab PO 09/09/24 14:48 HS PRN Insomnia Intake and Output 08/12/24 08/12/24 08/12/24 06:59 14:59 22:59 Intake Total 0 Output Total 300 500 Balance -300 -500 Intake: Oral 0 Output: Urine 300 500 Other: Voiding Method Toilet Urinal # Voids 0 # Bowel Movements 0 0 Weight 08/10/24 12:06 08/11/24 11:57
--- NOTE | 2024-08-12 18:45 | P.PN ---
Subjective Progress Note Date: 08/12/24 HISTORY OF PRESENTING ILLNESS: Patient has prior history of coronary artery disease, NYHA class III congestive heart failure with his known exertion. He underwent cardiac catheterization as an outpatient on 08/10/[address] Gould. He eventually got PCI to LAD. Postcardiac catheterization patient was doing well. He was noticed to be in more short of breath therefore he was admitted overnight with pulmonary consult. At this time patient is very anxious and would like to get inpatient psych consultation for management of his anxiety. REVIEW OF SYSTEMS: 14 point review of system is negative except what is mentioned above in HPI. PHYSICAL EXAMINATION: Neck: Brisk carotid upstroke, no jugular venous distention. Lungs: Clear to auscultation. Heart: Regular rate and rhythm, S1-S2, , no murmur or rub. Abdomen: Soft nontender, positive bowel sounds. Extremities: No edema, intact distal pulses. Neuro: Alert, oritented, no focal deficits. Detailed neuro exam was not performed. ASSESSMENT: # CAD status post PCI to LAD # Congestive heart failure, not in exacerbation # Pulmonary fibrosis # Generalized anxiety disorder # Paroxysmal A-fib PLAN: Continue dual antiplatelet therapy with aspirin Plavix Continue Eliquis 5 mg twice daily. On discharge discharge him on triple therapy for 1 week. After 1 week discontinue aspirin. Continue Plavix and Eliquis thereafter. Coreg 12.5 mg twice daily, Bumex 0.5 mg daily, At this time patient was seen by psychiatry and he was started on few medicat ions. He is being observed overnight to see the response to these medications. He is otherwise stable from cardiac standpoint Admit patient to internal medicine service Objective - Vital Signs Vital signs: Vital Signs Temp 98.1 F 08/12/24 15:20 Pulse 69 08/12/24 15:20 Resp 16 08/12/24 15:20 BP 129/74 08/12/24 15:20 Pulse Ox 96 08/12/24 15:20 FiO2 Intake & Output 08/11/24 08/12/24 08/12/24 17:59 06:59 18:59 Intake Total 0 Output Total 800 Balance -800 Weight Intake: Oral 0 Output: Urine 800 Other: Voiding Method Toilet Urinal # Voids 0 # Bowel Movements 0 - Labs CBC & Chem 7: 08/10/24 12:06 08/11/24 11:57 Labs: Abnormal Lab Results - Last 24 Hours (Table) 08/11/24 Range/Units 11:57 Procalcitonin 0.62 H (0.02-0.50) ng/mL
[2024-08-12] MEDS: busPIRone HCl 5 MG TAB PO SCH (20:54)
[2024-08-13 10:58] VITALS: RESP 20
--- NOTE | 2024-08-13 11:27 | P.PN ---
Subjective Progress Note Date: 08/13/24 HISTORY OF PRESENTING ILLNESS: Patient has prior history of coronary artery disease, NYHA class III congestive heart failure with his known exertion. He underwent cardiac catheterization as an outpatient on 08/10/[address] Gould. He eventually got PCI to LAD. Postcardiac catheterization patient was doing well. He was noticed to be in more short of breath therefore he was admitted overnight with pulmonary consult. At this time patient is very anxious and would like to get inpatient psych consultation for management of his anxiety. 08/13 Patient seen and examined. Patient states that he is feeling much better from yesterday. He still has a little shortness of breath. He is on oxygen with pulse ox of 92% on 4 L. Blood pressure 108/56, heart rate 68. No repeat blood work today. PHYSICAL EXAMINATION: Neck: Brisk carotid upstroke, no jugular venous distention. Lungs: Clear to auscultation. Heart: Regular rate and rhythm, S1-S2, , no murmur or rub. Abdomen: Soft nontender, positive bowel sounds. Extremities: No edema, intact distal pulses. Neuro: Alert, oritented, no focal deficits. Detailed neuro exam was not performed. ASSESSMENT: # CAD status post PCI to LAD # Congestive heart failure, not in exacerbation # Pulmonary fibrosis # Generalized anxiety disorder # Paroxysmal A-fib PLAN: Continue dual antiplatelet therapy with aspirin and Plavix Continue Eliquis 5 mg twice daily. On discharge discharge him on triple therapy for 1 week. After 1 week discontinue aspirin. Continue Plavix and Eliquis thereafter. Coreg 12.5 mg twice daily, Bumex 0.5 mg daily, Continue with psychiatry recommendations He is otherwise stable from cardiac standpoint Nurse practitioner note has been reviewed, I agree with documented findings and plan of care. Patient was seen and examined. Objective - Vital Signs Vital signs: Vital Signs Temp 98.1 F 08/12/24 15:20 Pulse 57 L 08/13/24 04:00 Resp 18 08/13/24 04:00 BP 110/60 08/13/24 04:00 Pulse Ox 94 L 08/13/24 04:00 FiO2 Intake & Output 08/12/24 08/13/24 08/13/24 18:59 06:59 18:59 Intake Total 0 Output Total 800 550 Balance -800 -550 Intake: Oral 0 Output: Urine 800 550 Other: Voiding Method Toilet Toilet Urinal Urinal # Voids 0 # Bowel Movements 0 - Labs CBC & Chem 7: 08/10/24 12:06 08/11/24 11:57 Labs: Abnormal Lab Results - Last 24 Hours (Table) 08/11/24 Range/Units 11:57 Procalcitonin 0.62 H (0.02-0.50) ng/mL
[2024-08-13 11:57] VITALS: BMI 24.0
[2024-08-13] MEDS: FUROSEMIDE 10 MG/ML 4 ML VIAL IV SCH (12:20)
[2024-08-13] MEDS: SERTRALINE 25 MG TAB PO SCH (12:20)
[2024-08-13 12:24] VITALS: BP 126/60; PULSE 66
--- NOTE | 2024-08-13 12:54 | P.PN ---
Progress Note - Text Progress Note Date: 08/13/24 Interval history: Patient was seen today for psychiatric follow-up on the medical floors for anx iety and panic attacks and also depression. Patient's daughter claims that patient has been doing much better in terms of his anxiety today. Claims that he did not have any issues last night and slept throughout the night. She also claims that patient was feeling a bit tired this morning. Did eat his breakfast and dinner last night. Patient was seen sitting on the chair today agreeable to speak to scientific writer. Patient's was at his side as well. He claims that he is doing better today in terms of his anxiety, thing to scientific writer. Claims that his mood is also improving since yesterday feels less depressed. Claims that he feels that he cannot eat that much and wants to eat smaller meals as when his stomach expands he feels that it makes it harder for him to breathe. Claims to be a bit more optimistic today, more future oriented spoke about wanting to go home. Claims that he did sleep well last night, he is denying any suicidal homicidal ideations intent or plan denying any auditory or visual hallucinations. Denied any side effects from the medications. Patient and asked questions, they were answered. MENTAL STATUS EXAM: General Appearance: Patient appears to be thin, balding, stated age is alert, less anxious today, attempts to cooperate. Patient appears to have fair hygiene and grooming wearing hospital gown with fair eye contact. Behavior: Patient appears to be calmer today, less respiratory distress. Speech: Patient's speech is fluent and nonpressured. Hesitant at times, improving mildly Mood/Affect: Patient reports their mood is "better", affect is congruent anxious affect, improving Suicidality/Homicidality: Patient denies having any suicidal or homicidal ideation intent or plan. Perceptions: Patient denies any visual hallucinations and denies any auditory hallucinations Though content/process: There is no evidence of any delusional thought content and thought process is linear and goal-directed. Or future oriented Memory and concentration: AOX3, grossly intact for the purposes of this session Judgment and insight: fair IMPRESSIONS: Generalized anxiety disorder, with panic attacks Depressive disorder unspecified PLAN: -At this time patient DOES NOT meet criteria for inpatient psychiatric admission. -Would recommend the following medication changes/additions: recommend to try and not use xanax at home due to the risk of tolerance, potential confusion or even falls. Continue with BuSpar 15 mg twice daily for anxiety, increased Zoloft 100 mg daily for mood/anxiety. Seroquel 75 mg nightly + 25 mg bid prn for severe anxiety/mood/sleep. -Spoke with patient's and daughter about patient's condition, and treatment plan going forward. They claim that they will monitor him fairly closely, they will try to get him in for his outpatient psychiatrist appointment in 1 to 2 weeks. Will attempt to also cut back or stop using Xanax for the anxiety as noted above. -Communicated plan to patient's nurse -At this time psychiatry will sign off. -Please contact with any questions.
--- NOTE | 2024-08-13 14:25 | P.DS ---
Providers Expected date of discharge: 08/13/24 Attending physician: Rohan Peña MD Consults: 08/10/24 14:49 Consult Physician Routine Consulting Provider: [facility] Consult Reason/Comments: Post Interventional Patient Do you want consulting provider notified?: Already Contacted 08/10/24 18:57 Consult Physician Routine Consulting Provider: Art Hammer Consult Reason/Comments: pulm fibrosis; SOB Do you want consulting provider notified?: Yes 08/11/24 16:20 Consult Physician Routine Consulting Provider: Ascencion Aguillon Consult Reason/Comments: anxiety Do you want consulting provider notified?: Already Contacted Primary care physician: Celina Vega [facility] Hospital Course: CAD s/p PCI Paroxysmal atrial fibrillation Ischemic cardiomyopathy with EF of 45% IPF with chronic respiratory failure Anxiety Hospital Course: 74 year old man who was admitted to the hospital following a balloon angioplasty to his LAD for respiratory failure and anxiety. Pt was kept for observation due to having significant dyspnea and respiratory failure. Evaluated by cardiology and pulmonology who felt that patient was at his baseline and stable from cardiac/pulmonary perspective and required outpatient follow up. Pt was also evaluated by psychiatry for ongoing panic attacks/severe anxiety. Psychiatry uptitrated patient's buspirone, Seroquel. They also replaced patient's Lexapro with sertraline and recommended psychiatry evaluation on discharge. On day of discharge, patient reported feeling much better/back to baseline. Gen: In NAD, non-toxic HEENT: normocephalic, atraumatic, hearing acuity is intant, mucous membranes moist CVS: perfusing all extremities well, no pitting edema, Respiratory: symmetric chest expansion, no accessory muscle use, GI: soft, NTTP, ND, : no suprapubic tenderness, no CVA tenderness MSK/Derm: no rashes, cyanosis Neuro: CN II-XII intact, no motor weakness, Psych: cooperative, euthymic mood, judgment and insight is intact Patient Condition at Discharge: Good Plan - Discharge Summary Discharge Rx Participant: No New Discharge Prescriptions: New Aspirin 81 mg PO DAILY #30 tab busPIRone HCl [Buspar] 15 mg PO BID #180 tab QUEtiapine [SEROquel] 25 mg PO BID PRN #60 tab PRN Reason: Severe Anxiety QUEtiapine [SEROquel] 75 mg PO HS #90 tab Sertraline [Zoloft] 100 mg PO DAILY #30 tab Clopidogrel [Plavix] 75 mg PO DAILY #90 tablet Continue ALPRAZolam [Xanax] 0.5 mg PO TID PRN PRN Reason: Anxiety carvediloL [Coreg] 12.5 mg PO BID Multivitamins, Thera [Multivitamin (formulary)] 1 tab PO DAILY Biotin 5 mg PO DAILY Bumetanide [BUMEX] 0.5 mg PO PC-LUNCH metFORMIN HCL [Glucophage] 500 mg PO BID Pirfenidone 3 tab PO TID Atorvastatin [Lipitor] 80 mg PO HS #30 tab Apixaban [Eliquis] 5 mg PO BID #60 tab Ezetimibe [Zetia] 10 mg PO HS Selenium 50 mcg PO DAILY Ubidecarenone [Co Q-10] 300 mg PO DAILY Dapagliflozin Propanediol [Farxiga] 5 mg PO DAILY #30 tab Discontinued QUEtiapine [SEROquel] 50 mg PO HS Escitalopram [Lexapro] 30 mg PO HS busPIRone HCl [Buspar] 10 mg PO BID Discharge Medication List ALPRAZolam [Xanax] 0.5 mg PO TID PRN 04/19/21 [History] Atorvastatin [Lipitor] 80 mg PO HS #30 tab 04/27/21 [Rx] Apixaban [Eliquis] 5 mg PO BID #60 tab 08/01/21 [Rx] Biotin 5 mg PO DAILY 08/11/23 [History] Ezetimibe [Zetia] 10 mg PO HS 08/11/23 [History] Multivitamins, Thera [Multivitamin (formulary)] 1 tab PO DAILY 08/11/23 [History] Selenium 50 mcg PO DAILY 08/11/23 [History] Ubidecarenone [Co Q-10] 300 mg PO DAILY 08/11/23 [History] carvediloL [Coreg] 12.5 mg PO BID 08/11/23 [History] Dapagliflozin Propanediol [Farxiga] 5 mg PO DAILY #30 tab 08/14/23 [Rx] Bumetanide [BUMEX] 0.5 mg PO PC-LUNCH 06/30/24 [History] metFORMIN HCL [Glucophage] 500 mg PO BID 06/30/24 [History] Pirfenidone 3 tab PO TID 08/08/24 [History] Clopidogrel [Plavix] 75 mg PO DAILY #90 tablet 08/10/24 [Rx] Aspirin 81 mg PO DAILY #30 tab 08/13/24 [Rx] QUEtiapine [SEROquel] 25 mg PO BID PRN #60 tab 08/13/24 [Rx] QUEtiapine [SEROquel] 75 mg PO HS #90 tab 08/13/24 [Rx] Sertraline [Zoloft] 100 mg PO DAILY #30 tab 08/13/24 [Rx] busPIRone HCl [Buspar] 15 mg PO BID #180 tab 08/13/24 [Rx] Follow up Appointment(s)/Referral(s): Fernando Yo DO [STAFF PHYSICIAN] - 08/17/24 10:00 am (FOLLOW UP APPOINTMENT IS MADE WITH TORY OJEDA FOR DR. YO ) Art Hammer MD [STAFF PHYSICIAN] - 1 Week Patient Instructions/Handouts: Moderate Sedation (DC), Coronary Angioplasty (DC), After Radial Heart Catheterization (GEN), Left Heart Catheterization (DC), Right Heart Catheterization (DC) Activity/Diet/Wound Care/Special Instructions: No flexing/bending/pushing/pulling/lifting greater than 5 pounds x5 days No driving x2 days No submersion of right wrist in pools/hot tubs/bath tubs/dish water x3 days Encourage fluids x2 days Fall risk/safety precaution Follow up with Psychiatry, Cardiology, and Pulmonlogy No changes with home medications-Resume Metformin in 48 hours on 08/13,Resume Eliquis on 08/11 New Prescription Plavix
[2024-08-13] MEDS: QUEtiapine 25 MG TAB PO PRN (15:03)
--- NOTE | 2024-08-13 15:17 | P.PN ---
Subjective Progress Note Date: 08/13/24 74-year-old male seen in consultation, status post recent balloon, and stenting, of his LAD. That was done on August 10. I saw the patient last, on June 30, 2024. At that time, the patient was short of breath, likely from his interstitial lung disease, and fluid overload. The patient is seen today in room 353. He is on 4 L of oxygen. He is not receiving any IV fluids. His primary care physician is Dr. Encinas. He sees my partner for his idiopathic pulmonary fibrosis. He has a history of heart failure, chronic hypoxemic respiratory failure secondary to ILD, ischemic cardiomyopathy, atrial f ibrillation, previous AICD placement, coronary disease status post stent, history of anxiety/depression, previous tobacco use, hyperlipidemia, diabetes. The patient is seen today, because of increasing shortness of breath. He was recently placed on Esbriet by my partner, for his pulmonary fibrosis. He seems to be tolerating it well. Both he and his feel like his issues as it relates to shortness of breath, in addition to being caused by his cardiac disease and pulmonary disease, may relate to anxiety and depression. The patient is on a number of medications for that reason. Currently, he is on 4 L. He tolerated the procedure yesterday well. White count 11.5, hemoglobin 10.3, hematocrit 33.4, platelet count normal. Sodium 135, potassium 4.6, chlorides 99, CO2 24, BUN 35, and creatinine 1.33. Glucose is 99. N-terminal proBNP is elevated at 7660. Chest x-ray shows cardiomegaly, and diffuse interstitial edema, likely contributing to the patient's shortness of breath. In addition, there is interstitial changes from his underlying pulmonary fibrosis. Progress note dated August 12, 2024. 74-year-old male with a history of recent balloon and stenting of his LAD. That was done on August 10. The patient was to be discharged home yesterday, but because of anxiety, was kept in the hospital, so he could see psychiatry today. The patient does see my partner, for hypoxia and respiratory failure secondary to pulmonary fibrosis. Currently, he is on 4 L of oxygen. He is not receiving any IV fluids. No new labs today. Labs from yesterday have been reviewed. The patient's , and daughter are in the room with the patient. They have a number of questions, all of which I answered. 08/13/2024, the patient seems to be less anxious while taking BuSpar. The patient is still hypoxic on 4 L of oxygen by nasal cannula. He is currently on oral Bumex. He was also started on Esbriet on an outpatient basis regarding pulmonary fibrosis. No chest pain. His postcardiac catheterization and Is going on my patient is still intubated oxygen state and then by [place] for a New Asking Me a Hard Time) Aspirin and Tylenol and the the patient underwent cardiac catheterization and was found to have 30% left main, 100% circumflex, 100% RCA and patent stents however diffuse disease in the order of 20 to 30% and focal 40 to 50% stenosis in the mid LAD stent. Normal filling pressure on the left and the right. Balloon angioplasty of the mid LAD was done. The patient had evidence of pulmonary hypertension. No new complaints otherwise for now. He is on Bumex 0.5 mg on a daily basis. He remains on anticoagulation with Eliquis 5 mg p.o. twice a day. He is also on aspirin and Plavix. The plan is to discharge patient home to be followed up on outpatient basis. Objective - Vital Signs Vital signs: Vital Signs Temp 98.1 F 08/12/24 15:20 Pulse 68 08/13/24 08:00 Resp 20 08/13/24 08:00 BP 108/56 08/13/24 08:00 Pulse Ox 92 L 08/13/24 08:00 FiO2 Intake & Output 08/12/24 08/13/24 08/13/24 18:59 06:59 18:59 Intake Total 0 240 Output Total 800 550 Balance -800 -550 240 Intake: Oral 0 240 Output: Urine 800 550 Other: Voiding Method Toilet Toilet Toilet Urinal Urinal Urinal # Voids 0 # Bowel Movements 0 - Exam No acute distress, oriented 3. Currently on 4 L. The patient i less anxious compared to yesterday. Seems to be much more comfortable. He wants to go home. HEENT examination is grossly unremarkable. Mucous membranes are moist. No oral lesions. Neck supple. Full range of motion. No adenopathy thyromegaly or neck vein distention. Cardiovascular examination reveals regular rhythm rate. S1-S2 normal. No S3 or S4. No discernible murmur noted. Lungs reveal bibasilar crackles. No wheezes or rhonchi. Breath sounds equal. Abdomen soft bowel sounds are heard. No masses or tenderness. Extremities are intact. No cyanosis clubbing or edema. Skin is without rash or lesion. Neurologic examination is brief but nonfocal. - Labs CBC & Chem 7: 08/10/24 12:06 08/11/24 11:57 Assessment and Plan Plan: Acute on chronic hypoxic respiratory failure. The patient is currently on 4 L of nasal cannula. His shortness of breath is multifactorial. Obviously the patient is IPF. Superimposed component of CHF cannot be completely ruled out. Filling pressures were within normal limits on a recent cardiac catheterization. Nevertheless, the patient has an elevated proBNP level. Currently is on 4 L of oxygen nasal cannula. He is currently on aspirin at. No evidence of any superinfection or pneumonia. Idiopathic pulmonary fibrosis, started on pirfenidone on an outpatient basis Postoperative day # 3, S/P balloon, and stent, of the LAD. History of interstitial lung disease/pulmonary fibrosis, recently started on Esbriet. Chronic hypoxemic respiratory failure. Ischemic cardiomyopathy with an ejection fraction of 45%. Atrial fibrillation. Status post AICD placement. CAD with previous stent placement. Hyperlipidemia. Diabetes mellitus. Previous tobacco use. History of anxiety/depression. Plan: Keep oxygen 4 L and gradually titrated down to maintain saturation above 90% Continue Esbriet on outpatient basis Aspirin and Plavix Continue anticoagulation with Eliquis 5 mg p.o. twice a day Bumex 0.5 mg p.o. daily. I am going to give him additional dose of Lasix 40 mg IV push. Coreg 12.5 mg p.o. twice daily BuSpar for anxiety 50 mg p.o. twice daily Seroquel 75 mg at bedtime and 25 mg on a as needed basis Lipitor 80 mg p.o. daily in combination with Zetia Farxiga 5 mg p.o. daily To be discharged home today and be followed up on outpatient basis.
[2024-08-14] MEDS ORDERED: SERTRALINE 100 MG TAB PO SCH (09:00)
== END 2024-08-13 15:47 ==
LOC: CATHCVL 11:47 → 3SCARD 14:01 → CATHCVL 08-13 15:47
PROVIDERS: ATTEND Internal Medicine
DX: I25.5 Ischemic cardiomyopathy (principal); I25.2 Old myocardial infarction; I27.20 Pulmonary hypertension, unspecified; I48.0 Paroxysmal atrial fibrillation; I25.119 Atherosclerotic heart disease of native coronary artery with unspecified angina pectoris; E11.9 Type 2 diabetes mellitus without complications; E78.5 Hyperlipidemia, unspecified; F32.A Depression, unspecified; F41.0 Panic disorder [episodic paroxysmal anxiety]; F41.1 Generalized anxiety disorder; I11.0 Hypertensive heart disease with heart failure; I50.9 Heart failure, unspecified; J96.21 Acute and chronic respiratory failure with hypoxia; Z79.01 Long term (current) use of anticoagulants; Z79.02 Long term (current) use of antithrombotics/antiplatelets; Z79.82 Long term (current) use of aspirin; Z79.84 Long term (current) use of oral hypoglycemic drugs; Z79.899 Other long term (current) drug therapy; Z87.891 Personal history of nicotine dependence; Z91.030 Bee allergy status; Z95.810 Presence of automatic (implantable) cardiac defibrillator; Z90.89 Acquired absence of other organs; Z95.5 Presence of coronary angioplasty implant and graft
CPT/HCPCS: 93460; 93799; 92920; 83880; 80048; 85018; 82565; 82810; 85025; 84145; 71045; 99152; 99153; J2250; J1644 ×3; J1940; J2003; J3010; Q9967; J2305